=== PATIENT | female | born 1990 | race Caucasian/White ===

== ENCOUNTER 2016-09-15 13:19 | Observation (INO) | payer BC ==
--- NOTE | 2016-09-15 13:25 | EDM.PDOC ---
ED HPI GENERAL MEDICAL PROBLEM - General Stated Complaint: SEIZURE Time Seen by Provider: 09/15/16 13:24 Source of Information: Reports: Patient, EMS History Limitations: Reports: No Limitations - History of Present Illness INITIAL COMMENTS - FREE TEXT/NARRATIVE: 25 yo F with past medical history as listed in her chart. Was brought to the ER by the EMS after a reported seixure activity. Patient reports that she has been compliant with her anti seizure medications. Does not recall her last episode of seizure before today. Reports mild headache but denied any fever, chills, abdominal pain, neck pain or h/o Trauma Onset: Today Onset Date: 09/15/16 Duration: Day(s): (occurred earlier today) Worsens with: Reports: None Associated Symptoms: Reports: No Other Symptoms neck Pain Score (Numeric/FACES): 9 - Related Data Allergies Allergy/AdvReac Type Severity Reaction Status Date / Time amoxicillin [From Augmentin] Allergy Cannot Verified 09/15/16 13:37 Remember clavulanic acid Allergy Cannot Verified 09/15/16 13:37 [From Augmentin] Remember hydromorphone [From Dilaudid] Allergy Cannot Verified 09/15/16 13:37 Remember hydroxyzine [From Vistaril] Allergy Cannot Verified 09/15/16 13:37 Remember lactose Allergy Cannot Verified 09/15/16 13:37 Remember latex Allergy Cannot Verified 09/15/16 13:37 Remember povidone-iodine Allergy Cannot Verified 09/15/16 13:37 Remember Home Meds: Home Meds Benzonatate 1 cap PO TID 09/15/16 [History] Hyoscyamine [Hyomax-SL] 1 tab PO TID 09/15/16 [History] Levonorgestrel-Ethin Estradiol [Chelsey-28 Tablet] 1 tab PO DAILY 09/15/16 [ History] Levothyroxine 1 tab PO DAILY 09/15/16 [History] Minocycline [Minocin] 1 cap PO BID 09/15/16 [History] Montelukast [Singulair] 1 tab PO ASDIRECTED 09/15/16 [History] Pantoprazole Sodium [Protonix] 1 tab PO DAILY 09/15/16 [History] Potassium Chloride [Klor-Con M20] 1 tab PO DAILY 09/15/16 [History] Pregabalin [Lyrica] 1 cap PO TID 09/15/16 [History] Zolpidem Tartrate [Ambien] 1 tab PO ASDIRECTED 09/15/16 [History] lamoTRIgine [Lamotrigine] 1 tab PO BID 09/15/16 [History] levETIRAcetam [Keppra] 2 tab PO BID 09/15/16 [History] ED ROS GENERAL - Review of Systems Review Of Systems: See Below Constitutional: Reports: Weakness HEENT: Reports: No Symptoms Respiratory: Reports: No Symptoms Cardiovascular: Reports: No Symptoms Endocrine: Reports: No Symptoms GI/Abdominal: Reports: No Symptoms : Reports: No Symptoms Musculoskeletal: Reports: No Symptoms Skin: Reports: No Symptoms Neurological: Reports: Seizure Psychiatric: Reports: No Symptoms Hematologic/Lymphatic: Reports: No Symptoms Immunologic: Reports: No Symptoms ED EXAM, NEURO - Physical Exam Exam: See Below Exam Limited By: No Limitations General Appearance: Alert, WD/WN, No Apparent Distress Eye Exam: Bilateral Eye: EOMI, PERRL Ears: Normal External Exam, Normal Canal, Hearing Grossly Normal, Normal TMs Nose: Normal Inspection, Normal Mucosa Throat/Mouth: Normal Inspection, Normal Lips, Normal Teeth, Normal Gums, Normal Oropharynx, No Airway Compromise Head Exam: Atraumatic, Normocephalic Neck: Normal Inspection, Supple, Non-Tender, Full Range of Motion Respiratory/Chest: No Respiratory Distress, Lungs Clear, Normal Breath Sounds, No Accessory Muscle Use, Chest Non-Tender Cardiovascular: Normal Peripheral Pulses, Regular Rate, Rhythm, No Edema, No Gallop, No JVD GI/Abdominal: Normal Bowel Sounds, Soft, Non-Tender, No Organomegaly, No Distention Neurological: Alert, Normal Mood/Affect, Normal Dorsiflexion, CN II-XII Intact, Normal Plantar Flexion Back Exam: Normal Inspection, Full Range of Motion Extremities: Normal Inspection, Normal Range of Motion, Non-Tender, No Pedal Edema, Normal Capillary Refill Psychiatric: Normal Affect, Normal Mood Skin Exam: Warm, Dry, Intact, Normal Color Course - Vital Signs Text/Narrative:: While in the ER,Patient had a generalized tonic - clonic seizure that aborted with iv Ativan 2mg x 1. Keppra IV 500 MG X [address] head -- showed no acute intra cranial pathology. I believe she will benefit from admission. Case d/w Dr. Winston -- who graciously admitted patient for further evaluation. Last Recorded V/S: Last Vital Signs Temp 37.3 C 09/15/16 13:31 Pulse 106 H 09/15/16 15:47 Resp 16 09/15/16 15:47 BP 141/110 H 09/15/16 15:47 Pulse Ox 97 09/15/16 15:47 - Orders/Labs/Meds Orders: Active Orders 24 hr Category Date Time Status Patient Status Manage Transfer [TRANSFER] Routine ADT 09/15/16 16:02 Ordered Cardiac Monitoring [RC] .As Directed Care 09/15/16 16:02 Ordered KEPPRA [REF] Stat Lab 09/15/16 13:50 Received UA W/MICROSCOPIC [URIN] Stat Lab 09/15/16 13:34 Uncollected Sodium Chloride 0.9% [Normal Saline] 1,000 ml Med 09/15/16 13:45 Active IV ASDIRECTED Medication Orders Sodium Chloride (Normal Saline) 1,000 mls @ 150 mls/hr IV ASDIRECTED GERRY Last Admin: 09/15/16 14:13 Dose: 150 mls/hr Labs: Laboratory Tests 09/15/16 09/15/16 Range/Units 13:50 13:50 WBC 12.6 H (4.5-12.0) X10-3/uL RBC 5.25 H (3.23-5.20) x10(6)uL Hgb 15.5 (11.5-15.5) g/dL Hct 46.4 (30.0-51.3) % MCV 88.4 (80-96) fL MCH 29.5 (27.7-33.6) pg MCHC 33.4 (32.2-35.4) g/dL RDW 12.1 (11.5-15.5) % Plt Count 283 (125-369) X10(3)uL MPV 9.0 (7.4-10.4) fL Add Manual Diff Yes Neutrophils % (Manual) 81 (46-82) % Lymphocytes % (Manual) 17 (13-37) % Monocytes % (Manual) 2 L (4-12) % Sodium 139 (135-145) mmol/L Potassium 4.0 (3.5-5.3) mmol/L Chloride 106 (100-110) mmol/L Carbon Dioxide 21 L (23-29) mmol/L BUN 10 (5-20) mg/dL Creatinine 0.8 (0.6-1.3) mg/dL Est Cr Clr Drug Dosing 102.39 mL/min Estimated GFR (MDRD) > 60 (>60) BUN/Creatinine Ratio 12.5 (9-20) Glucose 151 H (80-116) mg/dL Calcium 9.8 (8.6-10.2) mg/dL Total Bilirubin 0.6 (0.1-1.3) mg/dL AST 29 H (5-27) IU/L ALT 20 (14-26) IU/L Alkaline Phosphatase 115 H (56-112) IU/L Total Protein 7.3 (6.0-8.0) g/dL Albumin 4.3 (3.5-5.2) g/dL Globulin 3.0 g/dL Albumin/Globulin Ratio 1.4 Meds: Medications Generic Name Dose Route Start Last Admin Trade Name Freq PRN Reason Stop Dose Admin Sodium Chloride 1,000 mls @ 150 mls/hr 09/15/16 13:45 09/15/16 14:13 Normal Saline IV 150 mls/hr ASDIRECTED GERRY Administration Discontinued Medications Generic Name Dose Route Start Last Admin Trade Name Freq PRN Reason Stop Dose Admin Levetiracetam 500 mg/ Sodium 105 mls @ 400 mls/hr 09/15/16 14:37 09/15/16 14: 50 Chloride IV 09/15/16 14:51 400 mls/hr ONETIME ONE Administration Lorazepam 2 mg 09/15/16 14:36 09/15/16 14:39 Ativan IVPUSH 09/15/16 14:37 2 mg ONETIME ONE Administration Lorazepam Confirm 09/15/16 14:35 09/15/16 15:43 Ativan Administered 09/15/16 14:36 Not Given Dose 2 mg .ROUTE .STK-MED ONE Ondansetron HCl 4 mg 09/15/16 14:11 09/15/16 14:39 Zofran IVPUSH 09/15/16 14:12 4 mg ONETIME ONE Administration Departure - Departure Time of Disposition: 16:10 Disposition: Refer to Observation Condition: Good Clinical Impression: Generalized convulsive epilepsy - Discharge Information Instructions: Epilepsy, [id number] - My Orders Last 24 Hours: My Active Orders 09/15/16 13:34 UA W/MICROSCOPIC [URIN] Stat 09/15/16 13:45 Sodium Chloride 0.9% [Normal Saline] 1,000 ml IV ASDIRECTED 09/15/16 13:50 KEPPRA [REF] Stat 09/15/16 16:02 Patient Status Manage Transfer [TRANSFER] Routine Cardiac Monitoring [RC] .As Directed - Assessment/Plan Last 24 Hours: My Active Orders 09/15/16 13:34 UA W/MICROSCOPIC [URIN] Stat 09/15/16 13:45 Sodium Chloride 0.9% [Normal Saline] 1,000 ml IV ASDIRECTED 09/15/16 13:50 KEPPRA [REF] Stat 09/15/16 16:02 Patient Status Manage Transfer [TRANSFER] Routine Cardiac Monitoring [RC] .As Directed
[2016-09-15] MEDS ORDERED: Sodium Chloride 0.9% 1,000 ML IV SCH (13:45)
[2016-09-15] MEDS ORDERED: Ondansetron 4 MG/2 ML SDV IVPUSH ONE (14:11)
[2016-09-15] MEDS ORDERED: LORazepam 2 MG/ML MDV ONE (14:35)
[2016-09-15] MEDS ORDERED: LORazepam 2 MG/ML MDV IVPUSH ONE (14:36)
[2016-09-15] MEDS ORDERED: levETIRAcetam 500 MG in Sodium Chloride 0.9% 100 ML IV ONE (14:37)
--- NOTE | 2016-09-15 16:05 | CT ---
INDICATION: Seizure. CT HEAD WITHOUT CONTRAST: Serial contiguous 2.5 and 5-mm sections were obtained through the brain without contrast and then repeated due to motion. Date of the exam is 09/15/2016. The study was compared with 08/14/[address] examinations. Total Exam DLP = 1898.72 mGy-cm. The skull appears to be intact. Paranasal and mastoid air cells appear to be well aerated. No shift of midline structures, ventricular abnormalities, or abnormal areas of density could be identified. No bleeding site or hematoma was seen. IMPRESSION: Normal CT brain without contrast. No significant interval change compared with 08/14/2016 or 03/29/2011 examinations. Report was called to Yoandy Tejada MD, at 1544 hours, 09/15/2016. MTDD
[2016-09-15] MEDS ORDERED: Ondansetron 4 MG/2 ML SDV IVPUSH PRN (16:26)
[2016-09-15] MEDS ORDERED: LORazepam 2 MG/ML MDV IVPUSH PRN (17:08)
[2016-09-15] MEDS ORDERED: Zolpidem 5 MG Tab PO PRN (21:00)
[2016-09-15] MEDS ORDERED: Montelukast 10 MG Tab PO SCH (21:00)
[2016-09-15] MEDS ORDERED: Acetaminophen 325 MG Tab PO PRN (21:07)
[2016-09-15] MEDS: levETIRAcetam 500 MG Tab PO SCH (21:22)
[2016-09-15] MEDS: lamoTRIgine 100 MG Tab PO SCH (21:22)
[2016-09-15] MEDS: Hyoscyamine 0.125 MG Tab.SL PO SCH (21:22)
[2016-09-15] MEDS: Benzonatate 100 MG Cap PO SCH (21:23)
[2016-09-15] MEDS: Pregabalin 75 MG Cap PO SCH (21:23)
[2016-09-16] MEDS ORDERED: Pantoprazole 40 MG Tab.CR PO SCH (07:30)
[2016-09-16 08:11] VITALS: BP_SYST 67
[2016-09-16] MEDS: Levothyroxine 25 MCG Tab PO SCH ×2 (08:11→09:04)
[2016-09-16] MEDS ORDERED: ADVAIR INH SCH (09:00)
[2016-09-16] MEDS ORDERED: Potassium Chloride 20 MEQ Tab.ER PO SCH (09:00)
[2016-09-16] MEDS ORDERED: LEVONORGESTREL ETHIN ESTRADIOL PO SCH (09:00)
[2016-09-16] MEDS ORDERED: Levothyroxine 25 MCG Tab PO SCH (09:00)
[2016-09-16] MEDS ORDERED: Enoxaparin 40 MG/0.4 ML Syringe SUBCUT SCH (09:00)
[2016-09-16] MEDS: levETIRAcetam 500 MG Tab PO SCH (09:04)
[2016-09-16] MEDS: lamoTRIgine 100 MG Tab PO SCH (09:05)
[2016-09-16] MEDS: Pregabalin 75 MG Cap PO SCH (09:12)
[2016-09-16] MEDS: Hyoscyamine 0.125 MG Tab.SL PO SCH (09:22)
--- NOTE | 2016-09-16 11:02 | PN ---
DATE SEEN: 09/16/2016 SUBJECTIVE: Lorenzo is a 25-year-old female, a [place] resident, who was admitted with an acute confirmed seizure event, second ocurrence in the emergency room, and treated with a dose of IV Keppra and Ativan. She has had an uneventful night. Up ambulating, active, appropriate. No recurrence of seizure. She is anxious to go home. Again, anticonvulsant levels are pending. OBJECTIVE: VITAL SIGNS: Stable. 36.8, 74 is the pulse, blood pressure 132/87, mean blood pressure 97, respirations 16, O2 saturation 98% on room air. GENERAL: Speech is fluent. Soft spoken. NECK: Benign. Thyroid small. CHEST: Clear in all lung mitchell. HEART: Regular without ectopy or murmur. EXTREMITIES: Well perfused, no decreased range of motion or loss of strength. ASSESSMENT: Recurrent seizures. PLAN: Medications on board, has been on Topamax in the past, has not been on Dilantin or any other anticonvulsants. We will defer intervention to her primary neurologist, Dr. Sullivan. She was discharged home with recommendations and care above, risk of fall or injury, safe home environment, close observation by her aunt.. Will make an appointment with Dr. Adi Sullivan sometime in the near future. /[id number] /KELLY CC: Dr. Adi Slulivan, [facility]
[2016-09-16] MEDS: Benzonatate 100 MG Cap PO SCH (11:36)
--- NOTE | 2016-09-17 10:59 | HP ---
ADMISSION DATE: 09/15/2016 REASON FOR VISIT: Seizure at home. HISTORY OF PRESENT ILLNESS: Lorenzo Martinez is a 25-year-old single female from [place], who was transferred by ambulance to [facility]. She lives with her aunt in our community. Her aunt heard a tumble, a little fall in the bathroom, attended to her in a short time, and she was postictal, having had a seizure in the room. Lorenzo has had a seizure disorder dating back to age 19, being followed by Dr. Sullivan, neurologist, [facility] in [place]. Return to work recently has exacerbated her seizure activity. She has had 4 within the last month of August and in the end of July. They are major motor seizures usually brief in duration, but she has had "one seizure for 13 minutes". She was seen at [facility], a second seizure occurred, she was loaded with Keppra 500 mg and Ativan intravenously, seizure abated. She was admitted to the hospital for observation and treatment. Present medications include Tessalon Perles 100 mg t.i.d. p.r.n., hyoscyamine 0.125 mg t.i.d. p.r.n. for irritable bowel, lamotrigine 150 mg b.i.d. for seizures, Keppra 2000 mg b.i.d. for seizures, oral contraceptives for period control, levothyroxine 25 mcg one p.o. daily for hypothyroidism, minocycline 100 mg one p.o. b.i.d. adult acne, Singulair 10 mg one p.o. at bedtime for reactive airway disease, Protonix 40 mg once daily for GERD, potassium chloride 20 mEq daily for hypokalemia, Lyrica 150 mg t.i.d. for fibromyalgia, and Ambien 5 mg at bedtime for sleep. ALLERGIES: She is allergic to amoxicillin, clavulanic acid from Augmentin, hydromorphone (Dilaudid, hydroxyzine), Vistaril, lactose, latex, and povidone/iodine; reactions unknown. PAST MEDICAL HISTORY: Significant for T and A as a child, laparoscopic cholecystectomy, and two previous complicated foot surgeries. Chronic illnesses include irritable bowel syndrome, reactive airway disease, gastroesophageal reflux, and asthma, along with fibromyalgia. No other operative procedures, hospitalizations, unusual childhood diseases, major injuries, or fractures. SOCIAL HISTORY: Originally from the state of [place], most recently lived in [place] with her mom. Her mom unexpectedly at age 47 of suspected coronary event. She is now living with her aunt in [place]. She is single, no children, nonsmoker, no alcohol consumption, or no illicit drug use. REVIEW OF SYSTEMS: GENERAL: Feeling generally well. Little bit fatigued and tired. EYES: Sees well. EARS: Hears well. OROPHARYNX: Dentition intact. CHEST: No cough, wheeze, or congestion. CARDIOVASCULAR: Denies chest pain, palpitations, or syncope. GASTROINTESTINAL: Regular predictable stools, some irritable bowel symptoms and intermittent cramping and diarrhea. GENITOURINARY: Good voiding pattern. No blood in urine. SKIN: No new lesions, eruptions or moles. ENDOCRINE: No excessive thirst, urination. ALLERGIES: No chronic cough, wheeze, or congestion. PSYCHIATRIC: Mood stable. NEUROLOGIC: Seizure disorder. PHYSICAL EXAMINATION: VITAL SIGNS: Temperature 36.9, 96 is the pulse, blood pressure 130/86, mean blood pressure 100, respirations 20, and O2 saturation 98%. GENERAL: A cooperative, conversant, appropriate and aware and wakeful at time of my examination. HEENT: Funduscopic benign. Bright TMs. Clear nasal discharge. Mouth and oropharynx clear. Good gag reflex. Tongue midline. No tongue injury. NECK: Benign. Thyroid small. CHEST: Clear in all lung mitchell. No adventitious sounds. HEART: Regular without ectopy or murmur. BREAST: Exam deferred. ABDOMEN: Benign. Right upper quadrant cholecystectomy scar well healed. Moderately obese. GENITOURINARY AND RECTAL: Appropriately deferred. EXTREMITIES: Well perfused. Reflex symmetric. Sensation intact. NEUROLOGIC: Cranial nerves 2 through 12 are intact. Speech is fluent. Gait and station are unremarkable. LABORATORY STUDIES: White count 12,600, hemoglobin 15.5, hematocrit 46.4, and normal differential. Electrolytes satisfactory, random glucose 151. IV is in place. Mildly elevated AST 29, ALT 20, alkaline phosphatase 115. Urine was bloody, menses in place. Lamictal and Keppra level sent to outreach lab. ASSESSMENT: Recurrent seizures, history of longstanding, reasonable control, less controlled the last month's duration. PLAN: We will admit her for observation, treatment, and intervention of any seizures that may recur in the next 24 hours. Again anticonvulsant levels are sent off to a resource lab in the [facility]. Observation through the night. /[id number] [place]/KELLY CC: Dr. Adi Sullivan, [facility]
--- NOTE | 2016-09-17 11:43 | DISCH ---
DISCHARGE DATE: 09/16/2016 DISCHARGE DIAGNOSIS: Acute self-limiting seizure x2, underlying seizure disorder. HOSPITAL COURSE: Lorenzo Martinez is a 25-year-old single female, who was admitted through [facility]. She had a near witnessed seizure at home and recurrence in the ER. She was given intravenous Keppra and Ativan with resolution of seizures. She was observed overnight with no complicating issue. Laboratory studies were all satisfactory, her 2 anticonvulsant levels, Keppra and lamotrigine levels, have been forwarded to a reference laboratory from [facility] to [facility]. Not available at the time of discharge. DISPOSITION: At the time of discharge, she was comfortable, ambulating, and eating without complicating issues. She was discharged home on same medications. FOLLOWUP: She will follow up through [facility] phone nurse at [place], accessing her drug levels as they become available later in the week or first part of the week. They then can be forwarded to Dr. Sullivan for adjustment of medications or changes. I did encourage her to get an appointment with Dr. Sullivan sometime in the near future, Neurology [facility]. /[id number] /KELLY CC: Dr. Adi Sullivan, [facility]
== END 2016-09-16 11:25 | disposition home or self-care (01) ==
LOC: FB.ED 13:19 → FB.ICU 16:02
PROVIDERS: ADMIT Internal Medicine; ATTEND Family Medicine
DX: G40.909 Epilepsy, unspecified, not intractable, without status epilepticus (principal); J45.909 Unspecified asthma, uncomplicated; K21.9 Gastro-esophageal reflux disease without esophagitis; Z88.1 Allergy status to other antibiotic agents; Z88.8 Allergy status to other drugs, medicaments and biological substances; Z91.040 Latex allergy status; Z90.49 Acquired absence of other specified parts of digestive tract; Z79.899 Other long term (current) drug therapy
CPT/HCPCS: 36415; 70450; 80053; 80175; 80177; 81001; 84443; 85025; 96361; 96374; 96375; 99284; A9270; J1953; J2060; J2405; J7030; J7040; 96365; 99217; 99219; 99285; G0378

== ENCOUNTER 2016-10-30 16:48 | Emergency (ER) | payer BC ==
--- NOTE | 2016-10-30 18:41 | EDM.PDOC ---
ED HPI GENERAL MEDICAL PROBLEM - General Chief Complaint: Neuro Symptoms/Deficits Stated Complaint: HAD A SEIZURE Time Seen by Provider: 10/30/16 16:59 Source of Information: Reports: Patient History Limitations: Reports: No Limitations, Physical Impairment (morbid obese) - History of Present Illness INITIAL COMMENTS - FREE TEXT/NARRATIVE: 25 y.o.w.yaneth came to the ed because she thinks she had a seizure. Pt is on Kappra. She was watching TV, fell a sleep and woke up and somebody told her she had a seizure. No tongue bite, no spont urination, no postictal symptoms. As per aunt, who was called, did not observe Tonic clonic movement. Pt's only complaint was, minor discomfort r joseph. Dysuria? Onset: Unknown/Unsure Onset Date: 10/30/16 Onset Time: 12:00 Duration: Hour(s): Location: Reports: Head Quality: Reports: Dull Severity: Mild Improves with: Reports: None Worsens with: Reports: None Context: Reports: Other (?) Associated Symptoms: Reports: No Other Symptoms Headache Pain Score (Numeric/FACES): 9 - Related Data Allergies Allergy/AdvReac Type Severity Reaction Status Date / Time amoxicillin [From Augmentin] Allergy Cannot Verified 10/30/16 16:54 Remember clavulanic acid Allergy Cannot Verified 10/30/16 16:54 [From Augmentin] Remember hydromorphone [From Dilaudid] Allergy Cannot Verified 10/30/16 16:54 Remember hydroxyzine [From Vistaril] Allergy Cannot Verified 10/30/16 16:54 Remember lactose Allergy Cannot Verified 10/30/16 16:54 Remember latex Allergy Cannot Verified 10/30/16 16:54 Remember povidone-iodine Allergy Cannot Verified 10/30/16 16:54 Remember Home Meds: Home Meds Benzonatate 100 mg PO TID PRN 09/15/16 [History] Hyoscyamine [Hyomax-SL] 0.125 mg PO BID 09/15/16 [History] Levonorgestrel-Ethin Estradiol [Mak[place]eli-28 Tablet] 1 tab PO DAILY 09/15/16 [ History] Levothyroxine 12.5 mcg PO DAILY 09/15/16 [History] Minocycline [Minocin] 100 mg PO BID 09/15/16 [History] Montelukast [Singulair] 10 mg PO DAILY 09/15/16 [History] Pantoprazole Sodium [Protonix] 40 mg PO DAILY 09/15/16 [History] Potassium Chloride [Klor-Con M20] 20 meq PO DAILY 09/15/16 [History] Pregabalin [Lyrica] 150 mg PO BID 09/15/16 [History] Zolpidem Tartrate [Ambien] 5 mg PO BEDTIME PRN 09/15/16 [History] lamoTRIgine [Lamotrigine] 150 mg PO BID 09/15/16 [History] levETIRAcetam [Keppra] 2,000 mg PO BID 09/15/16 [History] Albuterol [Ventolin HFA] 1 - 2 puff IH Q4H PRN 09/16/16 [History] Doxepin [SINEquan] 100 mg PO BEDTIME 09/16/16 [History] Fluticasone/Salmeterol [Advair Diskus 100-50] 1 puff IH BID 09/16/16 [History] Milnacipran HCl [Savella] 100 mg PO BID 09/16/16 [History] Ondansetron [Ondansetron ODT] 8 mg PO Q8H PRN 09/16/16 [History] Ciprofloxacin HCl [Cipro] 500 mg PO BID #20 tablet 10/30/16 [Rx] Past Medical History Respiratory History: Reports: Asthma, Sleep Apnea Genitourinary History: Reports: UTI, Recurrent Other Genitourinary History: hx of UTIs Musculoskeletal History: Reports: Other (See Below) Other Musculoskeletal History: herniated disc, DJD lower back Neurological History: Reports: Seizure Psychiatric History: Reports: Depression Endocrine/Metabolic History: Reports: Hypothyroidism, Other (See Below) Other Endocrine/Metabolic History: hypoglycemic - Past Surgical History HEENT Surgical History: Reports: Tonsillectomy, Other (See Below) Other HEENT Surgeries/Procedures: uvula reconstructed Respiratory Surgical History: Reports: None GI Surgical History: Reports: Cholecystectomy Endocrine Surgical History: Reports: None Neurological Surgical History: Reports: None Musculoskeletal Surgical History: Reports: None Social & Family History - Tobacco Use Smoking Status *Q: Never Smoker Second Hand Smoke Exposure: No - Caffeine Use Caffeine Use: Reports: Coffee, Soda - Alcohol Use Days Per Week of Alcohol Use: 0 - Recreational Drug Use Recreational Drug Use: No ED ROS GENERAL - Review of Systems Review Of Systems: See Below Constitutional: Reports: No Symptoms HEENT: Reports: No Symptoms Respiratory: Reports: No Symptoms Cardiovascular: Reports: No Symptoms Endocrine: Reports: No Symptoms GI/Abdominal: Reports: No Symptoms : Reports: No Symptoms Musculoskeletal: Reports: No Symptoms Skin: Reports: No Symptoms Neurological: Reports: No Symptoms Psychiatric: Reports: No Symptoms Hematologic/Lymphatic: Reports: No Symptoms Immunologic: Reports: No Symptoms ED EXAM, NEURO - Physical Exam Exam: See Below Exam Limited By: Physical Impairment (morbid obese) General Appearance: Alert, WD/WN, No Apparent Distress, Obese (morbid) Eye Exam: Bilateral Eye: Normal Inspection Ears: Normal External Exam Nose: Normal Inspection, Normal Mucosa Throat/Mouth: Normal Inspection, Normal Lips Head Exam: Atraumatic, Normocephalic Neck: Normal Inspection, Supple, Non-Tender Respiratory/Chest: No Respiratory Distress, Lungs Clear, Normal Breath Sounds Cardiovascular: Normal Peripheral Pulses, Regular Rate, Rhythm GI/Abdominal: Normal Bowel Sounds, Soft, Non-Tender (Female) Exam: Deferred Rectal (Female) Exam: Deferred Neurological: Alert, Normal Mood/Affect, Normal Dorsiflexion, CN II-XII Intact, Normal Plantar Flexion, Normal Gait Back Exam: Normal Inspection, Full Range of Motion Extremities: Normal Inspection, Normal Range of Motion Psychiatric: Depressed Mood Skin Exam: Warm, Dry, Intact, Normal Color, No Rash Course - Vital Signs Text/Narrative:: 25 y.o.w.f came to the ed because she thinks she had a seizure. Pt is on Kappra. She was watching TV, fell a sleep and woke up and somebody told her she had a seizure. No tongue bite, no spont urination, no postictal symptoms. As per aunt, who was called, did not observe Tonic clonic movement. Pt's only complaint was, minor discomfort r joseph. Dysuria? PE: Morbid obese, tension headache, minor. Labs: UTI CBC/BMP wnl Impression: Morbid obese, tension headache, minor. depressed mood Tx: Observation, Cipro Reexam; Pt was ambulating, not suicidal Plan: D/C with instructions Last Recorded V/S: Last Vital Signs Temp 37.2 C 10/30/16 16:59 Pulse 114 H 10/30/16 16:59 Resp 20 10/30/16 16:59 BP 153/105 H 10/30/16 16:59 Pulse Ox 99 10/30/16 16:59 - Orders/Labs/Meds Orders: Active Orders 24 hr Category Date Time Status KAPPA LAMBDA FREE LIGHT CHAIN [REF] Stat Lab 10/30/16 17:11 Stop Req Labs: Laboratory Tests 10/30/16 10/30/16 10/30/16 Range/Units 17:25 17:25 18:11 WBC 11.7 (4.5-12.0) X10-3/uL RBC 4.75 (3.23-5.20) x10(6)uL Hgb 14.6 (11.5-15.5) g/dL Hct 42.5 (30.0-51.3) % MCV 89.5 (80-96) fL MCH 30.8 (27.7-33.6) pg MCHC 34.4 (32.2-35.4) g/dL RDW 12.4 (11.5-15.5) % Plt Count 320 (125-369) X10(3)uL MPV 8.3 (7.4-10.4) fL Neut % (Auto) 71.8 (46-82) % Lymph % (Auto) 20.4 (13-37) % [place] % (Auto) 6.2 (4-12) % Eos % (Auto) 1 (1.0-5.0) % Baso % (Auto) 0 (0-2) % Neut # (Auto) 8.5 H (1.6-8.3) # Lymph # (Auto) 2.4 (0.6-5.0) # [place] # (Auto) 0.7 (0.0-1.3) # Eos # (Auto) 0.1 (0.0-0.8) # Baso # (Auto) 0.0 (0.0-0.2) # Sodium 140 (135-145) mmol/L Potassium 3.5 (3.5-5.3) mmol/L Chloride 106 (100-110) mmol/L Carbon Dioxide 26 (23-29) mmol/L BUN 12 (5-20) mg/dL Creatinine 0.8 (0.6-1.3) mg/dL Est Cr Clr Drug Dosing 106.36 mL/min Estimated GFR (MDRD) > 60 (>60) BUN/Creatinine Ratio 15.0 (9-20) Glucose 98 (80-116) mg/dL Calcium 9.0 (8.6-10.2) mg/dL Urine Color Yellow (YELLOW) Urine Appearance Slightly cloudy (CLEAR) Urine pH 5.0 (5.0-6.5) Ur Specific [place] 1.015 (1.010-1.025) Urine Protein Negative (NEGATIVE) mg/dL Urine Glucose (UA) Normal (NEGATIVE) mg/dL Urine Ketones Negative (NEGATIVE) mg/dL Urine Occult Blood Negative (NEGATIVE) Urine Nitrite Negative (NEGATIVE) Urine Bilirubin Negative (NEGATIVE) Urine Urobilinogen Normal (NEGATIVE) mg/dL Ur Leukocyte Esterase Small H (NEGATIVE) Urine RBC 0-5 (0) Urine WBC 5-10 (0) Ur Squamous Epith Cells Moderate H (NS,R,O) Urine Bacteria Few H (NS) Meds: Medications Discontinued Medications Generic Name Dose Route Start Last Admin Trade Name Gabo PRN Reason Stop Dose Admin Ciprofloxacin 500 mg 10/30/16 18:57 10/30/16 19:02 Ciprofloxacin Hcl PO 10/30/16 18:58 500 mg ONETIME ONE Administration Departure - Departure Time of Disposition: 18:59 Disposition: Home, Self-Care 01 Condition: Good Clinical Impression: Depressed affect UTI (urinary tract infection) Qualifiers: Urinary tract infection type: acute cystitis Hematuria presence: without hematuria Qualified Code(s): N30.00 - Acute cystitis without hematuria - Discharge Information Prescriptions: Ciprofloxacin HCl [Cipro] 500 mg PO BID #20 tablet Referrals: Susanna Babcock [employer]IATE [Primary Care Provider] - Forms: ED Department Discharge Additional Instructions: Please take the meds as recommended, please f/u with your PMD, please come back if your symptoms get worse acutely - My Orders Last 24 Hours: My Active Orders 10/30/16 17:11 KAPPA LAMBDA FREE LIGHT CHAIN [REF] Stat - Assessment/Plan Last 24 Hours: My Active Orders 10/30/16 17:11 KAPPA LAMBDA FREE LIGHT CHAIN [REF] Stat
[2016-10-30] MEDS ORDERED: Ciprofloxacin 500 MG Tab PO ONE (18:57)
[2016-10-30 19:17] VITALS: BP 140/107
== END 2016-10-30 19:10 | disposition home or self-care (01) ==
LOC: FB.ED 16:48
DX: N30.00 Acute cystitis without hematuria (principal); F32.9 Major depressive disorder, single episode, unspecified; G44.209 Tension-type headache, unspecified, not intractable; E66.01 Morbid (severe) obesity due to excess calories; Z68.33 Body mass index [BMI] 33.0-33.9, adult; E03.9 Hypothyroidism, unspecified; Z88.1 Allergy status to other antibiotic agents; Z91.040 Latex allergy status; Z91.011 Allergy to milk products; Z91.041 Radiographic dye allergy status; Z87.440 Personal history of urinary (tract) infections; Z90.89 Acquired absence of other organs
CPT/HCPCS: 36415; 80048; 81001; 85025; 99284; A9270

== ENCOUNTER 2017-04-15 18:47 | Emergency (ER) | payer BC, MEDICAID ==
[2017-04-15 20:32] VITALS: BP 138/98
[2017-04-15] MEDS ORDERED: levETIRAcetam 500 MG Tab PO SCH (21:00)
--- NOTE | 2017-04-19 12:00 | ER ---
DATE SEEN: 04/15/2017 TIME SEEN: This 26-year-old was seen at 1730 hours. HISTORY OF PRESENT ILLNESS: She states that she was strolling with her friend and she had a seizure. She knows that she did not stop breathing. She started staring ahead. She was standing, did not fall down. Did not lose urine. CURRENT MEDICATIONS: Keppra 2000 mg b.i.d. and lamotrigine 150 mg b.i.d. She sees a neurologist at Dr. Sullivan at [place]. Has not seen him from at least 6-7 months. PAST MEDICAL HISTORY: History of asthma, migraines, hypertension, obesity 260 pounds. FAMILY HISTORY: Mother of cardiac arrest at age 46. Father is alive, well. The patient recently was treated for urinary tract infection, started on Cipro yesterday after having been seen at [facility]. She denies diabetes. She did not have urinary incontinence with this episode. Not coughing. No shortness of breath. She started staring straight ahead and did not have any tonic-clonic activity. No tongue biting. Headache. No neck pain. No muscle pain. No jaw pain. No compromise of vision. CURRENT ALLERGIES: Amoxicillin, Augmentin, Dilaudid, hydroxyzine, lactose, latex, Povidone-iodine. CURRENT MEDICATIONS: Albuterol, ciprofloxacin, lamotrigine, Keppra. OTHER HISTORY: Depression. REVIEW OF SYSTEMS: Review of systems otherwise negative except those noted above. PHYSICAL EXAMINATION: VITAL SIGNS: Blood pressure 178/93 later it came down to 138/98 about 50 minutes later, heart rate 97, respirations 16, oxygen saturation 100%, temperature 35.9 degrees centigrade. GENERAL: The patient wearing glasses. She is overweight. Communicative. HEENT: Denies headache. PERRLA intact. Eye grounds normal. No dysconjugate gaze. TMs normal appearance. Pharynx without abnormality. No tongue biting noted. No glossal injury. NECK: Supple. No bruits. No masses. No thyromegaly. LUNGS: Clear without rales or rhonchi. HEART: S1, S2. No murmur. ABDOMEN: Soft. No guarding. No abdominal discomfort. Increased abdominal girth noted. EXTREMITIES: Without abnormality. Deep tendon reflexes normal in upper and lower extremities. Cranial nerves 2 through 12 intact. Oriented x3. Gait intact. No pronator drift. No dysmetria. No tremor. No rigidity. EMERGENCY DEPARTMENT COURSE: While I was talking she started talking. She stopped talking, would stare ahead, this was associated with her left leg flexion, intermittent movement in the knee and kicking her legs back and forth as if she was pushing herself in water from the bridge. This lasted for about 32 seconds then relented. No lab work was done. ASSESSMENT: 1. The patient is compliant with her medicines. 2. In addition to her seizures, she has absence seizure. Additional dose of Keppra 500 mg was given orally. The patient observed for an hour. She did not have any further absence seizure. The patient dismissed to follow up with doctor as needed otherwise in a week. If she has recurrent persistent episodes such as this, she is to see Dr. Sullivan earlier. The patient not to drive and to limit her activity. The patient was seen at 1730 hours. /[id number] DESHAWN/KELLY
== END 2017-04-15 20:30 | disposition home or self-care (01) ==
LOC: FB.ED 18:47
DX: R56.9 Unspecified convulsions (principal); J45.909 Unspecified asthma, uncomplicated; I10 Essential (primary) hypertension; E66.9 Obesity, unspecified; Z79.899 Other long term (current) drug therapy; Z68.41 Body mass index [BMI] 40.0-44.9, adult
CPT/HCPCS: 99283; A9270

== ENCOUNTER 2017-04-23 21:17 | Emergency (ER) | payer BC, MEDICAID ==
[2017-04-23] MEDS ORDERED: Ketorolac 60 MG/2 ML SDV IM ONE (21:34)
--- NOTE | 2017-04-24 00:48 | ER ---
DATE SEEN: 04/23/2017 REASON FOR VISIT: Pain in foot. HISTORY OF PRESENT ILLNESS: This is a 26-year-old who tripped yesterday and fell, complains of right foot pain, moderate to severe, unable to bear weight. Also, had hit her back, but did not pass out or hit the head. REVIEW OF SYSTEMS: Denies any fever or chills, chest pain or shortness of breath, headache, nausea or vomiting. PAST MEDICAL HISTORY: Seizure disorder. CURRENT MEDICATIONS: She is on several medications. Please see the nurse's notes. ALLERGIES: Reviewed. PHYSICAL EXAMINATION: GENERAL: She is very anxious, tearful. VITAL SIGNS: Pulse 123, temperature 98.4, and blood pressure is 129/60. HEAD: Normocephalic with no signs of trauma. NECK: No tenderness to the cervical spine. Full range of motion. CHEST: Clear. MENTAL STATUS: Tearful, anxious. MUSCULOSKELETAL: Revealed tenderness on the right foot, but no obvious swelling or signs of trauma. Peripheral pulses are present. IMAGING: X-ray was negative. IMPRESSION: Sprain, foot. PLAN: Ketorolac 60 mg IM. To ice, elevation and rest. Follow up p.r.n. TIME SEEN: 2200 hours. /[id number] EDGAR/KELLY
[2017-04-24 04:33] VITALS: BP 128/81
--- NOTE | 2017-04-26 09:16 | CR ---
INDICATION: Right foot pain. RIGHT FOOT: Three views of the right foot were obtained 04/23/2017, and revealed a density overlying the calcaneus on the lateral view. No significant bone or joint abnormality was identified. MTDD
== END 2017-04-23 23:10 | disposition home or self-care (01) ==
LOC: FB.ED 21:17
DX: S93.601A Unspecified sprain of right foot, initial encounter (principal); W01.0XXA Fall on same level from slipping, tripping and stumbling without subsequent striking against object, initial encounter
CPT/HCPCS: 73630; 96372; 99283; J1885

== ENCOUNTER 2017-05-10 11:49 | Emergency (ER) | payer BC, MEDICAID ==
--- NOTE | 2017-05-10 11:49 | EDM.PDOC ---
ED HPI GENERAL MEDICAL PROBLEM - General Chief Complaint: Abdominal Pain Stated Complaint: RT SIDE PAIN Time Seen by Provider: 05/10/17 11:15 Source of Information: Reports: Patient, EMS, EMS Notes Reviewed History Limitations: Reports: No Limitations - History of Present Illness INITIAL COMMENTS - FREE TEXT/NARRATIVE: Lorenzo comes into [facility] ED by EMS with a 2 day hx of RLQ pain that is radiating to the umbilicus. Pain is sharp, intermittent, and worse with palpation and movement. She was seen in Clinic this am and sent to the ED for evaluation. She has had no labs performed this am. Of interest is a 4 mos hx of dysfunctional uterine bleeding, intermittent, inspite of BCPs in an attempt to control sxs. She also has a PMH of pelvic endometriosis. abdominal pain Pain Score (Numeric/FACES): 9 - Related Data Allergies Allergy/AdvReac Type Severity Reaction Status Date / Time amoxicillin [From Augmentin] Allergy Muscle Verified 05/10/17 11:54 Weakness clavulanic acid Allergy Muscle Verified 05/10/17 11:54 [From Augmentin] Weakness hydromorphone [From Dilaudid] Allergy Muscle Verified 05/10/17 11:54 Weakness hydroxyzine [From Vistaril] Allergy Swelling Verified 05/10/17 11:54 lactose Allergy Stomach Verified 05/10/17 11:54 Ache latex Allergy Swelling Verified 05/10/17 11:54 povidone-iodine Allergy Swelling Verified 05/10/17 11:54 Home Meds: Home Meds lamoTRIgine [Lamotrigine] 150 mg PO BID 09/15/16 [History] levETIRAcetam [Keppra] 2,000 mg PO BID 09/15/16 [History] Albuterol [Ventolin HFA] 1 - 2 puff IH Q4H PRN 09/16/16 [History] ALPRAZolam [Alprazolam] 0.5 - 1 tab PO TID PRN 04/24/17 [History] Calcium Carbonate [Calcium] 600 mg PO DAILY 04/24/17 [History] Cholecalciferol (Vitamin D3) [Vitamin D3] 5,000 unit PO DAILY 04/24/17 [History] DULoxetine HCl [Duloxetine HCl] 60 mg PO BEDTIME 04/24/17 [History] DULoxetine [Cymbalta] 30 mg PO BEDTIME 04/24/17 [History] Doxepin [SINEquan] 100 mg PO BEDTIME 04/24/17 [History] Fluticasone Propionate [Flonase] 1 spray KEVYN DAILY 04/24/17 [History] Fluticasone/Salmeterol [Advair 100-50] 1 puff INH BID 04/24/17 [History] Hyoscyamine [Levsin] 0.125 mg PO BID PRN 04/24/17 [History] Levonorgestrel-Ethin Estradiol [Chelsey] 1 each PO DAILY 04/24/17 [History] Levothyroxine 12.5 mcg PO DAILY 04/24/17 [History] Losartan [Cozaar] 50 mg PO DAILY 04/24/17 [History] Milnacipran HCl [Savella] 100 mg PO BID 04/24/17 [History] Minocycline [Minocin] 100 mg PO BID 04/24/17 [History] Montelukast [Singulair] 10 mg PO DAILY 04/24/17 [History] Naratriptan [Amerge] 2.5 mg PO ASDIRECTED PRN 04/24/17 [History] Ondansetron [Zofran] 8 mg PO Q8H PRN 04/24/17 [History] Pantoprazole [ProTONIX] 40 mg PO DAILY 04/24/17 [History] Potassium Chloride 20 meq PO DAILY 04/24/17 [History] Pregabalin [Lyrica] 1 cap PO BID 04/24/17 [History] Zolpidem Tartrate [Ambien] 10 mg PO BEDTIME PRN 04/24/17 [History] Past Medical History HEENT History: Reports: Impaired Vision Other HEENT History: wears glasses Cardiovascular History: Reports: Hypertension Respiratory History: Reports: Asthma, Sleep Apnea, Other (See Below) Other Respiratory History: "Allergies" Gastrointestinal History: Reports: Other (See Below) Other Gastrointestinal History: "Stomach Problems" Genitourinary History: Reports: UTI, Recurrent Other Genitourinary History: hx of UTIs CHIEF CONCIERGE History: Reports: Endometriosis (diagnosed in [place], [place] about 3 years ago, managed with a hormonal implant that was later removed because of side effects. She is currently on OCP for managment.) Musculoskeletal History: Reports: Other (See Below) Other Musculoskeletal History: herniated disc, DJD lower back, hx two ankle surgeries on right foot Neurological History: Reports: Migraines, Seizure Psychiatric History: Reports: Depression, Other (See Below) Other Psychiatric History: "Insomnia" Endocrine/Metabolic History: Reports: Hypothyroidism, Other (See Below) Other Endocrine/Metabolic History: hypoglycemic - Past Surgical History HEENT Surgical History: Reports: Tonsillectomy, Other (See Below) Other HEENT Surgeries/Procedures: uvula reconstructed GI Surgical History: Reports: Cholecystectomy Social & Family History - Family History Cardiac: Reports: [place] - Tobacco Use Smoking Status *Q: Never Smoker Second Hand Smoke Exposure: No - Caffeine Use Caffeine Use: Reports: Coffee, Tea - Alcohol Use Days Per Week of Alcohol Use: 0 - Recreational Drug Use Recreational Drug Use: No ED ROS GENERAL - Review of Systems Review Of Systems: See Below Constitutional: Reports: Malaise, Decreased Appetite HEENT: Reports: No Symptoms Respiratory: Reports: No Symptoms Cardiovascular: Reports: No Symptoms Endocrine: Reports: No Symptoms GI/Abdominal: Reports: Abdominal Pain, Decreased Appetite, Nausea : Reports: Irregular Menses (4 mos of dysfunctional uterine bleeding) Musculoskeletal: Reports: No Symptoms Skin: Reports: No Symptoms Neurological: Reports: Headache Psychiatric: Reports: No Symptoms Hematologic/Lymphatic: Reports: No Symptoms Immunologic: Reports: No Symptoms ED EXAM, GI/ABD - Physical Exam Exam: See Below Exam Limited By: No Limitations General Appearance: Alert, WD/WN, Mild Distress, Obese Eyes: Bilateral: Normal Appearance, EOMI Ears: Normal External Exam Nose: Normal Inspection Throat/Mouth: Normal Inspection, Normal Lips, Normal Oropharynx, Normal Voice Head: Normocephalic Neck: Normal Inspection, Supple, Non-Tender, Full Range of Motion Respiratory/Chest: Lungs Clear, Normal Breath Sounds, Chest Non-Tender Cardiovascular: Regular Rate, Rhythm, No Edema, No Murmur GI/Abdominal Exam: Normal Bowel Sounds, Soft, No Organomegaly, No Distention, No Mass, Tender (RLQ with guarding,no rebound) (Female) Exam: Normal External Exam (conducted with RN in attendance: normal ext vulva, vault well rugated, cervix nulliparous, bimanual exam: uterus normal sized, adnexe deep and poorly delineated; nontender to maneuver ), Normal Bimanual Exam Rectal (Female) Exam: Deferred Back Exam: Normal Inspection Extremities: Normal Inspection Neurological: Alert, Oriented, CN II-XII Intact, Normal Cognition, Normal Gait, No Motor/Sensory Deficits Psychiatric: Normal Affect, Normal Mood Skin Exam: Warm, Dry, Intact Lymphatic: No Adenopathy Course - Vital Signs Text/Narrative:: Following assessment at the [facility] ED, an Abd-Pelvic CT w contrast was peformed: normal study, no findings for appendicitis; CBC noting Hgb 14.5 gm, WBC 9,100, plts normal; BMP normal for age; CRP 2.4, ESR 6mm/hr; se HCG neg; UA noted mod leuk esterase, lg blood, UC set up; case discussed with Svetlana Bond NP regarding disposition. Last Recorded V/S: Last Vital Signs Temp 36.9 C 05/10/17 11:10 Pulse 103 H 05/10/17 11:10 Resp 18 05/10/17 11:10 BP 138/96 H 05/10/17 11:10 Pulse Ox 99 05/10/17 11:10 - Orders/Labs/Meds Orders: Active Orders 24 hr Category Date Time Status Abdomen Pelvis w Cont [CT] Stat Exams 05/10/17 11:23 Taken UA W/MICROSCOPIC [URIN] Stat Lab 05/10/17 12:57 Ordered Labs: Laboratory Tests 05/10/17 05/10/17 05/10/17 Range/Units 11:41 11:41 11:41 WBC 9.1 (4.5-12.0) X10-3/uL RBC 4.62 (3.23-5.20) x10(6)uL Hgb 14.5 (11.5-15.5) g/dL Hct 42.7 (30.0-51.3) % MCV 92.3 (80-96) fL MCH 31.3 (27.7-33.6) pg MCHC 33.9 (32.2-35.4) g/dL RDW 12.3 (11.5-15.5) % Plt Count 278 (125-369) X10(3)uL MPV 8.6 (7.4-10.4) fL Neut % (Auto) 68.7 (46-82) % Lymph % (Auto) 25.6 (13-37) % [place] % (Auto) 4.2 (4-12) % Eos % (Auto) 1 (1.0-5.0) % Baso % (Auto) 1 (0-2) % Neut # (Auto) 6.2 (1.6-8.3) # Lymph # (Auto) 2.3 (0.6-5.0) # [place] # (Auto) 0.4 (0.0-1.3) # Eos # (Auto) 0.1 (0.0-0.8) # Baso # (Auto) 0.1 (0.0-0.2) # ESR 6 (0-20) mm/hr Sodium 138 (135-145) mmol/L Potassium 4.1 (3.5-5.3) mmol/L Chloride 103 (100-110) mmol/L Carbon Dioxide 27 (21-32) mmol/L BUN 23 H (7-18) mg/dL Creatinine 0.9 (0.55-1.02) mg/dL Est Cr Clr Drug Dosing 93.73 mL/min Estimated GFR (MDRD) > 60 (>60) BUN/Creatinine Ratio 25.6 H (9-20) Glucose 85 (80-116) mg/dL Calcium 9.7 (8.6-10.2) mg/dL Total Bilirubin 0.5 (0.1-1.3) mg/dL AST 26 H (5-25) IU/L ALT 34 (12-36) U/L Alkaline Phosphatase 90 (56-112) IU/L C-Reactive Protein 2.4 H (0.5-0.9) mg/dL Total Protein 7.2 (6.0-8.0) g/dL Albumin 3.7 (3.5-5.2) g/dL Globulin 3.5 g/dL Albumin/Globulin Ratio 1.1 HCG, Quant < 1 L (<5) mIU/mL Urine Color (YELLOW) Urine Appearance (CLEAR) Urine pH (5.0-6.5) Ur Specific [place] (1.010-1.025) Urine Protein (NEGATIVE) mg/dL Urine Glucose (UA) (NEGATIVE) mg/dL Urine Ketones (NEGATIVE) mg/dL Urine Occult Blood (NEGATIVE) Urine Nitrite (NEGATIVE) Urine Bilirubin (NEGATIVE) Urine Urobilinogen (NEGATIVE) mg/dL Ur Leukocyte Esterase (NEGATIVE) Urine RBC (0) Urine WBC (0) Urine Bacteria (NS) 05/10/17 Range/Units 12:57 WBC (4.5-12.0) X10-3/uL RBC (3.23-5.20) x10(6)uL Hgb (11.5-15.5) g/dL Hct (30.0-51.3) % MCV (80-96) fL MCH (27.7-33.6) pg MCHC (32.2-35.4) g/dL RDW (11.5-15.5) % Plt Count (125-369) X10(3)uL MPV (7.4-10.4) fL Neut % (Auto) (46-82) % Lymph % (Auto) (13-37) % [place] % (Auto) (4-12) % Eos % (Auto) (1.0-5.0) % Baso % (Auto) (0-2) % Neut # (Auto) (1.6-8.3) # Lymph # (Auto) (0.6-5.0) # [place] # (Auto) (0.0-1.3) # Eos # (Auto) (0.0-0.8) # Baso # (Auto) (0.0-0.2) # ESR (0-20) mm/hr Sodium (135-145) mmol/L Potassium (3.5-5.3) mmol/L Chloride (100-110) mmol/L Carbon Dioxide (21-32) mmol/L BUN (7-18) mg/dL Creatinine (0.55-1.02) mg/dL Est Cr Clr Drug Dosing mL/min Estimated GFR (MDRD) (>60) BUN/Creatinine Ratio (9-20) Glucose (80-116) mg/dL Calcium (8.6-10.2) mg/dL Total Bilirubin (0.1-1.3) mg/dL AST (5-25) IU/L ALT (12-36) U/L Alkaline Phosphatase (56-112) IU/L C-Reactive Protein (0.5-0.9) mg/dL Total Protein (6.0-8.0) g/dL Albumin (3.5-5.2) g/dL Globulin g/dL Albumin/Globulin Ratio HCG, Quant (<5) mIU/mL Urine Color Yellow (YELLOW) Urine Appearance Cloudy (CLEAR) Urine pH 5.0 (5.0-6.5) Ur Specific [place] 1.015 (1.010-1.025) Urine Protein Negative (NEGATIVE) mg/dL Urine Glucose (UA) Normal (NEGATIVE) mg/dL Urine Ketones Negative (NEGATIVE) mg/dL Urine Occult Blood Large H (NEGATIVE) Urine Nitrite Negative (NEGATIVE) Urine Bilirubin Negative (NEGATIVE) Urine Urobilinogen Normal (NEGATIVE) mg/dL Ur Leukocyte Esterase Moderate H (NEGATIVE) Urine RBC 0-5 (0) Urine WBC 0-5 (0) Urine Bacteria Moderate H (NS) Meds: Medications Discontinued Medications Generic Name Dose Route Start Last Admin Trade Name Freq PRN Reason Stop Dose Admin Iopamidol 150 ml 05/10/17 12:06 05/10/17 12:17 Isovue-370 (76%) IV 05/10/17 12:07 132 ml ONETIME ONE Administration Departure - Departure Time of Disposition: 13:29 Disposition: Home, Self-Care 01 Condition: Fair Clinical Impression: Abdominal pain Qualifiers: Abdominal location: right lower quadrant Qualified Code(s): R10.31 - Right lower quadrant pain - Discharge Information Instructions: Endometriosis Referrals: Susanna Babcock NP [Primary Care Provider] - Forms: ED Department Discharge Additional Instructions: May take Tylenol and Ibuprofen for pain and discomfort. Follow up with primary care provider as needed. May call or come back if symptoms gets worse. - Problem List & Annotations (1) Abdominal pain SNOMED Code(s): 72643468 Code(s): R10.9 - UNSPECIFIED ABDOMINAL PAIN Status: Acute Current Visit: Yes Annotation/Comment:: Lorenzo should monitor sxs, temps, and manintain hydration. She may use Tylenol or Ibuprofen for pain. Follow up with PCP. Qualifiers: Abdominal location: right lower quadrant Qualified Code(s): R10.31 - Right lower quadrant pain - Problem List Review Problem List Initiated/Reviewed/Updated: Yes - My Orders Last 24 Hours: My Active Orders 05/10/17 11:23 Abdomen Pelvis w Cont [CT] Stat 05/10/17 12:57 UA W/MICROSCOPIC [URIN] Stat - Assessment/Plan Last 24 Hours: My Active Orders 05/10/17 11:23 Abdomen Pelvis w Cont [CT] Stat 05/10/17 12:57 UA W/MICROSCOPIC [URIN] Stat Plan: Follow up with PCP.
[2017-05-10] MEDS ORDERED: Iopamidol 755 MG/ML 150 ML Bottle IV ONE (12:06)
[2017-05-10 13:40] VITALS: BP 146/95
== END 2017-05-10 13:40 | disposition home or self-care (01) ==
LOC: FB.ED 11:49
DX: R10.31 Right lower quadrant pain (principal); I10 Essential (primary) hypertension; J45.909 Unspecified asthma, uncomplicated; Z88.1 Allergy status to other antibiotic agents; Z88.5 Allergy status to narcotic agent; Z88.8 Allergy status to other drugs, medicaments and biological substances; Z91.040 Latex allergy status; Z79.899 Other long term (current) drug therapy
CPT/HCPCS: 36415; 74177; 80053; 81001; 84702; 85025; 85651; 86140; 87086; 99284; Q9967

== ENCOUNTER 2017-05-16 16:46 | Emergency (ER) | payer BC, MEDICAID ==
[2017-05-16] MEDS ORDERED: Ketorolac 60 MG/2 ML SDV IM ONE (16:58)
[2017-05-16] MEDS ORDERED: Sodium Chloride 0.9% 1,000 ML IV ONE (17:00)
[2017-05-16] MEDS ORDERED: Ketorolac 30 MG/ML SDV IVPUSH ONE (17:13)
[2017-05-16] MEDS ORDERED: Ketorolac 30 MG/ML SDV ONE (17:23)
--- NOTE | 2017-05-16 18:45 | EDM.PDOC ---
ED HPI GENERAL MEDICAL PROBLEM - General Chief Complaint: Head Injury Stated Complaint: FELL HURT RT ANKLE Time Seen by Provider: 05/16/17 16:46 Source of Information: Reports: Patient, EMS History Limitations: Reports: Other (body size) - History of Present Illness INITIAL COMMENTS - FREE TEXT/NARRATIVE: 26 y.o. morbid obese w f fell at work onto her right ankle, right neck and head. No LOC. C/O Head, neck and righ ankle pain. Pt arrived by EMS. No N/V/D or any other acute medical issues. BP 130/85 RR 18 Pulse ox 98 pulse 87 Temp 36.7 Onset Date: 05/16/17 Onset Time: 16:00 Duration: Minutes:, Intermittent Location: Reports: Head, Neck, Lower Extremity, Right Quality: Reports: Ache, Burning, Dull Severity: Mild Improves with: Reports: Rest Worsens with: Reports: Movement Context: Reports: Trauma (fall at work) Associated Symptoms: Reports: Headaches, Other (neck pain) Neck Pain Score (Numeric/FACES): 9 Shoulder Pain Score (Numeric/FACES): 9 Right Feet Pain Score (Numeric/FACES): 9 - Related Data Allergies Allergy/AdvReac Type Severity Reaction Status Date / Time amoxicillin [From Augmentin] Allergy Muscle Verified 05/16/17 18:45 Weakness clavulanic acid Allergy Muscle Verified 05/16/17 18:45 [From Augmentin] Weakness hydromorphone [From Dilaudid] Allergy Muscle Verified 05/16/17 18:45 Weakness hydroxyzine [From Vistaril] Allergy Swelling Verified 05/16/17 18:45 lactose Allergy Stomach Verified 05/16/17 18:45 Ache latex Allergy Swelling Verified 05/16/17 18:45 povidone-iodine Allergy Swelling Verified 05/16/17 18:45 Home Meds: Home Meds lamoTRIgine [Lamotrigine] 150 mg PO BID 09/15/16 [History] levETIRAcetam [Keppra] 2,000 mg PO BID 09/15/16 [History] Albuterol [Ventolin HFA] 1 - 2 puff IH Q4H PRN 09/16/16 [History] ALPRAZolam [Alprazolam] 0.5 - 1 tab PO TID PRN 04/24/17 [History] Calcium Carbonate [Calcium] 600 mg PO DAILY 04/24/17 [History] Cholecalciferol (Vitamin D3) [Vitamin D3] 5,000 unit PO DAILY 04/24/17 [History] DULoxetine HCl [Duloxetine HCl] 60 mg PO BEDTIME 04/24/17 [History] DULoxetine [Cymbalta] 30 mg PO BEDTIME 04/24/17 [History] Doxepin [SINEquan] 100 mg PO BEDTIME 04/24/17 [History] Fluticasone Propionate [Flonase] 1 spray KEVYN DAILY 04/24/17 [History] Fluticasone/Salmeterol [Advair 100-50] 1 puff INH BID 04/24/17 [History] Hyoscyamine [Levsin] 0.125 mg PO BID PRN 04/24/17 [History] Levonorgestrel-Ethin Estradiol [[place]] 1 each PO DAILY 04/24/17 [History] Levothyroxine 12.5 mcg PO DAILY 04/24/17 [History] Losartan [Cozaar] 50 mg PO DAILY 04/24/17 [History] Milnacipran HCl [Savella] 100 mg PO BID 04/24/17 [History] Minocycline [Minocin] 100 mg PO BID 04/24/17 [History] Montelukast [Singulair] 10 mg PO DAILY 04/24/17 [History] Naratriptan [Amerge] 2.5 mg PO ASDIRECTED PRN 04/24/17 [History] Ondansetron [Zofran] 8 mg PO Q8H PRN 04/24/17 [History] Pantoprazole [ProTONIX] 40 mg PO DAILY 04/24/17 [History] Potassium Chloride 20 meq PO DAILY 04/24/17 [History] Pregabalin [Lyrica] 1 cap PO TID 04/24/17 [History] Zolpidem Tartrate [Ambien] 10 mg PO BEDTIME PRN 04/24/17 [History] Sulfamethoxazole/Trimethoprim [Bactrim Ds Tablet] 1 each PO BID #20 tablet 05/16 [Rx] Past Medical History HEENT History: Reports: Impaired Vision Other HEENT History: wears glasses Cardiovascular History: Reports: Hypertension Respiratory History: Reports: Asthma, Sleep Apnea, Other (See Below) Other Respiratory History: "Allergies" Gastrointestinal History: Reports: Other (See Below) Other Gastrointestinal History: "Stomach Problems" Genitourinary History: Reports: UTI, Recurrent Other Genitourinary History: hx of UTIs 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 She is currently on OCP for managment.) Musculoskeletal History: Reports: Other (See Below) Other Musculoskeletal History: herniated disc, DJD lower back, hx two ankle surgeries on right foot Neurological History: Reports: Migraines, Seizure Psychiatric History: Reports: Depression, Other (See Below) Other Psychiatric History: "Insomnia" Endocrine/Metabolic History: Reports: Hypothyroidism, Other (See Below) Other Endocrine/Metabolic History: hypoglycemic Dermatologic History: Reports: Other (See Below) Other Dermatologic History: severe acne - Past Surgical History HEENT Surgical History: Reports: Tonsillectomy, Other (See Below) Other HEENT Surgeries/Procedures: uvula reconstructed GI Surgical History: Reports: Cholecystectomy Social & Family History - Family History Family Medical History: Noncontributory Cardiac: Reports: [place] - Tobacco Use Smoking Status *Q: Never Smoker Second Hand Smoke Exposure: No - Caffeine Use Caffeine Use: Reports: Coffee, Tea - Alcohol Use Days Per Week of Alcohol Use: 0 - Recreational Drug Use Recreational Drug Use: No ED ROS GENERAL - Review of Systems Review Of Systems: See Below Constitutional: Reports: No Symptoms HEENT: Reports: No Symptoms Respiratory: Reports: No Symptoms Cardiovascular: Reports: No Symptoms Endocrine: Reports: No Symptoms GI/Abdominal: Reports: No Symptoms ED EXAM, HEAD INJURY - Physical Exam Exam: See Below Exam Limited By: No Limitations General Appearance: Alert, WD/WN, Mild Distress Head: Normocephalic, Other (lat neck tenderness) Eyes: Bilateral Eye: Normal Inspection Ears: Normal External Exam, Normal Canal, Normal TMs Nose: Normal Inspection, Normal Mucousa, No Blood Throat/Mouth: Normal Inspection, Normal Lips Neck: Limited Range of Motion, Muscle Spasm, Painful Range of Motion Respiratory: No Respiratory Distress, Lungs Clear, Normal Breath Sounds, Chest Non-Tender Cardiovascular: Normal Peripheral Pulses, Regular Rate, Rhythm, No Edema, No Gallop, No Rub GI/Abdominal Exam: Normal Bowel Sounds, Soft, Non-Tender, No Organomegaly (Female) Exam: Deferred Rectal (Female) Exam: Deferred Back Exam: Normal Inspection, Full Range of Motion Extremities: Normal Inspection, Normal Range of Motion, Leg Pain (right ankle pain) 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 morbid obese w yaneth fell at work onto her right ankle, right neck and head. No LOC. C/O Head, neck and righ ankle pain. Pt arrived by EMS. No N/V/D or any other acute medical issues. BP 130/85 RR 18 Pulse ox 98 pulse 87 Temp 36.7 PE: Morbid obese w f with a fall at work, came by EMS with headache, neck and right ankle pain Imaging: Head: NAD as per RAD, Neck: NAD as per RAD, right ankle: NAD as per RAD Impression: Fall at work, Morbid obesity, Metabolic syndrome, right ankle sprain. Dehydration. UTI , UDS pos for Tricyclix and Benzos Tx: Toradol, NS, levoquine, ICE to affected areas, soft collar Reexam: Improved, pt was able to ambulate fine on D/C Plan: D/C with instructions Last Recorded V/S: Last Vital Signs Temp 36.3 C 05/16/17 16:46 Pulse 86 05/16/17 16:46 Resp 20 05/16/17 16:46 BP 130/85 05/16/17 16:46 Pulse Ox 100 05/16/17 16:46 - Orders/Labs/Meds Orders: Active Orders 24 hr Category Date Time Status EKG Documentation Completion [RC] ASDIRECTED Care 05/16/17 18:53 Active Ankle Min 3V Rt [CR] Stat Exams 05/16/17 16:59 Taken Cervical Spine wo Cont [CT] Stat Exams 05/16/17 16:58 Taken Head wo Cont [CT] Stat Exams 05/16/17 16:58 Ordered DRUG SCREEN, URINE ALERE [URCHEM] Stat Lab 05/16/17 18:25 Ordered UA W/MICROSCOPIC [URIN] Stat Lab 05/16/17 18:25 Ordered EKG 12 Lead [EK] Routine Ther 05/16/17 18:53 Ordered Labs: Laboratory Tests 05/16/17 05/16/17 05/16/17 Range/Units 17:25 17:25 17:25 WBC 9.2 (4.5-12.0) X10-3/uL RBC 4.59 (3.23-5.20) x10(6)uL Hgb 14.2 (11.5-15.5) g/dL Hct 42.7 (30.0-51.3) % MCV 92.9 (80-96) fL MCH 31.0 (27.7-33.6) pg MCHC 33.4 (32.2-35.4) g/dL RDW 12.5 (11.5-15.5) % Plt Count 297 (125-369) X10(3)uL MPV 8.5 (7.4-10.4) fL Neut % (Auto) 62.2 (46-82) % Lymph % (Auto) 31.5 (13-37) % [place] % (Auto) 5.2 (4-12) % Eos % (Auto) 1 (1.0-5.0) % Baso % (Auto) 0 (0-2) % Neut # (Auto) 5.7 (1.6-8.3) # Lymph # (Auto) 2.9 (0.6-5.0) # Bates # (Auto) 0.5 (0.0-1.3) # Eos # (Auto) 0.1 (0.0-0.8) # Baso # (Auto) 0.0 (0.0-0.2) # Sodium 140 (135-145) mmol/L Potassium 4.0 (3.5-5.3) mmol/L Chloride 103 (100-110) mmol/L Carbon Dioxide 27 (21-32) mmol/L BUN 15 (7-18) mg/dL Creatinine 1.0 (0.55-1.02) mg/dL Est Cr Clr Drug Dosing TNP Estimated GFR (MDRD) > 60 (>60) BUN/Creatinine Ratio 15.0 (9-20) Glucose 76 L (80-116) mg/dL Hemoglobin A1c 5.4 (4.5-6.2) % Calcium 9.3 (8.6-10.2) mg/dL Urine Color (YELLOW) Urine Appearance (CLEAR) Urine pH (5.0-6.5) Ur Specific [place] (1.010-1.025) Urine Protein (NEGATIVE) mg/dL Urine Glucose (UA) (NEGATIVE) mg/dL Urine Ketones (NEGATIVE) mg/dL Urine Occult Blood (NEGATIVE) Urine Nitrite (NEGATIVE) Urine Bilirubin (NEGATIVE) Urine Urobilinogen (NEGATIVE) mg/dL Ur Leukocyte Esterase (NEGATIVE) Urine RBC (0) Urine WBC (0) Ur Squamous Epith Cells (NS,R,O) Urine Bacteria (NS) Urine Opiates Screen (NEGATIVE) Ur Oxycodone Screen (NEGATIVE) Ur Propoxyphene Screen (NEGATIVE) Ur Barbituates Screen (NEGATIVE) Ur Tricyclics Screen (NEGATIVE) Ur Phencyclidine Scrn (NEGATIVE) Ur Amphetamine Screen (NEGATIVE) Urine MDMA Screen (NEGATIVE) U Benzodiazepines Scrn (NEGATIVE) U Cocaine Metab Screen (NEGATIVE) U Marijuana (THC) Screen (NEGATIVE) Ethyl Alcohol (<0.03) % 05/16/17 05/16/17 05/16/17 Range/Units 17:25 18:25 18:25 WBC (4.5-12.0) X10-3/uL RBC (3.23-5.20) x10(6)uL Hgb (11.5-15.5) g/dL Hct (30.0-51.3) % MCV (80-96) fL MCH (27.7-33.6) pg MCHC (32.2-35.4) g/dL RDW (11.5-15.5) % Plt Count (125-369) X10(3)uL MPV (7.4-10.4) fL Neut % (Auto) (46-82) % Lymph % (Auto) (13-37) % [place] % (Auto) (4-12) % Eos % (Auto) (1.0-5.0) % Baso % (Auto) (0-2) % Neut # (Auto) (1.6-8.3) # Lymph # (Auto) (0.6-5.0) # [place] # (Auto) (0.0-1.3) # Eos # (Auto) (0.0-0.8) # Baso # (Auto) (0.0-0.2) # Sodium (135-145) mmol/L Potassium (3.5-5.3) mmol/L Chloride (100-110) mmol/L Carbon Dioxide (21-32) mmol/L BUN (7-18) mg/dL Creatinine (0.55-1.02) mg/dL Est Cr Clr Drug Dosing Estimated GFR (MDRD) (>60) BUN/Creatinine Ratio (9-20) Glucose (80-116) mg/dL Hemoglobin A1c (4.5-6.2) % Calcium (8.6-10.2) mg/dL Urine Color Yellow (YELLOW) Urine Appearance Slightly cloudy (CLEAR) Urine pH 5.0 (5.0-6.5) Ur Specific [place] 1.025 (1.010-1.025) Urine Protein Negative (NEGATIVE) mg/dL Urine Glucose (UA) Normal (NEGATIVE) mg/dL Urine Ketones Negative (NEGATIVE) mg/dL Urine Occult Blood Negative (NEGATIVE) Urine Nitrite Negative (NEGATIVE) Urine Bilirubin Negative (NEGATIVE) Urine Urobilinogen Normal (NEGATIVE) mg/dL Ur Leukocyte Esterase Moderate H (NEGATIVE) Urine RBC 0-5 (0) Urine WBC 5-10 (0) Ur Squamous Epith Cells Few H (NS,R,O) Urine Bacteria Few H (NS) Urine Opiates Screen Negative (NEGATIVE) Ur Oxycodone Screen Negative (NEGATIVE) Ur Propoxyphene Screen Negative (NEGATIVE) Ur Barbituates Screen Negative (NEGATIVE) Ur Tricyclics Screen Positive H (NEGATIVE) Ur Phencyclidine Scrn Negative (NEGATIVE) Ur Amphetamine Screen Negative (NEGATIVE) Urine MDMA Screen Negative (NEGATIVE) U Benzodiazepines Scrn Positive H (NEGATIVE) U Cocaine Metab Screen Negative (NEGATIVE) U Marijuana (THC) Screen Negative (NEGATIVE) Ethyl Alcohol < 0.03 (<0.03) % Meds: Medications Discontinued Medications Generic Name Dose Route Start Last Admin Trade Name Freq PRN Reason Stop Dose Admin Sodium Chloride 1,000 mls @ 999 mls/hr 05/16/17 17:00 05/16/17 17:05 Normal Saline IV 05/16/17 18:00 999 mls/hr .BOLUS ONE Administration Ketorolac Tromethamine 60 mg 05/16/17 16:58 Toradol IM 05/16/17 16:59 ONETIME ONE Ketorolac Tromethamine 30 mg 05/16/17 17:13 05/16/17 17:50 Toradol IVPUSH 05/16/17 17:14 30 mg ONETIME ONE Administration Ketorolac Tromethamine Confirm 05/16/17 17:23 05/16/17 17:51 Toradol Administered 05/16/17 17:24 Not Given Dose 30 mg .ROUTE .STK-MED ONE Levofloxacin 500 mg 05/16/17 19:07 Levaquin PO 05/16/17 19:08 ONETIME STA Trimethoprim/Sulfamethoxazole 1 tab 05/16/17 19:24 05/16/17 19:27 Septra Ds PO 05/16/17 19:25 1 tab ONETIME ONE Administration Departure - Departure Time of Disposition: 19:17 Disposition: Home, Self-Care 01 Condition: Good Clinical Impression: Tension headache Fall Qualifiers: Encounter type: initial encounter Qualified Code(s): W19.XXXA - Unspecified fall, initial encounter Ankle sprain Qualifiers: Encounter type: initial encounter Laterality: right Neck sprain Qualifiers: Encounter type: initial encounter Qualified Code(s): S13.9XXA - Sprain of joints and ligaments of unspecified parts of neck, initial encounter Obesity Qualifiers: Obesity classification: adult class 3 (BMI >= 40) - Discharge Information Prescriptions: Sulfamethoxazole/Trimethoprim [Bactrim Ds Tablet] 1 each PO BID #20 tablet Instructions: Urinary Tract Infection, Adult Referrals: Susanna Babcock, SUPPLIER SPECIALIST [Primary Care Provider] - Forms: ED Department Discharge, ED Return to Work/School Form Additional Instructions: Ice to the affected areas, Bactrim as recommended, Motrin for pain, please f/u, come back if your symptoms get worse acutely - My Orders Last 24 Hours: My Active Orders 05/16/17 16:58 Cervical Spine wo Cont [CT] Stat Head wo Cont [CT] Stat 05/16/17 16:59 Ankle Min 3V Rt [CR] Stat 05/16/17 18:25 DRUG SCREEN, URINE ALERE [URCHEM] Stat UA W/MICROSCOPIC [URIN] Stat 05/16/17 18:53 EKG Documentation Completion [RC] ASDIRECTED EKG 12 Lead [EK] Routine - Assessment/Plan Last 24 Hours: My Active Orders 05/16/17 16:58 Cervical Spine wo Cont [CT] Stat Head wo Cont [CT] Stat 05/16/17 16:59 Ankle Min 3V Rt [CR] Stat 05/16/17 18:25 DRUG SCREEN, URINE ALERE [URCHEM] Stat UA W/MICROSCOPIC [URIN] Stat 05/16/17 18:53 EKG Documentation Completion [RC] ASDIRECTED EKG 12 Lead [EK] Routine
[2017-05-16] MEDS ORDERED: Levofloxacin 500 MG Tab PO STA (19:07)
[2017-05-16] MEDS ORDERED: Sulfamethoxazole/Trimethoprim 800-160 MG Tab PO ONE (19:24)
[2017-05-16 20:49] VITALS: BP 119/70
--- NOTE | 2017-05-17 09:47 | CT ---
INDICATION: Trauma. Fall at work. Head and neck pain. CT HEAD WITHOUT CONTRAST: Serial contiguous 2.5 and 5-mm sections were obtained through the brain without contrast 05/16/2017 and compared with 2016. Total Exam DLP = 949.36 mGy-cm. No cranial fracture site was identified. Paranasal sinuses and mastoid air cells were well aerated. A tiny focus of decreased density is noted in the area of the anterior limb of the right internal capsule, and could represent a tiny lacunar infarct. It appears new compared with the previous study. No bleeding site or hematoma was noted. No shift of midline structures and no ventricular abnormalities were seen. IMPRESSION: 1. No acute intracranial abnormality. 2. Possible tiny lacunar infarct at the anterior limb of the right internal capsule. 3. CT brain without contrast otherwise unremarkable and unchanged from 2016. Report was called to Dr. Quezada at 1914 hours, 05/16/2017. [facility]
--- NOTE | 2017-05-17 10:19 | CT ---
INDICATION: Trauma. Fall at work. Head and neck pain. CT CERVICAL SPINE: Spiral 2.5 mm axial sections were obtained through the cervical spine with sagittal and coronal reconstructions. Total Exam DLP = 452.60 mGy-cm. Vertebral body and disk heights were fairly well maintained. Prevertebral space appeared to be normal. The odontoid and atlas appear to be intact. Bone density appeared to be normal. No fracture or dislocation could be identified. IMPRESSION: Essentially normal cervical spine CT. Report was called to Dr. Quezada at 1914 hours, 05/16/2017. [facility]
--- NOTE | 2017-05-17 10:19 | CR ---
INDICATION: Trauma. History of two ankle surgeries in 2016. RIGHT ANKLE: Three views of the right ankle revealed the ankle mortise to appear intact without a fracture or dislocation or other acute bone or joint abnormality. What looks like a post-surgical change is noted at the lateral malleolus. IMPRESSION: No acute fracture or dislocation. Report was called to Dr. Quezada at 1914 hours, 05/16/2017. [facility]
== END 2017-05-16 19:55 | disposition home or self-care (01) ==
LOC: FB.ED 16:46
DX: S13.9XXA Sprain of joints and ligaments of unspecified parts of neck, initial encounter (principal); S93.401A Sprain of unspecified ligament of right ankle, initial encounter; G44.209 Tension-type headache, unspecified, not intractable; I10 Essential (primary) hypertension; J45.909 Unspecified asthma, uncomplicated; E03.9 Hypothyroidism, unspecified; W18.30XA Fall on same level, unspecified, initial encounter; Z88.1 Allergy status to other antibiotic agents; Z88.8 Allergy status to other drugs, medicaments and biological substances; Z91.011 Allergy to milk products; Z90.49 Acquired absence of other specified parts of digestive tract; Z79.899 Other long term (current) drug therapy; Z87.440 Personal history of urinary (tract) infections; Z68.41 Body mass index [BMI] 40.0-44.9, adult
CPT/HCPCS: 36415; 70450; 72125; 73610; 80048; 80305; 81001; 83036; 85025; 93005; 96360; 96372; 99284; A9270; G0480; J1885; J7040

== ENCOUNTER 2017-10-26 20:03 | Emergency (ER) | payer BC, MEDICAID ==
[2017-10-26] MEDS ORDERED: Sodium Chloride 0.9% 1,000 ML IV ONE (20:32)
[2017-10-26] MEDS ORDERED: Sodium Chloride 0.9% 10 ML Syringe FLUSH PRN (20:32)
--- NOTE | 2017-10-26 20:42 | EDM.PDOC ---
ED HPI GENERAL MEDICAL PROBLEM - General Chief Complaint: Neurological Problem Stated Complaint: SEIZURE Time Seen by Provider: 10/26/17 20:38 Source of Information: Reports: Patient History Limitations: Reports: No Limitations - History of Present Illness INITIAL COMMENTS - FREE TEXT/NARRATIVE: Awoke in bed at 1900 with blurred vision, headache, nausea and dizziness. Patient believes may have had a seizure because these are the usual postictal symptoms. Patient believes flashing sign on a computer earlier in the day may have brought it on. Onset: Today Onset Date: 10/26/17 Onset Time: 19:00 Location: Reports: Head Quality: Reports: Ache Severity: Moderate head Pain Score (Numeric/FACES): 9 - Related Data Allergies Allergy/AdvReac Type Severity Reaction Status Date / Time amoxicillin [From Augmentin] Allergy Muscle Verified 10/26/17 20:30 Weakness clavulanic acid Allergy Muscle Verified 10/26/17 20:30 [From Augmentin] Weakness hydromorphone [From Dilaudid] Allergy Muscle Verified 10/26/17 20:30 Weakness hydroxyzine [From Vistaril] Allergy Swelling Verified 10/26/17 20:30 lactose Allergy Stomach Verified 10/26/17 20:30 Ache latex Allergy Swelling Verified 10/26/17 20:30 povidone-iodine Allergy Swelling Verified 10/26/17 20:30 Home Meds: Home Meds RX: levETIRAcetam [Keppra] 2,000 mg PO BID 09/15/16 [History] RX: Albuterol [Ventolin HFA] 1 - 2 puff IH Q4H PRN 09/16/16 [History] RX: Calcium Carbonate [Calcium] 600 mg PO DAILY 04/24/17 [History] RX: Cholecalciferol (Vitamin D3) [Vitamin D3] 5,000 unit PO DAILY 04/24/17 [ History] RX: DULoxetine [Cymbalta] 90 mg PO BEDTIME 04/24/17 [History] RX: Doxepin [SINEquan] 100 mg PO BEDTIME 04/24/17 [History] RX: Fluticasone Propionate [Flonase] 1 spray KEVYN DAILY 04/24/17 [History] RX: Fluticasone/Salmeterol [Advair 100-50] 1 puff INH BID 04/24/17 [History] RX: Hyoscyamine [Levsin] 0.125 mg PO BID PRN 04/24/17 [History] RX: Levonorgestrel-Ethin Estradiol [[place]-28 Tablet] 1 each PO BEDTIME [History] RX: Levothyroxine 12.5 mcg PO DAILY 04/24/17 [History] RX: Losartan [Cozaar] 50 mg PO DAILY 04/24/17 [History] RX: Milnacipran HCl [Savella] 100 mg PO BID 04/24/17 [History] RX: Minocycline [Minocin] 100 mg PO BID 04/24/17 [History] RX: Montelukast [Singulair] 10 mg PO BEDTIME 04/24/17 [History] RX: Pantoprazole [ProTONIX] 40 mg PO DAILY 04/24/17 [History] RX: Potassium Chloride 20 meq PO DAILY 04/24/17 [History] RX: Pregabalin [Lyrica] 1 cap PO TID 04/24/17 [History] RX: lamoTRIgine 200 mg PO BID #60 tablet 09/14/17 [Rx] Ketorolac [Toradol] 10 mg PO Q6H PRN 10/14/17 [History] Levonorgestrel-Ethin Estradiol [[place]] 1 each PO DAILY 10/14/17 [History] Milnacipran HCl [Savella] 100 mg PO BID 10/14/17 [History] Pregabalin [Lyrica] 150 mg PO TID 10/14/17 [History] RX: Levofloxacin [Levaquin] 500 mg PO DAILY #10 tablet 10/14/17 [Rx] Torsemide [Demadex] 10 mg PO DAILY 10/14/17 [History] Meloxicam [Mobic] 15 mg PO DAILY 10/26/17 [History] Past Medical History HEENT History: Reports: Impaired Vision Other HEENT History: wears glasses Cardiovascular History: Reports: Hypertension Respiratory History: Reports: Asthma, Sleep Apnea, Other (See Below) Other Respiratory History: "Allergies", uses Cpap Gastrointestinal History: Reports: GERD, Other (See Below) Other Gastrointestinal History: "Stomach Problems" Genitourinary History: Reports: UTI, Recurrent Other Genitourinary History: hx of UTIs 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: Reports: Endometriosis Other 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: G0 Musculoskeletal History: Reports: Back Pain, Chronic, Fibromyalgia, Other (See Below) Other Musculoskeletal History: herniated disc, DJD lower back, hx two ankle surgeries on right foot Neurological History: Reports: Migraines, Seizure, Other (See Below) Other Neuro History: hx epilepsy Psychiatric History: Reports: Anxiety, Depression, Panic Attack, Other (See Below) Other Psychiatric History: "Insomnia" Endocrine/Metabolic History: Reports: Hypothyroidism, Other (See Below) Other Endocrine/Metabolic History: hypoglycemic Dermatologic History: Reports: Other (See Below) Other Dermatologic History: severe acne - Infectious Disease History Infectious Disease History: Reports: Chicken Pox - Past Surgical History HEENT Surgical History: Reports: Adenoidectomy, Tonsillectomy, Other (See Below) Other HEENT Surgeries/Procedures: uvula reconstructed Respiratory Surgical History: Reports: None GI Surgical History: Reports: Cholecystectomy, Colonoscopy, EGD Female Surgical History: Reports: None Endocrine Surgical History: Reports: None Musculoskeletal Surgical History: Reports: None Social & Family History - Family History Family Medical History: Noncontributory Cardiac: Reports: RI - Tobacco Use Smoking Status *Q: Never Smoker - Caffeine Use Caffeine Use: Reports: None - Alcohol Use Alcohol Use History: No ED ROS GENERAL - Review of Systems Review Of Systems: ROS reveals no pertinent complaints other than HPI. - Physical Exam Exam: See Below Exam Limited By: No Limitations General Appearance: Alert, WD/WN, No Apparent Distress Eye Exam: Bilateral Eye: EOMI, PERRL Ears: Normal External Exam Nose: Normal Inspection Throat/Mouth: No Airway Compromise Head Exam: Atraumatic, Normocephalic Neck: Full Range of Motion Respiratory/Chest: No Respiratory Distress, Lungs Clear, Normal Breath Sounds Cardiovascular: No Murmur, Tachycardia Neuro Exam (Abbreviated): Alert, Normal Cognition, No Motor/Sensory Deficits Extremities: Normal Range of Motion Psychiatric: Normal Affect, Normal Mood Skin Exam: Warm, Dry, Intact EKG INTERPRETATION EKG Date: 10/26/17 Time: 20:46 Rhythm: Other (sinus tachycardia) Rate (Beats/Min): 115 [place]: Normal P-Wave: Present QRS: Normal ST-T: Normal QT: Normal Course - Vital Signs Last Recorded V/S: Last Vital Signs Temp 36.6 C 10/26/17 20:16 Pulse 141 H 10/26/17 20:16 Resp BP 137/93 H 10/26/17 20:16 Pulse Ox 100 10/26/17 20:16 - Orders/Labs/Meds Orders: Active Orders 24 hr Category Date Time Status EKG Documentation Completion [RC] ASDIRECTED Care 10/26/17 20:43 Active Head wo Cont [CT] Stat Exams 10/26/17 20:32 Taken Sodium Chloride 0.9% [Saline Flush] Med 10/26/17 20:32 Active 10 ml FLUSH ASDIRECTED PRN Saline Lock Insert [OM.PC] Routine Oth 10/26/17 20:32 Ordered EKG 12 Lead [EK] Stat Ther 10/26/17 20:43 Ordered Medication Orders Sodium Chloride (Saline Flush) 10 ml FLUSH ASDIRECTED PRN PRN Reason: Keep Vein Open Last Admin: 10/26/17 20:56 Dose: 10 ml Labs: Laboratory Tests 10/26/17 10/26/17 Range/Units 21:00 21:00 WBC 9.6 (4.5-12.0) X10-3/uL RBC 4.95 (3.23-5.20) x10(6)uL Hgb 15.4 (11.5-15.5) g/dL Hct 45.5 (30.0-51.3) % MCV 92.0 (80-96) fL MCH 31.2 (27.7-33.6) pg MCHC 33.9 (32.2-35.4) g/dL RDW 11.6 (11.5-15.5) % Plt Count 284 (125-369) X10(3)uL MPV 8.7 (7.4-10.4) fL Neut % (Auto) 76.1 (46-82) % Lymph % (Auto) 17.2 (13-37) % [place] % (Auto) 5.9 (4-12) % Eos % (Auto) 1 (1.0-5.0) % Baso % (Auto) 0 (0-2) % Neut # (Auto) 7.2 (1.6-8.3) # Lymph # (Auto) 1.6 (0.6-5.0) # [place] # (Auto) 0.6 (0.0-1.3) # Eos # (Auto) 0.1 (0.0-0.8) # Baso # (Auto) 0.0 (0.0-0.2) # Sodium 141 (135-145) mmol/L Potassium 4.0 (3.5-5.3) mmol/L Chloride 103 (100-110) mmol/L Carbon Dioxide 27 (21-32) mmol/L BUN 20 H (7-18) mg/dL Creatinine 1.1 H (0.55-1.02) mg/dL Est Cr Clr Drug Dosing 76.69 mL/min Estimated GFR (MDRD) > 60 (>60) BUN/Creatinine Ratio 18.2 (9-20) Glucose 131 H (80-116) mg/dL Calcium 9.3 (8.6-10.2) mg/dL Total Bilirubin 0.3 (0.1-1.3) mg/dL AST 21 D (5-25) IU/L ALT 31 D (12-36) U/L Alkaline Phosphatase 97 (56-112) IU/L Total Protein 7.4 (6.0-8.0) g/dL Albumin 3.5 (3.5-5.2) g/dL Globulin 3.9 g/dL Albumin/Globulin Ratio 0.9 Meds: Medications Generic Name Dose Route Start Last Admin Trade Name Freq PRN Reason Stop Dose Admin Sodium Chloride 10 ml 10/26/17 20:32 10/26/17 20:56 Saline Flush FLUSH 10 ml ASDIRECTED PRN Administration Keep Vein Open Discontinued Medications Generic Name Dose Route Start Last Admin Trade Name Freq PRN Reason Stop Dose Admin Acetaminophen 650 mg 10/26/17 21:28 10/26/17 21:34 Tylenol PO 10/26/17 21:29 650 mg NOW ONE Administration Hydromorphone HCl 0.5 mg 10/26/17 22:45 10/26/17 22:50 Dilaudid IVPUSH 10/26/17 22:46 0.5 mg ONETIME ONE Administration Sodium Chloride 1,000 mls @ 999 mls/hr 10/26/17 20:32 10/26/17 20:56 Normal Saline IV 10/26/17 21:32 999 mls/hr .BOLUS ONE Administration Ketorolac Tromethamine 30 mg 10/26/17 21:57 10/26/17 22:04 Toradol IVPUSH 10/26/17 21:58 30 mg ONETIME ONE Administration - Radiology Interpretation Free Text/Narrative:: CT Head: NAD - Re-Assessments/Exams Free Text/Narrative Re-Assessment/Exam: 10/26/17 22:58 Symptoms improved Departure - Departure Time of Disposition: 22:58 Disposition: Home, Self-Care 01 Condition: Good Clinical Impression: Seizure disorder Cephalgia Qualifiers: Headache type: unspecified Headache chronicity pattern: acute headache Intractability: not intractable Qualified Code(s): R51 - Headache - Discharge Information *PRESCRIPTION DRUG MONITORING PROGRAM REVIEWED*: Yes *COPY OF PRESCRIPTION DRUG MONITORING REPORT IN PATIENT ANAYELI: Not Applicable Instructions: Epilepsy, [id number], General Headache Without Cause Referrals: Susanna Babcock [employer] TE[employer] LEAD [Primary Care Provider] - Forms: ED Department Discharge Additional Instructions: Rest, fluids, follow up with your Neurologist in 2 days. Return to the ER as needed. - My Orders Last 24 Hours: My Active Orders 10/26/17 20:32 Head wo Cont [CT] Stat Sodium Chloride 0.9% [Saline Flush] 10 ml FLUSH ASDIRECTED PRN Saline Lock Insert [OM.PC] Routine 10/26/17 20:43 EKG Documentation Completion [RC] ASDIRECTED EKG 12 Lead [EK] Stat - Assessment/Plan Last 24 Hours: My Active Orders 10/26/17 20:32 Head wo Cont [CT] Stat Sodium Chloride 0.9% [Saline Flush] 10 ml FLUSH ASDIRECTED PRN Saline Lock Insert [OM.PC] Routine 10/26/17 20:43 EKG Documentation Completion [RC] ASDIRECTED EKG 12 Lead [EK] Stat
[2017-10-26] MEDS ORDERED: Acetaminophen 325 MG Tab PO ONE (21:28)
[2017-10-26] MEDS ORDERED: Ketorolac 30 MG/ML SDV IVPUSH ONE (21:57)
[2017-10-26] MEDS ORDERED: HYDROmorphone 2 MG/ML SDV IVPUSH ONE (22:45)
[2017-10-26 23:39] VITALS: BP 137/94
== END 2017-10-26 23:10 | disposition home or self-care (01) ==
LOC: FB.ED 20:03
DX: G40.909 Epilepsy, unspecified, not intractable, without status epilepticus (principal); R51 Headache; I10 Essential (primary) hypertension; Z88.1 Allergy status to other antibiotic agents; Z88.8 Allergy status to other drugs, medicaments and biological substances; Z91.040 Latex allergy status; Z79.899 Other long term (current) drug therapy
CPT/HCPCS: 36415; 70450; 80053; 85025; 93005; 96361; 96374; 96375; 99284; A9270-GY; J1170; J1885; J7030; J7050

== ENCOUNTER 2018-02-15 20:45 | Emergency (ER) | payer BC, MEDICAID ==
[2018-02-15] MEDS ORDERED: Ketorolac 60 MG/2 ML SDV IM ONE (21:03)
[2018-02-15] MEDS ORDERED: Ondansetron 8 MG Tab.DIS PO ONE (21:03)
--- NOTE | 2018-02-15 21:06 | EDM.PDOC ---
ED HPI GENERAL MEDICAL PROBLEM - General Stated Complaint: RIGHT WRIST Time Seen by Provider: 02/15/18 20:45 Source of Information: Reports: Patient, Family History Limitations: Reports: No Limitations - History of Present Illness INITIAL COMMENTS - FREE TEXT/NARRATIVE: 27 y.o.w.f came to the ed 2 weeks after she fell onto her right wrist. There is no deformity. Pt was seen in the clinic, Torodol was prescribed, a valcro splint was applied without improvement. No no trauma, pt is not able to use her right arm at work. No N/V/D or any other acute medical issues. BP 143/97 Pulse 128 RR 18 Pulse ox 98% on RA Temp 36.8 Onset Date: 02/02/18 Onset Time: 09:00 Duration: Week(s):, Intermittent Location: Reports: Upper Extremity, Right Quality: Reports: Ache, Burning, Dull Severity: Moderate Improves with: Reports: Rest Worsens with: Reports: Movement Context: Reports: Trauma Associated Symptoms: Reports: No Other Symptoms R wrist Pain Score (Numeric/FACES): 10 - Related Data Allergies Allergy/AdvReac Type Severity Reaction Status Date / Time amoxicillin [From Augmentin] Allergy Muscle Verified 02/15/18 21:36 Weakness clavulanic acid Allergy Muscle Verified 02/15/18 21:36 [From Augmentin] Weakness hydromorphone [From Dilaudid] Allergy Muscle Verified 02/15/18 21:36 Weakness hydroxyzine [From Vistaril] Allergy Swelling Verified 02/15/18 21:36 lactose Allergy Stomach Verified 02/15/18 21:36 Ache latex Allergy Swelling Verified 02/15/18 21:36 povidone-iodine Allergy Swelling Verified 02/15/18 21:36 Home Meds: Home Meds levETIRAcetam [Keppra] 2,000 mg PO BID 09/15/16 [History] Albuterol [Ventolin HFA] 1 - 2 puff IH Q4H PRN 09/16/16 [History] Calcium Carbonate [Calcium] 600 mg PO DAILY 04/24/17 [History] Cholecalciferol (Vitamin D3) [Vitamin D3] 5,000 unit PO DAILY 04/24/17 [History] DULoxetine [Cymbalta] 30 mg PO BEDTIME 04/24/17 [History] Doxepin [SINEquan] 100 mg PO BEDTIME 04/24/17 [History] Fluticasone/Salmeterol [Advair 100-50] 1 puff INH BID PRN 04/24/17 [History] Hyoscyamine [Levsin] 0.125 mcg PO TID PRN 04/24/17 [History] Levonorgestrel-Ethin Estradiol [[place]-28 Tablet] 1 each PO BEDTIME 04/24/17 [ History] Levothyroxine 12.5 mcg PO DAILY 04/24/17 [History] Losartan [Cozaar] 50 mg PO DAILY 04/24/17 [History] Minocycline [Minocin] 100 mg PO BID 04/24/17 [History] Montelukast [Singulair] 10 mg PO BEDTIME 04/24/17 [History] Pantoprazole [ProTONIX] 20 mg PO DAILY 04/24/17 [History] Potassium Chloride 20 meq PO DAILY 04/24/17 [History] Ketorolac [Toradol] 10 mg PO Q6H PRN 10/14/17 [History] Milnacipran HCl [Savella] 100 mg PO BID 10/14/17 [History] Pregabalin [Lyrica] 150 mg PO TID 10/14/17 [History] Zolpidem Tartrate [Ambien] 10 mg PO BEDTIME PRN 12/14/17 [History] lamoTRIgine 200 mg PO BID 12/14/17 [History] Ondansetron [Zofran ODT] 8 mg PO Q8HR PRN #15 tab.dis 01/25/18 [Rx] Past Medical History HEENT History: Reports: Impaired Vision Other HEENT History: wears glasses Cardiovascular History: Reports: Hypertension Respiratory History: Reports: Asthma, Sleep Apnea, Other (See Below) Other Respiratory History: "Allergies", uses Cpap Gastrointestinal History: Reports: GERD, Other (See Below) Other Gastrointestinal History: "Stomach Problems" Genitourinary History: Reports: UTI, Recurrent Other Genitourinary History: hx of UTIs 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: Endometriosis, Polycystic Ovaries Other D[employer] 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 Musculoskeletal History: Reports: Back Pain, Chronic, Fibromyalgia, Other (See Below) Other Musculoskeletal History: herniated disc, DJD lower back, hx two ankle surgeries on right foot Neurological History: Reports: Migraines, Seizure, Other (See Below) Other Neuro History: hx epilepsy Psychiatric History: Reports: Anxiety, Depression, Panic Attack, Other (See Below) Other Psychiatric History: "Insomnia" Endocrine/Metabolic History: Reports: Hypothyroidism, Other (See Below) Other Endocrine/Metabolic History: hypoglycemic Dermatologic History: Reports: Other (See Below) Other Dermatologic History: severe acne - Infectious Disease History Infectious Disease History: Reports: Chicken Pox - Past Surgical History HEENT Surgical History: Reports: Adenoidectomy, Tonsillectomy, Other (See Below) Other HEENT Surgeries/Procedures: uvula reconstructed Respiratory Surgical History: Reports: None GI Surgical History: Reports: Cholecystectomy, Colonoscopy, EGD Female Surgical History: Reports: None Endocrine Surgical History: Reports: None Musculoskeletal Surgical History: Reports: None Social & Family History - Family History Family Medical History: Noncontributory Cardiac: Reports: OR - Caffeine Use Caffeine Use: Reports: Coffee, Energy Drinks, Soda, Tea Other Caffeine Use: 2 a day Review of Systems - Review of Systems Review Of Systems: See Below Constitutional: Reports: No Symptoms Eyes: Reports: No Symptoms Ears: Reports: No Symptoms Nose: Reports: No Symptoms Mouth/Throat: Reports: No Symptoms Respiratory: Reports: No Symptoms Cardiovascular: Reports: No Symptoms GI/Abdominal: Reports: No Symptoms Genitourinary: Reports: No Symptoms Musculoskeletal: Reports: Arm Pain (right+) Skin: Reports: No Symptoms Neurological: Reports: No Symptoms Psychiatric: Reports: Other (crying) ED EXAM, GENERAL - Physical Exam Exam: See Below Exam Limited By: No Limitations General Appearance: Alert, WD/WN, Mild Distress Eye Exam: Bilateral Eye: Normal Inspection Ears: Normal External Exam Ear Exam: Bilateral Ear: Auricle Normal Nose: Normal Inspection, Normal Mucosa, No Blood Throat/Mouth: Normal Inspection, Normal Lips, Normal Teeth, Normal Gums, Normal Voice, No Airway Compromise Head: Atraumatic, Normocephalic Neck: Normal Inspection, Supple, Non-Tender, Full Range of Motion Respiratory/Chest: No Respiratory Distress, Lungs Clear, Normal Breath Sounds, No Accessory Muscle Use, Chest Non-Tender Cardiovascular: Normal Peripheral Pulses, Regular Rate, Rhythm, No Edema, No Gallop, No JVD, No Murmur, No Rub Peripheral Pulses: 2+: Brachial (L) GI/Abdominal: Normal Bowel Sounds, Soft, Non-Tender, No Organomegaly, No Distention, No Abnormal Bruit, No Mass, Pelvis Stable (Female) Exam: Deferred Rectal (Female) Exam: Deferred Back Exam: Normal Inspection, Full Range of Motion Extremities: Normal Inspection, Limited Range of Motion (right wrist du eto pain ) Neurological: Alert, Oriented, CN II-XII Intact, Normal Cognition, Normal Gait, No Motor/Sensory Deficits Psychiatric: Normal Affect, Tearful Skin Exam: Warm, Dry, Intact, Normal Color, No Rash Lymphatic: No Adenopathy Course - Vital Signs Text/Narrative:: 27 y.o.w.f came to the ed 2 weeks after she fell onto her right wrist. There is no deformity. Pt was seen in the clinic, Torodol was prescribed, a valcro splint was applied without improvement. No no trauma, pt is not able to use her right arm at work. No N/V/D or any other acute medical issues. BP 143/97 Pulse 128 RR 18 Pulse ox 98% on RA Temp 36.8 PE: WNWD W F with right wrist pain after a fall 2 weeks ago. Pt feels nauseated because of pain Imaging: Right wrist: NAD Impression: Right wrist sprain 2 weeks old Tx: Toradol and Zofran. Reexam: Improved Plan: D/C with instructions Last Recorded V/S: Last Vital Signs Temp 36.8 C 02/15/18 21:25 Pulse 121 H 02/15/18 22:50 Resp 18 02/15/18 22:50 BP 146/95 H 02/15/18 22:50 Pulse Ox 100 02/15/18 22:50 - Orders/Labs/Meds Orders: Active Orders 24 hr Category Date Time Status Cooling Warming Measures [RC] ASDIRECTED Care 02/15/18 21:04 Active Wrist Comp Min 3V Rt [CR] Stat Exams 02/15/18 21:44 Taken Ice Bag [Ice Therapy] [OM.PC] Routine Oth 02/15/18 21:04 Ordered Meds: Medications Discontinued Medications Generic Name Dose Route Start Last Admin Trade Name Freq PRN Reason Stop Dose Admin Ketorolac Tromethamine 60 mg 02/15/18 21:03 02/15/18 22:13 Toradol IM 02/15/18 21:04 60 mg ONETIME ONE Administration Ondansetron HCl 8 mg 02/15/18 21:03 02/15/18 22:13 Zofran Odt PO 02/15/18 21:04 8 mg ONETIME ONE Administration Departure - Departure Time of Disposition: 22:41 Disposition: Home, Self-Care 01 Condition: Good Clinical Impression: Sprain of wrist, right Qualifiers: Encounter type: subsequent encounter Qualified Code(s): S63.501D - Unspecified sprain of right wrist, subsequent encounter - Discharge Information Instructions: Ondansetron oral dissolving tablet, Ketorolac injection, Wrist Splint, Adult, [id number], Wrist Sprain, Adult Referrals: Susanna Babcock, DIRECTOR INTERNAL AUDIT [Primary Care Provider] - Pierre Louis DO [Physician] - Forms: ED Department Discharge Additional Instructions: Rest, ICE and elevation, Motrin for pain ,flexeril as recommended, please follow up in AM with orthopedic doctor or regular MD at clinic, come back if your symptoms get worse acutely. Dr. Louis orthopedist at [facility] [phone] - My Orders Last 24 Hours: My Active Orders 02/15/18 21:04 Cooling Warming Measures [RC] ASDIRECTED Ice Bag [Ice Therapy] [OM.PC] Routine 02/15/18 21:44 Wrist Comp Min 3V Rt [CR] Stat - Assessment/Plan Last 24 Hours: My Active Orders 02/15/18 21:04 Cooling Warming Measures [RC] ASDIRECTED Ice Bag [Ice Therapy] [OM.PC] Routine 02/15/18 21:44 Wrist Comp Min 3V Rt [CR] Stat
[2018-02-15 23:04] VITALS: BP 146/95
== END 2018-02-15 23:01 | disposition home or self-care (01) ==
LOC: FB.ED 20:45
DX: S63.501D Unspecified sprain of right wrist, subsequent encounter (principal); I10 Essential (primary) hypertension; W19.XXXD Unspecified fall, subsequent encounter; Z88.1 Allergy status to other antibiotic agents; Z91.040 Latex allergy status; Z79.899 Other long term (current) drug therapy; Z88.8 Allergy status to other drugs, medicaments and biological substances
CPT/HCPCS: 73110; 96372; 99283; A9270; J1885

== ENCOUNTER 2018-03-01 21:14 | Emergency (ER) | payer BC ==
[2018-03-01] MEDS ORDERED: Ketorolac 30 MG/ML SDV IVPUSH ONE (22:14)
[2018-03-01] MEDS ORDERED: Sodium Chloride 0.9% 1,000 ML IV ONE (22:14)
[2018-03-01] MEDS ORDERED: Ondansetron 4 MG/2 ML SDV IVPUSH ONE (22:14)
--- NOTE | 2018-03-01 22:19 | EDM.PDOC ---
ED HPI GENERAL MEDICAL PROBLEM - General Chief Complaint: Gastrointestinal Problem Stated Complaint: CANNOT KEEP ANY FOOD DOWN STOMACH HURTS Time Seen by Provider: 03/01/18 22:00 Source of Information: Reports: Patient, Family History Limitations: Reports: No Limitations - History of Present Illness INITIAL COMMENTS - FREE TEXT/NARRATIVE: c/o GI sxs for 2d pt has had intermittent N/V, no diarrhea, no constipation, had BM x 1 today no f/c/d here with boyfriend, not sexually active, works at [employer] had crackers earlier today, took regular meds, took no pain meds, no nausea meds has discomfort at R flank h/o choly, no other abd surgery ABD Pain Score (Numeric/FACES): 9 - Related Data Allergies Allergy/AdvReac Type Severity Reaction Status Date / Time amoxicillin [From Augmentin] Allergy Muscle Verified 03/01/18 21:29 Weakness clavulanic acid Allergy Muscle Verified 03/01/18 21:29 [From Augmentin] Weakness hydromorphone [From Dilaudid] Allergy Muscle Verified 03/01/18 21:29 Weakness hydroxyzine [From Vistaril] Allergy Swelling Verified 03/01/18 21:29 lactose Allergy Stomach Verified 03/01/18 21:29 Ache latex Allergy Swelling Verified 03/01/18 21:29 povidone-iodine Allergy Swelling Verified 03/01/18 21:29 Home Meds: Home Meds levETIRAcetam [Keppra] 2,000 mg PO BID 09/15/16 [History] Albuterol [Ventolin HFA] 1 - 2 puff IH Q4H PRN 09/16/16 [History] Calcium Carbonate [Calcium] 600 mg PO DAILY 04/24/17 [History] Cholecalciferol (Vitamin D3) [Vitamin D3] 5,000 unit PO DAILY 04/24/17 [History] DULoxetine [Cymbalta] 30 mg PO BEDTIME 04/24/17 [History] Doxepin [SINEquan] 100 mg PO BEDTIME 04/24/17 [History] Fluticasone/Salmeterol [Advair 100-50] 1 puff INH BID PRN 04/24/17 [History] Hyoscyamine [Levsin] 0.125 mcg PO TID PRN 04/24/17 [History] Levonorgestrel-Ethin Estradiol [Chelsey-28 Tablet] 1 each PO BEDTIME 04/24/17 [ History] Levothyroxine 12.5 mcg PO DAILY 04/24/17 [History] Losartan [Cozaar] 50 mg PO DAILY 04/24/17 [History] Minocycline [Minocin] 100 mg PO BID 04/24/17 [History] Montelukast [Singulair] 10 mg PO BEDTIME 04/24/17 [History] Pantoprazole [ProTONIX] 20 mg PO DAILY 04/24/17 [History] Potassium Chloride 20 meq PO DAILY 04/24/17 [History] Milnacipran HCl [Savella] 100 mg PO BID 10/14/17 [History] Pregabalin [Lyrica] 150 mg PO TID 10/14/17 [History] Zolpidem Tartrate [Ambien] 10 mg PO BEDTIME PRN 12/14/17 [History] lamoTRIgine 200 mg PO BID 12/14/17 [History] Metoclopramide HCl 10 mg PO Q6H PRN #6 tablet 03/01/18 [Rx] Past Medical History HEENT History: Reports: Impaired Vision Other HEENT History: wears glasses Cardiovascular History: Reports: Hypertension Respiratory History: Reports: Asthma, Sleep Apnea, Other (See Below) Other Respiratory History: "Allergies", uses Cpap Gastrointestinal History: Reports: GERD, Other (See Below) Other Gastrointestinal History: "Stomach Problems" Genitourinary History: Reports: UTI, Recurrent Other Genitourinary History: hx of UTIs 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: Reports: Endometriosis, Polycystic Ovaries Other 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: G0 Musculoskeletal History: Reports: Back Pain, Chronic, Fibromyalgia, Other (See Below) Other Musculoskeletal History: herniated disc, DJD lower back, hx two ankle surgeries on right foot Neurological History: Reports: Migraines, Seizure, Other (See Below) Other Neuro History: hx epilepsy Psychiatric History: Reports: Anxiety, Depression, Panic Attack, Other (See Below) Other Psychiatric History: "Insomnia" Endocrine/Metabolic History: Reports: Hypothyroidism, Other (See Below) Other Endocrine/Metabolic History: hypoglycemic Dermatologic History: Reports: Other (See Below) Other Dermatologic History: severe acne - Infectious Disease History Infectious Disease History: Reports: Chicken Pox - Past Surgical History HEENT Surgical History: Reports: Adenoidectomy, Tonsillectomy, Other (See Below) Other HEENT Surgeries/Procedures: uvula reconstructed Respiratory Surgical History: Reports: None GI Surgical History: Reports: Cholecystectomy, Colonoscopy, EGD Female Surgical History: Reports: None Endocrine Surgical History: Reports: None Musculoskeletal Surgical History: Reports: None Social & Family History - Family History Family Medical History: Noncontributory Cardiac: Reports: [place] - Caffeine Use Caffeine Use: Reports: Coffee, Energy Drinks, Soda, Tea Other Caffeine Use: 2 a day ED ROS GENERAL - Review of Systems Review Of Systems: See Below Constitutional: Reports: No Symptoms, Decreased Appetite. Denies: Fever HEENT: Reports: No Symptoms Respiratory: Reports: No Symptoms Cardiovascular: Reports: No Symptoms Endocrine: Reports: No Symptoms GI/Abdominal: Reports: Abdominal Pain, Nausea, Vomiting : Reports: No Symptoms Musculoskeletal: Reports: No Symptoms Skin: Reports: No Symptoms Neurological: Reports: No Symptoms Psychiatric: Reports: No Symptoms Hematologic/Lymphatic: Reports: No Symptoms Immunologic: Reports: No Symptoms ED EXAM, GI/ABD - Physical Exam Exam: See Below Exam Limited By: No Limitations General Appearance: Alert, WD/WN, No Apparent Distress Nose: Normal Inspection, Normal Mucosa, No Blood Throat/Mouth: Normal Inspection, Normal Lips, Normal Teeth, Normal Gums, Normal Oropharynx, Normal Voice, No Airway Compromise Head: Atraumatic, Normocephalic Neck: Normal Inspection, Supple, Non-Tender, Full Range of Motion Respiratory/Chest: No Respiratory Distress, Lungs Clear, Normal Breath Sounds, Chest Non-Tender Cardiovascular: Regular Rate, Rhythm, No Edema, No Murmur GI/Abdominal Exam: Normal Bowel Sounds, Soft, No Organomegaly, No Distention, No Mass, Other (slight tender perhaps along L mid colon to L hepatic flexure) Back Exam: Normal Inspection, Full Range of Motion. No: CVA Tenderness (R), CVA Tenderness (L) Extremities: Normal Inspection, Normal Range of Motion, Non-Tender Neurological: Alert, Oriented, CN II-XII Intact, Normal Cognition, No Motor/ Sensory Deficits Psychiatric: Normal Affect, Normal Mood Skin Exam: Warm, Dry, Intact, Normal Color, No Rash Lymphatic: No Adenopathy Course - Vital Signs Last Recorded V/S: Last Vital Signs Temp 36.8 C 03/01/18 21:30 Pulse 117 H 03/01/18 21:30 Resp 20 03/01/18 21:30 BP 152/110 H 03/01/18 21:30 Pulse Ox 100 03/01/18 21:30 - Orders/Labs/Meds Orders: Active Orders 24 hr Category Date Time Status URINALYSIS W/MICROSCOPIC [UA W/MICROSCOPIC] [URIN] Stat Lab 03/01/18 22:19 Stop Req Labs: Laboratory Tests 03/01/18 03/01/18 03/01/18 Range/Units 22:25 22:25 22:25 WBC 10.8 (4.5-12.0) X10-3/uL RBC 4.85 (3.23-5.20) x10(6)uL Hgb 15.0 (11.5-15.5) g/dL Hct 44.3 (30.0-51.3) % MCV 91.4 (80-96) fL MCH 30.9 (27.7-33.6) pg MCHC 33.8 (32.2-35.4) g/dL RDW 12.0 (11.5-15.5) % Plt Count 288 (125-369) X10(3)uL MPV 8.6 (7.4-10.4) fL Neut % (Auto) 69.5 (46-82) % Lymph % (Auto) 23.5 (13-37) % [place] % (Auto) 5.7 (4-12) % Eos % (Auto) 1 (1.0-5.0) % Baso % (Auto) 0 (0-2) % Neut # (Auto) 7.6 (1.6-8.3) # Lymph # (Auto) 2.5 (0.6-5.0) # [place] # (Auto) 0.6 (0.0-1.3) # Eos # (Auto) 0.1 (0.0-0.8) # Baso # (Auto) 0.0 (0.0-0.2) # Sodium 138 (135-145) mmol/L Potassium 3.6 (3.5-5.3) mmol/L Chloride 102 (100-110) mmol/L Carbon Dioxide 24 (21-32) mmol/L BUN 14 (7-18) mg/dL Creatinine 1.0 (0.55-1.02) mg/dL Est Cr Clr Drug Dosing 83.63 mL/min Estimated GFR (MDRD) > 60 (>60) BUN/Creatinine Ratio 14.0 (9-20) Glucose 103 (80-116) mg/dL Calcium 9.3 (8.6-10.2) mg/dL C-Reactive Protein 2.8 H* (0.5-0.9) mg/dL Meds: Medications Discontinued Medications Generic Name Dose Route Start Last Admin Trade Name Freq PRN Reason Stop Dose Admin Sodium Chloride 1,000 mls @ 999 mls/hr 03/01/18 22:14 Normal Saline IV 03/01/18 23:14 .BOLUS ONE Ketorolac Tromethamine 30 mg 03/01/18 22:14 Toradol IVPUSH 03/01/18 22:15 ONETIME ONE Ondansetron HCl 4 mg 03/01/18 22:14 Zofran IVPUSH 03/01/18 22:15 ONETIME ONE - Re-Assessments/Exams Free Text/Narrative Re-Assessment/Exam: 03/01/18 23:32 pt not able to give us a urine specimen feeling much better finishing her 1 liter NS, given Toradol 30 mg IV and Zofran 4 mg IV pt thinks she should be able to drink okay at home Departure - Departure Time of Disposition: 23:33 Disposition: Home, Self-Care 01 Condition: Good Clinical Impression: Gastroenteritis - Discharge Information *PRESCRIPTION DRUG MONITORING PROGRAM REVIEWED*: Not Applicable *COPY OF PRESCRIPTION DRUG MONITORING REPORT IN PATIENT ANAYELI: Not Applicable Prescriptions: Metoclopramide HCl 10 mg PO Q6H PRN #6 tablet PRN Reason: Nausea Instructions: Viral Gastroenteritis, Adult Referrals: Susanna Babcock ABRASIVE GRINDER [Primary Care Provider] - Forms: ED Department Discharge Additional Instructions: For nausea, take metoclopramide 10 mg 1 tab every 6 hours as needed. For pain and cramping, take acetaminophen 500 mg 2 tabs or ibuprofen 200 mg 3 tabs 4 times a day for 1-2 days. Increase fluids. Continue regular meds. See your doctor in 5 days. Return to Emergency Department if feeling worse. - My Orders Last 24 Hours: My Active Orders 03/01/18 22:19 URINALYSIS W/MICROSCOPIC [UA W/MICROSCOPIC] [URIN] Stat - Assessment/Plan Last 24 Hours: My Active Orders 03/01/18 22:19 URINALYSIS W/MICROSCOPIC [UA W/MICROSCOPIC] [URIN] Stat
[2018-03-01 23:49] VITALS: BP 132/81
== END 2018-03-01 23:45 | disposition home or self-care (01) ==
LOC: FB.ED 21:14
DX: K52.9 Noninfective gastroenteritis and colitis, unspecified (principal); I10 Essential (primary) hypertension; Z88.1 Allergy status to other antibiotic agents; Z88.5 Allergy status to narcotic agent; Z91.040 Latex allergy status; Z91.011 Allergy to milk products; Z79.899 Other long term (current) drug therapy
CPT/HCPCS: 36415; 80048; 85025; 86140; 96361; 96374; 96375; 99284; J1885; J2405; J7030

== ENCOUNTER 2018-03-21 19:39 | Emergency (ER) | payer BC ==
--- NOTE | 2018-03-21 19:58 | EDM.PDOC ---
ED HPI GENERAL MEDICAL PROBLEM - General Stated Complaint: SEIZURE Time Seen by Provider: 03/21/18 19:39 Source of Information: Reports: Patient, Family History Limitations: Reports: No Limitations - History of Present Illness INITIAL COMMENTS - FREE TEXT/NARRATIVE: 27 y.o.w.f with H/O Sz came to the ed 4 hours after she had a Sz at work. Pt says she is compliant with her meds. No tongue bite, did not void in her pans. Pt was resting at work for a while until she picked up from work. Pt is now in her usual state of health but has a generalized, tension time headache with mild nausea. No other acute med. issues. BP 156/106 Temp 97.4 Pulse ox 100% on RA, RR 18. Pulse 98 Onset Date: 03/21/18 Onset Time: 16:00 Duration: Minutes: (10 ) Location: Reports: Generalized Quality: Reports: Same as Previous Episode Severity: Mild Improves with: Reports: Medication Worsens with: Reports: Other Context: Reports: Other (H/O Sz) Associated Symptoms: Reports: Confusion (for 4 hours) - Related Data Allergies Allergy/AdvReac Type Severity Reaction Status Date / Time amoxicillin [From Augmentin] Allergy Muscle Verified 03/21/18 22:17 Weakness clavulanic acid Allergy Muscle Verified 03/21/18 22:17 [From Augmentin] Weakness hydromorphone [From Dilaudid] Allergy Muscle Verified 03/21/18 22:17 Weakness hydroxyzine [From Vistaril] Allergy Swelling Verified 03/21/18 22:17 lactose Allergy Stomach Verified 03/21/18 22:17 Ache latex Allergy Swelling Verified 03/21/18 22:17 povidone-iodine Allergy Swelling Verified 03/21/18 22:17 Home Meds: Home Meds levETIRAcetam [Keppra] 2,000 mg PO BID 09/15/16 [History] Albuterol [Ventolin HFA] 1 - 2 puff IH Q4H PRN 09/16/16 [History] Calcium Carbonate [Calcium] 600 mg PO DAILY 04/24/17 [History] Cholecalciferol (Vitamin D3) [Vitamin D3] 5,000 unit PO DAILY 04/24/17 [History] DULoxetine [Cymbalta] 30 mg PO BEDTIME 04/24/17 [History] Doxepin [SINEquan] 100 mg PO BEDTIME 04/24/17 [History] Fluticasone/Salmeterol [Advair 100-50] 1 puff INH BID PRN 04/24/17 [History] Hyoscyamine [Levsin] 0.125 mcg PO TID PRN 04/24/17 [History] Levonorgestrel-Ethin Estradiol [Chelsey-28 Tablet] 1 each PO BEDTIME 04/24/17 [ History] Levothyroxine 12.5 mcg PO DAILY 04/24/17 [History] Losartan [Cozaar] 50 mg PO DAILY 04/24/17 [History] Minocycline [Minocin] 100 mg PO BID 04/24/17 [History] Montelukast [Singulair] 10 mg PO BEDTIME 04/24/17 [History] Pantoprazole [ProTONIX] 20 mg PO DAILY 04/24/17 [History] Potassium Chloride 20 meq PO DAILY 04/24/17 [History] Milnacipran HCl [Savella] 100 mg PO BID 10/14/17 [History] Pregabalin [Lyrica] 150 mg PO TID 10/14/17 [History] Zolpidem Tartrate [Ambien] 10 mg PO BEDTIME PRN 12/14/17 [History] lamoTRIgine 200 mg PO BID 12/14/17 [History] Metoclopramide HCl 10 mg PO Q6H PRN #6 tablet 03/01/18 [Rx] Past Medical History HEENT History: Reports: Impaired Vision Other HEENT History: wears glasses Cardiovascular History: Reports: Hypertension Respiratory History: Reports: Asthma, Sleep Apnea, Other (See Below) Other Respiratory History: "Allergies", uses Cpap Gastrointestinal History: Reports: GERD, Other (See Below) Other Gastrointestinal History: "Stomach Problems" Genitourinary History: Reports: UTI, Recurrent Other Genitourinary History: hx of UTIs 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: Endometriosis, Polycystic Ovaries 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 Musculoskeletal History: Reports: Back Pain, Chronic, Fibromyalgia, Other (See Below) Other Musculoskeletal History: herniated disc, DJD lower back, hx two ankle surgeries on right foot Neurological History: Reports: Migraines, Seizure, Other (See Below) Other Neuro History: hx epilepsy Psychiatric History: Reports: Anxiety, Depression, Panic Attack, Other (See Below) Other Psychiatric History: "Insomnia" Endocrine/Metabolic History: Reports: Hypothyroidism, Other (See Below) Other Endocrine/Metabolic History: hypoglycemic Dermatologic History: Reports: Other (See Below) Other Dermatologic History: severe acne - Infectious Disease History Infectious Disease History: Reports: Chicken Pox - Past Surgical History HEENT Surgical History: Reports: Adenoidectomy, Tonsillectomy, Other (See Below) Other HEENT Surgeries/Procedures: uvula reconstructed Respiratory Surgical History: Reports: None GI Surgical History: Reports: Cholecystectomy, Colonoscopy, EGD Female Surgical History: Reports: None Endocrine Surgical History: Reports: None Musculoskeletal Surgical History: Reports: None Social & Family History - Family History Family Medical History: Noncontributory Cardiac: Reports: [place] - Caffeine Use Caffeine Use: Reports: Coffee, Energy Drinks, Soda, Tea Other Caffeine Use: 2 a day ED ROS GENERAL - Review of Systems Review Of Systems: See Below Constitutional: Reports: No Symptoms HEENT: Reports: No Symptoms Respiratory: Reports: No Symptoms Cardiovascular: Reports: No Symptoms Endocrine: Reports: No Symptoms GI/Abdominal: Reports: No Symptoms : Reports: No Symptoms Musculoskeletal: Reports: No Symptoms Skin: Reports: No Symptoms Neurological: Reports: Headache Psychiatric: Reports: No Symptoms Hematologic/Lymphatic: Reports: No Symptoms Immunologic: Reports: No Symptoms ED EXAM, NEURO - Physical Exam Exam: See Below Exam Limited By: No Limitations General Appearance: Alert, WD/WN, Mild Distress, Obese Eye Exam: Bilateral Eye: Normal Inspection Ears: Normal External Exam, Normal Canal Nose: Normal Inspection Throat/Mouth: Normal Inspection Head Exam: Atraumatic, Normocephalic Neck: Normal Inspection, Supple, Non-Tender, Full Range of Motion Respiratory/Chest: No Respiratory Distress, Lungs Clear, Normal Breath Sounds, No Accessory Muscle Use Cardiovascular: Normal Peripheral Pulses, Regular Rate, Rhythm, No Edema, No Gallop GI/Abdominal: Normal Bowel Sounds, Soft, Non-Tender, No Organomegaly, No Distention, No Abnormal Bruit, No Mass, Pelvis Stable (Female) Exam: Deferred Rectal (Female) Exam: Deferred Neurological: Alert, Normal Mood/Affect, Normal Dorsiflexion, CN II-XII Intact Back Exam: Normal Inspection Extremities: Normal Inspection Psychiatric: Normal Affect, Normal Mood Skin Exam: Warm, Dry, Intact, Normal Color, No Rash Course - Vital Signs Text/Narrative:: 27 y.o.w.f with H/O Sz came to the ed 4 hours after she had a Sz at work. Pt says she is compliant with her meds. No tongue bite, did not void in her pans. Pt was resting at work for a while until she picked up from work. Pt is now in her usual state of health but has a generalized, tension time headache with mild nausea. No other acute med. issues. BP 156/106 Temp 97.4 Pulse ox 100% on RA, RR 18. Pulse 98 PE: Obese 27 y.o.w.f with mild gen headache 4 hours after she had a 10 min lasting Sz, denies ETOH/Drugs Labs/Imaging not indicated Impression: H/O Epilepsia Tx: Toradol, Zofran, Dilaudid Reexam: Pt improved. (Pt refused Benadryl, vistaryl, imitrex.Those meds do not work or she is allergic to it) 8.[address] Oneill, Neurologist, [facility]: Do not change the meds, Pt is max'd out on all of them, Pt must F/U with him this/next week Plan: D/C with instructions. Last Recorded V/S: Last Vital Signs Temp 36.6 C 03/21/18 19:44 Pulse 86 03/21/18 22:00 Resp 16 03/21/18 22:00 BP 158/101 H 03/21/18 22:00 Pulse Ox 100 03/21/18 22:00 - Orders/Labs/Meds Labs: Laboratory Tests 03/21/18 03/21/18 03/21/18 Range/Units 20:15 20:15 20:15 WBC 10.6 (4.5-12.0) X10-3/uL RBC 4.38 (3.23-5.20) x10(6)uL Hgb 13.4 (11.5-15.5) g/dL Hct 40.5 (30.0-51.3) % MCV 92.3 (80-96) fL MCH 30.5 (27.7-33.6) pg MCHC 33.0 (32.2-35.4) g/dL RDW 12.0 (11.5-15.5) % Plt Count 235 (125-369) X10(3)uL MPV 8.8 (7.4-10.4) fL Neut % (Auto) 73.3 (46-82) % Lymph % (Auto) 21.6 (13-37) % [place] % (Auto) 4.6 (4-12) % Eos % (Auto) 0 L (1.0-5.0) % Baso % (Auto) 0 (0-2) % Neut # (Auto) 7.8 (1.6-8.3) # Lymph # (Auto) 2.3 (0.6-5.0) # [place] # (Auto) 0.5 (0.0-1.3) # Eos # (Auto) 0.0 (0.0-0.8) # Baso # (Auto) 0.0 (0.0-0.2) # Sodium 140 (135-145) mmol/L Potassium 3.5 (3.5-5.3) mmol/L Chloride 103 (100-110) mmol/L Carbon Dioxide 28 (21-32) mmol/L BUN 14 (7-18) mg/dL Creatinine 1.0 (0.55-1.02) mg/dL Est Cr Clr Drug Dosing TNP Estimated GFR (MDRD) > 60 (>60) BUN/Creatinine Ratio 14.0 (9-20) Glucose 104 (80-116) mg/dL Calcium 9.0 (8.6-10.2) mg/dL Urine HCG, Qual (NEGATIVE) Urine Opiates Screen (NEGATIVE) Ur Oxycodone Screen (NEGATIVE) Ur Propoxyphene Screen (NEGATIVE) Ur Barbituates Screen (NEGATIVE) Ur Tricyclics Screen (NEGATIVE) Ur Phencyclidine Scrn (NEGATIVE) Ur Amphetamine Screen (NEGATIVE) Urine MDMA Screen (NEGATIVE) U Benzodiazepines Scrn (NEGATIVE) U Cocaine Metab Screen (NEGATIVE) U Marijuana (THC) Screen (NEGATIVE) Ethyl Alcohol < 0.03 (<0.03) % 03/21/18 03/21/18 Range/Units 20:27 20:27 WBC (4.5-12.0) X10-3/uL RBC (3.23-5.20) x10(6)uL Hgb (11.5-15.5) g/dL Hct (30.0-51.3) % MCV (80-96) fL MCH (27.7-33.6) pg MCHC (32.2-35.4) g/dL RDW (11.5-15.5) % Plt Count (125-369) X10(3)uL MPV (7.4-10.4) fL Neut % (Auto) (46-82) % Lymph % (Auto) (13-37) % [place] % (Auto) (4-12) % Eos % (Auto) (1.0-5.0) % Baso % (Auto) (0-2) % Neut # (Auto) (1.6-8.3) # Lymph # (Auto) (0.6-5.0) # [place] # (Auto) (0.0-1.3) # Eos # (Auto) (0.0-0.8) # Baso # (Auto) (0.0-0.2) # Sodium (135-145) mmol/L Potassium (3.5-5.3) mmol/L Chloride (100-110) mmol/L Carbon Dioxide (21-32) mmol/L BUN (7-18) mg/dL Creatinine (0.55-1.02) mg/dL Est Cr Clr Drug Dosing Estimated GFR (MDRD) (>60) BUN/Creatinine Ratio (9-20) Glucose (80-116) mg/dL Calcium (8.6-10.2) mg/dL Urine HCG, Qual Negative (NEGATIVE) Urine Opiates Screen Negative (NEGATIVE) Ur Oxycodone Screen Negative (NEGATIVE) Ur Propoxyphene Screen Negative (NEGATIVE) Ur Barbituates Screen Negative (NEGATIVE) Ur Tricyclics Screen Negative (NEGATIVE) Ur Phencyclidine Scrn Negative (NEGATIVE) Ur Amphetamine Screen Negative (NEGATIVE) Urine MDMA Screen Negative (NEGATIVE) U Benzodiazepines Scrn Negative (NEGATIVE) U Cocaine Metab Screen Negative (NEGATIVE) U Marijuana (THC) Screen Negative (NEGATIVE) Ethyl Alcohol (<0.03) % Meds: Medications Discontinued Medications Generic Name Dose Route Start Last Admin Trade Name Freq PRN Reason Stop Dose Admin Hydromorphone HCl 1 mg 03/21/18 22:17 03/21/18 22:39 Dilaudid IM 03/21/18 22:18 1 mg ONETIME ONE Administration Ketorolac Tromethamine 60 mg 02/12/19 20:43 03/21/18 21:19 Toradol IM 03/21/18 20:44 60 mg ONETIME ONE Administration Ondansetron HCl 8 mg 03/21/18 21:46 03/21/18 21:59 Zofran Odt PO 03/21/18 21:47 8 mg ONETIME ONE Administration Departure - Departure Time of Disposition: 22:03 Disposition: Home, Self-Care 01 Condition: Good Clinical Impression: Epilepsy Qualifiers: Epilepsy type: unspecified Intractability: not intractable - Discharge Information Instructions: DASH Eating Plan, Hypertension Referrals: Susanna Babcock LINE PALLETIZER [Primary Care Provider] - Forms: ED Department Discharge Additional Instructions: Please follow up with your Neurologist this/next week, please continue your medications, please come back if your symptoms get worse acutely.
[2018-03-21] MEDS ORDERED: Ketorolac 60 MG/2 ML SDV IM ONE (20:43)
[2018-03-21] MEDS ORDERED: Ondansetron 8 MG Tab.DIS PO ONE (21:46)
[2018-03-21] MEDS ORDERED: HYDROmorphone 2 MG/ML SDV IM ONE (22:17)
[2018-03-22 02:10] VITALS: BP 145/97
== END 2018-03-21 23:30 | disposition home or self-care (01) ==
LOC: FB.ED 19:39
DX: G40.909 Epilepsy, unspecified, not intractable, without status epilepticus (principal); J45.909 Unspecified asthma, uncomplicated; K21.9 Gastro-esophageal reflux disease without esophagitis; Z88.1 Allergy status to other antibiotic agents; Z88.8 Allergy status to other drugs, medicaments and biological substances; Z79.899 Other long term (current) drug therapy
CPT/HCPCS: 36415; 80048; 80305; 81025; 85025; 96372; 99283; A9270; G0480; J1170; J1885

== ENCOUNTER 2018-04-04 18:34 | Emergency (ER) | payer BC, MEDICAID ==
--- NOTE | 2018-04-04 19:19 | EDM.PDOC ---
ED HPI GENERAL MEDICAL PROBLEM - General Stated Complaint: ABD PAIN Time Seen by Provider: 04/04/18 19:00 Source of Information: Reports: Patient History Limitations: Reports: No Limitations - History of Present Illness INITIAL COMMENTS - FREE TEXT/NARRATIVE: 27-year-old with LMP. 03/28/18 is using any contraceptive is sexually active has epilepsy and is taking Keppra and lamotrigine and has been seizure free for years, has history of fibromyalgia, tension headaches, and GERD. She vomited several times today and thinks perhaps her seizure medicines may not have stayed down. She had onset of right lower quadrant dull pain at 5 AM this morning and has experienced a progressively increasing right lower quadrant pain throughout the day. Current pain 11/16. Last meal was evening 04/03/18 and was Hamburger. Right Lower Abdominal Pain Score (Numeric/FACES): 10 - Related Data Allergies Allergy/AdvReac Type Severity Reaction Status Date / Time amoxicillin [From Augmentin] Allergy Muscle Verified 03/21/18 22:17 Weakness clavulanic acid Allergy Muscle Verified 03/21/18 22:17 [From Augmentin] Weakness hydromorphone [From Dilaudid] Allergy Muscle Verified 03/21/18 22:17 Weakness hydroxyzine [From Vistaril] Allergy Swelling Verified 03/21/18 22:17 lactose Allergy Stomach Verified 03/21/18 22:17 Ache latex Allergy Swelling Verified 03/21/18 22:17 povidone-iodine Allergy Swelling Verified 03/21/18 22:17 Home Meds: Home Meds levETIRAcetam [Keppra] 2,000 mg PO BID 09/15/16 [History] Albuterol [Ventolin HFA] 1 - 2 puff IH Q4H PRN 09/16/16 [History] Calcium Carbonate [Calcium] 600 mg PO DAILY 04/24/17 [History] Cholecalciferol (Vitamin D3) [Vitamin D3] 5,000 unit PO DAILY 04/24/17 [History] DULoxetine [Cymbalta] 30 mg PO BEDTIME 04/24/17 [History] Doxepin [SINEquan] 100 mg PO BEDTIME 04/24/17 [History] Fluticasone/Salmeterol [Advair 100-50] 1 puff INH BID PRN 04/24/17 [History] Hyoscyamine [Levsin] 0.125 mcg PO TID PRN 04/24/17 [History] Levonorgestrel-Ethin Estradiol [Chelsey-28 Tablet] 1 each PO BEDTIME 04/24/17 [ History] Levothyroxine 12.5 mcg PO DAILY 04/24/17 [History] Losartan [Cozaar] 50 mg PO DAILY 04/24/17 [History] Minocycline [Minocin] 100 mg PO BID 04/24/17 [History] Montelukast [Singulair] 10 mg PO BEDTIME 04/24/17 [History] Pantoprazole [ProTONIX] 20 mg PO DAILY 04/24/17 [History] Potassium Chloride 20 meq PO DAILY 04/24/17 [History] Milnacipran HCl [Savella] 100 mg PO BID 10/14/17 [History] Pregabalin [Lyrica] 150 mg PO TID 10/14/17 [History] Zolpidem Tartrate [Ambien] 10 mg PO BEDTIME PRN 12/14/17 [History] lamoTRIgine 200 mg PO BID 12/14/17 [History] Metoclopramide HCl 10 mg PO Q6H PRN #6 tablet 03/01/18 [Rx] SUMAtriptan Succinate [Imitrex] 25 mg PO ASDIRECTED #8 tablet 04/04/18 [Rx] Past Medical History HEENT History: Reports: Impaired Vision Other HEENT History: wears glasses Cardiovascular History: Reports: Hypertension Respiratory History: Reports: Asthma, Sleep Apnea, Other (See Below) Other Respiratory History: "Allergies", uses Cpap Gastrointestinal History: Reports: GERD, Other (See Below) Other Gastrointestinal History: "Stomach Problems" Genitourinary History: Reports: UTI, Recurrent Other Genitourinary History: hx of UTIs PRUNER History: Reports: Endometriosis, Polycystic Ovaries Other PRUNER History: G0 Musculoskeletal History: Reports: Back Pain, Chronic, Fibromyalgia, Other (See Below) Other Musculoskeletal History: herniated disc, DJD lower back, hx two ankle surgeries on right foot Neurological History: Reports: Migraines, Seizure, Other (See Below) Other Neuro History: hx epilepsy Psychiatric History: Reports: Anxiety, Depression, Panic Attack, Other (See Below) Other Psychiatric History: "Insomnia" Endocrine/Metabolic History: Reports: Hypothyroidism, Other (See Below) Other Endocrine/Metabolic History: hypoglycemic Dermatologic History: Reports: Other (See Below) Other Dermatologic History: severe acne - Infectious Disease History Infectious Disease History: Reports: Chicken Pox - Past Surgical History HEENT Surgical History: Reports: Adenoidectomy, Tonsillectomy, Other (See Below) Other HEENT Surgeries/Procedures: uvula reconstructed Respiratory Surgical History: Reports: None GI Surgical History: Reports: Cholecystectomy, Colonoscopy, EGD Female Surgical History: Reports: None Endocrine Surgical History: Reports: None Musculoskeletal Surgical History: Reports: None Social & Family History - Family History Family Medical History: Noncontributory Cardiac: Reports: [place] - Caffeine Use Caffeine Use: Reports: Coffee, Energy Drinks, Soda, Tea Other Caffeine Use: 2 a day ED ROS GENERAL - Review of Systems Review Of Systems: See Below Constitutional: Reports: No Symptoms HEENT: Reports: No Symptoms Respiratory: Reports: No Symptoms Cardiovascular: Reports: No Symptoms Endocrine: Reports: No Symptoms GI/Abdominal: Reports: Abdominal Pain, Vomiting : Reports: No Symptoms Musculoskeletal: Reports: No Symptoms Skin: Reports: No Symptoms Psychiatric: Reports: No Symptoms Hematologic/Lymphatic: Reports: No Symptoms Immunologic: Reports: No Symptoms ED EXAM, GENERAL - Physical Exam Exam: See Below Free Text/Narrative:: Markedly overweight woman in mod distress laying on her left side and is attended by a male friend Exam Limited By: No Limitations General Appearance: Alert, WD/WN, Severe Distress Eye Exam: Bilateral Eye: Normal Inspection Ear Exam: Bilateral Ear: Auricle Normal, Canal Normal, TM normal Nose: Normal Inspection Throat/Mouth: Normal Inspection, Normal Lips, Normal Teeth, Normal Gums, Normal Oropharynx, Normal Voice, No Airway Compromise Head: Atraumatic, Normocephalic Neck: Normal Inspection, Supple, Non-Tender, Full Range of Motion Respiratory/Chest: No Respiratory Distress, Lungs Clear, Normal Breath Sounds, No Accessory Muscle Use, Chest Non-Tender Peripheral Pulses: 1+: Radial (L), Radial (R) GI/Abdominal: Normal Bowel Sounds, Soft, No Organomegaly, No Distention, No Abnormal Bruit, No Mass, Tender, Other (Psoas sign is positive. Heeltap sign is positive. Moderate rebound right lower quadrant and periumbilical area.) (Female) Exam: Deferred Rectal (Female) Exam: Deferred Back Exam: Normal Inspection, Full Range of Motion Extremities: Normal Inspection, Normal Range of Motion, Non-Tender, No Pedal Edema, Normal Capillary Refill Neurological: Alert, Oriented, CN II-XII Intact, Normal Cognition, Normal Gait, Normal Reflexes, No Motor/Sensory Deficits Psychiatric: Normal Affect Skin Exam: Warm, Dry, Intact, Normal Color Lymphatic: No Adenopathy Course - Vital Signs Last Recorded V/S: Last Vital Signs Temp 36.7 C 04/04/18 19:21 Pulse 128 H 04/04/18 19:21 Resp 18 04/04/18 19:21 BP 138/57 L 04/04/18 19:21 Pulse Ox 98 04/04/18 19:21 - Orders/Labs/Meds Orders: Active Orders 24 hr Category Date Time Status Abdomen Pelvis w Cont [CT] Stat Exams 04/04/18 19:19 Taken AMYLASE [CHEM] Urgent Lab 04/04/18 21:18 Ordered HCG QUALITATIVE,URINE [URCHEM] Stat Lab 04/04/18 19:51 Ordered URINALYSIS W/MICROSCOPIC [UA W/MICROSCOPIC] [URIN] Stat Lab 04/04/18 19:51 Ordered Sodium Chloride 0.9% [Normal Saline] 1,000 ml Med 04/04/18 21:17 Ordered IV .BOLUS Medication Orders Sodium Chloride (Normal Saline) 1,000 mls @ 999 mls/hr IV .BOLUS ONE Stop: 04/04/18 22:17 Labs: Laboratory Tests 04/04/18 04/04/18 04/04/18 Range/Units 20:29 20:29 20:29 WBC 8.0 (4.5-12.0) X10-3/uL RBC 4.66 (3.23-5.20) x10(6)uL Hgb 14.5 (11.5-15.5) g/dL Hct 42.8 (30.0-51.3) % MCV 91.7 (80-96) fL MCH 31.2 (27.7-33.6) pg MCHC 34.0 (32.2-35.4) g/dL RDW 12.4 (11.5-15.5) % Plt Count 272 (125-369) X10(3)uL MPV 8.5 (7.4-10.4) fL Neut % (Auto) 82.2 H (46-82) % Lymph % (Auto) 13.4 (13-37) % Rabun % (Auto) 3.9 L (4-12) % Eos % (Auto) 0 L (1.0-5.0) % Baso % (Auto) 0 (0-2) % Neut # (Auto) 6.6 (1.6-8.3) # Lymph # (Auto) 1.1 (0.6-5.0) # Rabun # (Auto) 0.3 (0.0-1.3) # Eos # (Auto) 0.0 (0.0-0.8) # Baso # (Auto) 0.0 (0.0-0.2) # Sodium 136 (135-145) mmol/L Potassium 3.9 (3.5-5.3) mmol/L Chloride 99 L (100-110) mmol/L Carbon Dioxide 24 (21-32) mmol/L BUN 20 H (7-18) mg/dL Creatinine 1.0 (0.55-1.02) mg/dL Est Cr Clr Drug Dosing 80.51 mL/min Estimated GFR (MDRD) > 60 (>60) BUN/Creatinine Ratio 20.0 (9-20) Glucose 101 (80-116) mg/dL Lactic Acid 1.9 (0.4-2.2) mmol/L Calcium 8.6 (8.6-10.2) mg/dL Total Bilirubin 0.8 (0.1-1.3) mg/dL AST 55 H D (5-25) IU/L ALT 47 H D (12-36) U/L Alkaline Phosphatase 98 (56-112) IU/L Total Protein 6.6 (6.0-8.0) g/dL Albumin 3.4 L (3.5-5.2) g/dL Globulin 3.2 g/dL Albumin/Globulin Ratio 1.1 Meds: Medications Generic Name Dose Route Start Last Admin Trade Name Freq PRN Reason Stop Dose Admin Sodium Chloride 1,000 mls @ 999 mls/hr 04/04/18 21:17 Normal Saline IV 04/04/18 22:17 .BOLUS ONE Discontinued Medications Generic Name Dose Route Start Last Admin Trade Name Freq PRN Reason Stop Dose Admin Fentanyl 100 mcg 04/04/18 19:21 04/04/18 19:50 Sublimaze IVPUSH 04/04/18 19:22 100 mcg ONETIME ONE Administration Sodium Chloride 1,000 mls @ 999 mls/hr 04/04/18 20:17 04/04/18 20:30 Normal Saline IV 04/04/18 21:17 999 mls/hr .BOLUS ONE Administration Iopamidol 150 ml 04/04/18 19:43 04/04/18 20:00 Isovue-370 (76%) IV 04/04/18 19:44 126 ml ONETIME ONE Administration Ondansetron HCl 4 mg 04/04/18 19:24 04/04/18 19:50 Zofran IVPUSH 04/04/18 19:25 4 mg ONETIME ONE Administration Departure - Departure Time of Disposition: 21:00 (Etiology for patient's pain is indeterminate. Possible abdominal migraine was considered. But she denied having a headache. His possible she still could have an abdominal migraine without headache. Plan trial Imitrex at the onset of abdominal pain in the future pill stat 25 mg and repeat at 2 hrs if not improved) Disposition: Home, Self-Care 01 Condition: Good, Fair Clinical Impression: Abdominal migraine Qualifiers: Intractability: not intractable Qualified Code(s): G43.D0 - Abdominal migraine , not intractable - Discharge Information Referrals: Susanna Babcock TERRAZZO LAYER [Primary Care Provider] - - My Orders Last 24 Hours: My Active Orders 04/04/18 19:19 Abdomen Pelvis w Cont [CT] Stat 04/04/18 19:51 HCG QUALITATIVE,URINE [URCHEM] Stat URINALYSIS W/MICROSCOPIC [UA W/MICROSCOPIC] [URIN] Stat 04/04/18 21:17 Sodium Chloride 0.9% [Normal Saline] 1,000 ml IV .BOLUS 04/04/18 21:18 AMYLASE [CHEM] Urgent - Assessment/Plan Last 24 Hours: My Active Orders 04/04/18 19:19 Abdomen Pelvis w Cont [CT] Stat 04/04/18 19:51 HCG QUALITATIVE,URINE [URCHEM] Stat URINALYSIS W/MICROSCOPIC [UA W/MICROSCOPIC] [URIN] Stat 04/04/18 21:17 Sodium Chloride 0.9% [Normal Saline] 1,000 ml IV .BOLUS 04/04/18 21:18 AMYLASE [CHEM] Urgent
[2018-04-04] MEDS: Ondansetron 4 MG/2 ML SDV IVPUSH ONE (19:50)
[2018-04-04] MEDS: fentaNYL 100 MCG/2 ML SDV IVPUSH ONE (19:50)
[2018-04-04] MEDS: Iopamidol 755 MG/ML 150 ML Bottle IV ONE (20:00)
[2018-04-04] MEDS: Sodium Chloride 0.9% 1,000 ML IV ONE ×2 (20:30→21:32)
[2018-04-04] MEDS: HYDROmorphone 2 MG/ML SDV IVPUSH ONE (22:42)
[2018-04-04 22:44] VITALS: BP 128/89
== END 2018-04-04 22:53 | disposition home or self-care (01) ==
LOC: FB.ED 18:34
DX: G43.D0 Abdominal migraine, not intractable (principal); J45.909 Unspecified asthma, uncomplicated; I10 Essential (primary) hypertension; Z79.899 Other long term (current) drug therapy; Z88.0 Allergy status to penicillin; Z88.8 Allergy status to other drugs, medicaments and biological substances; Z91.040 Latex allergy status
CPT/HCPCS: 36415; 74177; 80053; 81001; 81025; 82150; 83605; 85025; 96361; 96374; 96375; 99284; J2405; J3010; J7030; Q9967

== ENCOUNTER 2018-05-31 17:38 | Emergency (ER) | payer BC, MEDICAID ==
[2018-05-31] MEDS: LORazepam 2 MG/ML SDV IVPUSH ONE ×2 (18:56→20:30)
--- NOTE | 2018-05-31 18:59 | EDM.PDOC ---
ED HPI GENERAL MEDICAL PROBLEM - General Chief Complaint: Neurological Problem Stated Complaint: SEIZURE Time Seen by Provider: 05/31/18 18:40 Source of Information: Reports: Patient History Limitations: Reports: Altered Mental Status (Somewhat postictal and amnestic of events that occurred.) - History of Present Illness INITIAL COMMENTS - FREE TEXT/NARRATIVE: 27-year-old female with long-standing history of seizure disorder who reports that she arrived at work at approximate 5 PM today and remembers bending over to set some water down and then does not remember anything until being transported here via ambulance. Apparently coworkers saw her have what sounds like a generalized tonic-clonic seizure and apparently she fell and may have hit her head. When EMS arrived, she was postictal and she did seem to improve on the way here in the ambulance. She was still somewhat confused and postictal when she arrived here. She reports that she has a headache which is global and throbbing, neck pain which is lateral and posterior and is sharp and sore and tongue pain which is up and stinging. No antecedent symptoms. She felt well prior to going to work. She is rating her pain as a 9-10/10. She did have another seizure that was short-lived just after I left the room examining her. There are no other associated signs or symptoms. There are no other modifying factors. Onset: Other (5 PM today) Duration: Other (As above) Location: Reports: Head, Neck, Other (Tongue) Quality: Reports: Ache, Sharp, Throbbing Severity: Moderate Improves with: Reports: None Worsens with: Reports: Movement (Neck with movement and palpation) Context: Reports: Other (Was just arriving at work) Associated Symptoms: Reports: Nausea/Vomiting (Nausea but no vomiting) Other Treatments DOCUMENTATION SPEC: Nothing Frontal headache, R side of tongue Pain Score (Numeric/FACES): 9 - Related Data Allergies Allergy/AdvReac Type Severity Reaction Status Date / Time amoxicillin [From Augmentin] Allergy Muscle Verified 05/31/18 17:50 Weakness clavulanic acid Allergy Muscle Verified 05/31/18 17:50 [From Augmentin] Weakness hydromorphone [From Dilaudid] Allergy Muscle Verified 05/31/18 17:50 Weakness hydroxyzine [From Vistaril] Allergy Swelling Verified 05/31/18 17:50 lactose Allergy Stomach Verified 05/31/18 17:50 Ache latex Allergy Swelling Verified 05/31/18 17:50 povidone-iodine Allergy Swelling Verified 05/31/18 17:50 Home Meds: Home Meds levETIRAcetam [Keppra] 2,000 mg PO BID 09/15/16 [History] Albuterol [Ventolin HFA] 1 - 2 puff IH Q4H PRN 09/16/16 [History] Calcium Carbonate [Calcium] 600 mg PO DAILY 04/24/17 [History] Cholecalciferol (Vitamin D3) [Vitamin D3] 5,000 unit PO DAILY 04/24/17 [History] Doxepin [SINEquan] 100 mg PO BEDTIME 04/24/17 [History] Fluticasone/Salmeterol [Advair 100-50] 1 puff INH BID PRN 04/24/17 [History] Hyoscyamine [Levsin] 0.125 mcg PO TID PRN 04/24/17 [History] Levonorgestrel-Ethin Estradiol [Savannah-28 Tablet] 1 each PO BEDTIME 04/24/17 [ History] Levothyroxine 12.5 mcg PO DAILY 04/24/17 [History] Losartan [Cozaar] 50 mg PO DAILY 04/24/17 [History] Minocycline [Minocin] 100 mg PO BID 04/24/17 [History] Montelukast [Singulair] 10 mg PO BEDTIME 04/24/17 [History] Pantoprazole [ProTONIX] 20 mg PO DAILY 04/24/17 [History] Potassium Chloride 20 meq PO DAILY 04/24/17 [History] Milnacipran HCl [Savella] 100 mg PO BID 10/14/17 [History] Pregabalin [Lyrica] 150 mg PO TID 10/14/17 [History] Zolpidem Tartrate [Ambien] 10 mg PO BEDTIME PRN 12/14/17 [History] lamoTRIgine 250 mg PO BID 12/14/17 [History] Clindamycin HCl 300 mg PO TID 5 Days #15 capsule 05/31/18 [Rx] Past Medical History HEENT History: Reports: Impaired Vision Other HEENT History: wears glasses Cardiovascular History: Reports: Hypertension Respiratory History: Reports: Asthma, Sleep Apnea, Other (See Below) Other Respiratory History: "Allergies", uses Cpap Gastrointestinal History: Reports: GERD, Other (See Below) Other Gastrointestinal History: "Stomach Problems" Genitourinary History: Reports: UTI, Recurrent Other Genitourinary History: hx of UTIs [employer]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[employer] History: Reports: Endometriosis, Polycystic Ovaries 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 Musculoskeletal History: Reports: Back Pain, Chronic, Fibromyalgia, Other (See Below) Other Musculoskeletal History: herniated disc, DJD lower back, hx two ankle surgeries on right foot Neurological History: Reports: Migraines, Seizure, Other (See Below) Other Neuro History: hx epilepsy Psychiatric History: Reports: Anxiety, Depression, Panic Attack, Other (See Below) Other Psychiatric History: "Insomnia" Endocrine/Metabolic History: Reports: Hypothyroidism, Other (See Below) Other Endocrine/Metabolic History: hypoglycemic Dermatologic History: Reports: Other (See Below) Other Dermatologic History: severe acne - Infectious Disease History Infectious Disease History: Reports: Chicken Pox - Past Surgical History HEENT Surgical History: Reports: Adenoidectomy, Tonsillectomy, Other (See Below) Other HEENT Surgeries/Procedures: uvula reconstructed GI Surgical History: Reports: Cholecystectomy, Colonoscopy, EGD Social & Family History - Family History Cardiac: Reports: OR - Tobacco Use Smoking Status *Q: Never Smoker - Caffeine Use Caffeine Use: Reports: Coffee, Energy Drinks, Soda, Tea Other Caffeine Use: 2 a day - Alcohol Use Alcohol Use History: Yes Alcohol Use Frequency: Rarely - Living Situation & Occupation Occupation: Employed (Works at [employer]) ED [facility] - Review of Systems Review Of Systems: See Below Constitutional: Reports: No Symptoms HEENT: Reports: Other (Tongue pain) Respiratory: Reports: No Symptoms Cardiovascular: Reports: No Symptoms Endocrine: Reports: No Symptoms GI/Abdominal: Reports: Nausea. Denies: Vomiting : Reports: No Symptoms Musculoskeletal: Reports: Neck Pain Skin: Reports: No Symptoms Neurological: Reports: Headache, Seizure Hematologic/Lymphatic: Reports: No Symptoms Immunologic: Reports: No Symptoms - Physical Exam Exam: See Below Exam Limited By: No Limitations General Appearance: Alert, Moderate Distress Eye Exam: Bilateral Eye: EOMI, Normal Inspection, PERRL Ears: Normal External Exam, Hearing Grossly Normal Nose: Normal Inspection, Normal Mucosa Throat/Mouth: Normal Voice, No Airway Compromise, Evidence of Tongue Biting. No : Inflammation Head Exam: Atraumatic, Normocephalic Neck: Normal Inspection, Tender Lateral, Tender Midline, Other (Cervical collar applied by the nursing staff) Respiratory/Chest: No Respiratory Distress, Lungs Clear, Normal Breath Sounds, No Accessory Muscle Use Cardiovascular: Normal Peripheral Pulses, Regular Rate, Rhythm, No JVD GI/Abdominal: Normal Bowel Sounds, Soft, Non-Tender, No Mass Neuro Exam (Abbreviated): Alert, No Motor/Sensory Deficits, Slow to Respond ( Somewhat slow to respond) Back Exam: Normal Inspection Extremities: Normal Inspection, Normal Range of Motion, Non-Tender, Normal Capillary Refill Skin Exam: Warm, Dry, Intact, Normal Color, No Rash Course - Vital Signs Last Recorded V/S: Last Vital Signs Temp 36.8 C 05/31/18 19:45 Pulse 112 H 05/31/18 19:45 Resp 20 05/31/18 19:45 BP 137/97 H 05/31/18 19:45 Pulse Ox 98 05/31/18 19:45 - Orders/Labs/Meds Orders: Active Orders 24 hr Category Date Time Status CXR [Chest 2V] [CR] Stat Exams 05/31/18 19:58 Taken Cervical Spine wo Cont [CT] Stat Exams 05/31/18 18:50 Ordered Head wo Cont [CT] Stat Exams 05/31/18 18:50 Taken Sodium Chloride 0.9% [Normal Saline] 500 ml Med 05/31/18 19:49 Active IV ASDIRECTED Medication Orders Sodium Chloride (Normal Saline) 500 mls @ 999 mls/hr IV ASDIRECTED GERRY Last Admin: 05/31/18 19:48 Dose: 999 mls/hr Labs: Laboratory Tests 05/31/18 05/31/18 Range/Units 19:05 19:05 WBC 11.4 (4.5-12.0) X10-3/uL RBC 4.75 (3.23-5.20) x10(6)uL Hgb 14.8 (11.5-15.5) g/dL Hct 43.8 (30.0-51.3) % MCV 92.4 (80-96) fL MCH 31.3 (27.7-33.6) pg MCHC 33.9 (32.2-35.4) g/dL RDW 12.1 (11.5-15.5) % Plt Count 293 (125-369) X10(3)uL MPV 9.0 (7.4-10.4) fL Neut % (Auto) 72.1 (46-82) % Lymph % (Auto) 20.8 (13-37) % [place] % (Auto) 6.2 (4-12) % Eos % (Auto) 1 (1.0-5.0) % Baso % (Auto) 0 (0-2) % Neut # (Auto) 8.2 (1.6-8.3) # Lymph # (Auto) 2.4 (0.6-5.0) # [place] # (Auto) 0.7 (0.0-1.3) # Eos # (Auto) 0.1 (0.0-0.8) # Baso # (Auto) 0.0 (0.0-0.2) # Sodium 141 (135-145) mmol/L Potassium 3.9 (3.5-5.3) mmol/L Chloride 103 (100-110) mmol/L Carbon Dioxide 22 (21-32) mmol/L BUN 15 (7-18) mg/dL Creatinine 1.1 H (0.55-1.02) mg/dL Est Cr Clr Drug Dosing 73.19 mL/min Estimated GFR (MDRD) > 60 (>60) BUN/Creatinine Ratio 13.6 (9-20) Glucose 121 H (80-116) mg/dL Calcium 9.3 (8.6-10.2) mg/dL Magnesium 2.2 (1.8-2.5) mg/dL Total Bilirubin 0.4 (0.1-1.3) mg/dL AST 34 H D (5-25) IU/L ALT 42 H D (12-36) U/L Alkaline Phosphatase 98 (56-112) IU/L Total Protein 7.3 (6.0-8.0) g/dL Albumin 3.8 (3.5-5.2) g/dL Globulin 3.5 g/dL Albumin/Globulin Ratio 1.1 Meds: Medications Generic Name Dose Route Start Last Admin Trade Name Freq PRN Reason Stop Dose Admin Sodium Chloride 500 mls @ 999 mls/hr 05/31/18 19:49 05/31/18 19:48 Normal Saline IV 999 mls/hr ASDIRECTED GERRY Administration Discontinued Medications Generic Name Dose Route Start Last Admin Trade Name Freq PRN Reason Stop Dose Admin Sodium Chloride 500 mls @ 999 mls/hr 05/31/18 18:53 05/31/18 19:50 Normal Saline IV 05/31/18 19:23 Not Given .BOLUS ONE Clindamycin Phosphate 900 mg/ 106 mls @ 100 mls/hr 05/31/18 20:43 05/31/18 22 :50 Sodium Chloride IV 05/31/18 21:46 Not Given ONETIME ONE Clindamycin Phosphate 900 mg/ 106 mls @ 100 mls/hr 05/31/18 21:10 05/31/18 21 :18 Sodium Chloride IV 05/31/18 21:46 100 mls/hr ONETIME ONE Administration Ketorolac Tromethamine 30 mg 05/31/18 20:43 05/31/18 21:07 Toradol IVPUSH 05/31/18 20:44 30 mg ONETIME ONE Administration Lorazepam 1 mg 05/31/18 18:52 05/31/18 18:56 Ativan IVPUSH 05/31/18 18:53 1 mg ONETIME ONE Administration Lorazepam 1 mg 05/31/18 19:54 05/31/18 20:30 Ativan IVPUSH 05/31/18 19:55 1 mg ONETIME ONE Administration Prochlorperazine Edisylate 10 mg 05/31/18 19:52 05/31/18 20:30 Compazine IVPUSH 05/31/18 19:53 10 mg ONETIME ONE Administration - Radiology Interpretation Free Text/Narrative:: CT scan of head showed no acute intracranial abnormality and no fracture per the radiologist. CT scan of the cervical spine showed no fracture. The radiologist didn't feel that there could be an infiltrate in the right upper lung and recommended chest x-ray PA and lateral. Chest x-ray PA and lateral showed no acute disease per the radiologist. However , with the patient's history of seizure, it is possible that she had a minimal aspiration pneumonitis that was only shown on the CAT scan and the right upper lobe of the lung. - Re-Assessments/Exams Free Text/Narrative Re-Assessment/Exam: 05/31/18 2000: Patient reports she still has neck pain and headache. Her nausea is improved. I have ordered Compazine, Toradol and additional Ativan for her headache and neck pain. The CT reports are essentially negative except for a possible infiltrate in her right upper lung that could be related to aspiration related to her seizure. I have also ordered a chest x-ray PA and lateral. She has remained vitally stable. She has had no further seizure since the seizure that she had here in the emergency department. 05/31/18 21:56: Patient reports neck pain and headache are improving. Her chest x-ray was normal-appearing but with the CT scan showing some evidence of a pneumonitis and the seizure with possible aspiration, I felt that she needed coverage with an antibiotic to treat this possibility. Therefore she was given clindamycin 900 mg IV. The plan will be to treat her with clindamycin for the next 5 days. She did take her nighttime medications (including all of her seizure medications). She has been seizure-free since the one seizure that occurred in the emergency department and she feels comfortable with discharge to home after the antibiotics of been infused. She is to follow-up with her neurologist. Departure - Departure Time of Disposition: 22:40 Disposition: Home, Self-Care 01 Condition: Good Clinical Impression: Seizure disorder, Breakthrough seizure, Sprain of ligaments of cervical spine, initial encounter, Aspiration pneumonitis Head contusion Qualifiers: Encounter type: initial encounter Contusion of head detail: scalp Qualified Code(s): S00.03XA - Contusion of scalp, initial encounter - Discharge Information Prescriptions: Clindamycin HCl 300 mg PO TID 5 Days #15 capsule Instructions: Head Injury, Adult, [id number], Cervical Sprain, [id number], Seizure, Adult, [id number], Aspiration Pneumonia Referrals: Susanna Babcock [employer] [Primary Care Provider] - Forms: ED Department Discharge Additional Instructions: The CT scans of your head and neck showed no fractures or bleeding. The CT scan of your neck did show a probable aspiration pneumonitis in upper lung. The chest x-ray that was performed after this was reassuring for no large pneumonia. Your blood tests were reassuringly normal. I am unsure why you had the breakthrough seizure. You should follow-up with your neurologist this week or the beginning of next. No work tomorrow. You may take ibuprofen and Tylenol as needed for pain. Medication as prescribed (clindamycin 300 mg). Take probiotics or eat yogurt daily while you are on the antibiotics. Back to the emergency department for recurrent seizures, unrelenting vomiting, trouble breathing, high fever or any other concerning sign or symptom. - My Orders Last 24 Hours: My Active Orders 05/31/18 18:50 Cervical Spine wo Cont [CT] Stat Head wo Cont [CT] Stat 05/31/18 19:49 Sodium Chloride 0.9% [Normal Saline] 500 ml IV ASDIRECTED 05/31/18 19:58 CXR [Chest 2V] [CR] Stat - Assessment/Plan Last 24 Hours: My Active Orders 05/31/18 18:50 Cervical Spine wo Cont [CT] Stat Head wo Cont [CT] Stat 05/31/18 19:49 Sodium Chloride 0.9% [Normal Saline] 500 ml IV ASDIRECTED 05/31/18 19:58 CXR [Chest 2V] [CR] Stat
[2018-05-31] MEDS: Sodium Chloride 0.9% 500 ML IV SCH (19:48)
[2018-05-31] MEDS: Sodium Chloride 0.9% 500 ML IV ONE (19:50)
[2018-05-31] MEDS: Prochlorperazine 10 MG/2 ML SDV IVPUSH ONE (20:30)
[2018-05-31] MEDS: Ketorolac 30 MG/ML SDV IVPUSH ONE (21:07)
[2018-05-31] MEDS: Clindamycin Phosphate 900 MG in Sodium Chloride 0.9% 100 ML IV ONE ×2 (21:18→22:50)
[2018-05-31 23:39] VITALS: BP 135/87
--- NOTE | 2018-06-01 08:33 | CT ---
INDICATION: Seizure with head injury. CT HEAD WITHOUT CONTRAST: Spiral examination of the brain was obtained with sagittal and coronal reconstructions 05/31/18 and compared with 09/14/18 revealing no significant interval change, shift of midline structures, ventricular abnormalities or abnormal areas of density. No bleeding site or hematoma was seen. Total DLP = 1270.76 mGy-cm. Visualized paranasal sinuses and mastoid air cells were well aerated. No cranial abnormality was identified. IMPRESSION: Normal CT brain. No acute intracranial abnormalities seen. Report was called to Dr. Maldonado at 1955 hours. [facility]
--- NOTE | 2018-06-01 08:37 | CT ---
INDICATION: Seizure. CT CERVICAL SPINE: Spiral 2.5 mm axial sections were obtained through the cervical spine with sagittal and coronal reconstructions 05/31/18 and compared with 05/16/17. Total exam DLP = 605.89 mGy-cm. Vertebral body and disc heights were maintained. Bone density appeared to be normal. Prevertebral space and bone density appeared to be normal. No significant degenerative changes were identified. Neural foramina were patent. No evidence of acute fracture of dislocation was seen with the odontoid and atlas appearing intact. IMPRESSION: Normal appearing cervical spine. No acute fracture or dislocation. Report was called to Dr. Maldonado at 1955 hours. [facility]
--- NOTE | 2018-06-01 11:26 | CR ---
INDICATION: Seizure with questionable infiltrate in right upper lobe. CHEST: Two PA views and a lateral view of the chest were obtained 05/31/18 and compared with 12/20/17, revealing no definite infiltrate in the right upper lobe or anywhere in the chest. No pleural effusion was seen. A very minimal dextroconvex scoliosis of the upper thoracic spine is again noted. The heart and mediastinum were unremarkable. Evidence of exogenous obesity is noted. IMPRESSION: 1. No acute process. 2. Minimal scoliosis. 3. Exogenous obesity. Report was called to Dr. Maldonado soon after the examination was completed. [facility]
== END 2018-05-31 23:12 | disposition home or self-care (01) ==
LOC: FB.ED 17:38
DX: G40.909 Epilepsy, unspecified, not intractable, without status epilepticus (principal); S13.4XXA Sprain of ligaments of cervical spine, initial encounter; S00.03XA Contusion of scalp, initial encounter; J69.0 Pneumonitis due to inhalation of food and vomit; E03.9 Hypothyroidism, unspecified; I10 Essential (primary) hypertension; Z98.890 Other specified postprocedural states; Z90.49 Acquired absence of other specified parts of digestive tract; Z88.1 Allergy status to other antibiotic agents; Z91.040 Latex allergy status; Z79.899 Other long term (current) drug therapy; W19.XXXA Unspecified fall, initial encounter
CPT/HCPCS: 36415; 70450; 71046; 72125; 80053; 83735; 85025; 96361; 96365; 96375; 96376; 99284-25; J0780; J1885; J2060; J3490; J7030

== ENCOUNTER 2018-08-13 20:52 | Observation (INO) | payer BC, MEDICAID ==
[2018-08-13] MEDS ORDERED: Sodium Chloride 0.9% 1,000 ML IV ONE (21:21)
[2018-08-13] MEDS ORDERED: Sodium Chloride 0.9% 1,000 ML IV SCH (21:30)
[2018-08-13] MEDS ORDERED: Ondansetron 4 MG/2 ML SDV IVPUSH ONE (21:43)
[2018-08-13] MEDS ORDERED: fentaNYL 100 MCG/2 ML SDV IVPUSH ONE (21:43)
--- NOTE | 2018-08-13 21:44 | EDM.PDOC ---
ED HPI GENERAL MEDICAL PROBLEM - General Chief Complaint: Abdominal Pain Stated Complaint: ABD PAIN Time Seen by Provider: 08/13/18 21:30 Source of Information: Reports: Patient History Limitations: Reports: No Limitations - History of Present Illness INITIAL COMMENTS - FREE TEXT/NARRATIVE: 27-year-old female who reports onset Tuesday of nausea with vomiting and some loose stools. She had some right-sided abdominal pain at that time but it was not severe. The following day the diarrhea resolved but she continued with nausea and worsening right mid quadrant abdominal pain. It was quite sharp. It did not radiate. It seemed to be worse when she stood and moved. She has been unable to eat secondary to the pain and vomiting when she tries to eat. She's had no dysuria or hematuria. She's had no fevers. She has had chills and sweats. She's had no cough. She is currently on control pills and she has not had a period for the past 3 months related to this. The pain is rated by her as a 10/10. It is sharp and stabbing and throbbing. Nothing makes it better. There are no other associated signs or symptoms. There are no other modifying factors. Onset: Other (2 days ago) Duration: Getting Worse Location: Reports: Abdomen Quality: Reports: Sharp, Throbbing Severity: Severe Improves with: Reports: None Worsens with: Reports: Other (Palpation), Movement Context: Reports: Other (As above) Associated Symptoms: Reports: Loss of Appetite, Nausea/Vomiting Treatments [employer] UNDERWRITER: Reports: Other (see below) (Nothing) - Related Data Allergies Allergy/AdvReac Type Severity Reaction Status Date / Time amoxicillin [From Augmentin] Allergy Muscle Verified 05/31/18 17:50 Weakness clavulanic acid Allergy Muscle Verified 05/31/18 17:50 [From Augmentin] Weakness hydromorphone [From Dilaudid] Allergy Muscle Verified 05/31/18 17:50 Weakness hydroxyzine [From Vistaril] Allergy Swelling Verified 05/31/18 17:50 lactose Allergy Stomach Verified 05/31/18 17:50 Ache latex Allergy Swelling Verified 05/31/18 17:50 povidone-iodine Allergy Swelling Verified 05/31/18 17:50 Home Meds: Home Meds levETIRAcetam [Keppra] 2,000 mg PO BID 09/15/16 [History] Albuterol [Ventolin HFA] 1 - 2 puff IH Q4H PRN 09/16/16 [History] Calcium Carbonate [Calcium] 600 mg PO DAILY 04/24/17 [History] Cholecalciferol (Vitamin D3) [Vitamin D3] 5,000 unit PO DAILY 04/24/17 [History] Doxepin [SINEquan] 100 mg PO BEDTIME 04/24/17 [History] Fluticasone/Salmeterol [Advair 100-50] 1 puff INH BID PRN 04/24/17 [History] Hyoscyamine [Levsin] 0.125 mcg PO TID PRN 04/24/17 [History] Levonorgestrel-Ethin Estradiol [Chelsey-28 Tablet] 1 each PO BEDTIME 04/24/17 [ History] Levothyroxine 12.5 mcg PO DAILY 04/24/17 [History] Losartan [Cozaar] 50 mg PO DAILY 04/24/17 [History] Minocycline [Minocin] 100 mg PO BID 04/24/17 [History] Montelukast [Singulair] 10 mg PO BEDTIME 04/24/17 [History] Pantoprazole [ProTONIX] 20 mg PO DAILY 04/24/17 [History] Potassium Chloride 20 meq PO DAILY 04/24/17 [History] Milnacipran HCl [Savella] 100 mg PO BID 10/14/17 [History] Pregabalin [Lyrica] 150 mg PO TID 10/14/17 [History] Zolpidem Tartrate [Ambien] 10 mg PO BEDTIME PRN 12/14/17 [History] lamoTRIgine 250 mg PO BID 12/14/17 [History] Clindamycin HCl 300 mg PO TID 5 Days #15 capsule 05/31/18 [Rx] Past Medical History HEENT History: Reports: Impaired Vision Other HEENT History: wears glasses Cardiovascular History: Reports: Hypertension Respiratory History: Reports: Asthma, Sleep Apnea, Other (See Below) Other Respiratory History: "Allergies", uses Cpap Gastrointestinal History: Reports: GERD, Other (See Below) Other Gastrointestinal History: "Stomach Problems" Genitourinary History: Reports: UTI, Recurrent Other Genitourinary History: hx of UTIs CREDIT REPORTER History: Reports: Endometriosis, Polycystic Ovaries Other CREDIT REPORTER History: G0 Musculoskeletal History: Reports: Back Pain, Chronic, Fibromyalgia, Other (See Below) Other Musculoskeletal History: herniated disc, DJD lower back, hx two ankle surgeries on right foot Neurological History: Reports: Migraines, Seizure, Other (See Below) Other Neuro History: hx epilepsy Psychiatric History: Reports: Anxiety, Depression, Panic Attack, Other (See Below) Other Psychiatric History: "Insomnia" Endocrine/Metabolic History: Reports: Hypothyroidism, Other (See Below) Other Endocrine/Metabolic History: hypoglycemic Dermatologic History: Reports: Other (See Below) Other Dermatologic History: severe acne - Infectious Disease History Infectious Disease History: Reports: Chicken Pox - Past Surgical History HEENT Surgical History: Reports: Adenoidectomy, Tonsillectomy, Other (See Below) Other HEENT Surgeries/Procedures: uvula reconstructed GI Surgical History: Reports: Cholecystectomy, Colonoscopy, EGD Social & Family History - Family History Cardiac: Reports: [place] - Tobacco Use Smoking Status *Q: Never Smoker - Caffeine Use Caffeine Use: Reports: Coffee, Energy Drinks, Soda, Tea Other Caffeine Use: 2 a day - Alcohol Use Alcohol Use History: No - Living Situation & Occupation Occupation: Employed (Works at [employer]) ED ROS GENERAL - Review of Systems Review Of Systems: See Below Constitutional: Reports: Chills HEENT: Reports: No Symptoms Respiratory: Reports: No Symptoms Cardiovascular: Reports: No Symptoms GI/Abdominal: Reports: Abdominal Pain, Nausea, Vomiting : Reports: No Symptoms Musculoskeletal: Reports: No Symptoms Skin: Reports: No Symptoms Neurological: Reports: No Symptoms Hematologic/Lymphatic: Reports: No Symptoms Immunologic: Reports: No Symptoms ED EXAM, GI/ABD - Physical Exam Exam: See Below Exam Limited By: No Limitations General Appearance: Alert, Severe Distress (Appears in severe pain on arrival with a pulse rate in the 140s.), Obese Eyes: Bilateral: Normal Appearance, EOMI Ears: Normal External Exam Nose: Normal Inspection, Normal Mucosa, No Blood Throat/Mouth: Normal Voice, No Airway Compromise, Other (Dry mucous membranes) Head: Atraumatic, Normocephalic Neck: Normal Inspection, Supple, Non-Tender, Full Range of Motion Respiratory/Chest: No Respiratory Distress, Lungs Clear, Normal Breath Sounds, No Accessory Muscle Use, Chest Non-Tender Cardiovascular: Normal Peripheral Pulses, No JVD, No Murmur, Tachycardia GI/Abdominal Exam: Soft, No Mass, Tender (Right mid and lower quadrant), Abnormal Bowel Sounds (Diminished). No: Rigid, Rebound Back Exam: Normal Inspection. No: CVA Tenderness (R), CVA Tenderness (L) Extremities: Normal Inspection, Normal Range of Motion, Non-Tender, No Pedal Edema, Normal Capillary Refill Neurological: Alert, Oriented, CN II-XII Intact, Normal Cognition, No Motor/ Sensory Deficits Skin Exam: Warm, Dry, Intact, Normal Color Course - Vital Signs Last Recorded V/S: Last Vital Signs Temp 36.3 C 08/14/18 00:31 Pulse 94 08/14/18 02:35 Resp 16 08/14/18 02:35 BP 113/75 08/14/18 02:35 Pulse Ox 99 08/14/18 02:35 - Orders/Labs/Meds Orders: Active Orders 24 hr Category Date Time Status Abdomen Pelvis wo Cont [CT] Stat Exams 08/13/18 23:06 Taken Sodium Chloride 0.9% [Saline Flush] Med 08/13/18 21:19 Active 10 ml FLUSH ASDIRECTED PRN Peripheral IV Insertion Adult [OM.PC] Routine Oth 08/13/18 21:19 Ordered Medication Orders Sodium Chloride (Normal Saline) 1,000 mls @ 125 mls/hr IV ASDIRECTED GERRY Metoclopramide HCl (Reglan) 10 mg IVPUSH Q6H PRN PRN Reason: Nausea/Vomiting Morphine Sulfate (Morphine) 2 mg IVPUSH Q2H PRN PRN Reason: Pain (severe 7-10) Ondansetron HCl (Zofran) 4 mg IV Q6H PRN PRN Reason: Nausea/Vomiting Sodium Chloride (Saline Flush) 10 ml FLUSH ASDIRECTED PRN PRN Reason: Keep Vein Open Last Admin: 08/13/18 22:12 Dose: 10 ml Labs: Laboratory Tests 08/13/18 08/13/18 08/13/18 Range/Units 21:40 21:40 21:50 WBC 9.9 (4.5-12.0) X10-3/uL RBC 4.46 (3.23-5.20) x10(6)uL Hgb 13.8 (11.5-15.5) g/dL Hct 40.7 (30.0-51.3) % MCV 91.2 (80-96) fL MCH 30.8 (27.7-33.6) pg MCHC 33.8 (32.2-35.4) g/dL RDW 12.0 (11.5-15.5) % Plt Count 338 (125-369) X10(3)uL MPV 8.3 (7.4-10.4) fL Neut % (Auto) 67.1 (46-82) % Lymph % (Auto) 26.0 (13-37) % Grand % (Auto) 5.2 (4-12) % Eos % (Auto) 1 (1.0-5.0) % Baso % (Auto) 0 (0-2) % Neut # (Auto) 6.7 (1.6-8.3) # Lymph # (Auto) 2.6 (0.6-5.0) # Grand # (Auto) 0.5 (0.0-1.3) # Eos # (Auto) 0.1 (0.0-0.8) # Baso # (Auto) 0.0 (0.0-0.2) # Sodium (135-145) mmol/L Potassium (3.5-5.3) mmol/L Chloride (100-110) mmol/L Carbon Dioxide (21-32) mmol/L BUN (7-18) mg/dL Creatinine (0.55-1.02) mg/dL Est Cr Clr Drug Dosing Estimated GFR (MDRD) (>60) BUN/Creatinine Ratio (9-20) Glucose (80-116) mg/dL Calcium (8.6-10.2) mg/dL Total Bilirubin (0.1-1.3) mg/dL AST (5-25) IU/L ALT (12-36) U/L Alkaline Phosphatase (56-112) IU/L C-Reactive Protein (0.5-0.9) mg/dL Total Protein (6.0-8.0) g/dL Albumin (3.5-5.2) g/dL Globulin g/dL Albumin/Globulin Ratio Amylase (25-115) U/L Urine Color Yellow (YELLOW) Urine Appearance Slightly cloudy (CLEAR) Urine pH 6.0 (5.0-6.5) Ur Specific [place] 1.025 (1.010-1.025) Urine Protein Negative (NEGATIVE) mg/dL Urine Glucose (UA) Normal (NORMAL) mg/dL Urine Ketones Negative (NEGATIVE) mg/dL Urine Occult Blood Negative (NEGATIVE) Urine Nitrite Negative (NEGATIVE) Urine Bilirubin Negative (NEGATIVE) Urine Urobilinogen Normal (NEGATIVE) mg/dL Ur Leukocyte Esterase Negative (NEGATIVE) Urine HCG, Qual Negative (NEGATIVE) 08/13/18 08/13/18 Range/Units 21:50 21:50 WBC (4.5-12.0) X10-3/uL RBC (3.23-5.20) x10(6)uL Hgb (11.5-15.5) g/dL Hct (30.0-51.3) % MCV (80-96) fL MCH (27.7-33.6) pg MCHC (32.2-35.4) g/dL RDW (11.5-15.5) % Plt Count (125-369) X10(3)uL MPV (7.4-10.4) fL Neut % (Auto) (46-82) % Lymph % (Auto) (13-37) % Grand % (Auto) (4-12) % Eos % (Auto) (1.0-5.0) % Baso % (Auto) (0-2) % Neut # (Auto) (1.6-8.3) # Lymph # (Auto) (0.6-5.0) # Grand # (Auto) (0.0-1.3) # Eos # (Auto) (0.0-0.8) # Baso # (Auto) (0.0-0.2) # Sodium 140 (135-145) mmol/L Potassium 3.9 (3.5-5.3) mmol/L Chloride 104 (100-110) mmol/L Carbon Dioxide 24 (21-32) mmol/L BUN 20 H (7-18) mg/dL Creatinine 0.9 (0.55-1.02) mg/dL Est Cr Clr Drug Dosing TNP Estimated GFR (MDRD) > 60 (>60) BUN/Creatinine Ratio 22.2 H (9-20) Glucose 91 (80-116) mg/dL Calcium 9.0 (8.6-10.2) mg/dL Total Bilirubin 0.3 (0.1-1.3) mg/dL AST 16 D (5-25) IU/L ALT 21 D (12-36) U/L Alkaline Phosphatase 88 (56-112) IU/L C-Reactive Protein 2.4 H (0.5-0.9) mg/dL Total Protein 7.0 (6.0-8.0) g/dL Albumin 3.4 L (3.5-5.2) g/dL Globulin 3.6 g/dL Albumin/Globulin Ratio 0.9 Amylase 29 (25-115) U/L Urine Color (YELLOW) Urine Appearance (CLEAR) Urine pH (5.0-6.5) Ur Specific [place] (1.010-1.025) Urine Protein (NEGATIVE) mg/dL Urine Glucose (UA) (NORMAL) mg/dL Urine Ketones (NEGATIVE) mg/dL Urine Occult Blood (NEGATIVE) Urine Nitrite (NEGATIVE) Urine Bilirubin (NEGATIVE) Urine Urobilinogen (NEGATIVE) mg/dL Ur Leukocyte Esterase (NEGATIVE) Urine HCG, Qual (NEGATIVE) Meds: Medications Generic Name Dose Route Start Last Admin Trade Name Freq PRN Reason Stop Dose Admin Sodium Chloride 1,000 mls @ 125 mls/hr 08/14/18 00:45 Normal Saline IV ASDIRECTED GERRY Metoclopramide HCl 10 mg 08/14/18 00:35 Reglan IVPUSH Q6H PRN Nausea/Vomiting Morphine Sulfate 2 mg 08/14/18 00:31 Morphine IVPUSH Q2H PRN Pain (severe 7-10) Ondansetron HCl 4 mg 08/14/18 00:31 Zofran IV Q6H PRN Nausea/Vomiting Sodium Chloride 10 ml 08/13/18 21:19 08/13/18 22:12 Saline Flush FLUSH 10 ml ASDIRECTED PRN Administration Keep Vein Open Discontinued Medications Generic Name Dose Route Start Last Admin Trade Name Freq PRN Reason Stop Dose Admin Fentanyl 100 mcg 08/13/18 21:43 08/13/18 22:16 Sublimaze IVPUSH 08/13/18 21:44 100 mcg ONETIME ONE Administration Sodium Chloride 1,000 mls @ 999 mls/hr 08/13/18 21:21 08/13/18 21:59 Normal Saline IV 08/13/18 22:21 999 mls/hr .BOLUS ONE Administration Sodium Chloride 1,000 mls @ 200 mls/hr 08/13/18 21:30 08/13/18 23:20 Normal Saline IV 200 mls/hr ASDIRECTED GERRY Administration Ketorolac Tromethamine 30 mg 08/13/18 22:40 08/13/18 22:45 Toradol IVPUSH 08/13/18 22:41 30 mg ONETIME ONE Administration Lorazepam 1 mg 08/13/18 23:08 08/13/18 23:17 Ativan IVPUSH 08/13/18 23:09 1 mg ONETIME ONE Administration Metoclopramide HCl 10 mg 08/13/18 23:08 08/13/18 23:17 Reglan IVPUSH 08/13/18 23:09 10 mg ONETIME ONE Administration Morphine Sulfate 4 mg 08/13/18 22:29 08/13/18 22:34 Morphine IVPUSH 08/13/18 22:30 4 mg ONETIME ONE Administration Ondansetron HCl 4 mg 08/13/18 21:43 08/13/18 22:16 Zofran IVPUSH 08/13/18 21:44 4 mg ONETIME ONE Administration - Re-Assessments/Exams Free Text/Narrative Re-Assessment/Exam: 08/13/18 23:30: The patient has been given fentanyl 100 g, morphine 4 mg, Toradol 30 mg IV for her pain. She was initially writhing in pain in significant distress with a pulse rate in the 140s. Patient's blood tests were reassuringly normal except for a mildly elevated CRP at 2.4. Her urinalysis was clear. Her test was negative. CT scan of the abdomen and pelvis show normal-appearing appendix with no evidence of right-sided urinary tract stones or hydronephrosis. There is retained colonic stool involving the ascending and transverse colon but nothing that would explain the patient's pain. 08/14/18 00:10: Exam of the patient at this point reveals somewhat sleepy female who still reports pain in her right mid abdomen. She reports that it is improved from previous but still considerable. Her nausea and vomiting has resolved but just after the CT scan the patient had multiple signs of nonbilious emesis which required treatment with Reglan 10 mg and Ativan 1 mg IV. Her abdomen is soft but still with pain with palpation in her right mid abdomen. 08/14/18 00:25: I discussed the patient's case with Dr. Pan, general surgeon educational guidance counselor, at this point with a negative CT scan, there is no indication for surgical procedure. He did feel that admission for continued observation and reevaluation in the morning with possible surgical consultation would be appropriate. At this point, I have no etiology for the patient's pain. However, the patient presented with severe pain and some vital sign abnormality and I feel there is significant morbidity with discharge the patient at this time. I feel she needs further monitoring and potentially surgical evaluation if she has persisting abdominal pain. Therefore, I will admit the patient for continued monitoring and IV fluid hydration and pain control/nausea and vomiting control. I will keep patient NPO for now. Dr. Manzanares will assume care of the patient at 7 AM. Departure - Departure Time of Disposition: 00:30 Disposition: Refer to Observation Condition: Fair (Stable) Clinical Impression: Abdominal pain of unknown etiology, Dehydration Vomiting Qualifiers: Vomiting type: unspecified Vomiting Intractability: non-intractable Nausea presence: with nausea Qualified Code(s): R11.2 - Nausea with vomiting, unspecified - Discharge Information - My Orders Last 24 Hours: My Active Orders 08/13/18 21:19 Sodium Chloride 0.9% [Saline Flush] 10 ml FLUSH ASDIRECTED PRN Peripheral IV Insertion Adult [OM.PC] Routine 08/13/18 23:06 Abdomen Pelvis wo Cont [CT] Stat - Assessment/Plan Last 24 Hours: My Active Orders 08/13/18 21:19 Sodium Chloride 0.9% [Saline Flush] 10 ml FLUSH ASDIRECTED PRN Peripheral IV Insertion Adult [OM.PC] Routine 08/13/18 23:06 Abdomen Pelvis wo Cont [CT] Stat
[2018-08-13] MEDS: Sodium Chloride 0.9% 10 ML Syringe FLUSH PRN (22:12)
[2018-08-13] MEDS ORDERED: Morphine 4 MG/ML Syringe IVPUSH ONE (22:29)
[2018-08-13] MEDS ORDERED: Ketorolac 30 MG/ML SDV IVPUSH ONE (22:40)
[2018-08-13] MEDS ORDERED: LORazepam 2 MG/ML SDV IVPUSH ONE (23:08)
[2018-08-13] MEDS ORDERED: Metoclopramide 10 MG/2 ML SDV IVPUSH ONE (23:08)
[2018-08-14] MEDS ORDERED: Morphine 2 MG/ML Syringe IVPUSH PRN (00:31)
[2018-08-14] MEDS ORDERED: Ondansetron 4 MG/2 ML SDV IV PRN (00:31)
[2018-08-14] MEDS ORDERED: Metoclopramide 10 MG/2 ML SDV IVPUSH PRN (00:35)
[2018-08-14] MEDS ORDERED: Sodium Chloride 0.9% 1,000 ML IV SCH (00:45)
[2018-08-14 06:44] VITALS: BP 106/63; PULSE 89
--- NOTE | 2018-08-14 07:56 | PCM.HP ---
H&P History of Present Illness - General Date of Service: 08/14/18 Admit Problem/Dx: Admission Diagnosis/Problem Admission Diagnosis/Problem Abdominal pain Source of Information: Patient, EMS Notes Reviewed History Limitations: Reports: No Limitations - History of Present Illness Initial Comments - Free Text/Narative: Is a 27-year-old female patient has four-day history of abdominal pain with chills, nausea or vomiting. She had no diarrhea. She says she was able to endure it for a while and then she couldn't keep anything down and came to the ER. Her pain is right mid quadrant and it does not radiate. She says she's been having normal bowel movements. She denies dysuria, pyuria, hematuria or vaginal discharge. She states she it appeared every 3 months can she is on the schedule according to her control pill. She's had her gallbladder removed so as appendix. She was seen in the ER and was given fentanyl, morphine and Toradol for pain became under control and was sent over for observation. The surgeon was called and had a telephone consult with the ER doc. She had a CT scan that per ER doctor's note was basically negative and appendix normal. - Related Data Allergies/Adverse Reactions: Allergies Allergy/AdvReac Type Severity Reaction Status Date / Time amoxicillin [From Augmentin] Allergy Muscle Verified 05/31/18 17:50 Weakness clavulanic acid Allergy Muscle Verified 05/31/18 17:50 [From Augmentin] Weakness hydromorphone [From Dilaudid] Allergy Muscle Verified 05/31/18 17:50 Weakness hydroxyzine [From Vistaril] Allergy Swelling Verified 05/31/18 17:50 lactose Allergy Stomach Verified 05/31/18 17:50 Ache latex Allergy Swelling Verified 05/31/18 17:50 povidone-iodine Allergy Swelling Verified 05/31/18 17:50 Home Medications: Home Meds levETIRAcetam [Keppra] 2,000 mg PO BID 09/15/16 [History] Albuterol [Ventolin HFA] 1 - 2 puff IH Q4H PRN 09/16/16 [History] Calcium Carbonate [Calcium] 600 mg PO DAILY 04/24/17 [History] Cholecalciferol (Vitamin D3) [Vitamin D3] 5,000 unit PO DAILY 04/24/17 [History] Doxepin [SINEquan] 100 mg PO BEDTIME 04/24/17 [History] Fluticasone/Salmeterol [Advair 100-50] 1 puff INH BID PRN 04/24/17 [History] Hyoscyamine [Levsin] 0.125 mcg PO TID PRN 04/24/17 [History] Levonorgestrel-Ethin Estradiol [[place]-28 Tablet] 1 each PO BEDTIME 04/24/17 [ History] Levothyroxine 12.5 mcg PO DAILY 04/24/17 [History] Losartan [Cozaar] 50 mg PO DAILY 04/24/17 [History] Minocycline [Minocin] 100 mg PO BID 04/24/17 [History] Montelukast [Singulair] 10 mg PO BEDTIME 04/24/17 [History] Pantoprazole [ProTONIX] 20 mg PO DAILY 04/24/17 [History] Potassium Chloride 20 meq PO DAILY 04/24/17 [History] Milnacipran HCl [Savella] 100 mg PO BID 10/14/17 [History] Pregabalin [Lyrica] 150 mg PO TID 10/14/17 [History] Zolpidem Tartrate [Ambien] 10 mg PO BEDTIME PRN 12/14/17 [History] lamoTRIgine 250 mg PO BID 12/14/17 [History] Clindamycin HCl 300 mg PO TID 5 Days #15 capsule 05/31/18 [Rx] Past Medical History HEENT History: Reports: Impaired Vision Other HEENT History: wears glasses Cardiovascular History: Reports: Hypertension Respiratory History: Reports: Asthma, Sleep Apnea, Other (See Below) Other Respiratory History: "Allergies", uses Cpap Gastrointestinal History: Reports: GERD, Other (See Below) Other Gastrointestinal History: "Stomach Problems" Genitourinary History: Reports: UTI, Recurrent Other Genitourinary History: hx of UTIs IN [employer] History: Reports: Endometriosis, Polycystic Ovaries Other OB/BYN History: G0 Musculoskeletal History: Reports: Back Pain, Chronic, Fibromyalgia, Other (See Below) Other Musculoskeletal History: herniated disc, DJD lower back, hx two ankle surgeries on right foot Neurological History: Reports: Migraines, Seizure, Other (See Below) Other Neuro History: hx epilepsy Psychiatric History: Reports: Anxiety, Depression, Panic Attack, Other (See Below) Other Psychiatric History: "Insomnia" Endocrine/Metabolic History: Reports: Hypothyroidism, Other (See Below) Other Endocrine/Metabolic History: hypoglycemic Dermatologic History: Reports: Other (See Below) Other Dermatologic History: severe acne - Infectious Disease History Infectious Disease History: Reports: Chicken Pox - Past Surgical History HEENT Surgical History: Reports: Adenoidectomy, Tonsillectomy, Other (See Below) Other HEENT Surgeries/Procedures: uvula reconstructed GI Surgical History: Reports: Cholecystectomy, Colonoscopy, EGD Social & Family History - Family History Family Medical History: Noncontributory Cardiac: Reports: ME Oncologic: Reports: Brain, Other (See Below) Other Oncologic Family History: grandparents - Tobacco Use Smoking Status *Q: Never Smoker Second Hand Smoke Exposure: Yes - Caffeine Use Caffeine Use: Reports: Coffee, Energy Drinks, Soda, Tea Other Caffeine Use: 2 a day - Recreational Drug Use Recreational Drug Use: No - Living Situation & Occupation Occupation: Employed (Works at [employer]) H&P Review of Systems - Review of Systems: Review Of Systems: See Below General: Reports: Chills HEENT: Reports: No Symptoms Pulmonary: Reports: No Symptoms Cardiovascular: Reports: No Symptoms Gastrointestinal: Reports: Abdominal Pain, Decreased Appetite, Nausea, Vomiting. Denies: Bloody Stool, Diarrhea Genitourinary: Reports: No Symptoms Musculoskeletal: Reports: No Symptoms Psychiatric: Reports: No Symptoms Neurological: Reports: No Symptoms Hematologic/Lymphatic: Reports: No Symptoms Immunologic: Reports: No Symptoms Exam - Exam Exam: See Below - Vital Signs Vital Signs: Last Vital Signs Temp 97.5 F 08/14/18 06:38 Pulse 89 08/14/18 06:38 Resp 17 08/14/18 06:38 BP 106/63 08/14/18 06:38 Pulse Ox 97 08/14/18 06:38 Weight: 253 lb 1.6 oz - Exam General: Alert, Oriented, Cooperative HEENT: Hearing Intact, Posterior Pharynx Clear, TMs Clear Neck: Supple, Trachea Midline Lungs: Clear to Auscultation, Normal Respiratory Effort Cardiovascular: Regular Rate, Regular Rhythm. No: Systolic Murmur GI/Abdominal Exam: Normal Bowel Sounds, Soft, Non-Tender, No Distention Back Exam: Normal Inspection, Full Range of Motion Extremities: Non-Tender, No Pedal Edema Skin: Warm, Dry, Intact Neurological: Normal Speech, Normal Tone Neuro Extensive - Mental Status: Alert, Oriented x3, Normal Mood/Affect, Normal Cognition, Memory Intact Psychiatric: Alert, Normal Affect, Normal Mood - Patient Data Lab Results Last 24 hrs: Laboratory Results - last 24 hr 08/13/18 08/13/18 08/13/18 Range/Units 21:40 21:40 21:50 WBC 9.9 (4.5-12.0) X10-3/uL RBC 4.46 (3.23-5.20) x10(6)uL Hgb 13.8 (11.5-15.5) g/dL Hct 40.7 (30.0-51.3) % MCV 91.2 (80-96) fL MCH 30.8 (27.7-33.6) pg MCHC 33.8 (32.2-35.4) g/dL RDW 12.0 (11.5-15.5) % Plt Count 338 (125-369) X10(3)uL MPV 8.3 (7.4-10.4) fL Neut % (Auto) 67.1 (46-82) % Lymph % (Auto) 26.0 (13-37) % Petroleum % (Auto) 5.2 (4-12) % Eos % (Auto) 1 (1.0-5.0) % Baso % (Auto) 0 (0-2) % Neut # (Auto) 6.7 (1.6-8.3) # Lymph # (Auto) 2.6 (0.6-5.0) # Petroleum # (Auto) 0.5 (0.0-1.3) # Eos # (Auto) 0.1 (0.0-0.8) # Baso # (Auto) 0.0 (0.0-0.2) # Sodium (135-145) mmol/L Potassium (3.5-5.3) mmol/L Chloride (100-110) mmol/L Carbon Dioxide (21-32) mmol/L BUN (7-18) mg/dL Creatinine (0.55-1.02) mg/dL Est Cr Clr Drug Dosing Estimated GFR (MDRD) (>60) BUN/Creatinine Ratio (9-20) Glucose (80-116) mg/dL Calcium (8.6-10.2) mg/dL Total Bilirubin (0.1-1.3) mg/dL AST (5-25) IU/L ALT (12-36) U/L Alkaline Phosphatase (56-112) IU/L C-Reactive Protein (0.5-0.9) mg/dL Total Protein (6.0-8.0) g/dL Albumin (3.5-5.2) g/dL Globulin g/dL Albumin/Globulin Ratio Amylase (25-115) U/L Urine Color Yellow (YELLOW) Urine Appearance Slightly cloudy (CLEAR) Urine pH 6.0 (5.0-6.5) Ur Specific [place] 1.025 (1.010-1.025) Urine Protein Negative (NEGATIVE) mg/dL Urine Glucose (UA) Normal (NORMAL) mg/dL Urine Ketones Negative (NEGATIVE) mg/dL Urine Occult Blood Negative (NEGATIVE) Urine Nitrite Negative (NEGATIVE) Urine Bilirubin Negative (NEGATIVE) Urine Urobilinogen Normal (NEGATIVE) mg/dL Ur Leukocyte Esterase Negative (NEGATIVE) Urine HCG, Qual Negative (NEGATIVE) 08/13/18 08/13/18 08/14/18 Range/Units 21:50 21:50 06:35 WBC 6.0 (4.5-12.0) X10-3/uL RBC 3.99 (3.23-5.20) x10(6)uL Hgb 12.6 (11.5-15.5) g/dL Hct 36.5 (30.0-51.3) % MCV 91.5 (80-96) fL MCH 31.5 (27.7-33.6) pg MCHC 34.5 (32.2-35.4) g/dL RDW 11.9 (11.5-15.5) % Plt Count 260 (125-369) X10(3)uL MPV 8.4 (7.4-10.4) fL Neut % (Auto) 52.7 (46-82) % Lymph % (Auto) 37.8 H (13-37) % Petroleum % (Auto) 7.4 (4-12) % Eos % (Auto) 2 (1.0-5.0) % Baso % (Auto) 1 (0-2) % Neut # (Auto) 3.2 (1.6-8.3) # Lymph # (Auto) 2.3 (0.6-5.0) # Petroleum # (Auto) 0.4 (0.0-1.3) # Eos # (Auto) 0.1 (0.0-0.8) # Baso # (Auto) 0.0 (0.0-0.2) # Sodium 140 (135-145) mmol/L Potassium 3.9 (3.5-5.3) mmol/L Chloride 104 (100-110) mmol/L Carbon Dioxide 24 (21-32) mmol/L BUN 20 H (7-18) mg/dL Creatinine 0.9 (0.55-1.02) mg/dL Est Cr Clr Drug Dosing TNP Estimated GFR (MDRD) > 60 (>60) BUN/Creatinine Ratio 22.2 H (9-20) Glucose 91 (80-116) mg/dL Calcium 9.0 (8.6-10.2) mg/dL Total Bilirubin 0.3 (0.1-1.3) mg/dL AST 16 D (5-25) IU/L ALT 21 D (12-36) U/L Alkaline Phosphatase 88 (56-112) IU/L C-Reactive Protein 2.4 H (0.5-0.9) mg/dL Total Protein 7.0 (6.0-8.0) g/dL Albumin 3.4 L (3.5-5.2) g/dL Globulin 3.6 g/dL Albumin/Globulin Ratio 0.9 Amylase 29 (25-115) U/L Urine Color (YELLOW) Urine Appearance (CLEAR) Urine pH (5.0-6.5) Ur Specific [place] (1.010-1.025) Urine Protein (NEGATIVE) mg/dL Urine Glucose (UA) (NORMAL) mg/dL Urine Ketones (NEGATIVE) mg/dL Urine Occult Blood (NEGATIVE) Urine Nitrite (NEGATIVE) Urine Bilirubin (NEGATIVE) Urine Urobilinogen (NEGATIVE) mg/dL Ur Leukocyte Esterase (NEGATIVE) Urine HCG, Qual (NEGATIVE) 08/14/18 Range/Units 06:35 WBC (4.5-12.0) X10-3/uL RBC (3.23-5.20) x10(6)uL Hgb (11.5-15.5) g/dL Hct (30.0-51.3) % MCV (80-96) fL MCH (27.7-33.6) pg MCHC (32.2-35.4) g/dL RDW (11.5-15.5) % Plt Count (125-369) X10(3)uL MPV (7.4-10.4) fL Neut % (Auto) (46-82) % Lymph % (Auto) (13-37) % Petroleum % (Auto) (4-12) % Eos % (Auto) (1.0-5.0) % Baso % (Auto) (0-2) % Neut # (Auto) (1.6-8.3) # Lymph # (Auto) (0.6-5.0) # Petroleum # (Auto) (0.0-1.3) # Eos # (Auto) (0.0-0.8) # Baso # (Auto) (0.0-0.2) # Sodium 143 (135-145) mmol/L Potassium 3.7 (3.5-5.3) mmol/L Chloride 108 (100-110) mmol/L Carbon Dioxide 25 (21-32) mmol/L BUN 19 H (7-18) mg/dL Creatinine 0.9 (0.55-1.02) mg/dL Est Cr Clr Drug Dosing 89.45 Estimated GFR (MDRD) > 60 (>60) BUN/Creatinine Ratio 21.1 H (9-20) Glucose 80 (80-116) mg/dL Calcium 7.9 L (8.6-10.2) mg/dL Total Bilirubin 0.5 (0.1-1.3) mg/dL AST 64 H D (5-25) IU/L ALT 46 H D (12-36) U/L Alkaline Phosphatase 100 (56-112) IU/L C-Reactive Protein (0.5-0.9) mg/dL Total Protein 6.0 (6.0-8.0) g/dL Albumin 2.9 L (3.5-5.2) g/dL Globulin 3.1 g/dL Albumin/Globulin Ratio 0.9 Amylase 26 (25-115) U/L Urine Color (YELLOW) Urine Appearance (CLEAR) Urine pH (5.0-6.5) Ur Specific [place] (1.010-1.025) Urine Protein (NEGATIVE) mg/dL Urine Glucose (UA) (NORMAL) mg/dL Urine Ketones (NEGATIVE) mg/dL Urine Occult Blood (NEGATIVE) Urine Nitrite (NEGATIVE) Urine Bilirubin (NEGATIVE) Urine Urobilinogen (NEGATIVE) mg/dL Ur Leukocyte Esterase (NEGATIVE) Urine HCG, Qual (NEGATIVE) Result Diagrams: 08/14/18 06:35 08/14/18 06:35 - Problem List (1) Abdominal pain of unknown etiology SNOMED Code(s): 238056321 ICD Code: R10.9 - UNSPECIFIED ABDOMINAL PAIN Status: Acute Current Visit : Yes (2) Dehydration SNOMED Code(s): 04832211 ICD Code: E86.0 - DEHYDRATION Status: Acute Current Visit: Yes (3) Vomiting SNOMED Code(s): 024739630 ICD Code: R11.10 - VOMITING, UNSPECIFIED Status: Acute Current Visit: Yes Qualifiers: Vomiting type: unspecified Vomiting Intractability: non-intractable Nausea presence: with nausea Qualified Code(s): R11.2 - Nausea with vomiting, unspecified (4) Morbid obesity with BMI of 45.0-49.9, adult SNOMED Code(s): 266174965, 36301698080099 ICD Code: E66.01 - MORBID (SEVERE) OBESITY DUE TO EXCESS CALORIES; Z68.42 - BODY MASS INDEX (BMI) 45.0-49.9, ADULT Status: Acute Current Visit: No Problem List Initiated/Reviewed/Updated: Yes Orders Last 24hrs: Active Orders 24 hr Category Date Time Status Admission Status [Patient Status] [ADT] Routine ADT 08/14/18 00:28 Active Oxygen Therapy [RC] PRN Care 08/14/18 00:31 Active Up ad Norma [RC] ASDIRECTED Care 08/14/18 07:48 Ordered VTE/DVT Education [RC] Per Unit Routine Care 08/14/18 00:31 Active Vital Signs [RC] 08,12,16,20,00,04 Care 08/14/18 00:31 Active Regular Diet [DIET] Diet 08/14/18 Lunch Ordered Abdomen Pelvis wo Cont [CT] Stat Exams 08/13/18 23:06 Taken Metoclopramide [Reglan] Med 08/14/18 00:35 Active 10 mg IVPUSH Q6H PRN Morphine Med 08/14/18 00:31 Active 2 mg IVPUSH Q2H PRN Ondansetron [Zofran] Med 08/14/18 00:31 Active 4 mg IV Q6H PRN Sodium Chloride 0.9% [Saline Flush] Med 08/13/18 21:19 Active 10 ml FLUSH ASDIRECTED PRN Convert IV to Saline Lock [OM.PC] Routine Oth 08/14/18 07:48 Ordered Peripheral IV Insertion Adult [OM.PC] Routine Oth 08/13/18 21:19 Ordered Resuscitation Status Routine Resus Stat 08/14/18 00:31 Ordered Medication Orders Metoclopramide HCl (Reglan) 10 mg IVPUSH Q6H PRN PRN Reason: Nausea/Vomiting Morphine Sulfate (Morphine) 2 mg IVPUSH Q2H PRN PRN Reason: Pain (severe 7-10) Ondansetron HCl (Zofran) 4 mg IV Q6H PRN PRN Reason: Nausea/Vomiting Sodium Chloride (Saline Flush) 10 ml FLUSH ASDIRECTED PRN PRN Reason: Keep Vein Open Last Admin: 08/13/18 22:12 Dose: 10 ml Assessment/Plan Comment:: 1. Admit for observation. 2. Pain control with MS IV and antinausea control IV meds. 3. Nothing by mouth 4. Up ad norma. 5. Hold medications and then reconcile home meds. 6. VTE prophylaxis-SCD. If the patient improves and goes home no Lovenox. If not she will be started on Lovenox.
[2018-08-14] MEDS: Sodium Chloride 0.9% 10 ML Syringe FLUSH PRN (08:09)
[2018-08-14] MEDS ORDERED: Albuterol 8 GM Inhaler INH PRN (08:26)
[2018-08-14] MEDS ORDERED: Non-Formulary Medication 1 Each (Rizatriptan Benzoate [Rizatriptan] 5 MG) PO PRN (08:26)
[2018-08-14] MEDS ORDERED: Ondansetron 8 MG Tab.DIS PO PRN (08:26)
[2018-08-14] MEDS ORDERED: Hyoscyamine 0.125 MG Tab.SL PO PRN (08:41)
[2018-08-14] MEDS ORDERED: lamoTRIgine 100 MG Tab PO SCH (09:00)
[2018-08-14] MEDS ORDERED: levETIRAcetam 500 MG Tab PO SCH (09:00)
[2018-08-14] MEDS ORDERED: MILNACIPRAN HCL 100 MG PO SCH (09:00)
[2018-08-14] MEDS ORDERED: Calcium Carbonate 500 MG Tablet PO SCH (09:00)
[2018-08-14] MEDS ORDERED: Pregabalin 100 MG Cap PO SCH (09:00)
[2018-08-14] MEDS ORDERED: Cholecalciferol (Vitamin D3) 25 MCG Tab PO SCH (09:00)
[2018-08-14] MEDS ORDERED: Formoterol/Mometasone 100-5 MCG 8.8 GM Inhaler IH SCH (09:00)
[2018-08-14] MEDS ORDERED: Hyoscyamine 0.125 MG Tab.SL PO SCH (09:00)
[2018-08-14] MEDS ORDERED: Losartan 50 MG Tab PO SCH (09:00)
[2018-08-14] MEDS ORDERED: Pregabalin 50 MG Cap PO SCH (09:00)
[2018-08-14] MEDS ORDERED: Pantoprazole 40 MG Tab.CR PO SCH (09:00)
--- NOTE | 2018-08-14 09:13 | PCM.DCSUM1 ---
Discharge Summary - Hospital Course Free Text/Narrative:: Hospital course-patient was given pain medicines in the ER and was transferred to the floor. She was given IV fluids and basically slept through the whole night and by the morning her nausea, vomiting was gone. Her abdominal pain is much improved. Should no dysuria, pyuria, hematuria or diarrhea. She was able to tolerate a regular diet and so we'll discharge her to home. Liver functions went up a little bit and no explanation for this. That should be rechecked in the clinic Brief History: Is a 27-year-old female patient has four-day history of abdominal pain with chills, nausea or vomiting. She had no diarrhea. She says she was able to endure it for a while and then she couldn't keep anything down and came to the ER. Her pain is right mid quadrant and it does not radiate. She says she's been having normal bowel movements. She denies dysuria, pyuria, hematuria or vaginal discharge. She states she it appeared every 3 months can she is on the schedule according to her control pill. She's had her gallbladder removed so as appendix. She was seen in the ER and was given fentanyl, morphine and Toradol for pain became under control and was sent over for observation. The surgeon was called and had a telephone consult with the ER doc. She had a CT scan that per ER doctor's note was basically negative and appendix normal. Diagnosis: Stroke: No - Discharge Data Discharge Date: 08/14/18 Discharge Disposition: Home, Self-Care 01 Condition: Good - Discharge Diagnosis/Problem(s) (1) Abdominal pain of unknown etiology SNOMED Code(s): 566438202 ICD Code: R10.9 - UNSPECIFIED ABDOMINAL PAIN Status: Acute Current Visit : Yes (2) Dehydration SNOMED Code(s): 76805619 ICD Code: E86.0 - DEHYDRATION Status: Acute Current Visit: Yes (3) Vomiting SNOMED Code(s): 791995141 ICD Code: R11.10 - VOMITING, UNSPECIFIED Status: Acute Current Visit: Yes Qualifiers: Vomiting type: unspecified Vomiting Intractability: non-intractable Nausea presence: with nausea Qualified Code(s): R11.2 - Nausea with vomiting, unspecified (4) Morbid obesity with BMI of 45.0-49.9, adult SNOMED Code(s): 469877586, 84251048044777 ICD Code: E66.01 - MORBID (SEVERE) OBESITY DUE TO EXCESS CALORIES; Z68.42 - BODY MASS INDEX (BMI) 45.0-49.9, ADULT Status: Acute Current Visit: No - Patient Instructions Diet: Regular Diet as Tolerated Activity: As Tolerated Driving: May Drive Today Showering/Bathing: May Shower Other/Special Instructions: 1. Recheck with Susanna Ladnry in 1 week. 2. Off today and return to work tomorrow. - Discharge Plan Home Medications: Home Meds levETIRAcetam [Keppra] 2,000 mg PO BID 09/15/16 [History] Albuterol [Ventolin HFA] 1 - 2 puff IH Q4H PRN 09/16/16 [History] Calcium Carbonate [Calcium] 600 mg PO DAILY 04/24/17 [History] Cholecalciferol (Vitamin D3) [Vitamin D3] 5,000 unit PO DAILY 04/24/17 [History] Doxepin [SINEquan] 100 mg PO BEDTIME 04/24/17 [History] Fluticasone/Salmeterol [Advair 100-50] 1 puff INH BID 04/24/17 [History] Hyoscyamine [Levsin] 0.125 mcg PO BID 04/24/17 [History] Levothyroxine 12.5 mcg PO BEDTIME 04/24/17 [History] Losartan [Cozaar] 50 mg PO DAILY 04/24/17 [History] Montelukast [Singulair] 10 mg PO BEDTIME 04/24/17 [History] Pantoprazole [ProTONIX] 40 mg PO DAILY 04/24/17 [History] Potassium Chloride 20 meq PO BEDTIME 04/24/17 [History] Milnacipran HCl [Savella] 100 mg PO BID 10/14/17 [History] Pregabalin [Lyrica] 150 mg PO TID 10/14/17 [History] Zolpidem Tartrate [Ambien] 10 mg PO BEDTIME 12/14/17 [History] lamoTRIgine 250 mg PO BID 12/14/17 [History] ALPRAZolam [Xanax] 1 mg PO BID PRN 08/14/18 [History] Hyoscyamine [Levsin] 0.125 mg PO DAILY PRN 08/14/18 [History] Norethindrone-Ethinyl Estrad [Dasetta 1-35-28 Tablet] 1 tab PO BEDTIME 08/14/18 [History] Ondansetron [Zofran Odt] 8 mg PO Q8H PRN 08/14/18 [History] Rizatriptan Benzoate [Rizatriptan] 5 mg PO ASDIRECTED PRN 08/14/18 [History] Forms: ED Department Discharge Referrals: Susanna Babcock, [facility] [Primary Care Provider] - - Discharge Summary/Plan Comment DC Time >30 min.: No - Patient Data Vitals - Most Recent: Last Vital Signs Temp 97.5 F 08/14/18 06:38 Pulse 89 08/14/18 06:38 Resp 17 08/14/18 06:38 BP 106/63 08/14/18 06:38 Pulse Ox 97 08/14/18 06:38 Weight - Most Recent: 253 lb 1.6 oz I&O - Last 24 hours: Intake & Output 08/13/18 08/14/18 08/14/18 22:59 06:59 14:59 Intake Total 2280 240 Output Total 145 Balance 2135 240 Lab Results - Last 24 hrs: Laboratory Results - last 24 hr 08/13/18 08/13/18 08/13/18 Range/Units 21:40 21:40 21:50 WBC 9.9 (4.5-12.0) X10-3/uL RBC 4.46 (3.23-5.20) x10(6)uL Hgb 13.8 (11.5-15.5) g/dL Hct 40.7 (30.0-51.3) % MCV 91.2 (80-96) fL MCH 30.8 (27.7-33.6) pg MCHC 33.8 (32.2-35.4) g/dL RDW 12.0 (11.5-15.5) % Plt Count 338 (125-369) X10(3)uL MPV 8.3 (7.4-10.4) fL Neut % (Auto) 67.1 (46-82) % Lymph % (Auto) 26.0 (13-37) % Pitkin % (Auto) 5.2 (4-12) % Eos % (Auto) 1 (1.0-5.0) % Baso % (Auto) 0 (0-2) % Neut # (Auto) 6.7 (1.6-8.3) # Lymph # (Auto) 2.6 (0.6-5.0) # Pitkin # (Auto) 0.5 (0.0-1.3) # Eos # (Auto) 0.1 (0.0-0.8) # Baso # (Auto) 0.0 (0.0-0.2) # Sodium (135-145) mmol/L Potassium (3.5-5.3) mmol/L Chloride (100-110) mmol/L Carbon Dioxide (21-32) mmol/L BUN (7-18) mg/dL Creatinine (0.55-1.02) mg/dL Est Cr Clr Drug Dosing Estimated GFR (MDRD) (>60) BUN/Creatinine Ratio (9-20) Glucose (80-116) mg/dL Calcium (8.6-10.2) mg/dL Total Bilirubin (0.1-1.3) mg/dL AST (5-25) IU/L ALT (12-36) U/L Alkaline Phosphatase (56-112) IU/L C-Reactive Protein (0.5-0.9) mg/dL Total Protein (6.0-8.0) g/dL Albumin (3.5-5.2) g/dL Globulin g/dL Albumin/Globulin Ratio Amylase (25-115) U/L Urine Color Yellow (YELLOW) Urine Appearance Slightly cloudy (CLEAR) Urine pH 6.0 (5.0-6.5) Ur Specific Guild 1.025 (1.010-1.025) Urine Protein Negative (NEGATIVE) mg/dL Urine Glucose (UA) Normal (NORMAL) mg/dL Urine Ketones Negative (NEGATIVE) mg/dL Urine Occult Blood Negative (NEGATIVE) Urine Nitrite Negative (NEGATIVE) Urine Bilirubin Negative (NEGATIVE) Urine Urobilinogen Normal (NEGATIVE) mg/dL Ur Leukocyte Esterase Negative (NEGATIVE) Urine HCG, Qual Negative (NEGATIVE) 08/13/18 08/13/18 08/14/18 Range/Units 21:50 21:50 06:35 WBC 6.0 (4.5-12.0) X10-3/uL RBC 3.99 (3.23-5.20) x10(6)uL Hgb 12.6 (11.5-15.5) g/dL Hct 36.5 (30.0-51.3) % MCV 91.5 (80-96) fL MCH 31.5 (27.7-33.6) pg MCHC 34.5 (32.2-35.4) g/dL RDW 11.9 (11.5-15.5) % Plt Count 260 (125-369) X10(3)uL MPV 8.4 (7.4-10.4) fL Neut % (Auto) 52.7 (46-82) % Lymph % (Auto) 37.8 H (13-37) % Pitkin % (Auto) 7.4 (4-12) % Eos % (Auto) 2 (1.0-5.0) % Baso % (Auto) 1 (0-2) % Neut # (Auto) 3.2 (1.6-8.3) # Lymph # (Auto) 2.3 (0.6-5.0) # Pitkin # (Auto) 0.4 (0.0-1.3) # Eos # (Auto) 0.1 (0.0-0.8) # Baso # (Auto) 0.0 (0.0-0.2) # Sodium 140 (135-145) mmol/L Potassium 3.9 (3.5-5.3) mmol/L Chloride 104 (100-110) mmol/L Carbon Dioxide 24 (21-32) mmol/L BUN 20 H (7-18) mg/dL Creatinine 0.9 (0.55-1.02) mg/dL Est Cr Clr Drug Dosing TNP Estimated GFR (MDRD) > 60 (>60) BUN/Creatinine Ratio 22.2 H (9-20) Glucose 91 (80-116) mg/dL Calcium 9.0 (8.6-10.2) mg/dL Total Bilirubin 0.3 (0.1-1.3) mg/dL AST 16 D (5-25) IU/L ALT 21 D (12-36) U/L Alkaline Phosphatase 88 (56-112) IU/L C-Reactive Protein 2.4 H (0.5-0.9) mg/dL Total Protein 7.0 (6.0-8.0) g/dL Albumin 3.4 L (3.5-5.2) g/dL Globulin 3.6 g/dL Albumin/Globulin Ratio 0.9 Amylase 29 (25-115) U/L Urine Color (YELLOW) Urine Appearance (CLEAR) Urine pH (5.0-6.5) Ur Specific Guild (1.010-1.025) Urine Protein (NEGATIVE) mg/dL Urine Glucose (UA) (NORMAL) mg/dL Urine Ketones (NEGATIVE) mg/dL Urine Occult Blood (NEGATIVE) Urine Nitrite (NEGATIVE) Urine Bilirubin (NEGATIVE) Urine Urobilinogen (NEGATIVE) mg/dL Ur Leukocyte Esterase (NEGATIVE) Urine HCG, Qual (NEGATIVE) 08/14/18 Range/Units 06:35 WBC (4.5-12.0) X10-3/uL RBC (3.23-5.20) x10(6)uL Hgb (11.5-15.5) g/dL Hct (30.0-51.3) % MCV (80-96) fL MCH (27.7-33.6) pg MCHC (32.2-35.4) g/dL RDW (11.5-15.5) % Plt Count (125-369) X10(3)uL MPV (7.4-10.4) fL Neut % (Auto) (46-82) % Lymph % (Auto) (13-37) % Pitkin % (Auto) (4-12) % Eos % (Auto) (1.0-5.0) % Baso % (Auto) (0-2) % Neut # (Auto) (1.6-8.3) # Lymph # (Auto) (0.6-5.0) # Pitkin # (Auto) (0.0-1.3) # Eos # (Auto) (0.0-0.8) # Baso # (Auto) (0.0-0.2) # Sodium 143 (135-145) mmol/L Potassium 3.7 (3.5-5.3) mmol/L Chloride 108 (100-110) mmol/L Carbon Dioxide 25 (21-32) mmol/L BUN 19 H (7-18) mg/dL Creatinine 0.9 (0.55-1.02) mg/dL Est Cr Clr Drug Dosing 89.45 Estimated GFR (MDRD) > 60 (>60) BUN/Creatinine Ratio 21.1 H (9-20) Glucose 80 (80-116) mg/dL Calcium 7.9 L (8.6-10.2) mg/dL Total Bilirubin 0.5 (0.1-1.3) mg/dL AST 64 H D (5-25) IU/L ALT 46 H D (12-36) U/L Alkaline Phosphatase 100 (56-112) IU/L C-Reactive Protein (0.5-0.9) mg/dL Total Protein 6.0 (6.0-8.0) g/dL Albumin 2.9 L (3.5-5.2) g/dL Globulin 3.1 g/dL Albumin/Globulin Ratio 0.9 Amylase 26 (25-115) U/L Urine Color (YELLOW) Urine Appearance (CLEAR) Urine pH (5.0-6.5) Ur Specific Guild (1.010-1.025) Urine Protein (NEGATIVE) mg/dL Urine Glucose (UA) (NORMAL) mg/dL Urine Ketones (NEGATIVE) mg/dL Urine Occult Blood (NEGATIVE) Urine Nitrite (NEGATIVE) Urine Bilirubin (NEGATIVE) Urine Urobilinogen (NEGATIVE) mg/dL Ur Leukocyte Esterase (NEGATIVE) Urine HCG, Qual (NEGATIVE) Med Orders - Current: Current Medications Albuterol (Ventolin Hfa) 0 gm INH Q4H PRN PRN Reason: Shortness of Breath Calcium Carbonate/Glycine (Oyster Shell Calcium) 500 mg PO DAILY GERRY Cholecalciferol (Vitamin D3) 125 mcg PO DAILY G[facility] Doxepin HCl (Sinequan) 100 mg PO BEDTIME GERRY Hyoscyamine (Hyomax-Sl) 0.125 mg PO DAILY PRN PRN Reason: ABDOMINAL CRAMPS Hyoscyamine (Hyomax-Sl) 0.125 mg PO BID GERRY Lamotrigine (Lamotrigine) 250 mg PO BID G[facility] Levetiracetam (Keppra) 2,000 mg PO BID G[facility] Levothyroxine Sodium (Levothyroxine) 12.5 mcg PO BEDTIME GERRY Losartan Potassium (Cozaar) 50 mg PO DAILY G[facility]Y Metoclopramide HCl (Reglan) 10 mg IVPUSH Q6H PRN PRN Reason: Nausea/Vomiting Mometasone Furoate/Formoterol Fumar (Dulera 100-5 Mcg) 2 puff IH BID [facility] Montelukast Sodium (Singulair) 10 mg PO BEDTIME GERRY Morphine Sulfate (Morphine) 2 mg IVPUSH Q2H PRN PRN Reason: Pain (severe 7-10) Non-Formulary Medication (Milnacipran Hcl [Savella]) 100 mg PO BID [facility] Non-Formulary Medication (Norethindrone-Ethinyl Estrad [Dasetta 1-35-28 Tablet] ) 1 tab PO BEDTIME [facility] Non-Formulary Medication (Rizatriptan Benzoate [Rizatriptan]) 5 mg PO ASDIRECTED PRN PRN Reason: MIGRAINE Ondansetron HCl (Zofran) 4 mg IV Q6H PRN PRN Reason: Nausea/Vomiting Ondansetron HCl (Zofran Odt) 8 mg PO Q8H PRN PRN Reason: Nausea Pantoprazole Sodium (Protonix) 40 mg PO DAILY [facility] Potassium Chloride (Klor-Con M20) 20 meq PO BEDTIME [facility] Pregabalin (Lyrica) 100 mg PO TID [facility] Pregabalin (Lyrica) 50 mg PO TID [facility] Sodium Chloride (Saline Flush) 10 ml FLUSH ASDIRECTED PRN PRN Reason: Keep Vein Open Last Admin: 08/14/18 08:09 Dose: 10 ml Zolpidem Tartrate (Ambien) 10 mg PO BEDTIME [facility] Discontinued Medications Fentanyl (Sublimaze) 100 mcg IVPUSH ONETIME ONE Stop: 08/13/18 21:44 Last Admin: 08/13/18 22:16 Dose: 100 mcg Sodium Chloride (Normal Saline) 1,000 mls @ 999 mls/hr IV .BOLUS ONE Stop: 08/13/18 22:21 Last Admin: 08/13/18 21:59 Dose: 999 mls/hr Sodium Chloride (Normal Saline) 1,000 mls @ 200 mls/hr IV ASDIRECTED GERRY Last Admin: 08/13/18 23:20 Dose: 200 mls/hr Sodium Chloride (Normal Saline) 1,000 mls @ 125 mls/hr IV ASDIRECTED GERRY Last Admin: 08/14/18 04:23 Dose: 125 mls/hr Ketorolac Tromethamine (Toradol) 30 mg IVPUSH ONETIME ONE Stop: 08/13/18 22:41 Last Admin: 08/13/18 22:45 Dose: 30 mg Lorazepam (Ativan) 1 mg IVPUSH ONETIME ONE Stop: 08/13/18 23:09 Last Admin: 08/13/18 23:17 Dose: 1 mg Metoclopramide HCl (Reglan) 10 mg IVPUSH ONETIME ONE Stop: 08/13/18 23:09 Last Admin: 08/13/18 23:17 Dose: 10 mg Morphine Sulfate (Morphine) 4 mg IVPUSH ONETIME ONE Stop: 08/13/18 22:30 Last Admin: 08/13/18 22:34 Dose: 4 mg Ondansetron HCl (Zofran) 4 mg IVPUSH ONETIME ONE Stop: 08/13/18 21:44 Last Admin: 08/13/18 22:16 Dose: 4 mg
[2018-08-14] MEDS ORDERED: Doxepin 25 MG Cap PO SCH (21:00)
[2018-08-14] MEDS ORDERED: Potassium Chloride 20 MEQ Tab.ER PO SCH (21:00)
[2018-08-14] MEDS ORDERED: Montelukast 10 MG Tab PO SCH (21:00)
[2018-08-14] MEDS ORDERED: [UNRECOGNIZED DRUG - OTHER] PO SCH (21:00)
[2018-08-14] MEDS ORDERED: Zolpidem 10 MG Tab PO SCH (21:00)
[2018-08-14] MEDS ORDERED: Levothyroxine 25 MCG Tab PO SCH (21:00)
== END 2018-08-14 09:59 | disposition home or self-care (01) ==
LOC: FB.ED 20:52 → FB.MS 08-14 00:28
PROVIDERS: ADMIT Emergency Medicine; ATTEND Family Medicine
DX: R10.9 Unspecified abdominal pain (principal); E86.0 Dehydration; R11.2 Nausea with vomiting, unspecified; I10 Essential (primary) hypertension; J45.909 Unspecified asthma, uncomplicated; G47.30 Sleep apnea, unspecified; K21.9 Gastro-esophageal reflux disease without esophagitis; M79.7 Fibromyalgia; G47.00 Insomnia, unspecified; E03.9 Hypothyroidism, unspecified; E66.01 Morbid (severe) obesity due to excess calories; Z68.41 Body mass index [BMI] 40.0-44.9, adult; Z79.899 Other long term (current) drug therapy; Z79.3 Long term (current) use of hormonal contraceptives; Z79.2 Long term (current) use of antibiotics; Z99.89 Dependence on other enabling machines and devices; Z88.5 Allergy status to narcotic agent; Z88.0 Allergy status to penicillin; Z88.8 Allergy status to other drugs, medicaments and biological substances; Z88.1 Allergy status to other antibiotic agents; Z91.040 Latex allergy status; Z91.011 Allergy to milk products
CPT/HCPCS: 36415; 74176; 80053; 81003; 81025; 82150; 85025; 86140; 94760; 96361; 96374; 96375; 99284; A9270; G0378; J1885; J2060; J2270; J2405; J2765; J3010; J7030

== ENCOUNTER 2018-08-23 18:01 | Emergency (ER) | payer BC, MEDICAID ==
[2018-08-23] MEDS ORDERED: hydrOXYzine HCl 50 MG/ML SDV IM ONE (19:53)
[2018-08-23] MEDS ORDERED: Ketorolac 60 MG/2 ML SDV IM ONE (19:55)
--- NOTE | 2018-08-23 21:00 | EDM.PDOC ---
ED HPI GENERAL MEDICAL PROBLEM - General Stated Complaint: SEIZURE Time Seen by Provider: 08/23/18 19:45 Source of Information: Reports: Patient History Limitations: Reports: No Limitations - History of Present Illness INITIAL COMMENTS - FREE TEXT/NARRATIVE: 27 yo female who fell at home from her bed. She believes she had a seizer. She complains of a headache,neck pain ,moderate to severe. She has a h/o seizure disorder and reports compliance to her Meds-Keppra and Lamictal. No nausea,mild weakness. She denies sleep deprivation,stress ,fever or chills. - Related Data Allergies Allergy/AdvReac Type Severity Reaction Status Date / Time amoxicillin [From Augmentin] Allergy Muscle Verified 05/31/18 17:50 Weakness clavulanic acid Allergy Muscle Verified 05/31/18 17:50 [From Augmentin] Weakness hydromorphone [From Dilaudid] Allergy Muscle Verified 05/31/18 17:50 Weakness hydroxyzine [From Vistaril] Allergy Swelling Verified 05/31/18 17:50 lactose Allergy Stomach Verified 05/31/18 17:50 Ache latex Allergy Swelling Verified 05/31/18 17:50 povidone-iodine Allergy Swelling Verified 05/31/18 17:50 Home Meds: Home Meds levETIRAcetam [Keppra] 2,000 mg PO BID 09/15/16 [History] Albuterol [Ventolin HFA] 1 - 2 puff IH Q4H PRN 09/16/16 [History] Calcium Carbonate [Calcium] 600 mg PO DAILY 04/24/17 [History] Cholecalciferol (Vitamin D3) [Vitamin D3] 5,000 unit PO DAILY 04/24/17 [History] Doxepin [SINEquan] 100 mg PO BEDTIME 04/24/17 [History] Fluticasone/Salmeterol [Advair 100-50] 1 puff INH BID 04/24/17 [History] Hyoscyamine [Levsin] 0.125 mcg PO BID 04/24/17 [History] Levothyroxine 12.5 mcg PO BEDTIME 04/24/17 [History] Losartan [Cozaar] 50 mg PO DAILY 04/24/17 [History] Montelukast [Singulair] 10 mg PO BEDTIME 04/24/17 [History] Pantoprazole [ProTONIX] 40 mg PO DAILY 04/24/17 [History] Potassium Chloride 20 meq PO BEDTIME 04/24/17 [History] Milnacipran HCl [Savella] 100 mg PO BID 10/14/17 [History] Pregabalin [Lyrica] 150 mg PO TID 10/14/17 [History] Zolpidem Tartrate [Ambien] 10 mg PO BEDTIME 12/14/17 [History] lamoTRIgine 250 mg PO BID 12/14/17 [History] ALPRAZolam [Xanax] 1 mg PO BID PRN 08/14/18 [History] Hyoscyamine [Levsin] 0.125 mg PO DAILY PRN 08/14/18 [History] Norethindrone-Ethinyl Estrad [Dasetta 1-35-28 Tablet] 1 tab PO BEDTIME 08/14/18 [History] Ondansetron [Zofran Odt] 8 mg PO Q8H PRN 08/14/18 [History] Rizatriptan Benzoate [Rizatriptan] 5 mg PO ASDIRECTED PRN 08/14/18 [History] Past Medical History HEENT History: Reports: Impaired Vision Other HEENT History: wears glasses Cardiovascular History: Reports: Hypertension Respiratory History: Reports: Asthma, Sleep Apnea, Other (See Below) Other Respiratory History: "Allergies", uses Cpap Gastrointestinal History: Reports: GERD, Other (See Below) Other Gastrointestinal History: "Stomach Problems" Genitourinary History: Reports: UTI, Recurrent Other Genitourinary History: hx of UTIs GATE AGENT History: Reports: Endometriosis, Polycystic Ovaries Other GATE AGENT History: G0 Musculoskeletal History: Reports: Back Pain, Chronic, Fibromyalgia, Other (See Below) Other Musculoskeletal History: herniated disc, DJD lower back, hx two ankle surgeries on right foot Neurological History: Reports: Migraines, Seizure, Other (See Below) Other Neuro History: hx epilepsy Psychiatric History: Reports: Anxiety, Depression, Panic Attack, Other (See Below) Other Psychiatric History: "Insomnia" Endocrine/Metabolic History: Reports: Hypothyroidism, Other (See Below) Other Endocrine/Metabolic History: hypoglycemic Dermatologic History: Reports: Other (See Below) Other Dermatologic History: severe acne - Infectious Disease History Infectious Disease History: Reports: Chicken Pox - Past Surgical History HEENT Surgical History: Reports: Adenoidectomy, Tonsillectomy, Other (See Below) Other HEENT Surgeries/Procedures: uvula reconstructed GI Surgical History: Reports: Cholecystectomy, Colonoscopy, EGD Social & Family History - Family History Family Medical History: Noncontributory Cardiac: Reports: [place] Oncologic: Reports: Brain, Other (See Below) Other Oncologic Family History: grandparents - Caffeine Use Caffeine Use: Reports: Coffee, Energy Drinks, Soda, Tea Other Caffeine Use: 2 a day - Living Situation & Occupation Occupation: Employed (Works at [employer]) ED ROS GENERAL - Review of Systems Review Of Systems: ROS reveals no pertinent complaints other than HPI. ED EXAM, NEURO - Physical Exam Exam: See Below Exam Limited By: No Limitations General Appearance: Alert, WD/WN, No Apparent Distress Ears: Normal External Exam Nose: Normal Inspection, Normal Mucosa, No Blood Throat/Mouth: Normal Inspection, Normal Lips, Normal Teeth, Normal Gums, Normal Oropharynx, Normal Voice, No Airway Compromise Head Exam: Atraumatic, Normocephalic Neck: Normal Inspection, Supple, Full Range of Motion, Tender Midline. No: Non- Tender Respiratory/Chest: No Respiratory Distress Neurological: Alert, Normal Mood/Affect, CN II-XII Intact, Normal Plantar Flexion, Normal Gait, Normal Reflexes, Oriented x 3 Back Exam: Normal Inspection Extremities: Normal Inspection Psychiatric: Normal Affect Course - Orders/Labs/Meds Orders: Active Orders 24 hr Category Date Time Status Cervical Spine wo Cont [CT] Stat Exams 08/23/18 19:55 Ordered Head wo Cont [CT] Stat Exams 08/23/18 19:55 Ordered Meds: Medications Discontinued Medications Generic Name Dose Route Start Last Admin Trade Name Gabo PRN Reason Stop Dose Admin Hydroxyzine HCl 50 mg 08/23/18 19:53 08/23/18 20:00 Vistaril IM 08/23/18 19:54 Not Given ONETIME ONE Ketorolac Tromethamine 60 mg 08/23/18 19:55 08/23/18 19:59 Toradol IM 08/23/18 19:56 60 mg ONETIME ONE Administration Departure - Departure Time of Disposition: 21:00 Disposition: Home, Self-Care 01 Condition: Good Clinical Impression: Breakthrough seizure - Discharge Information Referrals: Susanna Babcock NP [Primary Care Provider] - - Problem List & Annotations (1) Generalized convulsive epilepsy SNOMED Code(s): 15232796 Code(s): G40.309 - GEN IDIOPATHIC EPILEPSY, NOT INTRACTABLE, W/O STAT EPI Status: Acute Current Visit: No (2) Tension-type headache SNOMED Code(s): 007016497 Code(s): G44.209 - TENSION-TYPE HEADACHE, UNSPECIFIED, NOT INTRACTABLE Status: Acute Current Visit: No - Problem List Review Problem List Initiated/Reviewed/Updated: Yes - My Orders Last 24 Hours: My Active Orders 08/23/18 19:55 Cervical Spine wo Cont [CT] Stat Head wo Cont [CT] Stat - Assessment/Plan Last 24 Hours: My Active Orders 08/23/18 19:55 Cervical Spine wo Cont [CT] Stat Head wo Cont [CT] Stat Plan: Toradol 60 mg IM helped tremendously. CT head and CT Cervial spine were unremarkable. DC home,follow up with Neurology.
[2018-08-23 22:46] VITALS: BP 131/93; PULSE 105
== END 2018-08-23 20:56 | disposition home or self-care (01) ==
LOC: FB.ED 18:01
DX: G40.909 Epilepsy, unspecified, not intractable, without status epilepticus (principal); I10 Essential (primary) hypertension; J45.909 Unspecified asthma, uncomplicated; K21.9 Gastro-esophageal reflux disease without esophagitis; F41.9 Anxiety disorder, unspecified; F32.9 Major depressive disorder, single episode, unspecified; E03.9 Hypothyroidism, unspecified; Z79.899 Other long term (current) drug therapy; Z88.5 Allergy status to narcotic agent; Z91.011 Allergy to milk products; Z91.040 Latex allergy status; Z91.048 Other nonmedicinal substance allergy status; Z88.1 Allergy status to other antibiotic agents; W06.XXXA Fall from bed, initial encounter; Y92.009 Unspecified place in unspecified non-institutional (private) residence as the place of occurrence of the external cause
CPT/HCPCS: 70450; 72125; 96372; 99284; J1885

== ENCOUNTER 2018-09-22 15:06 | Emergency (ER) | payer BC, MEDICAID ==
[2018-09-22] MEDS ORDERED: Ketorolac 60 MG/2 ML SDV IM ONE (16:04)
--- NOTE | 2018-09-22 16:08 | EDM.PDOC ---
ED HPI GENERAL MEDICAL PROBLEM - General Chief Complaint: Upper Extremity Injury/Pain Stated Complaint: R ARM INJURY, CONCUSSION? Time Seen by Provider: 09/22/18 15:30 Source of Information: Reports: Patient History Limitations: Reports: No Limitations - History of Present Illness INITIAL COMMENTS - FREE TEXT/NARRATIVE: Patient is a 27-year-old female who presents today after a fall down the stairs yesterday. She reports that she was going down the stairs which [place] and are outside her living space and she slipped and fell backwards, she hit the back of her head and neck on a stair, and also twisted and then hit her right hand which hurts significantly. 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 She notes pain all across her wrist and difficulty moving it, also pain with movement of her fingers. She took some Tylenol and ibuprofen at home, most recently she took ibuprofen 2 tabs at 1 PM today. These have not helped, especially they have not helped her headache. She denies any loss of consciousness. She has a history of seizure disorder and is fairly certain she did not have a seizure. No one else witnessed fall. She denies numbness or tingling in any other part of her body, she denies back pain, change in bowel or bladder, chest pain, shortness of breath, abdominal pain, nausea or vomiting. She denies any changes in vision, ringing in her ears , numbness or facial tingling, or difficulty swallowing. No concerns for domestic violence. 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, NSAIDS R arm, elbow to hand Pain Score (Numeric/FACES): 9 - Related Data Allergies Allergy/AdvReac Type Severity Reaction Status Date / Time amoxicillin [From Augmentin] Allergy Muscle Verified 09/22/18 15:21 Weakness clavulanic acid Allergy Muscle Verified 09/22/18 15:21 [From Augmentin] Weakness hydromorphone [From Dilaudid] Allergy Muscle Verified 09/22/18 15:21 Weakness hydroxyzine [From Vistaril] Allergy Swelling Verified 09/22/18 15:21 lactose Allergy Stomach Verified 09/22/18 15:21 Ache latex Allergy Swelling Verified 09/22/18 15:21 povidone-iodine Allergy Swelling Verified 09/22/18 15:21 Home Meds: Home Meds levETIRAcetam [Keppra] 2,000 mg PO BID 09/15/16 [History] Albuterol [Ventolin HFA] 1 - 2 puff IH Q4H PRN 09/16/16 [History] Calcium Carbonate [Calcium] 600 mg PO DAILY 04/24/17 [History] Cholecalciferol (Vitamin D3) [Vitamin D3] 5,000 unit PO DAILY 04/24/17 [History] Doxepin [SINEquan] 100 mg PO BEDTIME 04/24/17 [History] Fluticasone/Salmeterol [Advair 100-50] 1 puff INH BID 04/24/17 [History] Hyoscyamine [Levsin] 0.125 mcg PO BID 04/24/17 [History] Levothyroxine 12.5 mcg PO BEDTIME 04/24/17 [History] Losartan [Cozaar] 50 mg PO DAILY 04/24/17 [History] Montelukast [Singulair] 10 mg PO BEDTIME 04/24/17 [History] Pantoprazole [ProTONIX] 40 mg PO DAILY 04/24/17 [History] Potassium Chloride 20 meq PO BEDTIME 04/24/17 [History] Milnacipran HCl [Savella] 100 mg PO BID 10/14/17 [History] Pregabalin [Lyrica] 150 mg PO TID 10/14/17 [History] Zolpidem Tartrate [Ambien] 10 mg PO BEDTIME 12/14/17 [History] lamoTRIgine 250 mg PO BID 12/14/17 [History] ALPRAZolam [Xanax] 1 mg PO BID PRN 08/14/18 [History] Hyoscyamine [Levsin] 0.125 mg PO DAILY PRN 08/14/18 [History] Norethindrone-Ethinyl Estrad [Dasetta 1-35-28 Tablet] 1 tab PO BEDTIME 08/14/18 [History] Ondansetron [Zofran Odt] 8 mg PO Q8H PRN 08/14/18 [History] Rizatriptan Benzoate [Rizatriptan] 5 mg PO ASDIRECTED PRN 08/14/18 [History] Past Medical History HEENT History: Reports: Impaired Vision Other HEENT History: wears glasses Cardiovascular History: Reports: Hypertension Respiratory History: Reports: Asthma, Sleep Apnea, Other (See Below) Other Respiratory History: "Allergies", uses Cpap Gastrointestinal History: Reports: GERD, Other (See Below) Other Gastrointestinal History: "Stomach Problems" Genitourinary History: Reports: UTI, Recurrent Other Genitourinary History: hx of UTIs 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: Reports: Endometriosis, Polycystic Ovaries Other 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: G0 Musculoskeletal History: Reports: Back Pain, Chronic, Fibromyalgia, Other (See Below) Other Musculoskeletal History: herniated disc, DJD lower back, hx two ankle surgeries on right foot Neurological History: Reports: Migraines, Seizure, Other (See Below) Other Neuro History: hx epilepsy Psychiatric History: Reports: Anxiety, Depression, Panic Attack, Other (See Below) Other Psychiatric History: "Insomnia" Endocrine/Metabolic History: Reports: Hypothyroidism, Other (See Below) Other Endocrine/Metabolic History: hypoglycemic Dermatologic History: Reports: Other (See Below) Other Dermatologic History: severe acne - Infectious Disease History Infectious Disease History: Reports: Chicken Pox - Past Surgical History Head Surgeries/Procedures: Reports: None HEENT Surgical History: Reports: Adenoidectomy, Tonsillectomy, Other (See Below) Other HEENT Surgeries/Procedures: uvula reconstructed GI Surgical History: Reports: Cholecystectomy, Colonoscopy, EGD Social & Family History - Family History Family Medical History: Noncontributory Cardiac: Reports: [place] Oncologic: Reports: Brain, Other (See Below) Other Oncologic Family History: grandparents - Tobacco Use Smoking Status *Q: Never Smoker - Caffeine Use Caffeine Use: Reports: Coffee, Energy Drinks, Soda, Tea Other Caffeine Use: 2 a day - Recreational Drug Use Recreational Drug Use: No - Living Situation & Occupation Occupation: Employed (Works at [employer]) Review of Systems - Review of Systems Review Of Systems: ROS reveals no pertinent complaints other than HPI. ED EXAM, GENERAL - Physical Exam Exam: See Below Free Text/Narrative:: Gen.: Alert, very flat restricted affect, poor eye contact. Head is atraumatic and there is no bruising or lesions noted, external ears and canals appear normal. Pupils are equal and reactive, extraocular motion is intact, facial muscles are symmetric. Throat is without erythema, mucous members are moist and there is no tonsillar enlargement antedates, uvula is midline. There is no cervical lymphadenopathy. Heart is regular rate and rhythm, lungs are clear throughout with no wheezes or crackles. Poor inspiratory effort and needs encouragement. Abdomen soft nontender. Peripheral pulses +2 in both the upper and lower extremities. Neurologic exam?normal cranial nerve exam 2 through 12. She has equal strength bilaterally in both the upper and lower extremities on gross testing and her gait was normal. Cervical spine?she is tender throughout her cervical spine, most tender over the C7/8 area. No obvious bruising is seen. A c-collar was placed after this exam finding. Examination of the right arm and hand shows normal elbow motion, is able to actively flex and extend her wrist, pronate and supinate her hand, and extend and flex all of her fingers and thumb. She has no obvious bruising or abrasions visible over her arm or hand. She is tender throughout her forearm, mostly on the palmar side. She is tender over the dorsal aspect of her wrist and the entire dorsal aspect of her hand. There is slight swelling compared to the other hand. Course - Vital Signs Text/Narrative:: Initial impression is isolated right upper extremity x-ray. Injury is over 24 hours out and she has been up and moving around, does complain of a significant headache. Her neck exam is difficult to determine muscular versus bony. Last Recorded V/S: Last Vital Signs Temp 36.6 C 09/22/18 15:18 Pulse 92 09/22/18 19:55 Resp 18 09/22/18 19:55 BP 152/94 H 09/22/18 19:55 Pulse Ox 99 09/22/18 19:55 - Orders/Labs/Meds Meds: Medications Discontinued Medications Generic Name Dose Route Start Last Admin Trade Name Freq PRN Reason Stop Dose Admin Diphenhydramine HCl 50 mg 09/22/18 19:49 09/22/18 19:59 Benadryl PO 09/22/18 19:50 50 mg ONETIME ONE Administration Ketorolac Tromethamine 60 mg 09/22/18 16:04 09/22/18 16:10 Toradol IM 09/22/18 16:05 60 mg ONETIME ONE Administration Prochlorperazine Maleate 10 mg 09/22/18 19:49 09/22/18 19:59 Compazine PO 09/22/18 19:50 10 mg ONETIME ONE Administration - Re-Assessments/Exams Free Text/Narrative Re-Assessment/Exam: 09/22/18 initial x-rays of the upper extremity reviewed and appear normal. Reexamined neck and a c-collar placed, will get a CT cervical spine and including the upper thoracic given the C8 numbness and tingling. Free Text/Narrative Re-Assessment/Exam: CT cervical spine negative, c-collar removed. Re-examined - patient still c/o numbness in C8 dermatome, difficult to tell if true numbness on exam, no weakness. Recommend anti-inflammatories over weekend and re-check with PCP on Tuesday if symptoms persist. Also discussed treatment for migraine and likely concussion, mental rest, note provided for work. Departure - Departure Time of Disposition: 19:37 Disposition: Home, Self-Care 01 Condition: Fair Clinical Impression: Neck pain, Concussion, Wrist pain Right wrist sprain Qualifiers: Encounter type: subsequent encounter Qualified Code(s): S63.501D - Unspecified sprain of right wrist, subsequent encounter Headache Qualifiers: Headache type: unspecified Headache chronicity pattern: acute headache Intractability: not intractable Qualified Code(s): R51 - Headache - Discharge Information Instructions: Ketorolac injection, Post-Concussion Syndrome, [id number], Diphenhydramine capsules or tablets, Wrist Sprain, Adult, Prochlorperazine tablets Referrals: PCP,None [Primary Care Provider] - Forms: ED Department Discharge Additional Instructions: recommend gentle movement (walking) to help with tension aspect of head and neck stiffness use your migraine meds as needed over weekend drink lots of water avoid screens, extended time on phone work note provided followup on Tuesday if still significant symptoms wrist splint provided for comfort
[2018-09-22] MEDS ORDERED: diphenhydrAMINE 50 MG Cap PO ONE (19:49)
[2018-09-22] MEDS ORDERED: Prochlorperazine 10 MG Tab PO ONE (19:49)
[2018-09-22 20:15] VITALS: BP 152/94; PULSE 92
--- NOTE | 2018-09-25 09:17 | CR ---
INDICATION: Fell, arm pain, ulnar numbness. RIGHT FOREARM: Frontal and lateral views of the right forearm revealed no evidence of a fracture, dislocation, or other significant bone or joint abnormality. LAKEIS[facility]
--- NOTE | 2018-09-25 09:20 | CR ---
INDICATION: Fell, arm pain, ulnar numbness. RIGHT WRIST: Four views of the right wrist include a scapular view and revealed no evidence of a fracture, dislocation, or other significant bone or joint abnormality. MTDD
--- NOTE | 2018-09-25 09:44 | CT ---
INDICATION: Numbness C8 dermatome, need to include thoracic spine T1 to T4. CT CERVICAL SPINE WITHOUT CONTRAST: Spiral 2.5 mm axial sections were obtained through the cervical spine and upper thoracic spine to approximately T6 with sagittal and coronal reconstructions, 09/22/18, and compared with 08/23/18. Total exam DLP = 561.56 mGy-cm. The spinal canal appears to be intact. No spinal stenosis was seen. Neural foramina were patent. Vertebral body and disk heights appear to be well-maintained. No significant appearing interval change is noted, compared with 08/23/18. Overall bone density appeared to be normal. Prevertebral space was normal. The odontoid was intact. The atlas was intact. IMPRESSION: Essentially normal CT cervical spine. If symptoms persist, MRI may be of further diagnostic benefit. Report was called to Dr. Lewis at 1843 hours on 09/22/18. [facility]
== END 2018-09-22 20:18 | disposition home or self-care (01) ==
LOC: FB.ED 15:06
DX: S06.0X0A Concussion without loss of consciousness, initial encounter (principal); S63.501A Unspecified sprain of right wrist, initial encounter; M54.2 Cervicalgia; I10 Essential (primary) hypertension; J45.909 Unspecified asthma, uncomplicated; K21.9 Gastro-esophageal reflux disease without esophagitis; F41.9 Anxiety disorder, unspecified; F32.9 Major depressive disorder, single episode, unspecified; E03.9 Hypothyroidism, unspecified; Z88.1 Allergy status to other antibiotic agents; Z91.040 Latex allergy status; Z91.011 Allergy to milk products; Z88.5 Allergy status to narcotic agent; Z91.048 Other nonmedicinal substance allergy status; Z79.899 Other long term (current) drug therapy; W10.9XXA Fall (on) (from) unspecified stairs and steps, initial encounter
CPT/HCPCS: 72125; 73090; 73110; 96372; 99284; A9270; J1885; Q0164

== ENCOUNTER 2018-09-25 22:30 | Emergency (ER) | payer BC, MEDICAID ==
[2018-09-25 22:50] VITALS: BP 113/84; PULSE 119
[2018-09-25] MEDS ORDERED: Sodium Chloride 0.9% 1,000 ML IV ONE (23:09)
[2018-09-25] MEDS ORDERED: Prochlorperazine 10 MG in Sodium Chloride 0.9% 50 ML IV ONE (23:10)
[2018-09-25] MEDS ORDERED: diphenhydrAMINE 50 MG/ML SDV IVPUSH ONE (23:10)
[2018-09-25] MEDS ORDERED: Ketorolac 30 MG/ML SDV IVPUSH ONE (23:10)
[2018-09-25] MEDS ORDERED: Sodium Chloride 0.9% 10 ML Syringe FLUSH PRN (23:25)
--- NOTE | 2018-09-25 23:39 | EDM.PDOC ---
ED HPI GENERAL MEDICAL PROBLEM - General Chief Complaint: General Stated Complaint: HEAD CONCUSION Time Seen by Provider: 09/25/18 22:50 Source of Information: Reports: Patient, Other (friend ) History Limitations: Reports: No Limitations - History of Present Illness INITIAL COMMENTS - FREE TEXT/NARRATIVE: patient presents with concern for dizziness which is been ongoing and worsening over the past couple of days. She states it is also been hard to focus, and noted that her words were confused at work today. her head feels extremely sensitive to the point that hurts to brush her hair. she was evaluated in the ER on Tuesday night, reports that her headache was better after being seen here and then much worse the next morning again. She was off over the weekend and was just around home resting, states she got very bored. Today she worked from 4 :45 PM to 10 PM at [email or web address] and noted that her headache worsened. She has taken Excedrin Migraine 1 since Tuesday, she took ibuprofen on Tuesday but none since then. She took a Tylenol today and then fell asleep and states that it doesn't help her headache at all. She also has noted ongoing pain in her right wrist that has not improved since her previous evaluation. She denies fever, chills or sweats, nausea or vomiting, change in GI or habits, numbness or tingling in her hands or feet. She denies blurry vision, but has chronic ringing in ears. Headache Pain Score (Numeric/FACES): 10 Right arm pain Pain Score (Numeric/FACES): 9 - Related Data Allergies Allergy/AdvReac Type Severity Reaction Status Date / Time amoxicillin [From Augmentin] Allergy Muscle Verified 09/25/18 22:36 Weakness clavulanic acid Allergy Muscle Verified 09/25/18 22:36 [From Augmentin] Weakness hydromorphone [From Dilaudid] Allergy Muscle Verified 09/25/18 22:36 Weakness hydroxyzine [From Vistaril] Allergy Swelling Verified 09/25/18 22:36 lactose Allergy Stomach Verified 09/25/18 22:36 Ache latex Allergy Swelling Verified 09/25/18 22:36 povidone-iodine Allergy Swelling Verified 09/25/18 22:36 Home Meds: Home Meds RX: levETIRAcetam [Keppra] 2,000 mg PO BID 09/15/16 [History] RX: Albuterol [Ventolin HFA] 1 - 2 puff IH Q4H PRN 09/16/16 [History] RX: Calcium Carbonate [Calcium] 600 mg PO DAILY 04/24/17 [History] RX: Cholecalciferol (Vitamin D3) [Vitamin D3] 5,000 unit PO DAILY 04/24/17 [ History] RX: Doxepin [SINEquan] 100 mg PO BEDTIME 04/24/17 [History] RX: Fluticasone/Salmeterol [Advair 100-50] 1 puff INH BID 04/24/17 [History] RX: Hyoscyamine [Levsin] 0.125 mcg PO BID 04/24/17 [History] RX: Levothyroxine 12.5 mcg PO BEDTIME 04/24/17 [History] RX: Losartan [Cozaar] 50 mg PO DAILY 04/24/17 [History] RX: Montelukast [Singulair] 10 mg PO BEDTIME 04/24/17 [History] RX: Pantoprazole [ProTONIX] 40 mg PO DAILY 04/24/17 [History] RX: Potassium Chloride 20 meq PO BEDTIME 04/24/17 [History] RX: Milnacipran HCl [Savella] 100 mg PO BID 10/14/17 [History] RX: Pregabalin [Lyrica] 150 mg PO TID 10/14/17 [History] RX: Zolpidem Tartrate [Ambien] 10 mg PO BEDTIME 12/14/17 [History] RX: lamoTRIgine 250 mg PO BID 12/14/17 [History] RX: ALPRAZolam [Xanax] 1 mg PO BID PRN 08/14/18 [History] RX: Hyoscyamine [Levsin] 0.125 mg PO DAILY PRN 08/14/18 [History] RX: Norethindrone-Ethinyl Estrad [Dasetta 1-35-28 Tablet] 1 tab PO BEDTIME 08/14 [History] RX: Ondansetron [Zofran Odt] 8 mg PO Q8H PRN 08/14/18 [History] RX: Rizatriptan Benzoate [Rizatriptan] 5 mg PO ASDIRECTED PRN 08/14/18 [History] Past Medical History HEENT History: Reports: Impaired Vision Other HEENT History: wears glasses Cardiovascular History: Reports: Hypertension Respiratory History: Reports: Asthma, Sleep Apnea, Other (See Below) Other Respiratory History: "Allergies", uses Cpap Gastrointestinal History: Reports: GERD, Other (See Below) Other Gastrointestinal History: "Stomach Problems" Genitourinary History: Reports: UTI, Recurrent Other Genitourinary History: hx of UTIs 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: Endometriosis, Polycystic Ovaries Other ENTRY TECH History: G0 Musculoskeletal History: Reports: Back Pain, Chronic, Fibromyalgia, Other (See Below) Other Musculoskeletal History: herniated disc, DJD lower back, hx two ankle surgeries on right foot Neurological History: Reports: Migraines, Seizure, Other (See Below) Other Neuro History: hx epilepsy Psychiatric History: Reports: Anxiety, Depression, Panic Attack, Other (See Below) Other Psychiatric History: "Insomnia" Endocrine/Metabolic History: Reports: Hypothyroidism, Other (See Below) Other Endocrine/Metabolic History: hypoglycemic Dermatologic History: Reports: Other (See Below) Other Dermatologic History: severe acne - Infectious Disease History Infectious Disease History: Reports: Chicken Pox - Past Surgical History Head Surgeries/Procedures: Reports: None HEENT Surgical History: Reports: Adenoidectomy, Tonsillectomy, Other (See Below) Other HEENT Surgeries/Procedures: uvula reconstructed GI Surgical History: Reports: Cholecystectomy, Colonoscopy, EGD Social & Family History - Family History Family Medical History: Noncontributory Cardiac: Reports: [place] Oncologic: Reports: Brain, Other (See Below) Other Oncologic Family History: grandparents - Tobacco Use Smoking Status *Q: Never Smoker - Caffeine Use Caffeine Use: Reports: Coffee, Energy Drinks, Soda, Tea Other Caffeine Use: 2 a day - Recreational Drug Use Recreational Drug Use: No - Living Situation & Occupation Occupation: Employed (Works at [email or web address]) ED ROS GENERAL - Review of Systems Review Of Systems: ROS reveals no pertinent complaints other than HPI. ED EXAM, GENERAL - Physical Exam Exam: See Below Free Text/Narrative:: general: Alert, no acute distress. Head appears atraumatic. Pupils are equal and reactive, extraocular motion is intact, facial mules are symmetric. Sensation is equal in either side of the face. Throat is without erythema mucous members are moist, uvula is midline. Neck strength is equal side to side and shoulder strap is also equal. muscular strength is equal bilaterally in both the upper and lower extremities, gait is normal. 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 Tympanic membranes are clear bilaterally with normal light reflex. lungs are clear throughout with no wheezes or crackles, heart is regular rate and rhythm. Peripheral pulses +2 in both the upper and lower extremities and there is no lower extremity edema. Abdomen positive bowel sounds, soft nondistended nontender. Psych: mood and effect are restricted, limited eye contact. Course - Vital Signs Text/Narrative:: initial impression - post concussive headache vs migraine, probably component of dehydration given poor fluid intake over the day on history. Limited home treatment. Neck still stiff from fall as well (CT Performed 09/22) normal neuro exam will give IVF bolus, Benadryl, Toradol, and compazine Last Recorded V/S: Last Vital Signs Temp 36.6 C 09/25/18 22:40 Pulse 119 H 09/25/18 22:40 Resp 18 09/25/18 22:40 BP 113/84 09/25/18 22:40 Pulse Ox 100 09/25/18 22:40 Orthostatic Blood Pressure [ 119/89 Standing] Orthostatic Blood Pressure [ 117/88 Sitting] Orthostatic Blood Pressure [ 114/63 Supine] - Orders/Labs/Meds Orders: Active Orders 24 hr Category Date Time Status Orthostatic Vital Signs [RC] ASDIRECTED Care 09/26/18 00:40 Active Meds: Medications Discontinued Medications Generic Name Dose Route Start Last Admin Trade Name Scottq PRN Reason Stop Dose Admin Diphenhydramine HCl 50 mg 09/25/18 23:10 09/25/18 23:28 Benadryl IVPUSH 09/25/18 23:11 50 mg ONETIME ONE Administration Prochlorperazine Edisylate 10 52 mls @ 150 mls/hr 09/25/18 23:10 09/25/18 23: 32 mg/ Sodium Chloride IV 09/25/18 23:30 150 mls/hr ONETIME ONE Administration Sodium Chloride 1,000 mls @ 999 mls/hr 09/25/18 23:09 09/25/18 23:26 Normal Saline IV 09/26/18 00:09 999 mls/hr .BOLUS ONE Administration Ketorolac Tromethamine 15 mg 09/25/18 23:10 09/25/18 23:29 Toradol IVPUSH 09/25/18 23:11 15 mg ONETIME ONE Administration Sodium Chloride 10 ml 09/25/18 23:25 09/25/18 23:25 Saline Flush FLUSH 10 ml ASDIRECTED PRN Administration IV Use - Re-Assessments/Exams Free Text/Narrative Re-Assessment/Exam: 09/25/18 patient noted to be sitting up, TV on, playing on phone and talking with friend Free Text/Narrative Re-Assessment/Exam: 09/26/18 recheck after fluid bolus, feeling better, thinks she would be able to sleep now. 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 Keep in splint until re-evaluation. She is in agreement with this plan and all questions answered Departure - Departure Time of Disposition: 01:30 Disposition: Home, Self-Care 01 Condition: Fair Clinical Impression: Concussion, Neck pain, Wrist pain Headache Qualifiers: Headache type: unspecified Headache chronicity pattern: acute headache Intractability: not intractable Qualified Code(s): R51 - Headache - Discharge Information Instructions: Dizziness Referrals: Susanna Babcock FREIGHT TRAFFIC CONSULTANT [Primary Care Provider] - Forms: ED Department Discharge - My Orders Last 24 Hours: My Active Orders 09/26/18 00:40 Orthostatic Vital Signs [RC] ASDIRECTED - Assessment/Plan Last 24 Hours: My Active Orders 09/26/18 00:40 Orthostatic Vital Signs [RC] ASDIRECTED
== END 2018-09-26 01:00 | disposition home or self-care (01) ==
LOC: FB.ED 22:30
DX: S06.0X0A Concussion without loss of consciousness, initial encounter (principal); M54.2 Cervicalgia; M25.531 Pain in right wrist; I10 Essential (primary) hypertension; K21.9 Gastro-esophageal reflux disease without esophagitis; J45.909 Unspecified asthma, uncomplicated; F41.9 Anxiety disorder, unspecified; F32.9 Major depressive disorder, single episode, unspecified; E03.9 Hypothyroidism, unspecified; Z88.1 Allergy status to other antibiotic agents; Z88.5 Allergy status to narcotic agent; Z91.011 Allergy to milk products; Z91.040 Latex allergy status; Z91.048 Other nonmedicinal substance allergy status; Z79.899 Other long term (current) drug therapy; W18.39XA Other fall on same level, initial encounter
CPT/HCPCS: 96361; 96365; 96375; 99284; J0780; J1200; J1885; J7030; J7050

== ENCOUNTER 2018-10-16 14:08 | Emergency (ER) | payer BC, MEDICAID ==
[2018-10-16] MEDS ORDERED: Albuterol 8 GM Inhaler INH ONE (14:09)
[2018-10-16] MEDS: Albuterol 0.083% 2.5 MG/3 ML Neb Soln NEB SCH ×3 (14:09→18:41)
[2018-10-16] MEDS ORDERED: Albuterol/Ipratropium 3.0-0.5 MG/3 ML Neb Soln NEB ONE (14:15)
[2018-10-16] MEDS ORDERED: methylPREDNISolone Sodium Succinate 125 MG/2 ML SDV IVPUSH ONE (14:15)
[2018-10-16] MEDS: Sodium Chloride 0.9% 1,000 ML IV SCH ×2 (14:37→16:30)
[2018-10-16] MEDS ORDERED: Magnesium Sulfate/Water 2 GM in Premix Bag 1 BAG IV ONE (15:03)
--- NOTE | 2018-10-16 15:14 | EDM.PDOC ---
ED HPI GENERAL MEDICAL PROBLEM - General Chief Complaint: Asthma Stated Complaint: SOB Time Seen by Provider: 10/16/18 14:10 Source of Information: Reports: Patient, Old Records History Limitations: Reports: No Limitations, Respiratory Distress - History of Present Illness INITIAL COMMENTS - FREE TEXT/NARRATIVE: patient presents today acutely short of breath stating she had an asthma attack at work. Speaking in 1-2 words at a time, appears panicked. Sats 100%. slight tachycardia. Voice very hoarse. Following immediate treatment with [id number] nebs, patient gives the following history: For the past 4 days she has noticed an increasing sore throat, slight cough. She is using her albuterol at home as instructed, which was 2-3 times a day just one puff. She also notes that her Advair was just increased outpatient she thinks the dose is 250. She has a past history of asthma attacks which are generally triggered by stress, cold, or "just anything". She notes an elevated temperature of 100 Fahrenheit 2 days ago, and states she vomited last night. Slight sinus pain, not significant nasal congestion. She is not really taking any [id number] is except for tried some Excedrin for her throat, and mental cough drops. She denies any ear pain or changes in hearing. She did sleep okay last night. - Related Data Allergies Allergy/AdvReac Type Severity Reaction Status Date / Time amoxicillin [From Augmentin] Allergy Muscle Verified 09/25/18 22:36 Weakness clavulanic acid Allergy Muscle Verified 09/25/18 22:36 [From Augmentin] Weakness hydromorphone [From Dilaudid] Allergy Muscle Verified 09/25/18 22:36 Weakness hydroxyzine [From Vistaril] Allergy Swelling Verified 09/25/18 22:36 lactose Allergy Stomach Verified 09/25/18 22:36 Ache latex Allergy Swelling Verified 09/25/18 22:36 povidone-iodine Allergy Swelling Verified 09/25/18 22:36 Home Meds: Home Meds RX: levETIRAcetam [Keppra] 2,000 mg PO BID 09/15/16 [History] RX: Albuterol [Ventolin HFA] 1 - 2 puff IH Q4H PRN 09/16/16 [History] RX: Calcium Carbonate [Calcium] 600 mg PO DAILY 04/24/17 [History] RX: Cholecalciferol (Vitamin D3) [Vitamin D3] 5,000 unit PO DAILY 04/24/17 [ History] RX: Doxepin [SINEquan] 100 mg PO BEDTIME 04/24/17 [History] RX: Levothyroxine 12.5 mcg PO BEDTIME 04/24/17 [History] RX: Montelukast [Singulair] 10 mg PO BEDTIME 04/24/17 [History] RX: Pantoprazole [ProTONIX] 40 mg PO DAILY 04/24/17 [History] RX: Potassium Chloride 20 meq PO BEDTIME 04/24/17 [History] RX: Milnacipran HCl [Savella] 100 mg PO BID 10/14/17 [History] RX: Zolpidem Tartrate [Ambien] 10 mg PO BEDTIME 12/14/17 [History] RX: lamoTRIgine 300 mg PO BID 12/14/17 [History] RX: ALPRAZolam [Xanax] 1 mg PO BID PRN 08/14/18 [History] RX: Hyoscyamine [Levsin] 0.125 mg PO TID PRN 08/14/18 [History] RX: Norethindrone-Ethinyl Estrad [Dasetta 1-35-28 Tablet] 1 tab PO BEDTIME 08/14 [History] RX: Ondansetron [Zofran Odt] 8 mg PO Q8H PRN 08/14/18 [History] RX: Rizatriptan Benzoate [Rizatriptan] 5 mg PO ASDIRECTED PRN 08/14/18 [History] Fluticasone/Salmeterol [Advair 250-50] 1 puff IH BID 10/16/18 [History] Losartan/Hydrochlorothiazide [Losartan-HCTZ 50-12.5 MG] 1 tab PO DAILY 10/16/18 [History] RX: Amoxicillin 875 mg PO BID 7 Days #14 tablet 10/16/18 [Rx] RX: Doxycycline [Vibramycin] 100 mg PO BID 7 Days #14 cap 10/16/18 [Rx] RX: [place]-3 Acid Ethyl Esters 1 gm PO DAILY 10/16/18 [History] predniSONE [Prednisone] 40 mg PO QAM 5 Days tablet 10/16/18 [Rx] Past Medical History HEENT History: Reports: Impaired Vision Other HEENT History: wears glasses Cardiovascular History: Reports: Hypertension Respiratory History: Reports: Asthma, Sleep Apnea, Other (See Below) Other Respiratory History: "Allergies", uses Cpap Gastrointestinal History: Reports: GERD, Other (See Below) Other Gastrointestinal History: "Stomach Problems" Genitourinary History: Reports: UTI, Recurrent Other Genitourinary History: hx of UTIs TUMBLER TENDER History: Reports: Endometriosis, Polycystic Ovaries Other TUMBLER TENDER History: G0 Musculoskeletal History: Reports: Back Pain, Chronic, Fibromyalgia, Other (See Below) Other Musculoskeletal History: herniated disc, DJD lower back, hx two ankle surgeries on right foot Neurological History: Reports: Migraines, Seizure, Other (See Below) Other Neuro History: hx epilepsy Psychiatric History: Reports: Anxiety, Depression, Panic Attack, Other (See Below) Other Psychiatric History: "Insomnia" Endocrine/Metabolic History: Reports: Hypothyroidism, Other (See Below) Other Endocrine/Metabolic History: hypoglycemic Dermatologic History: Reports: Other (See Below) Other Dermatologic History: severe acne - Infectious Disease History Infectious Disease History: Reports: Chicken Pox - Past Surgical History Head Surgeries/Procedures: Reports: None HEENT Surgical History: Reports: Adenoidectomy, Tonsillectomy, Other (See Below) Other HEENT Surgeries/Procedures: uvula reconstructed GI Surgical History: Reports: Cholecystectomy, Colonoscopy, EGD Social & Family History - Family History Family Medical History: Noncontributory Cardiac: Reports: MA Oncologic: Reports: Brain, Other (See Below) Other Oncologic Family History: grandparents - Tobacco Use Smoking Status *Q: Never Smoker - Caffeine Use Caffeine Use: Reports: Coffee, Energy Drinks, Soda, Tea Other Caffeine Use: 2 a day - Alcohol Use Alcohol Use History: No - Living Situation & Occupation Occupation: Employed (Works at [employer]) ED ROS GENERAL - Review of Systems Review Of Systems: Unable To Obtain ED EXAM, GENERAL - Physical Exam Exam: See Below Free Text/Narrative:: initial exam patient distressed, one-word sentences, minimal air movement through her lungs and no wheezing. Sats 100%. Slight tachycardia is noted with a normal blood pressure. Following duo nebs, patient appears much more comfortable. Tympanic membranes are clear bilaterally with normal light reflex and throat is without erythema, mucous murmurs are moist there is no tonsillar enlargement or exudate. Head is atraumatic, pupils are equal and reactive, facial muscles are symmetric. Lungs continued to have no wheezing the have good increase in breath sounds with no focal crackles. Heart is regular rate and rhythm, rate bordering on tachycardia to 110. Peripheral pulses +2 in both the upper and lower extremities and she has no lower extremity edema. wrist brace present on the right side. Abdomen positive bowel sounds, soft nondistended nontender with no rebound or guarding. Muscle strength is equal side to side. no joint swelling is noted and no rashes Course - Vital Signs Text/Narrative:: initial impressionacute asthmatic attack, I suspect a significant component of panic as well. Back to back to back albuterol nebs ordered with 1 as a DuoNeb. patient satting 100% even on arrival. Significant decrease in air movement, and no wheezingI wonder about focal cord dysfunction as a component. Voice very hoarse. Last Recorded V/S: Last Vital Signs Temp 36.8 C 10/16/18 14:08 Pulse 150 H 10/16/18 14:25 Resp 30 H 10/16/18 14:08 BP 129/99 H 10/16/18 14:08 Pulse Ox 99 10/16/18 14:08 - Orders/Labs/Meds Orders: Active Orders 24 hr Category Date Time Status RT Aerosol Therapy [] ASDIRECTED Care 10/16/18 14:18 Active CULTURE STREP A CONFIRMATION [] Stat Lab 10/16/18 17:40 Results STREP SCRN A RAPID W CULT CONF [] Stat Lab 10/16/18 17:40 Results Albuterol [Proventil Neb Soln] Med 10/16/18 14:15 Active 2.5 mg NEB Q2H Sodium Chloride 0.9% [Normal Saline] 1,000 ml Med 10/16/18 14:30 Active IV ASDIRECTED Medication Orders Albuterol (Proventil Neb Soln) 2.5 mg NEB Q2H [facility] Last Admin: 10/16/18 18:41 Dose: 2.5 mg Admin: 10/16/18 14:25 Dose: 2.5 mg Admin: 10/16/18 14:09 Dose: 2.5 mg Sodium Chloride (Normal Saline) 1,000 mls @ 250 mls/hr IV ASDIRECTED [facility] Last Admin: 10/16/18 16:30 Dose: 250 mls/hr Infusion: 10/16/18 16:21 Dose: 999 mls/hr Infusion: 10/16/18 15:35 Dose: 999 mls/hr Admin: 10/16/18 14:37 Dose: 250 mls/hr Labs: Laboratory Tests 10/16/18 10/16/18 10/16/18 Range/Units 14:50 14:50 14:50 WBC 11.6 (4.5-12.0) X10-3/uL RBC 4.86 (3.23-5.20) x10(6)uL Hgb 14.9 (11.5-15.5) g/dL Hct 44.0 (30.0-51.3) % MCV 90.6 (80-96) fL MCH 30.7 (27.7-33.6) pg MCHC 33.9 (32.2-35.4) g/dL RDW 12.4 (11.5-15.5) % Plt Count 306 (125-369) X10(3)uL MPV 8.4 (7.4-10.4) fL Neut % (Auto) 71.5 (46-82) % Lymph % (Auto) 22.3 (13-37) % Keith % (Auto) 5.7 (4-12) % Eos % (Auto) 0 L (1.0-5.0) % Baso % (Auto) 0 (0-2) % Neut # (Auto) 8.3 (1.6-8.3) # Lymph # (Auto) 2.6 (0.6-5.0) # Keith # (Auto) 0.7 (0.0-1.3) # Eos # (Auto) 0.0 (0.0-0.8) # Baso # (Auto) 0.0 (0.0-0.2) # Sodium 140 (135-145) mmol/L Potassium 3.3 L (3.5-5.3) mmol/L Chloride 100 D (100-110) mmol/L Carbon Dioxide 26 (21-32) mmol/L BUN 12 (7-18) mg/dL Creatinine 1.1 H (0.55-1.02) mg/dL Est Cr Clr Drug Dosing 76.03 mL/min Estimated GFR (MDRD) > 60 (>60) BUN/Creatinine Ratio 10.9 (9-20) Glucose 126 H (80-116) mg/dL Lactic Acid 3.0 H (0.4-2.2) mmol/L Calcium 9.8 (8.6-10.2) mg/dL C-Reactive Protein (0.5-0.9) mg/dL 10/16/18 10/16/18 Range/Units 14:50 18:00 WBC (4.5-12.0) X10-3/uL RBC (3.23-5.20) x10(6)uL Hgb (11.5-15.5) g/dL Hct (30.0-51.3) % MCV (80-96) fL MCH (27.7-33.6) pg MCHC (32.2-35.4) g/dL RDW (11.5-15.5) % Plt Count (125-369) X10(3)uL MPV (7.4-10.4) fL Neut % (Auto) (46-82) % Lymph % (Auto) (13-37) % Keith % (Auto) (4-12) % Eos % (Auto) (1.0-5.0) % Baso % (Auto) (0-2) % Neut # (Auto) (1.6-8.3) # Lymph # (Auto) (0.6-5.0) # Keith # (Auto) (0.0-1.3) # Eos # (Auto) (0.0-0.8) # Baso # (Auto) (0.0-0.2) # Sodium (135-145) mmol/L Potassium (3.5-5.3) mmol/L Chloride (100-110) mmol/L Carbon Dioxide (21-32) mmol/L BUN (7-18) mg/dL Creatinine (0.55-1.02) mg/dL Est Cr Clr Drug Dosing mL/min Estimated GFR (MDRD) (>60) BUN/Creatinine Ratio (9-20) Glucose (80-116) mg/dL Lactic Acid 2.2 (0.4-2.2) mmol/L Calcium (8.6-10.2) mg/dL C-Reactive Protein 6.2 H* (0.5-0.9) mg/dL Meds: Medications Generic Name Dose Route Start Last Admin Trade Name Freq PRN Reason Stop Dose Admin Albuterol 2.5 mg 10/16/18 14:15 10/16/18 18:41 Proventil Neb Soln NEB 2.5 mg Q2H GERRY Administration Sodium Chloride 1,000 mls @ 250 mls/hr 10/16/18 14:30 10/16/18 16:30 Normal Saline IV 250 mls/hr ASDIRECTED GERRY Administration Discontinued Medications Generic Name Dose Route Start Last Admin Trade Name Freq PRN Reason Stop Dose Admin Albuterol/Ipratropium 3 ml 10/16/18 14:15 10/16/18 14:15 Duoneb 3.0-0.5 Mg/3 Ml NEB 10/16/18 14:16 3 ml ONETIME ONE Administration Amoxicillin 1,000 mg 10/16/18 20:03 10/16/18 20:16 Amoxil PO 10/16/18 20:04 1,000 mg ONETIME ONE Administration Doxycycline Hyclate 100 mg 10/16/18 20:02 10/16/18 20:16 Vibra-Tabs PO 10/16/18 20:03 100 mg ONETIME ONE Administration Magnesium Sulfate 2 gm/ Premix 50 mls @ 150 mls/hr 10/16/18 15:03 10/16/18 15 :43 IV 10/16/18 15:22 150 mls/hr ONETIME ONE Administration Sodium Chloride 1,000 mls @ 999 mls/min 10/16/18 15:22 10/16/18 19:41 Normal Saline IV 10/16/18 15:23 Not Given .BOLUS ONE Methylprednisolone Sodium Succinate 125 mg 10/16/18 14:15 10/16/18 14:30 Solu-Medrol IVPUSH 10/16/18 14:16 125 mg ONETIME ONE Administration Potassium Chloride 40 meq 10/16/18 15:23 10/16/18 15:43 Klor-Con M20 PO 10/16/18 15:24 40 meq ONETIME ONE Administration - Re-Assessments/Exams Free Text/Narrative Re-Assessment/Exam: 10/16/18 patient improved following back to back to back nebs. Labs ordered, IV in place. Called to room for sat monitor report of heart rate in the 200s. on telemetry, rate is noted to be about 120. EKG ordered, shows sinus tachycardia, no morphology changes, QTC is 500. Patient was asymptomatic when staff walked in the room and did not know that anything was wrong on monitor. She continues to improve from a breathing standpoint. Complains of very sore throat Free Text/Narrative Re-Assessment/Exam: 10/16/18 labs reviewed, elevated CRP, elevated lactic acid just slightly. Given complaint of sore throat, will get strep swab. Fluid bolus ordered. Given initial presentation, discussed overnight observation but she very much wants to go home. Discussed potential discharge parameters if she wants to go this route. We'll plan to repeat lactic acid at 3 hours following saline bolus, needs to tolerate another neb without inappropriate tachycardia, be able to ambulate through the department and speak in full sentences with good air movement in her lungs. Free Text/Narrative Re-Assessment/Exam: 10/16/18 repeat lactic acid is normal at 2.2. Patient received approximately 2 L of normal saline while here. Additional albuterol neb given with no adverse effects. she was able to ambulate through the department without difficulty and was on room air the entire time she was here. Her lung sounds have significantly improved and I still do not hear any wheezing, crackles, or other abnormal sounds. Vitals have been otherwise stable. Strep screen negative, culture pending Will start patient on doxycycline, amoxicillin (reports intolerance to augmentin ), and 5 day steroid burst. First dose was given on admission. Discussed home use of albuterol and threshold for returning to emergency room. Discussed risk of status asthmaticus especially given that she lives alone and she still is very much in favor of discharge. She is able to verbalize plan and all questions were answered. no ride so taxi had to be provided. She does not work again until Tuesday and should be improved by this time, if not needs to be reevaluated by physician Departure - Departure Time of Disposition: 19:57 Disposition: Home, Self-Care 01 Condition: Good Clinical Impression: Asthma attack - Discharge Information *PRESCRIPTION DRUG MONITORING PROGRAM REVIEWED*: Not Applicable *COPY OF PRESCRIPTION DRUG MONITORING REPORT IN PATIENT ANAYELI: Not Applicable Prescriptions: RX: Amoxicillin 875 mg PO BID 7 Days #14 tablet RX: Doxycycline [Vibramycin] 100 mg PO BID 7 Days #14 cap predniSONE [Prednisone] 40 mg PO QAM 5 Days tablet Instructions: Albuterol inhalation aerosol Referrals: Susanna Babcock, CARE MANAGEMENT ASSOCIATE [Primary Care Provider] - Forms: ED Department Discharge Additional Instructions: first dose antibiotics and steroids given here use inhaler every 4 hours for next 2 days, 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 and 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 tomorrow morning otherwise, recommend rest, good hydration, continue other medications - My Orders Last 24 Hours: My Active Orders 10/16/18 14:15 Albuterol [Proventil Neb Soln] 2.5 mg NEB Q2H 10/16/18 14:18 RT Aerosol Therapy [RC] ASDIRECTED 10/16/18 14:30 Sodium Chloride 0.9% [Normal Saline] 1,000 ml IV ASDIRECTED 10/16/18 17:40 CULTURE STREP A CONFIRMATION [RM] Stat STREP SCRN A RAPID W CULT CONF [] Stat - Assessment/Plan Last 24 Hours: My Active Orders 10/16/18 14:15 Albuterol [Proventil Neb Soln] 2.5 mg NEB Q2H 10/16/18 14:18 RT Aerosol Therapy [RC] ASDIRECTED 10/16/18 14:30 Sodium Chloride 0.9% [Normal Saline] 1,000 ml IV ASDIRECTED 10/16/18 17:40 CULTURE STREP A CONFIRMATION [RM] Stat STREP SCRN A RAPID W CULT CONF [RM] Stat
[2018-10-16] MEDS ORDERED: Sodium Chloride 0.9% 1,000 ML IV ONE (15:22)
[2018-10-16] MEDS ORDERED: Potassium Chloride 20 MEQ Tab.ER PO ONE (15:23)
[2018-10-16] MEDS ORDERED: Doxycycline 100 MG Tab PO ONE (20:02)
[2018-10-16] MEDS ORDERED: Amoxicillin 500 MG Cap PO ONE (20:03)
[2018-10-17] MEDS: Albuterol 0.083% 2.5 MG/3 ML Neb Soln NEB SCH (03:51)
[2018-10-17 04:40] VITALS: BP 153/79; PULSE 113
== END 2018-10-16 20:45 | disposition home or self-care (01) ==
LOC: FB.ED 14:08
DX: J45.909 Unspecified asthma, uncomplicated (principal); I10 Essential (primary) hypertension; K21.9 Gastro-esophageal reflux disease without esophagitis; F41.9 Anxiety disorder, unspecified; F32.9 Major depressive disorder, single episode, unspecified; Z88.1 Allergy status to other antibiotic agents; Z91.040 Latex allergy status; Z91.048 Other nonmedicinal substance allergy status; Z88.8 Allergy status to other drugs, medicaments and biological substances; Z79.899 Other long term (current) drug therapy
CPT/HCPCS: 36415; 80048; 83605; 85025; 86140; 87081; 87880; 93005; 94640; 99284; A9270; J2930; J3475; J7030; J7620-GY

== ENCOUNTER 2018-12-02 19:15 | Emergency (ER) | payer BC, MEDICAID ==
--- NOTE | 2018-12-02 19:53 | EDM.PDOC ---
ED HPI GENERAL MEDICAL PROBLEM - General Stated Complaint: SEIZURE Time Seen by Provider: 12/02/18 19:50 Source of Information: Reports: Patient, EMS, Other (Reports to EMS were from bystanders) History Limitations: Reports: Other (Patient amnestic of the events around seizure) - History of Present Illness INITIAL COMMENTS - FREE TEXT/NARRATIVE: 27-year-old female who has a history of seizure disorder with breakthrough seizures who was working at [employer] and approximate 7 PM when she was noted by bystanders to have shaking of her arms and legs. She was beginning to fall and she was caught by a coworker and eased to the floor. There was no injury. 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 Apparently she has not really slept over the past 24-36 hours prior to this occurring. She was having really no symptoms are to this seizure occurring. She does report that she has been taking her medications as directed except she did not take her sleeping medication previous evening. She has, however, taken all of her antiseizure medications. She presents to us via ambulance with no further seizures en route. She is awake, alert and appropriate. She does report a headache that is a throbbing headache all over her head that she rates as a 9/10. She has had no vision problems. No neck or arm pains. No nausea or vomiting. No medications were given en route by the ambulance personnel. The seizure apparently lasted for less than 2 minutes and she begin to awaken and become normally responsive within 5 minutes There are no other associated signs or symptoms. There are no other modifying factors. Onset: Today (7 PM) Duration: Constant Location: Reports: Head Quality: Reports: Throbbing Severity: Moderate (to severe) Improves with: Reports: None Worsens with: Reports: None Context: Reports: Other (As above) Associated Symptoms: Reports: Headaches, Seizure Treatments BI CONSULTANT: Reports: Other (see below) (Nothing) - Related Data Allergies Allergy/AdvReac Type Severity Reaction Status Date / Time amoxicillin [From Augmentin] Allergy Muscle Verified 10/17/18 03:47 Weakness clavulanic acid Allergy Muscle Verified 10/17/18 03:47 [From Augmentin] Weakness hydromorphone [From Dilaudid] Allergy Muscle Verified 10/17/18 03:47 Weakness hydroxyzine [From Vistaril] Allergy Swelling Verified 10/17/18 03:47 lactose Allergy Stomach Verified 10/17/18 03:47 Ache latex Allergy Swelling Verified 10/17/18 03:47 povidone-iodine Allergy Swelling Verified 10/17/18 03:47 Home Meds: Home Meds levETIRAcetam [Keppra] 2,000 mg PO BID 09/15/16 [History] Albuterol [Ventolin HFA] 1 - 2 puff IH Q4H PRN 09/16/16 [History] Calcium Carbonate [Calcium] 600 mg PO DAILY 04/24/17 [History] Cholecalciferol (Vitamin D3) [Vitamin D3] 5,000 unit PO DAILY 04/24/17 [History] Doxepin [SINEquan] 100 mg PO BEDTIME 04/24/17 [History] Levothyroxine 12.5 mcg PO BEDTIME 04/24/17 [History] Montelukast [Singulair] 10 mg PO BEDTIME 04/24/17 [History] Pantoprazole [ProTONIX] 40 mg PO DAILY 04/24/17 [History] Potassium Chloride 20 meq PO BEDTIME 04/24/17 [History] Milnacipran HCl [Savella] 100 mg PO BID 10/14/17 [History] Zolpidem Tartrate [Ambien] 10 mg PO BEDTIME 12/14/17 [History] lamoTRIgine 300 mg PO BID 12/14/17 [History] ALPRAZolam [Xanax] 1 mg PO BID PRN 08/14/18 [History] Hyoscyamine [Levsin] 0.125 mg PO TID PRN 08/14/18 [History] Norethindrone-Ethinyl Estrad [Dasetta 1-35-28 Tablet] 1 tab PO BEDTIME 08/14/18 [History] Ondansetron [Zofran Odt] 8 mg PO Q8H PRN 08/14/18 [History] Rizatriptan Benzoate [Rizatriptan] 5 mg PO ASDIRECTED PRN 08/14/18 [History] Amoxicillin 875 mg PO BID 7 Days #14 tablet 10/16/18 [Rx] Doxycycline [Vibramycin] 100 mg PO BID 7 Days #14 cap 10/16/18 [Rx] Fluticasone/Salmeterol [Advair 250-50] 1 puff IH BID 10/16/18 [History] Losartan/Hydrochlorothiazide [Losartan-HCTZ 50-12.5 MG] 1 tab PO DAILY 10/16/18 [History] [place]-3 Acid Ethyl Esters 1 gm PO DAILY 10/16/18 [History] predniSONE [Prednisone] 40 mg PO QAM 5 Days tablet 10/16/18 [Rx] Past Medical History HEENT History: Reports: Impaired Vision Other HEENT History: wears glasses Cardiovascular History: Reports: Hypertension Respiratory History: Reports: Asthma, Sleep Apnea Gastrointestinal History: Reports: GERD, Irritable Bowel Syndrome Genitourinary History: Reports: UTI, Recurrent [employer] History: Reports: Endometriosis, Polycystic Ovaries Other [employer]UM[employer] History: G0 Musculoskeletal History: Reports: Back Pain, Chronic, Fibromyalgia, Other (See Below) Other Musculoskeletal History: herniated disc, DJD lower back, hx two ankle surgeries on right foot Neurological History: Reports: Migraines, Seizure, Other (See Below) Other Neuro History: hx epilepsy Psychiatric History: Reports: Anxiety, Depression, Panic Attack, Other (See Below) Other Psychiatric History: "Insomnia" Endocrine/Metabolic History: Reports: Hypothyroidism, Obesity/BMI 30+ Dermatologic History: Reports: Other (See Below) Other Dermatologic History: severe acne - Infectious Disease History Infectious Disease History: Reports: Chicken Pox - Past Surgical History HEENT Surgical History: Reports: Adenoidectomy, Tonsillectomy, Other (See Below) Other HEENT Surgeries/Procedures: uvula reconstructed GI Surgical History: Reports: Cholecystectomy, Colonoscopy, EGD Social & Family History - Family History Cardiac: Reports: [place] Oncologic: Reports: Brain, Other (See Below) Other Oncologic Family History: grandparents - Tobacco Use Smoking Status *Q: Never Smoker - Caffeine Use Caffeine Use: Reports: Coffee, Energy Drinks, Soda, Tea Other Caffeine Use: 2 a day - Alcohol Use Alcohol Use History: No - Living Situation & Occupation Living situation: Reports: Single Occupation: Employed (Works at [employer]) ED [facility] - Review of Systems Review Of Systems: See Below Constitutional: Reports: No Symptoms HEENT: Reports: No Symptoms Respiratory: Reports: No Symptoms Cardiovascular: Reports: No Symptoms GI/Abdominal: Reports: No Symptoms : Reports: No Symptoms Musculoskeletal: Reports: No Symptoms Skin: Reports: No Symptoms Neurological: Reports: Headache Psychiatric: Reports: Other (Insomnia) Hematologic/Lymphatic: Reports: No Symptoms Immunologic: Reports: No Symptoms - Physical Exam Exam: See Below Exam Limited By: No Limitations General Appearance: Alert, Mild Distress, Obese, Other (Verbally responsive and interactive.) Eye Exam: Bilateral Eye: EOMI, Normal Inspection, PERRL Ears: Normal External Exam, Hearing Grossly Normal Nose: Normal Inspection, Normal Mucosa, No Blood Throat/Mouth: Normal Lips, Normal Voice, No Airway Compromise, Evidence of Tongue Biting (Minor) Head Exam: Atraumatic, Normocephalic Neck: Normal Inspection, Supple, Non-Tender, Full Range of Motion Respiratory/Chest: No Respiratory Distress, Lungs Clear, Normal Breath Sounds, No Accessory Muscle Use, Chest Non-Tender Cardiovascular: Normal Peripheral Pulses, Regular Rate, Rhythm, No JVD GI/Abdominal: Normal Bowel Sounds, Soft, Non-Tender, No Mass Neuro Exam (Abbreviated): Alert, Oriented, CN II-XII Intact, Normal Cognition, No Motor/Sensory Deficits Back Exam: Normal Inspection, Full Range of Motion Extremities: Normal Inspection, Normal Range of Motion, Non-Tender, No Pedal Edema, Normal Capillary Refill Skin Exam: Warm, Dry, Intact, Normal Color, No Rash Course - Vital Signs Last Recorded V/S: Last Vital Signs Temp 36.6 C 12/02/18 19:20 Pulse Resp BP Pulse Ox - Orders/Labs/Meds Orders: Active Orders 24 hr Category Date Time Status Sodium Chloride 0.9% [Saline Flush] Med 12/02/18 20:20 Active 10 ml FLUSH ASDIRECTED PRN Medication Orders Sodium Chloride (Saline Flush) 10 ml FLUSH ASDIRECTED PRN PRN Reason: Keep Vein Open Last Admin: 12/02/18 20:20 Dose: 10 ml Labs: Laboratory Tests 12/02/18 12/02/18 Range/Units 20:30 20:30 WBC 9.0 (4.5-12.0) X10-3/uL RBC 4.80 (3.23-5.20) x10(6)uL Hgb 15.0 (11.5-15.5) g/dL Hct 43.1 (30.0-51.3) % MCV 89.6 (80-96) fL MCH 31.2 (27.7-33.6) pg MCHC 34.8 (32.2-35.4) g/dL RDW 12.4 (11.5-15.5) % Plt Count 341 (125-369) X10(3)uL MPV 8.0 (7.4-10.4) fL Neut % (Auto) 78.5 (46-82) % Lymph % (Auto) 16.6 (13-37) % [place] % (Auto) 4.0 (4-12) % Eos % (Auto) 1 (1.0-5.0) % Baso % (Auto) 0 (0-2) % Neut # (Auto) 7.1 (1.6-8.3) # Lymph # (Auto) 1.5 (0.6-5.0) # [place] # (Auto) 0.4 (0.0-1.3) # Eos # (Auto) 0.0 (0.0-0.8) # Baso # (Auto) 0.0 (0.0-0.2) # Sodium 140 (135-145) mmol/L Potassium 3.6 (3.5-5.3) mmol/L Chloride 101 (100-110) mmol/L Carbon Dioxide 30 (21-32) mmol/L BUN 11 (7-18) mg/dL Creatinine 0.9 (0.55-1.02) mg/dL Est Cr Clr Drug Dosing TNP Estimated GFR (MDRD) > 60 (>60) BUN/Creatinine Ratio 12.2 (9-20) Glucose 105 (80-116) mg/dL Calcium 9.4 (8.6-10.2) mg/dL Total Bilirubin 0.3 (0.1-1.3) mg/dL AST 17 D (5-25) IU/L ALT 27 D (12-36) U/L Alkaline Phosphatase 96 (56-112) IU/L Total Protein 7.5 (6.0-8.0) g/dL Albumin 3.8 (3.5-5.2) g/dL Globulin 3.7 g/dL Albumin/Globulin Ratio 1.0 Meds: Medications Generic Name Dose Route Start Last Admin Trade Name Freq PRN Reason Stop Dose Admin Sodium Chloride 10 ml 12/02/18 20:20 12/02/18 20:20 Saline Flush FLUSH 10 ml ASDIRECTED PRN Administration Keep Vein Open Discontinued Medications Generic Name Dose Route Start Last Admin Trade Name Gabo PRN Reason Stop Dose Admin Acetaminophen 1,000 mg 12/02/18 20:06 12/02/18 20:15 Tylenol Extra Strength PO 12/02/18 20:07 1,000 mg ONETIME ONE Administration Lorazepam 1 mg 12/02/18 20:06 12/02/18 20:15 Ativan IVPUSH 12/02/18 20:07 1 mg ONETIME ONE Administration - Re-Assessments/Exams Free Text/Narrative Re-Assessment/Exam: 12/02/18 20:51: Patient's laboratory tests are reassuringly normal. She has had no further seizures in the emergency department. She does have a history of recurrent, breakthrough seizures. She has not been sleeping well the past 2 nights. I think this is what caused her breakthrough seizure. She should continue to take her medications as prescribed by her doctor. She should get better sleep. I did give her Ativan 1 mg IV here in the emergency department. She is stable for discharge at this point. Departure - Departure Time of Disposition: 21:50 Disposition: Home, Self-Care 01 Condition: Good (Proved) Clinical Impression: Breakthrough seizure - Discharge Information Instructions: Epilepsy, [id number] Referrals: Susanna Babcock NP [Primary Care Provider] - Forms: ED Return to Work/School Form Additional Instructions: Continue to take your medications as directed by your doctor. You need to get at least 8 hours of sleep every night. Drink plenty of fluids. No work until . Follow-up with your primary doctor as needed. Back to the emergency department for recurrent seizures, vomiting, high fever or any other concerning sign or symptom. - My Orders Last 24 Hours: My Active Orders 12/02/18 20:20 Sodium Chloride 0.9% [Saline Flush] 10 ml FLUSH ASDIRECTED PRN - Assessment/Plan Last 24 Hours: My Active Orders 12/02/18 20:20 Sodium Chloride 0.9% [Saline Flush] 10 ml FLUSH ASDIRECTED PRN
[2018-12-02] MEDS ORDERED: Acetaminophen 500 MG Tab PO ONE (20:06)
[2018-12-02] MEDS ORDERED: LORazepam 2 MG/ML SDV IVPUSH ONE (20:06)
[2018-12-02] MEDS ORDERED: Sodium Chloride 0.9% 10 ML Syringe FLUSH PRN (20:20)
[2018-12-03 19:59] VITALS: BP 131/82; PULSE 98
== END 2018-12-02 21:50 | disposition home or self-care (01) ==
LOC: FB.ED 19:36
DX: G40.909 Epilepsy, unspecified, not intractable, without status epilepticus (principal); I10 Essential (primary) hypertension; J45.909 Unspecified asthma, uncomplicated; F41.9 Anxiety disorder, unspecified; F32.9 Major depressive disorder, single episode, unspecified; E03.9 Hypothyroidism, unspecified; E66.9 Obesity, unspecified; Z68.39 Body mass index [BMI] 39.0-39.9, adult; Z91.040 Latex allergy status; Z91.011 Allergy to milk products; Z88.5 Allergy status to narcotic agent; Z88.0 Allergy status to penicillin; Z88.8 Allergy status to other drugs, medicaments and biological substances; Z91.048 Other nonmedicinal substance allergy status; K21.9 Gastro-esophageal reflux disease without esophagitis; Z79.899 Other long term (current) drug therapy; Z79.51 Long term (current) use of inhaled steroids
CPT/HCPCS: 36415; 80053; 85025; 96374; 99284; A9270; J2060

== ENCOUNTER 2019-01-14 08:33 | Emergency (ER) | payer BC, MEDICAID, OTHER ==
--- NOTE | 2019-01-14 09:48 | EDM.PDOC ---
ED HPI GENERAL MEDICAL PROBLEM - General Chief Complaint: Lower Extremity Injury/Pain Stated Complaint: HURT KNEE Time Seen by Provider: 01/14/19 09:15 Source of Information: Reports: Patient History Limitations: Reports: No Limitations - History of Present Illness INITIAL COMMENTS - FREE TEXT/NARRATIVE: pt had accidental fall yesterday, slipped on ice and c/o left knee pain, denies any other injuries or any other medical concerns, has been ambulatory with a limp . left knee Pain Score (Numeric/FACES): 9 - Related Data Allergies Allergy/AdvReac Type Severity Reaction Status Date / Time amoxicillin [From Augmentin] Allergy Muscle Verified 12/03/18 19:22 Weakness clavulanic acid Allergy Muscle Verified 12/03/18 19:22 [From Augmentin] Weakness hydromorphone [From Dilaudid] Allergy Muscle Verified 12/03/18 19:22 Weakness hydroxyzine [From Vistaril] Allergy Swelling Verified 12/03/18 19:22 lactose Allergy Stomach Verified 12/03/18 19:22 Ache latex Allergy Swelling Verified 12/03/18 19:22 povidone-iodine Allergy Swelling Verified 12/03/18 19:22 Home Meds: Home Meds levETIRAcetam [Keppra] 2,000 mg PO BID 09/15/16 [History] Albuterol [Ventolin HFA] 1 - 2 puff IH Q4H PRN 09/16/16 [History] Calcium Carbonate [Calcium] 600 mg PO DAILY 04/24/17 [History] Cholecalciferol (Vitamin D3) [Vitamin D3] 5,000 unit PO DAILY 04/24/17 [History] Doxepin [SINEquan] 100 mg PO BEDTIME 04/24/17 [History] Levothyroxine 12.5 mcg PO BEDTIME 04/24/17 [History] Montelukast [Singulair] 10 mg PO BEDTIME 04/24/17 [History] Pantoprazole [ProTONIX] 40 mg PO DAILY 04/24/17 [History] Potassium Chloride 20 meq PO BEDTIME 04/24/17 [History] Milnacipran HCl [Savella] 100 mg PO BID 10/14/17 [History] Zolpidem Tartrate [Ambien] 10 mg PO BEDTIME 12/14/17 [History] lamoTRIgine 400 mg PO DAILY 12/14/17 [History] ALPRAZolam [Xanax] 1 mg PO BID PRN 08/14/18 [History] Hyoscyamine [Levsin] 0.125 mg PO TID PRN 08/14/18 [History] Norethindrone-Ethinyl Estrad [Dasetta 1-35-28 Tablet] 1 tab PO BEDTIME 08/14/18 [History] Rizatriptan Benzoate [Rizatriptan] 5 mg PO ASDIRECTED PRN 08/14/18 [History] Fluticasone/Salmeterol [Advair 250-50] 1 puff IH BID 10/16/18 [History] Losartan/Hydrochlorothiazide [Losartan-HCTZ 50-12.5 MG] 1 tab PO DAILY 10/16/18 [History] [place]-3 Acid Ethyl Esters 1 gm PO DAILY 10/16/18 [History] Cyanocobalamin (Vitamin B-12) [Vitamin B-12] 1,000 mcg PO DAILY 12/03/18 [ History] lamoTRIgine [Lamotrigine] 350 mg PO BEDTIME 12/03/18 [History] Past Medical History HEENT History: Reports: Impaired Vision Other HEENT History: wears glasses Cardiovascular History: Reports: Hypertension Respiratory History: Reports: Asthma, Sleep Apnea Other Respiratory History: "Allergies", uses Cpap Gastrointestinal History: Reports: GERD, Irritable Bowel Syndrome Other Gastrointestinal History: "Stomach Problems" Genitourinary History: Reports: UTI, Recurrent Other Genitourinary History: hx of UTIs [employer]IL[employer] History: Reports: Endometriosis, Polycystic Ovaries Other [employer] KIL[employer] History: G0 Musculoskeletal History: Reports: Back Pain, Chronic, Fibromyalgia, Other (See Below) Other Musculoskeletal History: herniated disc, DJD lower back, hx two ankle surgeries on right foot Neurological History: Reports: Migraines, Seizure, Other (See Below) Other Neuro History: hx epilepsy Psychiatric History: Reports: Anxiety, Depression, Panic Attack, Other (See Below) Other Psychiatric History: "Insomnia" Endocrine/Metabolic History: Reports: Hypothyroidism, Obesity/BMI 30+ Other Endocrine/Metabolic History: hypoglycemic Dermatologic History: Reports: Other (See Below) Other Dermatologic History: severe acne - Infectious Disease History Infectious Disease History: Reports: Chicken Pox - Past Surgical History Head Surgeries/Procedures: Reports: None HEENT Surgical History: Reports: Adenoidectomy, Tonsillectomy, Other (See Below) Other HEENT Surgeries/Procedures: uvula reconstructed GI Surgical History: Reports: Cholecystectomy, Colonoscopy, EGD Social & Family History - Family History Family Medical History: Noncontributory Cardiac: Reports: [place] Oncologic: Reports: Brain, Other (See Below) Other Oncologic Family History: grandparents - Tobacco Use Smoking Status *Q: Never Smoker - Caffeine Use Caffeine Use: Reports: Coffee, Energy Drinks, Soda, Tea Other Caffeine Use: 2 a day - Living Situation & Occupation Living situation: Reports: Single Occupation: Employed (Works at [employer]) Review of Systems - Review of Systems Review Of Systems: See Below Constitutional: Reports: No Symptoms Eyes: Reports: No Symptoms Ears: Reports: No Symptoms Nose: Reports: No Symptoms Mouth/Throat: Reports: No Symptoms Respiratory: Reports: No Symptoms Cardiovascular: Reports: No Symptoms GI/Abdominal: Reports: No Symptoms Musculoskeletal: Denies: Neck Pain, Shoulder Pain, Arm Pain, Back Pain ED EXAM, GENERAL - Physical Exam Exam: See Below Exam Limited By: No Limitations General Appearance: Alert, Anxious Nose: Normal Inspection Head: Atraumatic, Normocephalic Neck: Normal Inspection, Supple, Non-Tender, Full Range of Motion Respiratory/Chest: No Respiratory Distress, Lungs Clear, Normal Breath Sounds Cardiovascular: Normal Peripheral Pulses, Regular Rate, Rhythm GI/Abdominal: Normal Bowel Sounds, Soft, Non-Tender Back Exam: Normal Inspection, Full Range of Motion Extremities: Other (tender over the anterior side of left knee with abrasion in that area , no joint effusion or joint instability .) Neurological: Alert, Oriented, CN II-XII Intact Course - Vital Signs Text/Narrative:: Xray show no acute findings , supportive mng was recommended for acute knee contusion injury and f/u PRN. Last Recorded V/S: Last Vital Signs Temp 36.7 C 01/14/19 08:33 Pulse 105 H 01/14/19 08:33 Resp 18 01/14/19 08:33 BP 130/94 H 01/14/19 08:33 Pulse Ox 98 01/14/19 08:33 - Orders/Labs/Meds Orders: Active Orders 24 hr Category Date Time Status Knee 3V Lt [CR] Stat Exams 01/14/19 08:45 Ordered Departure - Departure Time of Disposition: 09:47 Disposition: Home, Self-Care 01 Clinical Impression: Contusion of knee, left - Discharge Information Referrals: Susanna Babcock, [employer] [Primary Care Provider] - - My Orders Last 24 Hours: My Active Orders 01/14/19 08:45 Knee 3V Lt [CR] Stat - Assessment/Plan Last 24 Hours: My Active Orders 01/14/19 08:45 Knee 3V Lt [CR] Stat
[2019-01-14 10:11] VITALS: BP 130/82; PULSE 96
== END 2019-01-14 10:14 | disposition home or self-care (01) ==
LOC: FB.ED 08:33
DX: S80.02XA Contusion of left knee, initial encounter (principal); I10 Essential (primary) hypertension; E03.9 Hypothyroidism, unspecified; J45.909 Unspecified asthma, uncomplicated; F32.9 Major depressive disorder, single episode, unspecified; F41.9 Anxiety disorder, unspecified; E66.9 Obesity, unspecified; Z68.37 Body mass index [BMI] 37.0-37.9, adult; Z79.51 Long term (current) use of inhaled steroids; Z79.890 Hormone replacement therapy; Z79.899 Other long term (current) drug therapy; Z88.1 Allergy status to other antibiotic agents; Z88.3 Allergy status to other anti-infective agents; Z88.6 Allergy status to analgesic agent; Z91.011 Allergy to milk products; Z91.040 Latex allergy status; W00.0XXA Fall on same level due to ice and snow, initial encounter
CPT/HCPCS: 73562-LT; 99283-25

== ENCOUNTER 2019-03-07 22:36 | Emergency (ER) | payer BC, OTHER ==
[2019-03-07] MEDS ORDERED: Ondansetron 4 MG/2 ML SDV IM ONE (22:51)
[2019-03-07] MEDS ORDERED: Ketorolac 60 MG/2 ML SDV IM ONE (22:51)
--- NOTE | 2019-03-07 22:55 | EDM.PDOC ---
ED HPI GENERAL MEDICAL PROBLEM - General Chief Complaint: General Stated Complaint: POSSIBLE SEIZURE Time Seen by Provider: 03/07/19 22:52 Source of Information: Reports: Patient History Limitations: Reports: No Limitations - History of Present Illness INITIAL COMMENTS - FREE TEXT/NARRATIVE: Annabella presents for a possible seizure. She feels disoriented,tired,dizzy and has a mild headache. She last had a seizure 3 months ago. In addition,she has not slept for a 1 day because she ran out of Doxepin. No chest pain or shortness of breath.She has a an extensive,well documented mental health history headache Pain Score (Numeric/FACES): 6 - Related Data Allergies Allergy/AdvReac Type Severity Reaction Status Date / Time amoxicillin [From Augmentin] Allergy Muscle Verified 12/03/18 19:22 Weakness clavulanic acid Allergy Muscle Verified 12/03/18 19:22 [From Augmentin] Weakness hydromorphone [From Dilaudid] Allergy Muscle Verified 12/03/18 19:22 Weakness hydroxyzine [From Vistaril] Allergy Swelling Verified 12/03/18 19:22 lactose Allergy Stomach Verified 12/03/18 19:22 Ache latex Allergy Swelling Verified 12/03/18 19:22 povidone-iodine Allergy Swelling Verified 12/03/18 19:22 Home Meds: Home Meds levETIRAcetam [Keppra] 2,000 mg PO BID 09/15/16 [History] Albuterol [Ventolin HFA] 1 - 2 puff IH Q4H PRN 09/16/16 [History] Calcium Carbonate [Calcium] 600 mg PO DAILY 04/24/17 [History] Cholecalciferol (Vitamin D3) [Vitamin D3] 5,000 unit PO DAILY 04/24/17 [History] Doxepin [SINEquan] 100 mg PO BEDTIME 04/24/17 [History] Levothyroxine 12.5 mcg PO BEDTIME 04/24/17 [History] Montelukast [Singulair] 10 mg PO BEDTIME 04/24/17 [History] Pantoprazole [ProTONIX] 40 mg PO DAILY 04/24/17 [History] Potassium Chloride 20 meq PO BEDTIME 04/24/17 [History] Milnacipran HCl [Savella] 100 mg PO BID 10/14/17 [History] Zolpidem Tartrate [Ambien] 10 mg PO BEDTIME 12/14/17 [History] lamoTRIgine 400 mg PO DAILY 12/14/17 [History] ALPRAZolam [Xanax] 1 mg PO BID PRN 08/14/18 [History] Hyoscyamine [Levsin] 0.125 mg PO TID PRN 08/14/18 [History] Norethindrone-Ethinyl Estrad [Dasetta 1-35-28 Tablet] 1 tab PO BEDTIME 08/14/18 [History] Rizatriptan Benzoate [Rizatriptan] 5 mg PO ASDIRECTED PRN 08/14/18 [History] Fluticasone/Salmeterol [Advair 250-50] 1 puff IH BID 10/16/18 [History] Losartan/Hydrochlorothiazide [Losartan-HCTZ 50-12.5 MG] 1 tab PO DAILY 10/16/18 [History] [place]-3 Acid Ethyl Esters 1 gm PO DAILY 10/16/18 [History] Cyanocobalamin (Vitamin B-12) [Vitamin B-12] 1,000 mcg PO DAILY 12/03/18 [ History] lamoTRIgine [Lamotrigine] 350 mg PO BEDTIME 12/03/18 [History] Past Medical History HEENT History: Reports: Impaired Vision Other HEENT History: wears glasses Cardiovascular History: Reports: Hypertension Respiratory History: Reports: Asthma, Sleep Apnea Other Respiratory History: "Allergies", uses Cpap Gastrointestinal History: Reports: GERD, Irritable Bowel Syndrome Other Gastrointestinal History: "Stomach Problems" Genitourinary History: Reports: UTI, Recurrent Other Genitourinary History: hx of UTIs ANGLE BENDER History: Reports: Endometriosis, Polycystic Ovaries Other ANGLE BENDER History: G0 Musculoskeletal History: Reports: Back Pain, Chronic, Fibromyalgia, Other (See Below) Other Musculoskeletal History: herniated disc, DJD lower back, hx two ankle surgeries on right foot Neurological History: Reports: Migraines, Seizure, Other (See Below) Other Neuro History: hx epilepsy Psychiatric History: Reports: Anxiety, Depression, Panic Attack, Other (See Below) Other Psychiatric History: "Insomnia" Endocrine/Metabolic History: Reports: Hypothyroidism, Obesity/BMI 30+ Other Endocrine/Metabolic History: hypoglycemic Dermatologic History: Reports: Other (See Below) Other Dermatologic History: severe acne - Infectious Disease History Infectious Disease History: Reports: Chicken Pox - Past Surgical History Head Surgeries/Procedures: Reports: None HEENT Surgical History: Reports: Adenoidectomy, Tonsillectomy, Other (See Below) Other HEENT Surgeries/Procedures: uvula reconstructed GI Surgical History: Reports: Cholecystectomy, Colonoscopy, EGD Social & Family History - Family History Family Medical History: Noncontributory Cardiac: Reports: [place] Oncologic: Reports: Brain, Other (See Below) Other Oncologic Family History: grandparents - Caffeine Use Caffeine Use: Reports: Coffee, Energy Drinks, Soda, Tea Other Caffeine Use: 2 a day - Living Situation & Occupation Living situation: Reports: Single Occupation: Employed (Works at [employer]) ED ROS GENERAL - Review of Systems Review Of Systems: Comprehensive ROS is negative, except as noted in HPI. ED EXAM, GENERAL - Physical Exam Exam: See Below Exam Limited By: No Limitations General Appearance: Alert, WD/WN Ears: Normal External Exam Nose: Normal Inspection Throat/Mouth: Normal Inspection Head: Atraumatic Neck: Normal Inspection Neurological: Oriented Psychiatric: Anxious Course - Vital Signs Last Recorded V/S: Last Vital Signs Temp 97.5 F 03/07/19 23:30 Pulse 109 H 03/07/19 23:30 Resp 17 03/07/19 23:30 BP 130/80 03/07/19 23:30 Pulse Ox 98 03/07/19 23:30 - Orders/Labs/Meds Labs: Laboratory Tests 03/07/19 03/07/19 Range/Units 23:04 23:04 WBC 11.9 (4.5-12.0) X10-3/uL RBC 4.89 (3.23-5.20) x10(6)uL Hgb 14.9 (11.5-15.5) g/dL Hct 44.6 (30.0-51.3) % MCV 91.3 (80-96) fL MCH 30.5 (27.7-33.6) pg MCHC 33.4 (32.2-35.4) g/dL RDW 12.0 (11.5-15.5) % Plt Count 360 (125-369) X10(3)uL MPV 7.7 (7.4-10.4) fL Neut % (Auto) 75.8 (46-82) % Lymph % (Auto) 18.2 (13-37) % Howard % (Auto) 4.6 (4-12) % Eos % (Auto) 1 (1.0-5.0) % Baso % (Auto) 1 (0-2) % Neut # (Auto) 9.0 H (1.6-8.3) # Lymph # (Auto) 2.2 (0.6-5.0) # Howard # (Auto) 0.5 (0.0-1.3) # Eos # (Auto) 0.1 (0.0-0.8) # Baso # (Auto) 0.1 (0.0-0.2) # Sodium 140 (135-145) mmol/L Potassium 3.7 (3.5-5.3) mmol/L Chloride 102 (100-110) mmol/L Carbon Dioxide 24 (21-32) mmol/L BUN 17 (7-18) mg/dL Creatinine 1.1 H (0.55-1.02) mg/dL Est Cr Clr Drug Dosing 75.37 mL/min Estimated GFR (MDRD) > 60 (>60) BUN/Creatinine Ratio 15.5 (9-20) Glucose 155 H (80-116) mg/dL Calcium 10.0 (8.6-10.2) mg/dL Meds: Medications Discontinued Medications Generic Name Dose Route Start Last Admin Trade Name Freq PRN Reason Stop Dose Admin Ketorolac Tromethamine 60 mg 03/07/19 22:51 03/07/19 22:57 Toradol IM 03/07/19 22:52 60 mg ONETIME ONE Administration Ondansetron HCl 4 mg 03/07/19 22:51 03/07/19 22:57 Zofran IM 03/07/19 22:52 4 mg ONETIME ONE Administration Departure - Departure Time of Disposition: 23:37 Disposition: Home, Self-Care 01 Condition: Good Clinical Impression: Insomnia - Discharge Information Instructions: Seizure, Adult, [id number] Referrals: Susanna Babcock [employer]CH[employer] [Primary Care Provider] - Forms: ED Department Discharge Additional Instructions: follow up with your primary care tomorrow Sepsis Event Note - Evaluation Sepsis Screening Result: No Definite Risk - Focused Exam Date Exam was Performed: 03/09/19 Time Exam was Performed: 23:36 - Problem List & Annotations (1) Insomnia SNOMED Code(s): 606790219 Code(s): G47.00 - INSOMNIA, UNSPECIFIED Status: Acute Qualifiers: Insomnia type: primary Qualified Code(s): F51.01 - Primary insomnia (2) Generalized convulsive epilepsy SNOMED Code(s): 29635876 Code(s): G40.309 - GEN IDIOPATHIC EPILEPSY, NOT INTRACTABLE, W/O STAT EPI Status: Acute - Problem List Review Problem List Initiated/Reviewed/Updated: Yes - Assessment/Plan Plan: Given Toradol and anti nausea medicine. DC home. Follow up wth PCP
[2019-03-07 23:51] VITALS: BP 130/80; PULSE 109
== END 2019-03-07 23:47 | disposition home or self-care (01) ==
LOC: FB.ED 22:36
DX: G47.00 Insomnia, unspecified (principal); I10 Essential (primary) hypertension; J45.909 Unspecified asthma, uncomplicated; K21.9 Gastro-esophageal reflux disease without esophagitis; F41.9 Anxiety disorder, unspecified; F32.9 Major depressive disorder, single episode, unspecified; E03.9 Hypothyroidism, unspecified; E66.9 Obesity, unspecified; Z88.0 Allergy status to penicillin; Z88.1 Allergy status to other antibiotic agents; Z91.040 Latex allergy status; Z91.048 Other nonmedicinal substance allergy status; Z91.011 Allergy to milk products; Z79.899 Other long term (current) drug therapy; Z79.890 Hormone replacement therapy; Z68.37 Body mass index [BMI] 37.0-37.9, adult
CPT/HCPCS: 36415; 80048; 85025; 96372; 99284; J1885; J2405

== ENCOUNTER 2019-03-23 20:44 | Emergency (ER) | payer BC, MEDICAID ==
[2019-03-23] MEDS ORDERED: Ketorolac 30 MG/ML SDV IVPUSH ONE (21:16)
[2019-03-23] MEDS ORDERED: Ondansetron 4 MG/2 ML SDV IVPUSH ONE (21:16)
--- NOTE | 2019-03-23 21:23 | EDM.PDOC ---
ED HPI GENERAL MEDICAL PROBLEM - General Chief Complaint: Headache Stated Complaint: post seizure, headache, tailbone hurts Time Seen by Provider: 03/23/19 21:10 Source of Information: Reports: Patient History Limitations: Reports: No Limitations - History of Present Illness INITIAL COMMENTS - FREE TEXT/NARRATIVE: right side headache with nausea, no vomiting states like migraine she usually gets but more severe had seizure and fell , no has pain in her tailbone has had 3 seizures in he last week , has discussed with neurologist and medication adjustment has been done Onset: Today Onset Date: 03/23/19 - Related Data Allergies Allergy/AdvReac Type Severity Reaction Status Date / Time amoxicillin [From Augmentin] Allergy Muscle Verified 12/03/18 19:22 Weakness clavulanic acid Allergy Muscle Verified 12/03/18 19:22 [From Augmentin] Weakness hydromorphone [From Dilaudid] Allergy Muscle Verified 12/03/18 19:22 Weakness hydroxyzine [From Vistaril] Allergy Swelling Verified 12/03/18 19:22 lactose Allergy Stomach Verified 12/03/18 19:22 Ache latex Allergy Swelling Verified 12/03/18 19:22 povidone-iodine Allergy Swelling Verified 12/03/18 19:22 Home Meds: Home Meds levETIRAcetam [Keppra] 2,000 mg PO BID 09/15/16 [History] Albuterol [Ventolin HFA] 1 - 2 puff IH Q4H PRN 09/16/16 [History] Calcium Carbonate [Calcium] 600 mg PO DAILY 04/24/17 [History] Cholecalciferol (Vitamin D3) [Vitamin D3] 5,000 unit PO DAILY 04/24/17 [History] Doxepin [SINEquan] 100 mg PO BEDTIME 04/24/17 [History] Levothyroxine 12.5 mcg PO BEDTIME 04/24/17 [History] Montelukast [Singulair] 10 mg PO BEDTIME 04/24/17 [History] Pantoprazole [ProTONIX] 40 mg PO DAILY 04/24/17 [History] Potassium Chloride 20 meq PO BEDTIME 04/24/17 [History] Milnacipran HCl [Savella] 100 mg PO BID 10/14/17 [History] Zolpidem Tartrate [Ambien] 10 mg PO BEDTIME 12/14/17 [History] lamoTRIgine 400 mg PO DAILY 12/14/17 [History] ALPRAZolam [Xanax] 1 mg PO BID PRN 08/14/18 [History] Hyoscyamine [Levsin] 0.125 mg PO TID PRN 08/14/18 [History] Norethindrone-Ethinyl Estrad [Dasetta 1-35-28 Tablet] 1 tab PO BEDTIME 08/14/18 [History] Rizatriptan Benzoate [Rizatriptan] 5 mg PO ASDIRECTED PRN 08/14/18 [History] Fluticasone/Salmeterol [Advair 250-50] 1 puff IH BID 10/16/18 [History] Losartan/Hydrochlorothiazide [Losartan-HCTZ 50-12.5 MG] 1 tab PO DAILY 10/16/18 [History] [place]-3 Acid Ethyl Esters 1 gm PO DAILY 10/16/18 [History] Cyanocobalamin (Vitamin B-12) [Vitamin B-12] 1,000 mcg PO DAILY 12/03/18 [ History] lamoTRIgine [Lamotrigine] 350 mg PO BEDTIME 12/03/18 [History] Past Medical History HEENT History: Reports: Impaired Vision Other HEENT History: wears glasses Cardiovascular History: Reports: Hypertension Respiratory History: Reports: Asthma, Sleep Apnea Other Respiratory History: "Allergies", uses Cpap Gastrointestinal History: Reports: GERD, Irritable Bowel Syndrome Other Gastrointestinal History: "Stomach Problems" Genitourinary History: Reports: UTI, Recurrent Other Genitourinary History: hx of UTIs 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 APPLICATION DEVELOPER History: Reports: Endometriosis, Polycystic Ovaries Other ETL APPLICATION DEVELOPER History: G0 Musculoskeletal History: Reports: Back Pain, Chronic, Fibromyalgia, Other (See Below) Other Musculoskeletal History: herniated disc, DJD lower back, hx two ankle surgeries on right foot Neurological History: Reports: Migraines, Seizure, Other (See Below) Other Neuro History: hx epilepsy Psychiatric History: Reports: Anxiety, Depression, Panic Attack, Other (See Below) Other Psychiatric History: "Insomnia" Endocrine/Metabolic History: Reports: Hypothyroidism, Obesity/BMI 30+ Other Endocrine/Metabolic History: hypoglycemic Dermatologic History: Reports: Other (See Below) Other Dermatologic History: severe acne - Infectious Disease History Infectious Disease History: Reports: Chicken Pox - Past Surgical History Head Surgeries/Procedures: Reports: None HEENT Surgical History: Reports: Adenoidectomy, Tonsillectomy, Other (See Below) Other HEENT Surgeries/Procedures: uvula reconstructed GI Surgical History: Reports: Cholecystectomy, Colonoscopy, EGD Social & Family History - Family History Family Medical History: Noncontributory Cardiac: Reports: [place] Oncologic: Reports: Brain, Other (See Below) Other Oncologic Family History: grandparents - Caffeine Use Caffeine Use: Reports: Coffee, Energy Drinks, Soda, Tea Other Caffeine Use: 2 a day - Living Situation & Occupation Living situation: Reports: Single Occupation: Employed (Works at [employer]) ED ROS GENERAL - Review of Systems Review Of Systems: See Below Constitutional: Reports: Malaise. Denies: Diaphoresis HEENT: Reports: No Symptoms. Denies: Eye Pain, Nosebleed, Sinus Problem Respiratory: Reports: No Symptoms Cardiovascular: Reports: No Symptoms Endocrine: Reports: No Symptoms GI/Abdominal: Reports: No Symptoms Musculoskeletal: Reports: Back Pain (pain in the talibone after fall). Denies: Neck Pain, Arm Pain Skin: Reports: No Symptoms Neurological: Reports: Headache, Seizure, Gait Disturbance. Denies: Tremors, Trouble Speaking, Change in Speech Psychiatric: Reports: No Symptoms Hematologic/Lymphatic: Reports: No Symptoms Immunologic: Reports: No Symptoms - Physical Exam Exam: See Below Exam Limited By: No Limitations General Appearance: Alert, WD/WN, No Apparent Distress Eye Exam: Bilateral Eye: EOMI Ears: Normal External Exam Nose: Normal Inspection Head Exam: Atraumatic, Normocephalic. No: Facial Abrasions, Facial Swelling Neck: Supple, Non-Tender Respiratory/Chest: Lungs Clear, Normal Breath Sounds Cardiovascular: Regular Rate, Rhythm GI/Abdominal: Soft, Non-Tender Neuro Exam (Abbreviated): Alert, Oriented, CN II-XII Intact, No Motor/Sensory Deficits Back Exam: Vertebral Tenderness (localized pain in the area of the tailbone ) Psychiatric: Depressed Mood, Flat Affect Course - Orders/Labs/Meds Orders: Active Orders 24 hr Category Date Time Status Sodium Chloride 0.9% [Normal Saline] 1,000 ml Med 03/23/19 21:30 Active IV ASDIRECTED Medication Orders Sodium Chloride (Normal Saline) 1,000 mls @ 999 mls/hr IV ASDIRECTED GERRY Last Admin: 03/23/19 21:25 Dose: 999 mls/hr Meds: Medications Generic Name Dose Route Start Last Admin Trade Name Gabo PRN Reason Stop Dose Admin Sodium Chloride 1,000 mls @ 999 mls/hr 03/23/19 21:30 03/23/19 21:25 Normal Saline IV 999 mls/hr ASDIRECTED GERRY Administration Discontinued Medications Generic Name Dose Route Start Last Admin Trade Name Gabo PRN Reason Stop Dose Admin Ketorolac Tromethamine 30 mg 03/23/19 21:16 03/23/19 21:47 Toradol IVPUSH 03/23/19 21:17 30 mg ONETIME ONE Administration Ondansetron HCl 4 mg 03/23/19 21:16 03/23/19 21:42 Zofran IVPUSH 03/23/19 21:17 4 mg ONETIME ONE Administration - Re-Assessments/Exams Free Text/Narrative Re-Assessment/Exam: 03/23/19 22:37 pt given IV toradol, zofran and IVF and headache resolved Departure - Departure Time of Disposition: 22:40 Disposition: Home, Self-Care 01 Condition: Fair Clinical Impression: Migraine - Discharge Information *PRESCRIPTION DRUG MONITORING PROGRAM REVIEWED*: Not Applicable *COPY OF PRESCRIPTION DRUG MONITORING REPORT IN PATIENT ANAYELI: Not Applicable Instructions: Migraine Headache, [id number] Referrals: Susanna Babcock NP [Primary Care Provider] - Forms: ED Department Discharge Additional Instructions: Continue with current medications as prescribed by Neurologist Follow up with PCP as needed Sepsis Event Note - Focused Exam Date Exam was Performed: 03/23/19 Time Exam was Performed: 22:33 - My Orders Last 24 Hours: My Active Orders 03/23/19 21:30 Sodium Chloride 0.9% [Normal Saline] 1,000 ml IV ASDIRECTED - Assessment/Plan Last 24 Hours: My Active Orders 03/23/19 21:30 Sodium Chloride 0.9% [Normal Saline] 1,000 ml IV ASDIRECTED
[2019-03-23] MEDS ORDERED: Sodium Chloride 0.9% 1,000 ML IV SCH (21:30)
[2019-03-26 23:23] VITALS: BP 127/86; PULSE 95
== END 2019-03-23 23:00 | disposition home or self-care (01) ==
LOC: FB.ED 20:44
DX: G43.909 Migraine, unspecified, not intractable, without status migrainosus (principal); I10 Essential (primary) hypertension; J45.909 Unspecified asthma, uncomplicated; G40.909 Epilepsy, unspecified, not intractable, without status epilepticus; E03.9 Hypothyroidism, unspecified; E66.9 Obesity, unspecified; F41.9 Anxiety disorder, unspecified; F32.9 Major depressive disorder, single episode, unspecified; Z88.0 Allergy status to penicillin; Z88.1 Allergy status to other antibiotic agents; Z88.8 Allergy status to other drugs, medicaments and biological substances; Z91.011 Allergy to milk products; Z91.040 Latex allergy status; Z79.899 Other long term (current) drug therapy; Z79.51 Long term (current) use of inhaled steroids; Z79.890 Hormone replacement therapy; Z68.38 Body mass index [BMI] 38.0-38.9, adult
CPT/HCPCS: 96361; 96374; 96375; 99284; J1885; J2405; J7030

== ENCOUNTER 2019-06-11 10:54 | Emergency (ER) | payer MEDICAID ==
--- NOTE | 2019-06-11 10:55 | EDM.PDOC ---
ED HPI GENERAL MEDICAL PROBLEM - General Stated Complaint: PAIN Time Seen by Provider: 06/11/19 10:55 Source of Information: Reports: Patient History Limitations: Reports: No Limitations - History of Present Illness INITIAL COMMENTS - FREE TEXT/NARRATIVE: 28-year-old female who reports at approximately 6 PM last night she was going down her stairs and missed the last few steps and twisted her and fell on her left side. She did not hit her head. There was no loss of consciousness. She had immediate pain in her left medial ankle and has had pain in that area since then. She has been able to ambulate but reports with significant limp and it causes her increased pain when she does this or even moves her left ankle. She has no foot pain or lower leg pain. She denies any other injuries. She reports the pain is a sharp pain and she rates the pain as a 10/10. She has no back or neck pain. There are no open wounds. There are no other associated signs or symptoms. There are no other modifying factors. Onset: Other (Yesterday at 6 PM) Duration: Constant Location: Reports: Lower Extremity, Left (Left ankle) Quality: Reports: Sharp Severity: Severe Improves with: Reports: Rest Worsens with: Reports: Other (Palpation), Movement Associated Symptoms: Reports: No Other Symptoms Treatments ADVERTISING AGENT: Reports: Acetaminophen, NSAIDS (Ibuprofen), Other (see below) ( Topical pain cream) left ankle Pain Score (Numeric/FACES): 8 - Related Data Allergies Allergy/AdvReac Type Severity Reaction Status Date / Time amoxicillin [From Augmentin] Allergy Muscle Verified 06/11/19 11:05 Weakness clavulanic acid Allergy Muscle Verified 06/11/19 11:05 [From Augmentin] Weakness hydromorphone [From Dilaudid] Allergy Muscle Verified 06/11/19 11:05 Weakness hydroxyzine [From Vistaril] Allergy Swelling Verified 06/11/19 11:05 lactose Allergy Stomach Verified 06/11/19 11:05 Ache latex Allergy Swelling Verified 06/11/19 11:05 povidone-iodine Allergy Swelling Verified 06/11/19 11:05 Home Meds: Home Meds levETIRAcetam [Keppra] 2,000 mg PO BID 09/15/16 [History] Albuterol [Ventolin HFA] 1 - 2 puff IH Q4H PRN 09/16/16 [History] Calcium Carbonate [Calcium] 600 mg PO DAILY 04/24/17 [History] Cholecalciferol (Vitamin D3) [Vitamin D3] 5,000 unit PO DAILY 04/24/17 [History] Doxepin [SINEquan] 100 mg PO BEDTIME 04/24/17 [History] Levothyroxine 12.5 mcg PO BEDTIME 04/24/17 [History] Montelukast [Singulair] 10 mg PO BEDTIME 04/24/17 [History] Pantoprazole [ProTONIX] 40 mg PO DAILY 04/24/17 [History] Potassium Chloride 20 meq PO BEDTIME 04/24/17 [History] Milnacipran HCl [Savella] 100 mg PO BID 10/14/17 [History] Zolpidem Tartrate [Ambien] 10 mg PO BEDTIME 12/14/17 [History] lamoTRIgine 450 mg PO DAILY 12/14/17 [History] ALPRAZolam [Xanax] 1 mg PO BID PRN 08/14/18 [History] Hyoscyamine [Levsin] 0.125 mg PO TID PRN 08/14/18 [History] Norethindrone-Ethin. Estradiol [Dasetta 1-35-28 Tablet] 1 tab PO BEDTIME [History] Fluticasone/Salmeterol [Advair 250-50] 1 puff IH BID 10/16/18 [History] Losartan/Hydrochlorothiazide [Losartan-HCTZ 50-12.5 MG] 1 tab PO DAILY 10/16/18 [History] Mayo-3 Acid Ethyl Esters 1 gm PO DAILY 10/16/18 [History] Cyanocobalamin (Vitamin B-12) [Vitamin B-12] 1,000 mcg PO DAILY 12/03/18 [ History] lamoTRIgine [Lamotrigine] 450 mg PO BEDTIME 12/03/18 [History] Past Medical History HEENT History: Reports: Impaired Vision Other HEENT History: wears glasses Cardiovascular History: Reports: Hypertension Respiratory History: Reports: Asthma, Sleep Apnea Other Respiratory History: "Allergies", uses Cpap Gastrointestinal History: Reports: GERD, Irritable Bowel Syndrome Other Gastrointestinal History: "Stomach Problems" Genitourinary History: Reports: UTI, Recurrent Other Genitourinary History: hx of UTIs 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 LENS POLISHER History: Reports: Endometriosis, Polycystic Ovaries Other CONTACT LENS POLISHER History: G0 Musculoskeletal History: Reports: Back Pain, Chronic, Fibromyalgia, Other (See Below) Other Musculoskeletal History: herniated disc, DJD lower back, hx two ankle surgeries on right foot Neurological History: Reports: Migraines, Seizure, Other (See Below) Other Neuro History: hx epilepsy Psychiatric History: Reports: Anxiety, Depression, Panic Attack, Other (See Below) Other Psychiatric History: "Insomnia" Endocrine/Metabolic History: Reports: Hypothyroidism, Obesity/BMI 30+ Other Endocrine/Metabolic History: hypoglycemic Dermatologic History: Reports: Other (See Below) Other Dermatologic History: severe acne - Infectious Disease History Infectious Disease History: Reports: Chicken Pox - Past Surgical History HEENT Surgical History: Reports: Adenoidectomy, Tonsillectomy, Other (See Below) Other HEENT Surgeries/Procedures: uvula reconstructed GI Surgical History: Reports: Cholecystectomy, Colonoscopy, EGD Social & Family History - Family History Cardiac: Reports: [place] Oncologic: Reports: Brain, Other (See Below) Other Oncologic Family History: grandparents - Tobacco Use Smoking Status *Q: Unknown Ever Smoked (Nonsmoker) - Caffeine Use Caffeine Use: Reports: Coffee, Energy Drinks, Soda, Tea Other Caffeine Use: 2 a day - Alcohol Use Alcohol Use History: Yes Alcohol Use Frequency: Rarely - Living Situation & Occupation Living situation: Reports: Single Occupation: Employed (Works at [employer]) Review of Systems - Review of Systems Review Of Systems: See Below Constitutional: Reports: No Symptoms Eyes: Reports: No Symptoms Ears: Reports: No Symptoms Nose: Reports: Other (Allergy type symptoms with nasal drainage which is chronic.) Mouth/Throat: Reports: No Symptoms Respiratory: Reports: No Symptoms Cardiovascular: Reports: No Symptoms GI/Abdominal: Reports: No Symptoms Genitourinary: Reports: No Symptoms Musculoskeletal: Reports: Joint Pain (Left ankle pain) Skin: Reports: No Symptoms Neurological: Reports: No Symptoms Psychiatric: Reports: No Symptoms ED EXAM, GENERAL - Physical Exam Exam: See Below Exam Limited By: No Limitations General Appearance: Alert, Moderate Distress (Pain), Obese Eye Exam: Bilateral Eye: EOMI, Normal Inspection, PERRL Ears: Normal External Exam, Hearing Grossly Normal Ear Exam: Bilateral Ear: Auricle Normal Nose: No Blood, Nasal Drainage Throat/Mouth: Normal Inspection, Normal Oropharynx, Normal Voice, No Airway Compromise Head: Atraumatic, Normocephalic Neck: Normal Inspection, Supple, Non-Tender, Full Range of Motion Respiratory/Chest: No Respiratory Distress, Lungs Clear, Normal Breath Sounds, No Accessory Muscle Use, Chest Non-Tender Cardiovascular: Normal Peripheral Pulses, Regular Rate, Rhythm, No Murmur Peripheral Pulses: 2+: Radial (L), Radial (R), Dorsalis Pedis (L), Dorsalis Pedis (R) GI/Abdominal: Normal Bowel Sounds, Soft, Non-Tender, No Mass Back Exam: Normal Inspection, Full Range of Motion Extremities: No Pedal Edema, Normal Capillary Refill, Limited Range of Motion, Other (Tenderness over left medial ankle. No bony crepitus or deformity. No knee tenderness or lower leg tenderness. No foot tenderness.) Neurological: Alert, Oriented, CN II-XII Intact, Normal Cognition, No Motor/ Sensory Deficits Psychiatric: Normal Affect Skin Exam: Warm, Dry, Intact, Normal Color, No Rash Course - Vital Signs Last Recorded V/S: Last Vital Signs Temp 36.6 C 06/11/19 11:00 Pulse 102 H 06/11/19 11:00 Resp 22 H 06/11/19 11:00 BP 138/89 06/11/19 11:00 Pulse Ox 99 06/11/19 11:00 - Orders/Labs/Meds Meds: Medications Discontinued Medications Generic Name Dose Route Start Last Admin Trade Name Freq PRN Reason Stop Dose Admin Ibuprofen 800 mg 06/11/19 11:08 Motrin PO 06/11/19 11:09 ONETIME ONE - Radiology Interpretation Free Text/Narrative:: X-ray of left ankle shows no fracture per the radiologist. - Re-Assessments/Exams Free Text/Narrative Re-Assessment/Exam: 06/11/19 12:40: The x-ray of her ankle showed no fracture. She appears to have a moderate sprain of her left ankle. We will place the patient in an Kristian wrap and she has crutches at home. She should do range of motion with her ankle as the shoulder in the emergency department and she should stay off of her left leg for the next 2-3 days and then begin to bear weight as tolerated. Precautions and reasons for return to the emergency department were discussed with the patient while she was in the emergency department and detailed and her discharge instructions. Departure - Departure Time of Disposition: 13:02 Disposition: Home, Self-Care 01 Condition: Good Clinical Impression: Fall from other slipping, tripping, or stumbling Moderate left ankle sprain Qualifiers: Encounter type: initial encounter Qualified Code(s): S93.402A - Sprain of unspecified ligament of left ankle, initial encounter - Discharge Information Instructions: Ankle Sprain, [id number] Additional Instructions: The x-ray of your ankle showed no evidence of fracture. You appear to have a moderate sprain of your left ankle. Use the Kristian wrap for comfort and support. Again doing range of motion with your left ankle as I showed you in the emergency department. Use crutches that you have with limited to no weightbearing for the next 2-3 days and then begin bearing weight as tolerated. You may take Tylenol and ibuprofen as needed for pain. Apply ice packs intermittently to the left ankle extending to 3 days. Elevate your left higher than your heart level often over the next few days. Back to the emergency department for redness, increased swelling or any other concerning sign or symptom. Follow-up with your primary provider for persisting problems as needed Sepsis Event Note - Focused Exam Vital Signs: Vital Signs Temp Pulse Resp BP Pulse Ox 06/11/19 11:00 36.6 C 102 H 22 H 138/89 99 Date Exam was Performed: 06/11/19 Time Exam was Performed: 12:59
[2019-06-11] MEDS ORDERED: Ibuprofen 800 MG Tab PO ONE (11:08)
--- NOTE | 2019-06-11 11:52 | CR ---
INDICATION: Twisted left ankle, now with pain. LEFT ANKLE: Three views of the left ankle were obtained revealing soft tissue swelling overlying the medial malleolus. The ankle mortise appears to be intact without evidence of a fracture, dislocation or other significant appearing bone or joint abnormality. If symptoms persist - if occult fracture site is suspected clinically, re- examination in 10-14 days may be helpful. MTDD
[2019-06-11 13:38] VITALS: BP 137/82; PULSE 100
== END 2019-06-11 13:13 | disposition home or self-care (01) ==
LOC: FB.ED 10:54
DX: S93.402A Sprain of unspecified ligament of left ankle, initial encounter (principal); I10 Essential (primary) hypertension; J45.909 Unspecified asthma, uncomplicated; K21.9 Gastro-esophageal reflux disease without esophagitis; F41.9 Anxiety disorder, unspecified; F32.9 Major depressive disorder, single episode, unspecified; E03.9 Hypothyroidism, unspecified; G40.909 Epilepsy, unspecified, not intractable, without status epilepticus; E66.9 Obesity, unspecified; Z68.41 Body mass index [BMI] 40.0-44.9, adult; Z88.1 Allergy status to other antibiotic agents; Z88.5 Allergy status to narcotic agent; Z91.018 Allergy to other foods; Z91.040 Latex allergy status; Z79.899 Other long term (current) drug therapy; X50.1XXA Overexertion from prolonged static or awkward postures, initial encounter
CPT/HCPCS: 73610; 99283; A9270

== ENCOUNTER 2019-08-17 18:37 | Emergency (ER) | payer MEDICAID ==
--- NOTE | 2019-08-17 19:08 | EDM.PDOC ---
ED HPI GENERAL MEDICAL PROBLEM - General Chief Complaint: Gastrointestinal Problem Stated Complaint: DEHYDRATION Time Seen by Provider: 08/17/19 18:45 Source of Information: Reports: Patient History Limitations: Reports: No Limitations - History of Present Illness INITIAL COMMENTS - FREE TEXT/NARRATIVE: 28-year-old female who reports that for the past 4 weeks she has had feelings of dizziness and abdominal pain that is sharp and stabbing and diarrhea. She states she has diarrhea every day. She had 2 today. Her has been no blood in her stools. She reports that the pain is rated by her as a 6/10. It is worse with eating. She has been able to drink liquids well and reports that she drinks liquids every day. She also has been working her normal shifts at [employer] and she reports that the air conditioning has been out and it has been quite hot there. She has been urinating and has no dysuria or hematuria but she does report that her urine output is less. She has had no fevers or chills. No vomiting. She also has generalized malaise and generalized weakness. She is brought here today by a friend. No cough. No nasal congestion. No sore throat. There are no other associated signs or symptoms. There are no other modifying factors. Onset: Other (4 weeks ago) Duration: Constant, Other (Not improving) Location: Reports: Abdomen Quality: Reports: Sharp, Stabbing Severity: Moderate Improves with: Reports: None Worsens with: Reports: Eating Context: Reports: Other (As above) Associated Symptoms: Reports: Malaise, Weakness, Other (. 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 (see below) (Nothing) foot Pain Score (Numeric/FACES): 2 - Related Data Allergies Allergy/AdvReac Type Severity Reaction Status Date / Time amoxicillin [From Augmentin] Allergy Muscle Verified 08/17/19 19:18 Weakness clavulanic acid Allergy Muscle Verified 08/17/19 19:18 [From Augmentin] Weakness hydromorphone [From Dilaudid] Allergy Muscle Verified 08/17/19 19:18 Weakness hydroxyzine [From Vistaril] Allergy Swelling Verified 08/17/19 19:18 lactose Allergy Stomach Verified 08/17/19 19:18 Ache latex Allergy Swelling Verified 08/17/19 19:18 povidone-iodine Allergy Swelling Verified 08/17/19 19:18 Home Meds: Home Meds levETIRAcetam [Keppra] 2,000 mg PO BID 09/15/16 [History] Albuterol [Ventolin HFA] 1 - 2 puff IH Q4H PRN 09/16/16 [History] Calcium Carbonate [Calcium] 600 mg PO DAILY 04/24/17 [History] Cholecalciferol (Vitamin D3) [Vitamin D3] 5,000 unit PO DAILY 04/24/17 [History] Doxepin [SINEquan] 100 mg PO BEDTIME 04/24/17 [History] Levothyroxine 12.5 mcg PO BEDTIME 04/24/17 [History] Montelukast [Singulair] 10 mg PO BEDTIME 04/24/17 [History] Pantoprazole [ProTONIX] 40 mg PO DAILY 04/24/17 [History] Potassium Chloride 20 meq PO BEDTIME 04/24/17 [History] Milnacipran HCl [Savella] 100 mg PO BID 10/14/17 [History] Zolpidem Tartrate [Ambien] 10 mg PO BEDTIME 12/14/17 [History] lamoTRIgine 450 mg PO DAILY 12/14/17 [History] ALPRAZolam [Xanax] 1 mg PO BID PRN 08/14/18 [History] Hyoscyamine [Levsin] 0.125 mg PO TID PRN 08/14/18 [History] Norethindrone-Ethin. Estradiol [Dasetta 1-35-28 Tablet] 1 tab PO BEDTIME 08/14/18 [History] Fluticasone/Salmeterol [Advair 250-50] 1 puff IH BID 10/16/18 [History] Losartan/Hydrochlorothiazide [Losartan-HCTZ 50-12.5 MG] 1 tab PO DAILY 10/16/18 [History] [place]-3 Acid Ethyl Esters 1 gm PO DAILY 10/16/18 [History] Cyanocobalamin (Vitamin B-12) [Vitamin B-12] 1,000 mcg PO DAILY 12/03/18 [History] lamoTRIgine [Lamotrigine] 450 mg PO BEDTIME 12/03/18 [History] Past Medical History HEENT History: Reports: Impaired Vision Other HEENT History: wears glasses Cardiovascular History: Reports: Hypertension Respiratory History: Reports: Asthma, Sleep Apnea Other Respiratory History: "Allergies", uses Cpap Gastrointestinal History: Reports: GERD, Irritable Bowel Syndrome Other Gastrointestinal History: "Stomach Problems" with chronic abdominal pain Genitourinary History: Reports: UTI, Recurrent Other Genitourinary History: hx of UTIs 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: Reports: Endometriosis, Polycystic Ovaries Other 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: G0 Musculoskeletal History: Reports: Back Pain, Chronic, Fibromyalgia, Other (See Below) Other Musculoskeletal History: herniated disc, DJD lower back, hx two ankle surgeries on right foot Neurological History: Reports: Migraines, Seizure Psychiatric History: Reports: Anxiety, Depression, Panic Attack, Other (See Below) Other Psychiatric History: "Insomnia" Endocrine/Metabolic History: Reports: Hypothyroidism, Obesity/BMI 30+ Other Endocrine/Metabolic History: hypoglycemic Dermatologic History: Reports: Other (See Below) Other Dermatologic History: severe acne - Infectious Disease History Infectious Disease History: Reports: Chicken Pox - Past Surgical History HEENT Surgical History: Reports: Adenoidectomy, Tonsillectomy, Other (See Below) Other HEENT Surgeries/Procedures: uvula reconstructed GI Surgical History: Reports: Cholecystectomy, Colonoscopy, EGD Social & Family History - Family History Cardiac: Reports: HI Oncologic: Reports: Brain, Other (See Below) Other Oncologic Family History: grandparents - Tobacco Use Smoking Status *Q: Unknown Ever Smoked (Nonsmoker) - Caffeine Use Caffeine Use: Reports: Coffee, Energy Drinks, Soda, Tea Other Caffeine Use: 2 a day - Alcohol Use Alcohol Use History: No - Living Situation & Occupation Living situation: Reports: Single Occupation: Employed (Works at [employer]) ED ROS GENERAL - Review of Systems Review Of Systems: See Below Constitutional: Reports: Malaise, Weakness, Fatigue HEENT: Reports: No Symptoms Respiratory: Reports: No Symptoms Cardiovascular: Reports: No Symptoms GI/Abdominal: Reports: Abdominal Pain, Diarrhea : Reports: No Symptoms Musculoskeletal: Reports: Back Pain (Chronic back pain) Skin: Reports: No Symptoms Neurological: Reports: Dizziness, Weakness Hematologic/Lymphatic: Reports: No Symptoms Immunologic: Reports: No Symptoms ED EXAM, GENERAL - Physical Exam Exam: See Below Exam Limited By: No Limitations General Appearance: Alert, Moderate Distress (Appears in some discomfort. She is tachycardic.), Obese Eye Exam: Bilateral Eye: EOMI, Normal Inspection, PERRL, Other (Sclera are anicteric) Ears: Normal External Exam, Hearing Grossly Normal Ear Exam: Bilateral Ear: Auricle Normal Nose: Normal Inspection, Normal Mucosa, No Blood Throat/Mouth: Normal Voice, No Airway Compromise, Other (Dry mucous membranes.) Head: Atraumatic, Normocephalic Neck: Normal Inspection, Supple, Non-Tender, Full Range of Motion Respiratory/Chest: No Respiratory Distress, Lungs Clear, Normal Breath Sounds, No Accessory Muscle Use, Chest Non-Tender Cardiovascular: Normal Peripheral Pulses, No Edema, No Murmur, Tachycardia Peripheral Pulses: 2+: Radial (L), Radial (R) GI/Abdominal: Normal Bowel Sounds, Soft, Non-Tender, No Organomegaly, No Mass, Other (Protuberant/obese) Back Exam: Normal Inspection, Full Range of Motion Extremities: Normal Inspection, Normal Range of Motion, Non-Tender, No Pedal Edema, Normal Capillary Refill Neurological: Alert, Oriented, CN II-XII Intact, Normal Cognition, No Motor/Sensory Deficits Skin Exam: Warm, Intact, Normal Color, No Rash, Diaphoretic Course - Vital Signs Last Recorded V/S: Last Vital Signs Temp 36.4 C 08/17/19 19:00 Pulse 96 08/17/19 20:31 Resp 16 08/17/19 20:31 BP 124/82 08/17/19 20:31 Pulse Ox 100 08/17/19 20:31 - Orders/Labs/Meds Orders: Active Orders 24 hr Category Date Time Status CULTURE URINE [RM] Stat Lab 08/17/19 19:25 Received Sodium Chloride 0.9% [Saline Flush] Med 08/17/19 19:17 Active 10 ml FLUSH ASDIRECTED PRN Peripheral IV Insertion Adult [OM.PC] Routine Oth 08/17/19 19:17 Ordered Medication Orders Sodium Chloride (Saline Flush) 10 ml FLUSH ASDIRECTED PRN PRN Reason: Keep Vein Open Last Admin: 08/17/19 19:40 Dose: 10 ml Documented by: JOHAN Labs: Laboratory Tests 08/17/19 08/17/19 08/17/19 Range/Units 19:25 19:33 19:36 WBC 10.8 (4.5-12.0) X10-3/uL RBC 4.75 (3.23-5.20) x10(6)uL Hgb 14.4 (11.5-15.5) g/dL Hct 43.8 (30.0-51.3) % MCV 92.1 (80-96) fL MCH 30.3 (27.7-33.6) pg MCHC 32.9 (32.2-35.4) g/dL RDW 12.0 (11.5-15.5) % Plt Count 352 (125-369) X10(3)uL MPV 7.6 (7.4-10.4) fL Neut % (Auto) 72.7 (46-82) % Lymph % (Auto) 21.1 (13-37) % [place] % (Auto) 4.5 (4-12) % Eos % (Auto) 1 (1.0-5.0) % Baso % (Auto) 0 (0-2) % Neut # (Auto) 7.8 (1.6-8.3) # Lymph # (Auto) 2.3 (0.6-5.0) # [place] # (Auto) 0.5 (0.0-1.3) # Eos # (Auto) 0.2 (0.0-0.8) # Baso # (Auto) 0.0 (0.0-0.2) # Sodium (135-145) mmol/L Potassium (3.5-5.3) mmol/L Chloride (100-110) mmol/L Carbon Dioxide (21-32) mmol/L BUN (7-18) mg/dL Creatinine (0.55-1.02) mg/dL Est Cr Clr Drug Dosing mL/min Estimated GFR (MDRD) (>60) BUN/Creatinine Ratio (9-20) Glucose (80-116) mg/dL Calcium (8.6-10.2) mg/dL Magnesium (1.8-2.5) mg/dL Total Bilirubin (0.1-1.3) mg/dL AST (5-25) IU/L ALT (12-36) U/L Alkaline Phosphatase (56-112) IU/L C-Reactive Protein (0.5-0.9) mg/dL Total Protein (6.0-8.0) g/dL Albumin (3.5-5.2) g/dL Globulin g/dL Albumin/Globulin Ratio Urine Color Yellow (YELLOW) Urine Appearance Clear (CLEAR) Urine pH 5.0 (5.0-6.5) Ur Specific [place] 1.025 (1.010-1.025) Urine Protein Negative (NEGATIVE) mg/dL Urine Glucose (UA) Normal (NORMAL) mg/dL Urine Ketones 15 H (NEGATIVE) mg/dL Urine Occult Blood Negative (NEGATIVE) Urine Nitrite Negative (NEGATIVE) Urine Bilirubin Negative (NEGATIVE) Urine Urobilinogen Normal (NEGATIVE) mg/dL Ur Leukocyte Esterase Small H (NEGATIVE) Urine RBC 0-5 (0-5) Urine WBC 5-10 H (0-5) Ur Squamous Epith Cells Few H (NS,R,O) Urine Bacteria Moderate H (NS) Urine HCG, Qual Negative (NEGATIVE) 08/17/19 08/17/19 Range/Units 19:36 19:36 WBC (4.5-12.0) X10-3/uL RBC (3.23-5.20) x10(6)uL Hgb (11.5-15.5) g/dL Hct (30.0-51.3) % MCV (80-96) fL MCH (27.7-33.6) pg MCHC (32.2-35.4) g/dL RDW (11.5-15.5) % Plt Count (125-369) X10(3)uL MPV (7.4-10.4) fL Neut % (Auto) (46-82) % Lymph % (Auto) (13-37) % [place] % (Auto) (4-12) % Eos % (Auto) (1.0-5.0) % Baso % (Auto) (0-2) % Neut # (Auto) (1.6-8.3) # Lymph # (Auto) (0.6-5.0) # [place] # (Auto) (0.0-1.3) # Eos # (Auto) (0.0-0.8) # Baso # (Auto) (0.0-0.2) # Sodium 141 (135-145) mmol/L Potassium 3.6 (3.5-5.3) mmol/L Chloride 102 (100-110) mmol/L Carbon Dioxide 28 (21-32) mmol/L BUN 12 (7-18) mg/dL Creatinine 1.0 (0.55-1.02) mg/dL Est Cr Clr Drug Dosing 79.81 mL/min Estimated GFR (MDRD) > 60 (>60) BUN/Creatinine Ratio 12.0 (9-20) Glucose 119 H (80-116) mg/dL Calcium 9.6 (8.6-10.2) mg/dL Magnesium 2.1 (1.8-2.5) mg/dL Total Bilirubin 0.4 (0.1-1.3) mg/dL AST 20 D (5-25) IU/L ALT 25 (12-36) U/L Alkaline Phosphatase 92 (56-112) IU/L C-Reactive Protein 3.9 H* (0.5-0.9) mg/dL Total Protein 7.9 (6.0-8.0) g/dL Albumin 4.1 (3.5-5.2) g/dL Globulin 3.8 g/dL Albumin/Globulin Ratio 1.1 Urine Color (YELLOW) Urine Appearance (CLEAR) Urine pH (5.0-6.5) Ur Specific [place] (1.010-1.025) Urine Protein (NEGATIVE) mg/dL Urine Glucose (UA) (NORMAL) mg/dL Urine Ketones (NEGATIVE) mg/dL Urine Occult Blood (NEGATIVE) Urine Nitrite (NEGATIVE) Urine Bilirubin (NEGATIVE) Urine Urobilinogen (NEGATIVE) mg/dL Ur Leukocyte Esterase (NEGATIVE) Urine RBC (0-5) Urine WBC (0-5) Ur Squamous Epith Cells (NS,R,O) Urine Bacteria (NS) Urine HCG, Qual (NEGATIVE) Meds: Medications Generic Name Dose Route Start Last Admin Trade Name Freq PRN Reason Stop Dose Admin Sodium Chloride 10 ml 08/17/19 19:17 08/17/19 19:40 Saline Flush FLUSH 10 ml ASDIRECTED PRN Administration Keep Vein Open Discontinued Medications Generic Name Dose Route Start Last Admin Trade Name Freq PRN Reason Stop Dose Admin Promethazine HCl 25 mg/ Sodium 51 mls @ 200 mls/hr 08/17/19 19:20 08/17/19 19:45 Chloride IV 08/17/19 19:35 200 mls/hr ONETIME ONE Administration Sodium Chloride 1,000 mls @ 999 mls/hr 08/17/19 19:19 08/17/19 19:45 Normal Saline IV 08/17/19 20:19 999 mls/hr .BOLUS ONE Administration - Re-Assessments/Exams Free Text/Narrative Re-Assessment/Exam: 08/17/19 21:10: The patient feels improved after the liter normal saline given IV. Her blood tests are reassuring. Her pulse rate has decreased into the 90s. Her blood pressure has remained stable. Her abdominal discomfort has decreased and she has had no further diarrhea in the emergency department. Her nausea has essentially resolved. She appeared to be dehydrated. I have advised her to get Imodium ([id number]) to take to control her diarrhea and she also needs to increase her fluid intake with electrolyte-containing fluids. She needs to try to avoid heat exposure as well. She appears to be stable for discharge at this point. She states she has some medications for nausea at home. I did offer to give her Phenergan prescription but she refused this. I also offered 2 days off of work and recommended this but she reports that she has to work and would not want to take off from work. Departure - Departure Time of Disposition: 21:30 Disposition: Home, Self-Care 01 Condition: Good (Improved) Clinical Impression: Dehydration, moderate, Chronic abdominal pain Diarrhea Qualifiers: Diarrhea type: unspecified type Qualified Code(s): R19.7 - Diarrhea, unspecified - Discharge Information Instructions: Dehydration, Adult, [id number], Rehydration, Adult, Chronic Pain, Adult, Diarrhea, Adult, [id number] Referrals: Susanna Babcock [facility] [employer]OLOGIST [Primary Care Provider] - Forms: ED Department Discharge Additional Instructions: Your blood tests were reassuringly normal. You do have some evidence of dehydration but we improved this with the IV fluids. You need to try to avoid hot environments. You need to increase your fluid intake with electrolyte containing fluids as well. Use the medication that you have at home for nausea as needed. You may get Imodium ([id number]) to use to control your diarrhea. Follow-up with your primary provider. Back to the emergency department for vomiting, worsening weakness, worsening abdominal pain, high fever or any other concerning sign or symptom. Sepsis Event Note (ED) - Focused Exam Vital Signs: Vital Signs Temp Pulse Resp BP Pulse Ox 08/17/19 20:31 96 16 124/82 100 08/17/19 19:00 36.4 C 109 H 20 149/100 H 98 - My Orders Last 24 Hours: My Active Orders 08/17/19 19:17 Sodium Chloride 0.9% [Saline Flush] 10 ml FLUSH ASDIRECTED PRN Peripheral IV Insertion Adult [OM.PC] Routine 08/17/19 19:25 CULTURE URINE [RM] Stat - Assessment/Plan Last 24 Hours: My Active Orders 08/17/19 19:17 Sodium Chloride 0.9% [Saline Flush] 10 ml FLUSH ASDIRECTED PRN Peripheral IV Insertion Adult [OM.PC] Routine 08/17/19 19:25 CULTURE URINE [RM] Stat
[2019-08-17] MEDS ORDERED: Sodium Chloride 0.9% 10 ML Syringe FLUSH PRN (19:17)
[2019-08-17] MEDS ORDERED: Sodium Chloride 0.9% 1,000 ML IV ONE (19:19)
[2019-08-17] MEDS ORDERED: Promethazine 25 MG in Sodium Chloride 0.9% 50 ML IV ONE (19:20)
[2019-08-17 22:17] VITALS: BP 122/79; PULSE 90
== END 2019-08-17 22:05 | disposition home or self-care (01) ==
LOC: FB.ED 18:37
DX: E86.0 Dehydration (principal); R10.9 Unspecified abdominal pain; G89.29 Other chronic pain; R19.7 Diarrhea, unspecified; I10 Essential (primary) hypertension; J45.909 Unspecified asthma, uncomplicated; K21.9 Gastro-esophageal reflux disease without esophagitis; F41.9 Anxiety disorder, unspecified; F32.9 Major depressive disorder, single episode, unspecified; E03.9 Hypothyroidism, unspecified; E66.9 Obesity, unspecified; Z68.41 Body mass index [BMI] 40.0-44.9, adult; Z90.49 Acquired absence of other specified parts of digestive tract; R00.0 Tachycardia, unspecified; Z88.1 Allergy status to other antibiotic agents; Z88.5 Allergy status to narcotic agent; Z91.040 Latex allergy status; Z88.8 Allergy status to other drugs, medicaments and biological substances; Z91.011 Allergy to milk products; Z79.899 Other long term (current) drug therapy
CPT/HCPCS: 36415; 80053; 81001; 81025; 83735; 85025; 86140; 87086; 96361; 96374; 99284-25; J2550; J7030; J7050

== ENCOUNTER 2020-07-28 22:14 | Emergency (ER) | payer BC, MEDICAID ==
--- NOTE | 2020-07-28 23:21 | EDM.PDOC ---
ED HPI GENERAL MEDICAL PROBLEM - General Chief Complaint: General Stated Complaint: DIZZY AND NAUSEA Time Seen by Provider: 07/28/20 23:00 Source of Information: Reports: Patient History Limitations: Reports: No Limitations - History of Present Illness INITIAL COMMENTS - FREE TEXT/NARRATIVE: 29-year-old female who reports she has been dizzy for the past 2 weeks. She states that the beginning of the dizziness 2 weeks ago was mild and it came on at rest when she was really doing nothing and it was room spinning dizziness. She reports that the dizziness seemed to improve and was pretty much gone for 2- 3 days and then 2-3 days ago, she began having the dizziness again and it was but also feeling like her eyes were crossed at times. She had no vomiting. There is no diarrhea. No nausea. She had been urinating okay. No cough or difficulty breathing. Today the dizziness seemed to be quite a bit worse and she felt unsteady on her feet more so even than before. She had no localized area of weakness or numbness. There is no headache. She has been eating and drinking normally. She apparently came from work to the emergency department for evaluation. She has been basically working all day. No history of trauma. She reports that she has been taking her medications as usual. There are no other associated signs or symptoms. There are no other modifying factors. Onset: Other (2 weeks ago) Duration: Getting Worse, Intermittent Location: Reports: Other (She has chronic abdominal pain but no new pain) Quality: Reports: Other (No pain) Severity: Moderate (Dizziness is moderate) Improves with: Reports: Rest Worsens with: Reports: Movement Context: Reports: Other - Related Data Allergies Allergy/AdvReac Type Severity Reaction Status Date / Time amoxicillin [From Augmentin] Allergy Muscle Verified 07/28/20 22:52 Weakness clavulanic acid Allergy Muscle Verified 07/28/20 22:52 [From Augmentin] Weakness hydromorphone [From Dilaudid] Allergy Muscle Verified 07/28/20 22:52 Weakness hydroxyzine [From Vistaril] Allergy Swelling Verified 07/28/20 22:52 lactose Allergy Stomach Verified 07/28/20 22:52 Ache latex Allergy Swelling Verified 07/28/20 22:52 povidone-iodine Allergy Swelling Verified 07/28/20 22:52 Home Meds: Home Meds levETIRAcetam [Keppra] 2,000 mg PO BID 09/15/16 [History] Albuterol [Ventolin HFA] 1 - 2 puff IH Q4H PRN 09/16/16 [History] Calcium Carbonate [Calcium] 600 mg PO DAILY 04/24/17 [History] Cholecalciferol (Vitamin D3) [Vitamin D3] 5,000 unit PO DAILY 04/24/17 [History] Doxepin [SINEquan] 100 mg PO BEDTIME 04/24/17 [History] Levothyroxine 12.5 mcg PO BEDTIME 04/24/17 [History] Montelukast [Singulair] 10 mg PO BEDTIME 04/24/17 [History] Pantoprazole [ProTONIX] 40 mg PO DAILY 04/24/17 [History] Potassium Chloride 20 meq PO BEDTIME 04/24/17 [History] Milnacipran HCl [Savella] 100 mg PO BID 10/14/17 [History] Zolpidem Tartrate [Ambien] 10 mg PO BEDTIME 12/14/17 [History] lamoTRIgine 450 mg PO DAILY 12/14/17 [History] ALPRAZolam [Xanax] 1 mg PO BID PRN 08/14/18 [History] Hyoscyamine [Levsin] 0.125 mg PO TID PRN 08/14/18 [History] Norethindrone-Ethin. Estradiol [Dasetta 1-35-28 Tablet] 1 tab PO BEDTIME 08/14/18 [History] Fluticasone/Salmeterol [Advair 250-50] 1 puff IH BID 10/16/18 [History] Losartan/Hydrochlorothiazide [Losartan-HCTZ 50-12.5 MG] 1 tab PO DAILY 10/16/18 [History] [place]-3 Acid Ethyl Esters 1 gm PO DAILY 10/16/18 [History] Cyanocobalamin (Vitamin B-12) [Vitamin B-12] 1,000 mcg PO DAILY 12/03/18 [His tory] lamoTRIgine [Lamotrigine] 450 mg PO BEDTIME 12/03/18 [History] Promethazine [Phenergan] 25 mg PO Q6H PRN #12 tab 07/29/20 [Rx] Past Medical History HEENT History: Reports: Impaired Vision Other HEENT History: wears glasses Cardiovascular History: Reports: Hypertension Respiratory History: Reports: Asthma, Sleep Apnea Other Respiratory History: "Allergies", uses Cpap Gastrointestinal History: Reports: GERD, Irritable Bowel Syndrome Other Gastrointestinal History: "Stomach Problems" with chronic abdominal pain Genitourinary History: Reports: UTI, Recurrent Other Genitourinary History: hx of UTIs SET UP PERSON History: Reports: Endometriosis, Polycystic Ovaries Other SET UP PERSON History: G0 Musculoskeletal History: Reports: Back Pain, Chronic, Fibromyalgia, Other (See Below) Other Musculoskeletal History: herniated disc, DJD lower back, hx two ankle surgeries on right foot Neurological History: Reports: Migraines, Seizure Other Neuro History: hx epilepsy Psychiatric History: Reports: Anxiety, Depression, Panic Attack, Other (See Below) Other Psychiatric History: "Insomnia" Endocrine/Metabolic History: Reports: Hypothyroidism, Obesity/BMI 30+ Other Endocrine/Metabolic History: hypoglycemic Dermatologic History: Reports: Other (See Below) Other Dermatologic History: severe acne - Infectious Disease History Infectious Disease History: Reports: Chicken Pox - Past Surgical History HEENT Surgical History: Reports: Adenoidectomy, Tonsillectomy, Other (See Below) Other HEENT Surgeries/Procedures: uvula reconstructed GI Surgical History: Reports: Cholecystectomy, Colonoscopy, EGD Social & Family History - Family History Family Medical History: No Pertinent Family History Cardiac: Reports: [place] Oncologic: Reports: Brain, Other (See Below) Other Oncologic Family History: grandparents - Caffeine Use Caffeine Use: Reports: Coffee, Energy Drinks, Soda, Tea Other Caffeine Use: 2 a day - Living Situation & Occupation Living situation: Reports: Single Occupation: Employed (Works at [employer]) [facility] - Review of Systems Review Of Systems: See Below Constitutional: Denies: Fever, Chills HEENT: Denies: Ear Pain, Throat Pain Respiratory: Denies: Shortness of Breath, Cough Cardiovascular: Denies: Chest Pain, Edema, Lightheadedness Endocrine: Denies: Fatigue GI/Abdominal: Denies: Abdominal Pain, Nausea, Vomiting : Denies: Dysuria, Frequency Musculoskeletal: Denies: Neck Pain, Arm Pain Skin: Denies: Diaphoresis, Rash Neurological: Reports: Other (Feels like she has trouble concentrating at times.). Denies: Dizziness, Headache, Numbness, Tingling Psychiatric: Denies: Anxiety, Confusion Hematologic/Lymphatic: Denies: Easy Bleeding, Easy Bruising ED EXAM, GENERAL - Physical Exam Exam: See Below Exam Limited By: No Limitations General Appearance: Alert, No Apparent Distress, Obese Eye Exam: Bilateral Eye: EOMI, Normal Inspection, PERRL Ears: Normal External Exam, Hearing Grossly Normal Ear Exam: Bilateral Ear: Auricle Normal Nose: Normal Mucosa, No Blood Throat/Mouth: Normal Inspection, Normal Oropharynx, Normal Voice, No Airway Compromise Head: Atraumatic, Normocephalic Neck: Normal Inspection, Supple, Non-Tender, Full Range of Motion Respiratory/Chest: No Respiratory Distress, Lungs Clear, Normal Breath Sounds, No Accessory Muscle Use, Chest Non-Tender Cardiovascular: Normal Peripheral Pulses, Regular Rate, Rhythm. No: Systolic Murmur Peripheral Pulses: 2+: Radial (L), Radial (R) GI/Abdominal: Normal Bowel Sounds, Soft, Non-Tender, No Mass Rectal (Female) Exam: Normal Exam Back Exam: Normal Inspection. No: CVA Tenderness (R), CVA Tenderness (L) Extremities: Normal Inspection, Normal Range of Motion, Non-Tender, No Pedal Edema, Normal Capillary Refill Neurological: Alert, Oriented, Normal Cognition Psychiatric: Normal Affect Skin Exam: Warm, Dry, Intact, Normal Color, No Rash #1 Interpretation EKG Date: 07/29/20 Time: 00:53 Rhythm: NSR Rate (Beats/Min): 80 [place]: Normal P-Wave: Present QRS: Normal ST-T: Normal QT: Normal Comparison: Other: (Compared to an EKG performed on 10/26/2018, the T-wave abnormalities that were present on this EKG have now resolved. Today's EKG is a normal EKG.) Course - Vital Signs Last Recorded V/S: Last Vital Signs Temp 37.3 C 07/28/20 22:20 Pulse 80 07/28/20 22:20 Resp 18 07/28/20 22:20 BP 147/100 H 07/28/20 22:20 Pulse Ox 97 07/28/20 22:20 - Orders/Labs/Meds Orders: Active Orders 24 hr Category Date Time Status EKG Documentation Completion [RC] ASDIRECTED Care 07/28/20 23:22 Active Orthostatic Vital Signs [RC] ONETIME Care 07/28/20 23:21 Active EKG 12 Lead [EK] Routine Ther 07/28/20 23:21 Ordered Labs: Laboratory Tests 07/28/20 07/28/20 07/29/20 Range/Units 23:35 23:35 00:25 WBC 10.6 H (3.0-10.3) x10-3/uL RBC 4.42 (3.60-5.20) x10(6)uL Hgb 13.7 (11.4-15.5) g/dL Hct 40.8 (34.2-48.2) % MCV 92.4 (76.7-100.5) fL MCH 31.0 (23.9-33.9) pg MCHC 33.5 (31.9-34.8) g/dL RDW 12.8 (12.3-16.5) % Plt Count 307 (151-488) x10(3)uL MPV 8.1 (7.1-12.4) fL Neut % (Auto) 64.2 (30.8-76.2) % Lymph % (Auto) 29.0 (18.4-52.1) % [place] % (Auto) 5.4 (4.4-15.7) % Eos % (Auto) 1.2 (0.6-8.1) % Baso % (Auto) 0.2 (0.2-1.5) % Neut # (Auto) 6.8 H (1.5-6.3) x10-3/uL Lymph # (Auto) 3.1 (1.0-4.4) x10-3/uL [place] # (Auto) 0.6 (0.3-1.0) x10-3/uL Eos # (Auto) 0.1 (0.0-0.8) x10-3/uL Baso # (Auto) 0.0 (0.0-0.1) x10-3/uL Sodium 145 (135-145) mmol/L Potassium 3.7 (3.5-5.3) mmol/L Chloride 104 (100-110) mmol/L Carbon Dioxide 29 (21-32) mmol/L BUN 13 (7-18) mg/dL Creatinine 1.0 (0.55-1.02) mg/dL Est Cr Clr Drug Dosing TNP Estimated GFR (MDRD) > 60 (>60) BUN/Creatinine Ratio 13.0 (9-20) Glucose 96 (80-116) mg/dL Calcium 9.3 (8.6-10.2) mg/dL Magnesium 2.1 (1.8-2.5) mg/dL Total Bilirubin 0.3 (0.1-1.3) mg/dL AST 23 D (5-25) IU/L ALT 39 H D (12-36) U/L Alkaline Phosphatase 129 H (56-112) IU/L Total Protein 7.1 (6.0-8.0) g/dL Albumin 3.7 (3.5-5.2) g/dL Globulin 3.4 g/dL Albumin/Globulin Ratio 1.1 Urine Color Yellow (YELLOW) Urine Appearance Slightly cloudy (CLEAR) Urine pH 5.0 (5.0-6.5) Ur Specific [place] 1.025 (1.010-1.025) Urine Protein Negative (NEGATIVE) mg/dL Urine Glucose (UA) Normal (NORMAL) mg/dL Urine Ketones Negative (NEGATIVE) mg/dL Urine Occult Blood Negative (NEGATIVE) Urine Nitrite Negative (NEGATIVE) Urine Bilirubin Negative (NEGATIVE) Urine Urobilinogen Normal (NEGATIVE) mg/dL Ur Leukocyte Esterase Negative (NEGATIVE) Urine RBC 0-5 (0-5) Urine WBC 0-5 (0-5) Ur Squamous Epith Cells Moderate H (NS,R,O) Urine Bacteria Few H (NS) Urine Mucus Few H (NS) Urine HCG, Qual (NEGATIVE) 07/29/20 Range/Units 00:25 WBC (3.0-10.3) x10-3/uL RBC (3.60-5.20) x10(6)uL Hgb (11.4-15.5) g/dL Hct (34.2-48.2) % MCV (76.7-100.5) fL MCH (23.9-33.9) pg MCHC (31.9-34.8) g/dL RDW (12.3-16.5) % Plt Count (151-488) x10(3)uL MPV (7.1-12.4) fL Neut % (Auto) (30.8-76.2) % Lymph % (Auto) (18.4-52.1) % [place] % (Auto) (4.4-15.7) % Eos % (Auto) (0.6-8.1) % Baso % (Auto) (0.2-1.5) % Neut # (Auto) (1.5-6.3) x10-3/uL Lymph # (Auto) (1.0-4.4) x10-3/uL [place] # (Auto) (0.3-1.0) x10-3/uL Eos # (Auto) (0.0-0.8) x10-3/uL Baso # (Auto) (0.0-0.1) x10-3/uL Sodium (135-145) mmol/L Potassium (3.5-5.3) mmol/L Chloride (100-110) mmol/L Carbon Dioxide (21-32) mmol/L BUN (7-18) mg/dL Creatinine (0.55-1.02) mg/dL Est Cr Clr Drug Dosing Estimated GFR (MDRD) (>60) BUN/Creatinine Ratio (9-20) Glucose (80-116) mg/dL Calcium (8.6-10.2) mg/dL Magnesium (1.8-2.5) mg/dL Total Bilirubin (0.1-1.3) mg/dL AST (5-25) IU/L ALT (12-36) U/L Alkaline Phosphatase (56-112) IU/L Total Protein (6.0-8.0) g/dL Albumin (3.5-5.2) g/dL Globulin g/dL Albumin/Globulin Ratio Urine Color (YELLOW) Urine Appearance (CLEAR) Urine pH (5.0-6.5) Ur Specific [place] (1.010-1.025) Urine Protein (NEGATIVE) mg/dL Urine Glucose (UA) (NORMAL) mg/dL Urine Ketones (NEGATIVE) mg/dL Urine Occult Blood (NEGATIVE) Urine Nitrite (NEGATIVE) Urine Bilirubin (NEGATIVE) Urine Urobilinogen (NEGATIVE) mg/dL Ur Leukocyte Esterase (NEGATIVE) Urine RBC (0-5) Urine WBC (0-5) Ur Squamous Epith Cells (NS,R,O) Urine Bacteria (NS) Urine Mucus (NS) Urine HCG, Qual Negative (NEGATIVE) Meds: Medications Discontinued Medications Generic Name Dose Route Start Last Admin Trade Name Freq PRN Reason Stop Dose Admin Diazepam 2.5 mg 07/28/20 23:24 07/28/20 23:40 Diazepam 5 Mg Tab PO 07/28/20 23:25 2.5 mg ONETIME ONE Administration - Re-Assessments/Exams Free Text/Narrative Re-Assessment/Exam: 07/29/20 00:55: All of the patient's blood tests were reassuringly normal. The urine test was normal. Patient received IM 2.5 mg orally and reports that her dizziness is improved but not completely gone. Her EKG is normal. She does appear to have vertigo. I'm unsure of his etiology but it does appear to be peripheral in not anything of a serious nature at this point. I have discussed all this with the patient and answered her questions. She is allergic to Benadryl and Vistaril but she has taken Phenergan before without any problems. I will prescribe the patient Phenergan that she can use as needed for dizziness. She should follow-up with her primary doctor if her dizziness is persisting. Precautions and reasons for return to the emergency department were discussed with the patient while she was in the emergency department ever detailed in the patient's discharge instructions. Departure - Departure Time of Disposition: 01:04 Disposition: Home, Self-Care 01 Condition: Good (Improved) Clinical Impression: Vertigo - Discharge Information Prescriptions: Promethazine [Phenergan] 25 mg PO Q6H PRN #12 tab PRN Reason: Dizziness or nausea. Instructions: Vertigo, [id number], Dizziness, [id number] Referrals: Susanna Babcock [employer] [Nurse Practitioner] - Forms: ED Department Discharge Additional Instructions: All of your blood tests were reassuringly normal. Your urine test was normal. Your EKG was normal. I am unsure of the cause of your dizziness/vertigo. As we discussed, it could be a viral infection of your inner ear. It does not appear to be anything of a serious nature at this point. You should increase your fluid intake. Medication as prescribed for dizziness or nausea (Phenergan 25 mg). Follow-up with your primary provider if the dizziness lasts more than a few days. Back to the emergency department for unrelenting vomiting, severe headache, vision problems, localized area of weakness or numbness or any other concerning signs or symptoms. Sepsis Event Note (ED) - Focused Exam Vital Signs: Vital Signs Temp Pulse Resp BP Pulse Ox 07/28/20 22:20 37.3 C 80 18 147/100 H 97 - My Orders Last 24 Hours: My Active Orders 07/28/20 23:21 Orthostatic Vital Signs [RC] ONETIME EKG 12 Lead [EK] Routine 07/28/20 23:22 EKG Documentation Completion [RC] ASDIRECTED - Assessment/Plan Last 24 Hours: My Active Orders 07/28/20 23:21 Orthostatic Vital Signs [RC] ONETIME EKG 12 Lead [EK] Routine 07/28/20 23:22 EKG Documentation Completion [RC] ASDIRECTED
[2020-07-28] MEDS ORDERED: Diazepam 5 MG Tab PO ONE (23:24)
[2020-07-31 07:34] VITALS: BP 142/97; PULSE 75
== END 2020-07-29 01:30 | disposition home or self-care (01) ==
LOC: FB.ED 22:14
DX: R42 Dizziness and giddiness (principal); I10 Essential (primary) hypertension; K21.9 Gastro-esophageal reflux disease without esophagitis; R56.9 Unspecified convulsions; E03.9 Hypothyroidism, unspecified; E66.9 Obesity, unspecified; Z68.38 Body mass index [BMI] 38.0-38.9, adult; Z88.0 Allergy status to penicillin; Z88.5 Allergy status to narcotic agent; Z91.040 Latex allergy status; Z91.048 Other nonmedicinal substance allergy status; Z79.899 Other long term (current) drug therapy
CPT/HCPCS: 36415; 80053; 81001; 81025; 83735; 85025; 93005; 93010; 99283; 99284-25; A9270-GY

== ENCOUNTER 2021-09-25 17:56 | Emergency (ER) | payer BC, MEDICAID ==
[2021-09-25] MEDS ORDERED: Sodium Chloride 0.9% 10 ML Syringe FLUSH PRN (18:14)
[2021-09-25] MEDS ORDERED: lamoTRIgine 100 MG Tab PO STA (18:30)
[2021-09-25] MEDS ORDERED: Ondansetron 4 MG/2 ML SDV IVPUSH ONE (18:33)
[2021-09-25] MEDS ORDERED: Alum Hydroxide/Mag Hydroxide 15 ML, Lidocaine 2% 15 ML PO ONE ×2 (18:34)
[2021-09-25 18:35] LABS: ESTIMATED GFR 79 mL/min (>60)
[2021-09-25] MEDS ORDERED: levETIRAcetam 500 MG Tab PO STA (18:35)
[2021-09-25] MEDS ORDERED: Sodium Chloride 0.9% 1,000 ML IV SCH (18:45)
[2021-09-25] MEDS ORDERED: Iopamidol 755 Mg/ML 100 ML Bottle IV ONE (20:03)
[2021-09-25] MEDS: lamoTRIgine 25 MG Tab PO SCH ×2 (20:22→21:26)
[2021-09-25 21:38] VITALS: BP 159/93; PULSE 65
== END 2021-09-25 21:45 | disposition home or self-care (01) ==
LOC: FB.ED 17:56
DX: R56.9 Unspecified convulsions (principal); J45.909 Unspecified asthma, uncomplicated; R10.13 Epigastric pain; I10 Essential (primary) hypertension; E66.9 Obesity, unspecified; Z68.30 Body mass index [BMI] 30.0-30.9, adult; Z88.0 Allergy status to penicillin; Z88.1 Allergy status to other antibiotic agents; Z88.6 Allergy status to analgesic agent; Z91.011 Allergy to milk products; Z91.040 Latex allergy status; Z91.041 Radiographic dye allergy status; Z91.018 Allergy to other foods; Z79.899 Other long term (current) drug therapy
CPT/HCPCS: 74177; 80053; 80177; 81001; 81025; 82150; 83690; 85025; 99284; A9270-GY; J2405; J7030; Q9967

== ENCOUNTER 2022-07-12 20:05 | Observation (INO) | payer MEDICAID ==
[2022-07-12 20:37] LABS: BASOPHILS PERCENT AUTO 0.3 % (0.2-1.5); EOSINOPHILS PERCENT AUTO 0.1 % (0.6-8.1); HEMATOCRIT 38.8 % (34.2-48.2); HEMOGLOBIN 12.5 g/dL (11.4-15.5); LYMPHOCYTES ABSOLUTE AUTO 0.9 x10-3/uL (1.0-4.4); LYMPHOCYTES PERCENT AUTO 8.5 % (18.4-52.1); MEAN CORPUSCULAR HGB CONC 32.2 g/dL (31.9-34.8); MEAN CORPUSCULAR VOLUME 86.8 fL (76.7-100.5); MEAN PLATELET VOLUME 7.9 fL (7.1-12.4); MONOCYTES ABSOLUTE AUTO 0.4 x10-3/uL (0.3-1.0); MONOCYTES PERCENT AUTO 3.7 % (4.4-15.7); NEUTROPHILS ABSOLUTE AUTO 9.4 x10-3/uL (1.5-6.3); NEUTROPHILS PERCENT AUTO 87.4 % (30.8-76.2); PLATELET COUNT,PLT 298 x10(3)uL (151-488); RED BLOOD CELL COUNT 4.47 x10(6)uL (3.60-5.20); RED CELL DISTRIBUTION WIDTH 15.4 % (12.3-16.5); WHITE BLOOD CELL COUNT,WBC 10.7 x10-3/uL (3.0-10.3)
[2022-07-12 20:45] LABS: BLOOD UREA NITROGEN,BUN 14 mg/dL (7-18); BUN/CREATININE RATIO 12.7 (9-20); CALCIUM 9.1 mg/dL (8.6-10.2); CARBON DIOXIDE,CO2 25 mmol/L (21-32); CHLORIDE,CL 102 mmol/L (100-110); CREATININE 1.1 mg/dL (0.55-1.02); ESTIMATED GFR 70 mL/min (>60); GLUCOSE RANDOM 150 mg/dL (80-116); POTASSIUM,K 3.8 mmol/L (3.5-5.3); SODIUM,NA 140 mmol/L (135-145)
[2022-07-12] MEDS ORDERED: Fosphenytoin 1,000 MG.PE in Sodium Chloride 0.9% 50 ML IV ONE (21:43)
[2022-07-12] MEDS ORDERED: SODIUM CHLORIDE IV ONE (22:13)
[2022-07-12] MEDS ORDERED: [UNRECOGNIZED DRUG - OTHER] IV ONE (22:13)
[2022-07-12] MEDS ORDERED: FOSPHENYTOIN IV ONE (22:13)
[2022-07-12] MEDS ORDERED: LORazepam 2 MG/ML SDV IVPUSH PRN (22:14)
[2022-07-12] MEDS ORDERED: levETIRAcetam in NaCl (iso-os) 1,500 MG in Premix Bag 100 BAG IV ONE ×2 (22:15)
[2022-07-12] MEDS: Sodium Chloride 0.9% 1,000 ML IV SCH (22:30)
[2022-07-13] MEDS ORDERED: Ondansetron 4 MG/2 ML SDV IVPUSH PRN (02:07)
[2022-07-13 04:06] LABS: AMPHETAMINES SCREEN, URINE NEGATIVE (NEGATIVE); BARBITURATE SCREEN,URINE POSITIVE (NEGATIVE); BENZODIAZEPINES SCREEN,URINE NEGATIVE (NEGATIVE); BUPRENORPHINE SCREEN,URINE NEGATIVE (NEGATIVE); METHADONE SCREEN, URINE NEGATIVE (NEGATIVE); METHAMPHETAMINE SCREEN, URINE NEGATIVE (NEGATIVE); OXYCODONE SCREEN,URINE NEGATIVE (NEGATIVE); PROPOXYPHENE SCREEN,URINE NEGATIVE (NEGATIVE); THC SCREEN,URINE NEGATIVE (NEGATIVE)
[2022-07-13] MEDS: Sodium Chloride 0.9% 1,000 ML IV SCH (05:52)
[2022-07-13 06:44] LABS: BASOPHILS PERCENT AUTO 0.3 % (0.2-1.5); EOSINOPHILS PERCENT AUTO 0.3 % (0.6-8.1); HEMATOCRIT 36.7 % (34.2-48.2); HEMOGLOBIN 11.8 g/dL (11.4-15.5); LYMPHOCYTES ABSOLUTE AUTO 2.6 x10-3/uL (1.0-4.4); LYMPHOCYTES PERCENT AUTO 22.3 % (18.4-52.1); MEAN CORPUSCULAR HEMOGLOBIN 27.8 pg (23.9-33.9); MEAN CORPUSCULAR HGB CONC 32.2 g/dL (31.9-34.8); MEAN CORPUSCULAR VOLUME 86.5 fL (76.7-100.5); MEAN PLATELET VOLUME 8.2 fL (7.1-12.4); MONOCYTES ABSOLUTE AUTO 0.8 x10-3/uL (0.3-1.0); MONOCYTES PERCENT AUTO 7.1 % (4.4-15.7); NEUTROPHILS ABSOLUTE AUTO 8.2 x10-3/uL (1.5-6.3); PLATELET COUNT,PLT 268 x10(3)uL (151-488); RED BLOOD CELL COUNT 4.24 x10(6)uL (3.60-5.20); RED CELL DISTRIBUTION WIDTH 14.9 % (12.3-16.5); WHITE BLOOD CELL COUNT,WBC 11.7 x10-3/uL (3.0-10.3)
[2022-07-13 06:55] LABS: ALANINE AMINOTRANSFERASE,ALT 16 U/L (12-36); ALBUMIN 3.4 g/dL (3.5-5.2); ALKALINE PHOSPHATASE 113 IU/L (56-112); ASPARTATE AMNIOTRANSFERASE,AST 14 IU/L (5-25); BILIRUBIN TOTAL 0.5 mg/dL (0.1-1.3); BLOOD UREA NITROGEN,BUN 11 mg/dL (7-18); BUN/CREATININE RATIO 15.7 (9-20); CALCIUM 8.5 mg/dL (8.6-10.2); CARBON DIOXIDE,CO2 30 mmol/L (21-32); CHLORIDE,CL 106 mmol/L (100-110); CREATININE 0.7 mg/dL (0.55-1.02); EST CRCL DRUG DOSING (CG) 111.01 mL/min; ESTIMATED GFR 120 mL/min (>60); GLUCOSE RANDOM 88 mg/dL (80-116); POTASSIUM,K 3.7 mmol/L (3.5-5.3); SODIUM,NA 142 mmol/L (135-145)
[2022-07-13 08:18] LABS: A/G RATIO 1.1; PROTEIN TOTAL,TP 6.5 g/dL (6.0-8.0)
[2022-07-13 08:28] VITALS: BP 124/83; PULSE 70
[2022-07-13] MEDS ORDERED: levETIRAcetam 500 MG Tab PO ONE (09:45)
[2022-07-13] MEDS ORDERED: lamoTRIgine 100 MG Tab PO ONE (11:45)
== END 2022-07-13 17:10 | disposition home or self-care (01) ==
LOC: FB.ED 20:05 → UNDOADMOB 23:01 → FB.MS 23:01
PROVIDERS: ADMIT Family Medicine; ATTEND Family Medicine
DX: G40.309 Generalized idiopathic epilepsy and epileptic syndromes, not intractable, without status epilepticus (principal); R33.8 Other retention of urine; I10 Essential (primary) hypertension; J45.909 Unspecified asthma, uncomplicated; G47.30 Sleep apnea, unspecified; E03.9 Hypothyroidism, unspecified; F41.9 Anxiety disorder, unspecified; F32.A Depression, unspecified; E55.9 Vitamin D deficiency, unspecified; E53.8 Deficiency of other specified B group vitamins; E11.649 Type 2 diabetes mellitus with hypoglycemia without coma; Z79.899 Other long term (current) drug therapy; Z79.890 Hormone replacement therapy; Z88.0 Allergy status to penicillin; Z88.6 Allergy status to analgesic agent; Z91.040 Latex allergy status; Z98.890 Other specified postprocedural states
CPT/HCPCS: 36415; 51701; 80048; 80053; 80307; 82746; 83735; 84702; 85025; A9270; C1758; J1953; J2405; J3490; J7030; Q2009; 96361; 96375; G0378

== ENCOUNTER 2022-09-22 16:48 | Emergency (ER) | payer MEDICAID ==
[2022-09-22] MEDS ORDERED: Sodium Chloride 0.9% 10 ML Syringe FLUSH PRN (16:58)
[2022-09-22 17:29] LABS: BASOPHILS PERCENT AUTO 0.1 % (0.2-1.5); HEMATOCRIT 38.9 % (34.2-48.2); LYMPHOCYTES ABSOLUTE AUTO 0.9 x10-3/uL (1.0-4.4); LYMPHOCYTES PERCENT AUTO 6.6 % (18.4-52.1); MEAN CORPUSCULAR HEMOGLOBIN 30.4 pg (23.9-33.9); MEAN CORPUSCULAR HGB CONC 33.3 g/dL (31.9-34.8); MEAN CORPUSCULAR VOLUME 91.2 fL (76.7-100.5); MONOCYTES ABSOLUTE AUTO 0.4 x10-3/uL (0.3-1.0); NEUTROPHILS PERCENT AUTO 90.3 % (30.8-76.2); PLATELET COUNT,PLT 297 x10(3)uL (151-488); RED BLOOD CELL COUNT 4.26 x10(6)uL (3.60-5.20); RED CELL DISTRIBUTION WIDTH 14.7 % (12.3-16.5); WHITE BLOOD CELL COUNT,WBC 13.3 x10-3/uL (3.0-10.3)
[2022-09-22] MEDS ORDERED: Sodium Chloride 0.9% 500 ML IV ONE (17:29)
[2022-09-22] MEDS ORDERED: LORazepam 2 MG/ML SDV IVPUSH ONE (17:29)
[2022-09-22 17:38] LABS: BLOOD UREA NITROGEN,BUN 12 mg/dL (7-18); BUN/CREATININE RATIO 10.9 (9-20); CALCIUM 8.9 mg/dL (8.6-10.2); CARBON DIOXIDE,CO2 25 mmol/L (21-32); CHLORIDE,CL 104 mmol/L (100-110); CREATININE 1.1 mg/dL (0.55-1.02); ESTIMATED GFR 70 mL/min (>60); GLUCOSE RANDOM 117 mg/dL (80-116); POTASSIUM,K 4.2 mmol/L (3.5-5.3); SODIUM,NA 140 mmol/L (135-145)
[2022-09-22 17:42] LABS: A/G RATIO 1.4; ALANINE AMINOTRANSFERASE,ALT 23 U/L (12-36); ALBUMIN 4.1 g/dL (3.5-5.2); ALKALINE PHOSPHATASE 129 IU/L (56-112); ASPARTATE AMNIOTRANSFERASE,AST 15 IU/L (5-25); BILIRUBIN TOTAL 0.4 mg/dL (0.1-1.3); MAGNESIUM 2.2 mg/dL (1.8-2.5); PROTEIN TOTAL,TP 7.1 g/dL (6.0-8.0)
[2022-09-22 19:23] LABS: BILIRUBIN,URINE NEGATIVE (NEGATIVE); GLUCOSE,URINE NORMAL (NORMAL); KETONES,URINE NEGATIVE (NEGATIVE); LEUKOCYTE ESTERASE,URINE NEGATIVE (NEGATIVE); NITRITE,URINE NEGATIVE (NEGATIVE); OCCULT BLOOD,URINE NEGATIVE (NEGATIVE); PROTEIN,URINE NEGATIVE (NEGATIVE); UROBILINOGEN,URINE NORMAL (NEGATIVE)
[2022-09-22 19:24] LABS: APPEARANCE,URINE CLEAR (CLEAR); BACTERIA,URINE OCCASIONAL (NS); COLOR,URINE YELLOW (YELLOW); RBC,URINE 0-5 (0-5); SQUAMOUS EPITHELIAL CELLS,UR FEW (NS,R,O); WBC,URINE 0-5 (0-5)
[2022-09-22 19:49] VITALS: BP 101/73; PULSE 84
== END 2022-09-22 19:46 | disposition home or self-care (01) ==
LOC: FB.ED 16:48
DX: S00.512A Abrasion of oral cavity, initial encounter (principal); G40.909 Epilepsy, unspecified, not intractable, without status epilepticus; E86.0 Dehydration; I10 Essential (primary) hypertension; J45.909 Unspecified asthma, uncomplicated; E66.9 Obesity, unspecified; Z88.0 Allergy status to penicillin; Z88.5 Allergy status to narcotic agent; Z91.040 Latex allergy status; Z91.048 Other nonmedicinal substance allergy status; Z91.011 Allergy to milk products; Z68.39 Body mass index [BMI] 39.0-39.9, adult
CPT/HCPCS: 36415; 70450; 72125; 80053; 81001; 81025; 83735; 85025; 96374; 99284; 99284-25; J2060; J7040

== ENCOUNTER 2022-11-26 20:46 | Emergency (ER) | payer MEDICAID ==
[2022-11-26] MEDS ORDERED: Sodium Chloride 0.9% 10 ML Syringe FLUSH PRN (21:05)
[2022-11-26] MEDS ORDERED: LORazepam 2 MG/ML SDV IVPUSH ONE (21:05)
[2022-11-26] MEDS ORDERED: Sodium Chloride 0.9% 1,000 ML IV SCH (21:15)
[2022-11-26 21:24] LABS: BASOPHILS PERCENT AUTO 0.3 % (0.2-1.5); EOSINOPHILS ABSOLUTE AUTO 0.1 x10-3/uL (0.0-0.8); EOSINOPHILS PERCENT AUTO 0.8 % (0.6-8.1); HEMATOCRIT 39.7 % (34.2-48.2); HEMOGLOBIN 13.3 g/dL (11.4-15.5); LYMPHOCYTES ABSOLUTE AUTO 1.3 x10-3/uL (1.0-4.4); LYMPHOCYTES PERCENT AUTO 13.9 % (18.4-52.1); MEAN CORPUSCULAR HEMOGLOBIN 30.4 pg (23.9-33.9); MEAN CORPUSCULAR HGB CONC 33.5 g/dL (31.9-34.8); MEAN CORPUSCULAR VOLUME 90.8 fL (76.7-100.5); MEAN PLATELET VOLUME 7.6 fL (7.1-12.4); MONOCYTES ABSOLUTE AUTO 0.4 x10-3/uL (0.3-1.0); MONOCYTES PERCENT AUTO 4.6 % (4.4-15.7); NEUTROPHILS ABSOLUTE AUTO 7.4 x10-3/uL (1.5-6.3); NEUTROPHILS PERCENT AUTO 80.4 % (30.8-76.2); PLATELET COUNT,PLT 294 x10(3)uL (151-488); RED BLOOD CELL COUNT 4.38 x10(6)uL (3.60-5.20); RED CELL DISTRIBUTION WIDTH 13.1 % (12.3-16.5); WHITE BLOOD CELL COUNT,WBC 9.2 x10-3/uL (3.0-10.3)
[2022-11-26 21:33] LABS: BLOOD UREA NITROGEN,BUN 17 mg/dL (7-18); BUN/CREATININE RATIO 21.3 (9-20); CALCIUM 9.3 mg/dL (8.6-10.2); CARBON DIOXIDE,CO2 30 mmol/L (21-32); CHLORIDE,CL 104 mmol/L (100-110); CREATININE 0.8 mg/dL (0.55-1.02); ESTIMATED GFR 102 mL/min (>60); GLUCOSE RANDOM 125 mg/dL (80-116); SODIUM,NA 139 mmol/L (135-145)
[2022-11-26 21:39] LABS: A/G RATIO 1.1; ALANINE AMINOTRANSFERASE,ALT 21 U/L (12-36); ALBUMIN 3.7 g/dL (3.5-5.2); ALKALINE PHOSPHATASE 132 IU/L (56-112); ASPARTATE AMNIOTRANSFERASE,AST 12 IU/L (5-25); BILIRUBIN TOTAL 0.4 mg/dL (0.1-1.3); MAGNESIUM 1.8 mg/dL (1.8-2.5); PROTEIN TOTAL,TP 7.2 g/dL (6.0-8.0)
[2022-11-26] MEDS ORDERED: Ondansetron 4 MG/2 ML SDV IVPUSH ONE (21:49)
[2022-11-26 22:12] LABS: BILIRUBIN,URINE NEGATIVE (NEGATIVE); GLUCOSE,URINE NORMAL (NORMAL); KETONES,URINE NEGATIVE (NEGATIVE); LEUKOCYTE ESTERASE,URINE NEGATIVE (NEGATIVE); NITRITE,URINE NEGATIVE (NEGATIVE); OCCULT BLOOD,URINE NEGATIVE (NEGATIVE); PROTEIN,URINE NEGATIVE (NEGATIVE); UROBILINOGEN,URINE NORMAL (NEGATIVE)
[2022-11-26 22:15] LABS: APPEARANCE,URINE CLEAR (CLEAR); BACTERIA,URINE FEW (NS); COLOR,URINE YELLOW (YELLOW); RBC,URINE NOT SEEN (0-5); SQUAMOUS EPITHELIAL CELLS,UR MODERATE (NS,R,O); WBC,URINE 0-5 (0-5)
[2022-11-26 22:48] LABS: INFLUENZA A NAA NEGATIVE (NEGATIVE); INFLUENZA B NAA NEGATIVE (NEGATIVE); RESPIRATORY SYNCYTIAL VIR NAA NEGATIVE (NEGATIVE)
[2022-11-26 22:49] LABS: CORONAVIRUS COVID-19 NAA NEGATIVE (NEGATIVE)
[2022-11-27 02:51] VITALS: BP 164/97; PULSE 83
== END 2022-11-27 02:51 | disposition home or self-care (01) ==
LOC: FB.ED 20:46
DX: S09.90XA Unspecified injury of head, initial encounter (principal); G40.909 Epilepsy, unspecified, not intractable, without status epilepticus; I10 Essential (primary) hypertension; J45.909 Unspecified asthma, uncomplicated; K21.9 Gastro-esophageal reflux disease without esophagitis; E03.9 Hypothyroidism, unspecified; E66.9 Obesity, unspecified; Z20.822 Contact with and (suspected) exposure to COVID-19; Z79.899 Other long term (current) drug therapy; Z91.040 Latex allergy status; Z88.0 Allergy status to penicillin; Z91.018 Allergy to other foods; Z91.048 Other nonmedicinal substance allergy status; Z91.041 Radiographic dye allergy status; Z88.1 Allergy status to other antibiotic agents; Z88.6 Allergy status to analgesic agent; Z88.5 Allergy status to narcotic agent; X58.XXXA Exposure to other specified factors, initial encounter; Y99.0 Civilian activity done for income or pay; Y92.511 Restaurant or cafe as the place of occurrence of the external cause
CPT/HCPCS: 0241U; 36415; 70450; 80053; 81001; 81025; 83735; 85025; 86140; 96374; 99285; J2060; J7030

== ENCOUNTER 2023-03-30 16:08 | Emergency (ER) | payer MEDICAID ==
[2023-03-30] MEDS ORDERED: Azithromycin 250 MG Tab PO ONE (16:09)
[2023-03-30 16:36] LABS: HEMATOCRIT 38.7 % (34.2-48.2); HEMOGLOBIN 12.9 g/dL (11.4-15.5); MEAN CORPUSCULAR HEMOGLOBIN 30.3 pg (23.9-33.9); MEAN CORPUSCULAR HGB CONC 33.3 g/dL (31.9-34.8); MEAN PLATELET VOLUME 7.6 fL (7.1-12.4); PLATELET COUNT,PLT 310 x10(3)uL (151-488); RED BLOOD CELL COUNT 4.25 x10(6)uL (3.60-5.20); RED CELL DISTRIBUTION WIDTH 13.7 % (12.3-16.5); WHITE BLOOD CELL COUNT,WBC 12.4 x10-3/uL (3.0-10.3)
[2023-03-30 16:37] LABS: BLOOD UREA NITROGEN,BUN 15 mg/dL (7-18); BUN/CREATININE RATIO 18.8 (9-20); CALCIUM 8.7 mg/dL (8.6-10.2); CARBON DIOXIDE,CO2 27 mmol/L (21-32); CHLORIDE,CL 103 mmol/L (100-110); CREATININE 0.8 mg/dL (0.55-1.02); ESTIMATED GFR 102 mL/min (>60); GLUCOSE RANDOM 126 mg/dL (80-116); SODIUM,NA 141 mmol/L (135-145)
[2023-03-30 16:42] LABS: A/G RATIO 1.1; ALANINE AMINOTRANSFERASE,ALT 23 U/L (12-36); ALBUMIN 3.8 g/dL (3.5-5.2); ALKALINE PHOSPHATASE 128 IU/L (56-112); ASPARTATE AMNIOTRANSFERASE,AST 14 IU/L (5-25); BILIRUBIN TOTAL 0.4 mg/dL (0.1-1.3); PROTEIN TOTAL,TP 7.2 g/dL (6.0-8.0)
[2023-03-30 16:52] LABS: TSH ULTRASENSITIVE 1.35 IU/mL (0.36-3.74)
[2023-03-30 17:00] LABS: ETHANOL BLOOD MEDICAL < 0.03 % (<0.03)
[2023-03-30 17:07] LABS: LYMPHOCYTES PERCENT MAN 9 % (13-37); MONOCYTES PERCENT MAN 2 % (4-12); SEG NEUTROPHILS PERCENT MAN 89 % (46-82)
[2023-03-30] MEDS: Ondansetron 4 MG/2 ML SDV IVPUSH ONE (18:42)
[2023-03-30] MEDS: Ketorolac 30 MG/ML SDV IVPUSH ONE (18:43)
[2023-03-30] MEDS: SUMAtriptan 6 MG/0.5 ML SDV SUBCUT ONE (18:44)
[2023-03-30] MEDS: levETIRAcetam 2,000 MG in Sodium Chloride 0.9% 100 ML IV ONE (18:46)
[2023-03-31 02:32] VITALS: BP 139/95; PULSE 84
[2023-04-02 02:29] LABS: LAMOTRIGINE 5.8 ug/mL (3.0-15.0)
[2023-04-02 02:35] LABS: KEPPRA (LEVETIRACETAM) 2 ug/mL (10-40)
== END 2023-03-30 22:45 | disposition home or self-care (01) ==
LOC: FB.ED 16:08
DX: R56.9 Unspecified convulsions (principal); G43.909 Migraine, unspecified, not intractable, without status migrainosus; J20.9 Acute bronchitis, unspecified; I10 Essential (primary) hypertension; E03.9 Hypothyroidism, unspecified; Z90.49 Acquired absence of other specified parts of digestive tract; Z79.899 Other long term (current) drug therapy; Z91.018 Allergy to other foods; Z91.040 Latex allergy status; Z91.011 Allergy to milk products; Z88.0 Allergy status to penicillin; Z88.5 Allergy status to narcotic agent
CPT/HCPCS: 36415; 71045; 80053; 80175; 80177; 80307; 84443; 85025; 96365; 96372; 96375; 99285; A9270; J1885; J1953; J2405; J3030; J3490

== ENCOUNTER 2023-10-20 17:29 | Emergency (ER) | payer MEDICAID, OTHER ==
[2023-10-20 18:27] LABS: HEMATOCRIT 42.3 % (34.2-48.2); HEMOGLOBIN 13.9 g/dL (11.4-15.5); MEAN CORPUSCULAR HEMOGLOBIN 29.5 pg (23.9-33.9); MEAN CORPUSCULAR HGB CONC 32.8 g/dL (31.9-34.8); MEAN CORPUSCULAR VOLUME 89.9 fL (76.7-100.5); MEAN PLATELET VOLUME 8.1 fL (7.1-12.4); PLATELET COUNT,PLT 291 x10(3)uL (151-488); RED BLOOD CELL COUNT 4.71 x10(6)uL (3.60-5.20); RED CELL DISTRIBUTION WIDTH 13.4 % (12.3-16.5); WHITE BLOOD CELL COUNT,WBC 11.7 x10-3/uL (3.0-10.3)
[2023-10-20 18:31] LABS: BLOOD UREA NITROGEN,BUN 14 mg/dL (7-18); BUN/CREATININE RATIO 10.8 (9-20); CALCIUM 8.7 mg/dL (8.6-10.2); CARBON DIOXIDE,CO2 25 mmol/L (21-32); CHLORIDE,CL 105 mmol/L (100-110); CREATININE 1.3 mg/dL (0.55-1.02); ESTIMATED GFR 57 mL/min (>60); GLUCOSE RANDOM 110 mg/dL (80-116); POTASSIUM,K 4.4 mmol/L (3.5-5.3); SODIUM,NA 141 mmol/L (135-145)
[2023-10-20 18:37] LABS: ALANINE AMINOTRANSFERASE,ALT 31 U/L (12-36); ALBUMIN 3.7 g/dL (3.5-5.2); ALKALINE PHOSPHATASE 126 IU/L (56-112); ASPARTATE AMNIOTRANSFERASE,AST 18 IU/L (5-25); BILIRUBIN TOTAL 0.3 mg/dL (0.1-1.3); PROTEIN TOTAL,TP 7.3 g/dL (6.0-8.0)
[2023-10-20 18:41] LABS: BAND PERCENT MAN 2 % (0-6); LYMPHOCYTES PERCENT MAN 7 % (13-37); MONOCYTES PERCENT MAN 5 % (4-12); SEG NEUTROPHILS PERCENT MAN 86 % (46-82)
[2023-10-20 19:06] VITALS: BP 125/86; PULSE 102
[2023-10-20] MEDS ORDERED: Sodium Chloride 0.9% 10 ML Syringe FLUSH PRN (19:06)
[2023-10-20] MEDS: LORazepam 2 MG/ML SDV IVPUSH ONE (19:14)
[2023-10-20] MEDS: Sodium Chloride 0.9% 1,000 ML IV ONE (19:16)
[2023-10-20] MEDS ORDERED: Sodium Chloride 0.9% 1,000 ML IV ONE (20:01)
[2023-10-20] MEDS: Metoclopramide 10 MG/2 ML SDV IVPUSH ONE (20:11)
[2023-10-20] MEDS: levETIRAcetam 2,000 MG in Sodium Chloride 0.9% 100 ML IV ONE (20:11)
[2023-10-20 20:31] LABS: BILIRUBIN,URINE NEGATIVE (NEGATIVE); GLUCOSE,URINE NORMAL (NORMAL); KETONES,URINE NEGATIVE (NEGATIVE); LEUKOCYTE ESTERASE,URINE NEGATIVE (NEGATIVE); NITRITE,URINE NEGATIVE (NEGATIVE); OCCULT BLOOD,URINE NEGATIVE (NEGATIVE); PROTEIN,URINE TRACE mg/dL (NEGATIVE); UROBILINOGEN,URINE NORMAL (NEGATIVE)
[2023-10-20 20:39] LABS: APPEARANCE,URINE CLEAR (CLEAR); BACTERIA,URINE FEW (NS); COLOR,URINE YELLOW (YELLOW); RBC,URINE 0-5 (0-5); SQUAMOUS EPITHELIAL CELLS,UR FEW (NS,R,O); WBC,URINE 0-5 (0-5)
== END 2023-10-20 22:59 | disposition home or self-care (01) ==
LOC: FB.ED 17:29
DX: G40.909 Epilepsy, unspecified, not intractable, without status epilepticus (principal); I10 Essential (primary) hypertension; K21.9 Gastro-esophageal reflux disease without esophagitis; E03.9 Hypothyroidism, unspecified; E66.9 Obesity, unspecified; Z79.899 Other long term (current) drug therapy; Z88.8 Allergy status to other drugs, medicaments and biological substances; Z91.048 Other nonmedicinal substance allergy status; Z91.018 Allergy to other foods; Z91.011 Allergy to milk products; Z91.040 Latex allergy status; Z88.1 Allergy status to other antibiotic agents; Z68.32 Body mass index [BMI] 32.0-32.9, adult
CPT/HCPCS: 36415; 70450; 73080; 73562; 80053; 81001; 83605; 85025; 86140; 96361; 96374; 96375; 99284; 99285; J1953; J2060; J2765; J3490; J7030

== ENCOUNTER 2023-12-19 18:13 | Emergency (ER) | payer SELFPAY ==
[2023-12-19 18:37] VITALS: BP 125/80; PULSE 103
[2023-12-19] MEDS: Ketorolac 30 MG/ML SDV IM ONE (19:23)
[2023-12-19] MEDS: LORazepam 2 MG/ML SDV IM ONE (19:24)
== END 2023-12-19 19:55 | disposition home or self-care (01) ==
LOC: FB.ED 18:13
DX: G40.909 Epilepsy, unspecified, not intractable, without status epilepticus (principal); R51.9 Headache, unspecified; I10 Essential (primary) hypertension; J45.909 Unspecified asthma, uncomplicated; E03.9 Hypothyroidism, unspecified; E66.9 Obesity, unspecified; Z90.49 Acquired absence of other specified parts of digestive tract; Z88.0 Allergy status to penicillin; Z88.5 Allergy status to narcotic agent; Z88.8 Allergy status to other drugs, medicaments and biological substances; Z91.040 Latex allergy status; Z91.018 Allergy to other foods; Z91.011 Allergy to milk products; Z79.899 Other long term (current) drug therapy
CPT/HCPCS: 96372; 99284; J1885; J2060

== ENCOUNTER 2024-03-23 15:53 | Emergency (ER) | payer SELFPAY ==
[2024-03-23 16:09] LABS: HEMOGLOBIN 14.1 g/dL (11.4-15.5); MEAN CORPUSCULAR HEMOGLOBIN 30.2 pg (23.9-33.9); MEAN CORPUSCULAR HGB CONC 33.6 g/dL (31.9-34.8); MEAN PLATELET VOLUME 7.7 fL (7.1-12.4); PLATELET COUNT,PLT 282 x10(3)uL (151-488); RED BLOOD CELL COUNT 4.66 x10(6)uL (3.60-5.20); RED CELL DISTRIBUTION WIDTH 13.7 % (12.3-16.5)
[2024-03-23 16:11] LABS: BLOOD UREA NITROGEN,BUN 18 mg/dL (7-18); BUN/CREATININE RATIO 13.8 (9-20); CARBON DIOXIDE,CO2 25 mmol/L (21-32); CHLORIDE,CL 103 mmol/L (100-110); CREATININE 1.3 mg/dL (0.55-1.02); ESTIMATED GFR 56 mL/min (>60); GLUCOSE RANDOM 135 mg/dL (80-116); POTASSIUM,K 4.5 mmol/L (3.5-5.3); SODIUM,NA 139 mmol/L (135-145)
[2024-03-23] MEDS: LEVETIRACETAM IV ONE (16:12)
[2024-03-23] MEDS: Sodium Chloride 0.9% 10 ML Syringe FLUSH PRN (16:12)
[2024-03-23] MEDS: SODIUM CHLORIDE 0.9% IV ONE (16:12)
[2024-03-23 16:17] LABS: ALANINE AMINOTRANSFERASE,ALT 27 U/L (12-36); ALBUMIN 3.7 g/dL (3.5-5.2); ALKALINE PHOSPHATASE 134 IU/L (56-112); ASPARTATE AMNIOTRANSFERASE,AST 21 IU/L (5-25); BILIRUBIN TOTAL 0.3 mg/dL (0.1-1.3); PROTEIN TOTAL,TP 7.6 g/dL (6.0-8.0)
[2024-03-23 16:30] VITALS: BP 134/89; PULSE 91
[2024-03-23 16:31] LABS: EOSINOPHILS PERCENT MAN 1 % (0-5); LYMPHOCYTES PERCENT MAN 10 % (13-37); MONOCYTES PERCENT MAN 5 % (4-12); SEG NEUTROPHILS PERCENT MAN 84 % (46-82)
[2024-03-23] MEDS: Ketorolac 30 MG/ML SDV IVPUSH ONE (16:55)
[2024-03-23] MEDS: Ondansetron 4 MG/2 ML SDV IVPUSH ONE (16:55)
[2024-03-23] MEDS: levETIRAcetam 500 MG/5 ML SDV ONE (17:18)
== END 2024-03-23 18:33 | disposition home or self-care (01) ==
LOC: FB.ED 15:53
DX: R56.9 Unspecified convulsions (principal); I12.9 Hypertensive chronic kidney disease with stage 1 through stage 4 chronic kidney disease, or unspecified chronic kidney disease; N18.9 Chronic kidney disease, unspecified; J45.909 Unspecified asthma, uncomplicated; E03.9 Hypothyroidism, unspecified; E66.9 Obesity, unspecified; Z90.49 Acquired absence of other specified parts of digestive tract; Z88.0 Allergy status to penicillin; Z88.8 Allergy status to other drugs, medicaments and biological substances; Z91.040 Latex allergy status; Z91.048 Other nonmedicinal substance allergy status; Z91.018 Allergy to other foods; Z79.899 Other long term (current) drug therapy
CPT/HCPCS: 36415; 80053; 85025; 96365; 96375; 99284; J1885; J1953; J2405

== ENCOUNTER 2024-05-17 19:32 | Emergency (ER) | payer SELFPAY ==
[2024-05-17 19:40] VITALS: BP 155/111; PULSE 114
[2024-05-17 20:00] LABS: BASOPHILS PERCENT AUTO 0.2 % (0.2-1.5); EOSINOPHILS PERCENT AUTO 0.3 % (0.6-8.1); HEMATOCRIT 41.2 % (34.2-48.2); HEMOGLOBIN 13.7 g/dL (11.4-15.5); LYMPHOCYTES ABSOLUTE AUTO 1.3 x10-3/uL (1.0-4.4); LYMPHOCYTES PERCENT AUTO 11.8 % (18.4-52.1); MEAN CORPUSCULAR HEMOGLOBIN 29.9 pg (23.9-33.9); MEAN CORPUSCULAR HGB CONC 33.3 g/dL (31.9-34.8); MEAN CORPUSCULAR VOLUME 89.9 fL (76.7-100.5); MEAN PLATELET VOLUME 7.6 fL (7.1-12.4); MONOCYTES ABSOLUTE AUTO 0.5 x10-3/uL (0.3-1.0); MONOCYTES PERCENT AUTO 4.9 % (4.4-15.7); NEUTROPHILS ABSOLUTE AUTO 9.2 x10-3/uL (1.5-6.3); NEUTROPHILS PERCENT AUTO 82.8 % (30.8-76.2); PLATELET COUNT,PLT 360 x10(3)uL (151-488); RED BLOOD CELL COUNT 4.58 x10(6)uL (3.60-5.20); RED CELL DISTRIBUTION WIDTH 13.5 % (12.3-16.5); WHITE BLOOD CELL COUNT,WBC 11.1 x10-3/uL (3.0-10.3)
[2024-05-17 20:03] LABS: BLOOD UREA NITROGEN,BUN 10 mg/dL (7-18); CALCIUM 9.1 mg/dL (8.6-10.2); CARBON DIOXIDE,CO2 25 mmol/L (21-32); CHLORIDE,CL 102 mmol/L (100-110); EST CRCL DRUG DOSING (CG) 82.23 mL/min; ESTIMATED GFR 77 mL/min (>60); GLUCOSE RANDOM 113 mg/dL (80-116); SODIUM,NA 139 mmol/L (135-145)
[2024-05-17] MEDS: Acetaminophen 500 MG Tab PO PRN (20:07)
[2024-05-17 20:09] LABS: A/G RATIO 1.1; ALANINE AMINOTRANSFERASE,ALT 23 U/L (12-36); ALBUMIN 3.9 g/dL (3.5-5.2); ALKALINE PHOSPHATASE 118 IU/L (56-112); ASPARTATE AMNIOTRANSFERASE,AST 18 IU/L (5-25); BILIRUBIN TOTAL 0.3 mg/dL (0.1-1.3); PROTEIN TOTAL,TP 7.6 g/dL (6.0-8.0)
== END 2024-05-17 20:28 | disposition home or self-care (01) ==
LOC: FB.ED 19:32
DX: G40.309 Generalized idiopathic epilepsy and epileptic syndromes, not intractable, without status epilepticus (principal); I10 Essential (primary) hypertension; E03.9 Hypothyroidism, unspecified; Z88.0 Allergy status to penicillin; Z88.5 Allergy status to narcotic agent; Z91.011 Allergy to milk products; Z91.040 Latex allergy status; Z91.048 Other nonmedicinal substance allergy status; Z91.018 Allergy to other foods; Z79.899 Other long term (current) drug therapy
CPT/HCPCS: 36415; 80053; 85025; 99283; 99284; A9270